=== PATIENT | male | born 1955 | race Caucasian/White ===

== ENCOUNTER 2021-11-08 13:03 | Outpatient (CLI) | payer OTHER, SELFPAY ==
[2021-11-08 11:43] LABS: Cholesterol* 133 mg/dL (90-199); HDL Cholesterol* 59 mg/dL (>=40); LDL Cholesterol Calculated 59 mg/dL (<100); Triglycerides* 75 mg/dL (40-149)
[2021-11-14 09:25] LABS: Albumin* 3.6 g/dL (3.3-5.0); Chloride* 107 mmol/L (96-114); Potassium* 4.8 mmol/L (3.6-5.1); Sodium* 140 mmol/L (135-149)
[2021-11-14 09:28] LABS: Alanine Aminotransferase* 16 U/L (4-50); Alkaline Phosphatase* 83 U/L (40-150); Aspartate Amino Transferase* 27 U/L (12-35); Bilirubin Total* 0.2 mg/dL (0.1-1.5); Blood Urea Nitrogen* 37 mg/dL (7-30); Carbon Dioxide* 23 mmol/L (20-32); Creatinine* 1.3 mg/dL (0.5-1.5); Estimated Glomerular Filt Rate 60 ml/min; Glucose* 127 mg/dL (60-115); Total Protein* 5.9 g/dL (6.0-8.3)
[2021-11-14 09:29] LABS: Calcium* 9.6 mg/dL (8.4-10.6)
== END 2021-11-08 13:04 | disposition home or self-care (01) ==
PROVIDERS: PCP Family Medicine; Visit Provider Family Medicine
DX: E11.9 Type 2 diabetes mellitus without complications (principal); E78.5 Hyperlipidemia, unspecified; I10 Essential (primary) hypertension
CPT/HCPCS: 80053; 80061

== ENCOUNTER 2022-01-30 08:53 | Outpatient (CLI) | payer SELFPAY ==
--- OUTSIDE RECORDS SUMMARY | 2022-01-30 09:02 | XMS_ITS | Encounter Summary ---
:1955 Author Organization [facility] Address [address] [place] [address] Care Team Providers Name Role Phone Unavailable Primary Care Provider Unavailable Reason for Visit Reason Comments Med Refill Encounter Details Date Type Department Care Team Description 10/11/2020 Refill Division of Endocrinology in [place], Med Refill [place], [place] P.A.-C. [address] [facility] [address] [place] [address] [place] [address] [phone] (Wo rk) Social History Tobacco Use Types Packs/Day Years Used Date Smoking Tobacco: Former Cigarettes 0.3 0 05/1979 - 04/02/1985 Smokeless Tobacco: Never Alcohol Use Standard Drinks/Week Comments Yes 2 (1 standard drink = 0.6 oz pure alcoho l) Alcohol Habits Answer Date Recorded How often do you have a drink containing alcohol? 2-4 times a month 09/27/2020 How many drinks containing alcohol do you have on a 1 or 2 09/27/2020 typical day when you are drinking? How often do you have six or more drinks on one Never 09/27/2020 occasion? Social Isolation Answer Date Recorded In a typical week, how many times do you More than three yadi es a week 09/27/2020 talk on the phone with family, friends, or neighbors? How often do you get together with friends Once a week 09/27/2020 or relatives? How often do you attend confucianist or Patient refused 2020 catholic services? Do you belong to any clubs or Yes 09/27/2020 organizations such as confucianist groups, unions, fraternal or athletic groups, or school groups? How often do you attend meetings of the 1 to 4 times per yea r 09/27/2020 clubs or organizations you belong to? Are you now , , , Never 09/27/2020 , never or living with a partner? Physical Activity Answer Date Recorded On average, how many days per week do you engage in moderate to 3 days 09/27/2020 strenuous exercise (like walking fast, running, jogging, dancing, swimming, biking, or other activities that cause a light or heavy sweat)? On average, how many minutes do you engage in exercise at th is 20 min 09/27/2020 level? Stress Answer Date Recorded Do you feel stress - tense, restless, nervous, or Only a lit tle 09/27/2020 anxious, or unable to sleep at night because your mind is troubled all the time - these days? Financial Resource Strain Answer Date Recorded How hard is it for you to pay for the very basics like Not h christopher at all 09/27/2020 food, housing, medical care, and heating? Food Insecurity Answer Date Recorded Within the past 12 months, you worried that your food would Never true 09/27/2020 run out before you got money to buy more. Within the past 12 months, the food you bought just didn't N ever true 09/27/2020 last and you didn't have money to get more. Transportation Needs Answer Date Recorded In the past 12 months, has lack of transportation kept you f rom No 09/27/2020 medical appointments or from getting medications? In the past 12 months, has lack of transportation kept you f rom No 09/27/2020 meetings, work, or getting things needed for daily living? Housing Stability Answer Date Recorded In the last 12 months, was there a time when you were not ab le No 09/27/2020 to pay the mortgage or rent on time? In the last 12 months, how many places have you lived? 1 09/27/2020 In the last 12 months, was there a time when you did not hav e a No 09/27/[address] to [address] or slept in a retirement (including now)? Education Answer Date Recorded What is the highest level of school you have completed or 12 th grade 12/29/2018 the highest degree you have received? Sex Assigned at Date Recorded Not on file documented as of this encounter Miscellaneous Notes Telephone Encounter - Frida Scott R.N. - 10/12/2020 11:16 AM CDT Prescription renewal request did not meet nurse protocol because: patient has not been seen within the past 12 months and request for renewal for which the provider-issued prescription did not authorize refills for one year Protocol utilized: Prescription Renewal Request for Medications: Division of Endocrinology, Diabetes, Metabolism and Nutrition. documented in this encounter Plan of Treatment Not on filedocumented as of this encounter Visit Diagnoses Not on filedocumented in this encounter
--- OUTSIDE RECORDS SUMMARY | 2022-01-30 09:02 | XMS_ITS | Encounter Summary ---
:1955 Author Organization [facility] Address [address] [place] [address] Care Team Providers Name Role Phone Unavailable Primary Care Provider Unavailable Reason for Visit Outpatient (Routine) - Closed Specialty Diagnoses / Procedures Referred By Contact Refer red To Contact Video Medicine Diagnoses Chronic Kidney Disease Stage 1 Glomerular Filtration Rate Greater Than 90 Diabetes Mellitus Type 2 With Diabetic Nephropathy (HCC) Hypertension And Chronic Kidney Disease Stage 2 Walter Willis Jr., [place] D.O. [address] [place] [address] Referral ID Status Reason Start Date Expiration Date Visits Requ ested Visits Authorized [id number] Closed 02/08/2021 02/08/2022 1 1 Encounter Details Date Type Department Care Team Description 03/10/2021 Telemedicine Division of [place] Hyperaldosteron ism ([facility]) (Primary Dx); Nephrology and Walter Wooten Jr., Chronic Kidn ey Disease Stage 1 Glomerular Filtration Rate Greater Than 90; Hypertension in D.O. Diabetes Mellitus Type 2 With Diabetic N ephropathy (HCC); [place], [place] [address] [facility] Hypertension And Chronic Kidney Disease Stage 2; [address] [place], [place] Prolactinoma (HCC) [place] [phone] Social History Tobacco Use Types Packs/Day Years Used Date Smoking Tobacco: Former Cigarettes 0.3 0 /05/1979 - 04/02/1985 Smokeless Tobacco: Never Alcohol Use [...] or relatives? How often do you attend pentecostalism or Patient refused 2020 bahai services? Do you belong to any clubs or Yes 09/27/2020 organizations such as pentecostalism groups, unions, fraternal or athletic groups, or [...] place to sleep or slept in a assisted (including now)? Education Answer Date Recorded What is the highest level of school you have completed or 12 th grade 12/29/2018 the highest degree you have received? 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 - 03/10/2021 1:00 PM CST Subjective Nephrology HTN Phone Visit This visit took place over the phone to the patient by Dr. Walter Willis in [place], [place]. Chief Complaint/Reason for Visit Follow-up regarding hypertension, history of hyperaldosteronism, prolactinoma, and CKD stage 2. History of Present Illness: Miguelangel Gasca is a 65 y.o. male who presents for evaluation of the following concerns: Follow-up regarding the matters above. I usually see him as part of the [place] CKD practice, where he was discovered several years ago to have a prolactinoma, and hyperaldosteronism which had responded initially well to spironolactone, but unfortunately suffered dramatic side effects. Thereafter, we attempted utilization of a plantar known, which was not terribly effective. At our last visit, he was having elevated blood pressures of which we were uncertain of the validity. We had him calibrate his cough, and it turned out, that his cuff was over reading his blood pressure by 20 points. We had increased his amlodipine at her last visit to 7.5 mg daily, and he has not hadorthostatic issues. He is doing very well with his blood pressure with his blood pressures at home now running in the 131-130 5/70 6-78 range. His diabetes is been well controlled, he uses metformin, he has not had hypoglycemic events. He has not used any NSAIDs, he is careful with sodium, and has remained active in his work. He has had no headaches, no change in urine character or quantity, and although he has some irritable bowel type symptomatology otherwise he is doing very well. We discussed getting back together in July of 2021 Current Outpatient Medications: ??? amLODIPine (NORVASC) 2.5 mg tablet, Take 1 tablet (2.5 mg total) by mouth daily., Disp: 90 tablet, Rfl: 3 ??? amLODIPine (NORVASC) 5 mg tablet, Take 1 tablet (5 mg total) by mouth daily., Disp: 90 tablet, Rfl: 3 ??? cabergoline (DOSTINEX) 0.5 mg tablet, Take 1.5 tablets (0.75 mg total) by mouth 2 (two) times a week., Disp: 36 tablet, Rfl: 3 ??? carvediloL (COREG) 12.5 mg tablet, Take 12.5 mg by mouth daily., Disp: , Rfl: ? ? chlorthalidone (HYGROTEN) 25 mg tablet, Take 1 tablet by mouth daily. If SBP > 130, Disp: , Rfl: ??? eplerenone (INSPRA) 25 mg tablet, Take 1 tablet (25 mg total) by mouth daily., Disp: 90 tablet, Rfl: 3 ??? lactobacillus combination no.4 (Probiotic) 3 billion cell capsule, Take 1 capsule by mouth daily., Disp: , Rfl: ??? losartan (COZAAR) 100 mg tablet, Take 1 tablet by mouth daily., Disp: , Rfl: ??? metFORMIN (GLUCOPHAGE) 850 mg tablet, Take 850 mg by mouth 2 (two) times a day with meals., Disp: , Rfl: 11 ??? warfarin (COUMADIN) 4 mg tablet, Take 1 tablet by mouth daily., Disp: , Rfl: 0 Review of Systems REVIEW OF SYSTEMS OBJECTIVE Vitals: 03/10/21 1308 BP: 131/76 Pulse: (!) 57 Assessment/Plan: #1 Hyperaldosteronism (HCC) He seems reasonably well controlled, we will continue with his current regimen, he understands to avoid sodium, NSAIDs, stay well hydrated, and avoid weight gain. #2 Chronic Kidney Disease Stage 2 Glomerular Filtration Rate Greater Than 90 I am satisfied with his renal function which has remained stable over time. #3 Diabetes Mellitus Type 2 With Diabetic Nephropathy (HCC) His glycemic control has traditionally been excellent we will continue with the metformin. We discussed the possibility of the addition of an SG LT 2 inhibitor, for now I believe we can hold off. He will continue on his diabetes diet, avoid weight gain, stay active, and continue with the metformin. #4 Hypertension And Chronic Kidney Disease Stage 2 Please see above discussion #5 Prolactinoma (HCC) He is on cabergoline and doing well with this. 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
--- OUTSIDE RECORDS SUMMARY | 2022-01-30 09:02 | XMS_ITS | Encounter Summary ---
:1955 Author Organization [facility] Address [address] [place] [address] Care Team Providers Name Role Phone Unavailable Primary Care Provider Unavailable Reason for Visit Appointment Request (Routine) - Closed Specialty Diagnoses / Procedures Referred By Contact Refer red To Contact Nephrology and Hypertension Referral ID Status Reason Start Date Expiration Date Visits Requ ested Visits Authorized [id number] Closed 01/20/2021 01/20/2022 1 1 Encounter Details Date Type Department Care Team Description 02/08/2021 External Outreach Division of [place], [place] [facility] Disease Stage 1 Glomerular Filtration Rate Greater Than 90 (Primary Dx); Nephrology and Walter Wooten Jr., Diabetes Evelyn litus Type 2 With Diabetic Nephropathy (HCC); Hypertension in D.O. [facility]; [place], [place] [address] [facility] Prolactinoma (HCC); [address] [place], [place] Hypertension And Chronic Kid lauren Disease Stage 2 [place] [phone] [phone] Social History Tobacco Use Types Packs/Day Years [...] or relatives? How often do you attend yazdanism or Patient refused 2020 temple services? Do you belong to any clubs or Yes 09/27/2020 organizations such as yazdanism groups, unions, fraternal or athletic groups, or [...] place to sleep or slept in a skilled nursing (including now)? Education Answer Date Recorded What is the highest level of school you have completed or 12 th grade 12/29/2018 the highest degree you have received? Sex Assigned at Date Recorded Not on file documented as of this encounter Progress Notes Walter Willis Jr. D.Judd. 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
--- OUTSIDE RECORDS SUMMARY | 2022-01-30 09:02 | XMS_ITS | Encounter Summary ---
:1955 Author Organization [facility] Address [address] [place] [address] Care Team Providers Name Role Phone Unavailable Primary Care Provider Unavailable Encounter Details Date Type Department Care Team Description 02/08/2021 Orders Only Division of Nephrology and Charles Willis Hypertension in [place], ., D.O. [place] [address] [facility] [address] [place] [phone] (Wo rk) Social History Tobacco Use Types [...] or relatives? How often do you attend alevism or Patient refused 2020 hinduism services? Do you belong to any clubs or Yes 09/27/2020 organizations such as alevism groups, unions, fraternal or athletic groups, or [...] place to sleep or slept in a correction (including now)? Education Answer Date Recorded What is the highest level of school you have completed or 12 th grade 12/29/2018 the highest degree you have received? Sex Assigned at Date Recorded Not on file documented as of this encounter Plan of Treatment Not on filedocumented as of this encounter Visit Diagnoses Not on filedocumented in this encounter
--- OUTSIDE RECORDS SUMMARY | 2022-01-30 09:02 | XMS_ITS | Encounter Summary ---
:1955 Author Organization [facility] Address [address] [place] [address] Care Team Providers Name Role Phone Unavailable Primary Care Provider Unavailable Encounter Details Date Type Department Care Team Description 12/28/2020 Orders Only RST [facility] Jumana Gonzales M.D. [address] [place], [place] [phone] (Wo rk) Social History Tobacco Use Types [...] or relatives? How often do you attend scientology or Patient refused 2020 pentecostal services? Do you belong to any clubs or Yes 09/27/2020 organizations such as scientology groups, unions, fraternal or athletic groups, or [...] place to sleep or slept in a usp (including now)? Education Answer Date Recorded What [...]
--- OUTSIDE RECORDS SUMMARY | 2022-01-30 09:02 | XMS_ITS | Encounter Summary ---
:1955 Author Organization [facility] Address [address] [place] [address] Care Team Providers Name Role Phone Unavailable Primary Care Provider Unavailable Reason for Visit Reason Comments Med Refill Encounter Details Date Type Department Care Team Description 05/15/2020 Refill Division of Endocrinology in [place], Med Refill [place], [place] P.A.-C. [address] [facility] [address] [place] [address] [place] [address] [phone] (Wo rk) Social History Tobacco Use Types [...] or relatives? How often do you attend jew or Patient refused 2020 moravian services? Do you belong to any clubs or Yes 09/27/2020 organizations such as jew groups, unions, fraternal or athletic groups, or [...] place to sleep or slept in a alf (including now)? Education Answer Date Recorded What is the highest level of school you have completed or 12 th grade 12/29/2018 the highest degree you have received? Sex Assigned at Date Recorded Not on file documented as of this encounter Miscellaneous Notes Telephone Encounter - Frida Scott R.N. - 05/17/2020 9:15 AM CST Refused per email on 01/23/20 CARRIER documented in this encounter Plan of Treatment Not on filedocumented as of this encounter Visit Diagnoses Not on filedocumented in this encounter
--- OUTSIDE RECORDS SUMMARY | 2022-01-30 09:02 | XMS_ITS | Encounter Summary ---
:1955 Author Organization [facility] Address [address] [place] [address] Care Team Providers Name Role Phone Unavailable Primary Care Provider Unavailable Reason for Referral Outpatient (Routine) - Closed Specialty Diagnoses / Procedures Referred By Contact Refer red To Contact Endocrinology Diagnoses Prolactinoma (HCC) [facility] [address] [place], [place] [address] Referral ID Status Reason Start Date Expiration Date Visits Requ ested Visits Authorized [id number] Closed 12/07/2020 12/07/2021 1 1 Scheduling Instructions Labs in [place] one week before vis it. Reason for Visit Outpatient (Routine) - Closed Specialty Diagnoses / Procedures Referred By Contact Refer red To Contact Endocrinology Diagnoses Prolactinoma (HCC) Hypogonadism Pituitary (HCC) [facility] 200 [place] [address] Referral ID Status Reason Start Date Expiration Date Visits Requ ested Visits Authorized [id number] Closed 01/02/2019 01/02/2020 1 1 Encounter Details Date Type Department Care Team Description 12/07/2020 Office Visit Division of [facility] Prolactinom a (HCC) (Primary Dx); Endocrinology in S, [facility]. Hypogonadism Pituitary (HCC) [place], [place] 200 [facility] 200 [place] [phone] Social History Tobacco Use Types Packs/Day Years [...] or relatives? How often do you attend jewish or Patient refused 2020 jew services? Do you belong to any clubs or Yes 09/27/2020 organizations such as jewish groups, unions, fraternal or athletic groups, or [...] Sign Reading Time Taken Comments Blood Pressure 169/90 12/07/2020 1:37 PM true bp taken CDT Pulse 54 12/07/2020 1:37 PM CDT Temperature - - Respiratory Rate - - Oxygen Saturation - - Inhaled Oxygen Concentration - - Weight 77.7 kg (171 lb 4.8 12/07/2020 1:37 PM oz) CDT Height 173.8 cm (5' 8.43) 12/07/2020 1:37 PM CDT Body Mass Index 25.72 12/07/2020 1:37 PM CDT documented in this encounter Progress Notes [facility] P.A.-C. - 12/07/2020 2:00 PM CDT SUBJECTIVE ENDOCRINOLOGY ESTABLISHED PATIENT VISIT Service Date: 12/07/2020 CHIEF COMPLAINT/REASON FOR VISIT Mr. 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 HISTORY OF PRESENT ILLNESS Mr. Miguelangel Gasca is a pleasant 65 y.o. male who presents for evaluation and follow-up of a prolactinoma, diagnosed in 2014 after he had an MRI of the brain to assess four weeks of ear pain and headache. The MRI revealed a 2.0 x 2.2 x 1.6 cm pituitary mass, without evidence of chiasmatic compression. Prolactin level was 2806 at diagnosis. He was initially started on bromocriptine, but due to side effects he was later switched to cabergoline. As a result of the elevated prolactin, he also was notedto have hypogonadism. He is not on hypogonadism treatment, and levels have normalized. He had a history of an elevated IGF-1 during evaluation, but OGTT for GH was normal. He continues on cabergoline and has not had pituitary surgery due to possibility of recurrence. Today he presents for routine follow-up. -Last MRI: December 2017. No significant change. Stable size, signal, and configuration of previously noted sellar/right cavernous sinus lesion. No plans for further MRIs at this time unless clinically indicated otherwise (e.g. increasing prolactin levels). -Pituitary related medications: Prolactin: Cabergoline 0.5 mg, 1.5 tablets twice weekly on mornings and Sunday night. -Interval History: Mr. Gasca is doing very well. He does not have any specific symptom concerns. Continues to not even think about the tumor. No breast pain or discharge. No compulsive behaviors. No sexual dysfunction or concerns. No peripheral vision loss. He did, surprisingly, have CABG x 4 with only limited chestpain. He recovered very nicely. Review of Systems Pertinent items are noted in HPI. Constitutional: Positive for fatigue. ENT: Positive for difficulty hearing. Musculoskeletal: Positive for arthralgias, back pain, pain or stiffness in the joints and muscle pain/stiffness. The following systems were negative: Skin, Eyes, CV, Respiratory, GI, , Hematologic, Neuro, Psych The following portions of the patient's history were reviewed and updated as appropriate: allergies,current medications, problem list and medical history. OBJECTIVE Vital Signs BP (!) 169/90 (BP Location: Left arm, Patient Position: Sitting, Cuff Size: Regular) Comment: true bp taken Pulse (!) 54 Ht 173.8 cm Wt 77.7 kg BMI 25.72 kg/m?? Physical Exam Constitutional Appearance: Normal appearance. HENT Head: Normocephalic and atraumatic. Eyes Extraocular Movements: Extraocular movements intact. Pupils: Pupils are equal, round, and reactive to light. Comments: Visual prakash full to confrontation Cardiovascular Rate and Rhythm: Normal rate and regular rhythm. Heart sounds: No murmur heard. No friction rub. No gallop. Pulmonary Effort: Pulmonary effort is normal. Breath sounds: Normal breath sounds. No wheezing, rhonchi or rales. Musculoskeletal Cervical back: Normal range of motion and neck supple. Neurological Mental Status: He is alert and oriented to person, place, and time. Comments: Lower extremity strength normal Psychiatric Mood and Affect: Mood normal. Behavior: Behavior normal. Labs Results for orders placed or performed during the hospital encounter of 09/21/20 Cortisol Result Value Ref Range Cortisol AM Result 9.9 4.8 - 20 mcg/dL T4 (Thyroxine), Free Result Value Ref Range T4 (Thyroxine), Free, P 1.1 0.9 - 1.7 ng/dL Prolactin, Pituitary Macroadenoma Result Value Ref Range Prolactin Total 27.6 (H) 4.0 - 15.2 ng/mL Comment SEE COMMENT Insulin-Like Growth Factor 1 Result Value Ref Range IGF-1, LC/MS, S 148 32 - 209 ng/mL Z-score 1.04 -2.0 - 2.0 SD Testosterone, Total and Bioavailable Result Value Ref Range Testosterone, Bioavailable, S 85 40 - 168 ng/dL Testosterone, Total by Mass Spectrometry, Serum 403 240 - 950 ng/dL Pending labs include: None ASSESSMENT / PLAN Mr. Gasca and I reviewed pertinent labs together. We have agreed on a plan as follows: #1 Prolactinoma (HCC) #2 Hypogonadism Pituitary (HCC); resolved Overall Mr. Gasca is doing very well. We discussed the options of no changes, trying to suppress prolactin further, or consideration of pituitary surgery. We discussed that we can suppress prolactin further with medications, but there is no symptom benefit at this point since he feels well. Surgery is an option given that he has a macroadenoma, but he may not be cured due to proximity to the carotid artery, there is risk of recurrence, and risk of pituitary dysfunction (although that risk is generally low). We agreed after discussion to continue on his current cabergoline dose as he is doing well. No need for further MRIs as long as prolactin levels remain stable. Will not consider tapering cabergoline due to residual adenoma on MRI in 2018 at this time. Continue yearly visits, with labs (prolactin and testosterone only moving forward) in [place] one week before appointment. If at any time he has symptom concerns, he can contact me and we are happy to reassess sooner. Follow-up plan: One year with labs and return visit, sooner as needed. Mr. Gasca was in agreement with the above plan and did not have any additional questions at the end of the visit. documented in this encounter Plan of Treatment Scheduled Orders Name Type Priority Associated Diagnoses Order S chedule Testosterone, Total and Lab Routine Prolactinoma (HCC ) Expected: 11/30/2021 Free (Approximate), Expires: 12/08/2023 Prolactin Lab Routine Prolactinoma (HCC) Expected: 11/30/2021 (Approximate), Expires: 12/08/2023 Scheduled Referrals Name Type Priority Associated Diagnoses Order S chedule Endocrinology office Outpatient Routine Prolactinoma (HCC) E xpected: visit (clinic) Referral 12/07/2021 (Approximate), Expires: 12/08/2023 documented as of this encounter Visit Diagnoses Diagnosis Prolactinoma (HCC) - Primary Hypogonadism Pituitary (HCC) documented in this encounter
--- OUTSIDE RECORDS SUMMARY | 2022-01-30 09:02 | XMS_ITS | Encounter Summary ---
:1955 Author Organization [facility] Address [address] [place] [address] Care Team Providers Name Role Phone Unavailable Primary Care Provider Unavailable Reason for Visit Reason Comments Med Refill Encounter Details Date Type Department Care Team Description 07/30/2021 Refill Division of Nephrology and Lazaro, Charles Wooten Jr., Med Refill Hypertension in [facility] 200 [facility] 200 [place] [address] [place] [address] [phone] Social History Tobacco Use Types Packs/Day Years [...] or relatives? How often do you attend lutheran or Patient refused 2020 presybeterian services? Do you belong to any clubs or Yes 09/27/2020 organizations such as lutheran groups, unions, fraternal or athletic groups, or [...] for the very basics like Not h chrsitopher at all 09/27/2020 food, housing, medical care, [...] place to sleep or slept in a fpc (including now)? Education Answer Date Recorded What [...]
--- OUTSIDE RECORDS SUMMARY | 2022-01-30 09:02 | XMS_ITS | Encounter Summary ---
:1955 Author Organization [facility] Address [address] [place] [address] Care Team Providers Name Role Phone Unavailable Primary Care Provider Unavailable Encounter Details Date Type Department Care Team Description 09/21/2020 Hospital Encounter Department of [facility] Prol actinoma (HCC); Laboratory Medicine [facility], P.A.-C. Hypogonadism Pituitary (HCC) in [place] [phone] [facility] [phone] [place], [place] (Work) [phone] Social History Tobacco Use Types Packs/Day Years [...] or relatives? How often do you attend mormonism or Patient refused 2020 quaker services? Do you belong to any clubs or Yes 09/27/2020 organizations such as mormonism groups, unions, fraternal or athletic groups, or [...] place to sleep or slept in a jail (including now)? Education Answer Date Recorded What is the highest level of school you have completed or 12 th grade 12/29/2018 the highest degree you have received? Sex Assigned at Date Recorded Not on file documented as of this encounter Medications at Time of Discharge Medication Sig Dispensed Refills Start Date End Date carvediloL (COREG) 12.5 mg Take 12.5 mg by 0 07/01 tablet mouth daily. chlorthalidone (HYGROTEN) Take 1 tablet by 0 02/01 25 mg tablet mouth daily. If SBP > 130 lactobacillus combination Take 1 capsule by 0 no.4 (Probiotic) 3 billion mouth daily. cell capsule losartan (COZAAR) 100 mg Take 1 tablet by 0 01/27 tablet mouth daily. metFORMIN (GLUCOPHAGE) 850 Take 850 mg by 12/20 mg tablet mouth 2 (two) times a day with meals. warfarin (COUMADIN) 4 mg Take 1 tablet by 0 12/25 tablet mouth daily. cabergoline (DOSTINEX) 0.5 TAKE 1.5 TABLETS BY 36 tablet 1 01/23/2020 10/12/2020 mg tablet MOUTH DIRECTED TWICE A WEEK eplerenone (INSPRA) 25 mg Take 1 tablet (25 90 tablet 3 05/202008/03/2021 tablet mg total) by mouth daily. glimepiride (AMARYL) 1 mg Take 1 mg by mouth 11 12/03/2020 tablet daily. simvastatin (ZOCOR) 40 mg Take 1 tablet by 0 01/0112/03/2020 tablet mouth at bedtime. documented as of this encounter Plan of Treatment Not on filedocumented as of this encounter Procedures Procedure Name Priority Date/Time Associated Diagnosis Comme nts TESTOSTERONE, TOT AND Routine 09/21/2020 9:58 AM Prolact inoma ([facility]) Results for this BIOAVAILABLE, S CDT Hypogonadism procedure ar e in Pituitary ([facility]) the results section. INSULIN-LIKE GROWTH Routine 09/21/2020 9:58 AM Prolactinoma (H [facility]) Results for this FACTOR 1, S CDT procedure are i n the results section. CORTISOL, S Routine 09/21/2020 9:58 AM Prolactinoma (HCC) Res ults for this CDT procedure are i n the results section. PRL, MACROADENOMA Routine 09/21/2020 9:57 AM Prolactinoma (HCC ) Results for this CDT procedure are i n the results section. T4 (THYROXINE), FREE, Routine 09/21/2020 9:57 AM Prolactinoma (HCC) Results for this S CDT procedure are i n the results section. documented in this encounter Results Testosterone, Total and Bioavailable (09/21/2020 9:58 AM CDT) athologist Signature Testosterone, 85 40 - 168 09/23/2020 [facility] Bioavailable, S ng/dL 4:26 PM CDT Comment: ----ADDITIONAL INFORMATION---- Testing performed by Differential Precip itation. This test was developed and its performa nce characteristics determined by [facility] in a manner consistent with CLIA requirements. This test has not been cleared or approved by the [place] N[place] d and Drug Administration. Testosterone, Total by Mass 403 240 - 950 ng/dL 2020 11:26 AM CDT [facility] Spectrometry, Serum Comment: ----ADDITIONAL INFORMATION---- Testing performed by Liquid Chromatograp hy-Tandem Mass Spectrometry (LC-MS/MS). This test was developed and its performa nce characteristics determined by [facility] in a manner consistent with CLIA requirements. This test has not been cleared or approved by the U.[place]. Nani d and Drug Administration. Specimen Anatomical Collection Method Collection Time Receive d Time (Source) Location / / Volume Laterality Blood (Blood, 09/21/2020 9:58 AM 09/23/19 21 6:22 Venous) CDT AM CDT [facility] P.A.-C. LAB BLOOD NON ADD-ON Performing Organization Address City/State/ZIP Code Phon e Number [facility] [address] [place] [address] [place] [address] [place] [address] Laboratory Medicine and Pathology [address] [place] Insulin-Like Growth Factor 1 (09/21/2020 9:58 AM CDT) athologist Signature IGF-1, LC/MS, S 148 32 - 209 09/23/2020 [facility] ng/mL 10:42 AM CDT Z-score 1.04 -2.0 - 2.0 09/23/2020 [facility] SD 10:42 AM CDT Comment: ----ADDITIONAL INFORMATION---- This test was developed and its performa nce characteristics determined by [facility] in a manner consistent with CLIA requirements. This test has not been cleared or approved by the U.[place]. Nani d and Drug Administration. Specimen Anatomical Collection Method Collection Time Receive d Time (Source) Location / / Volume Laterality Blood (Blood, 09/21/2020 9:58 AM 09/23/19 7:50 Venous) CDT AM CDT [facility] P.A[facility] LAB BLOOD NON ADD-ON Performing Organization Address City/[facility] Code Phon e Number [facility] [address] [place], [place] [address] [place], [place] [address]t. [place] [address] Laboratory Medicine and Pathology [address] [place] Cortisol (09/21/2020 9:58 AM CDT) P athologist Signature Cortisol AM 9.9 4.8 - 20 09/21/2020 [facility] Result mcg/dL 3:38 PM CDT Comment: Biotin has been identified by the nichole avitia as a potential interfering substance. ??Higher concentr ations of biotin may be found in multivitamins, hair/nail supple ments, and workout supplements. ??If the result does not ma h clinical observations, repeat testing after patient refrains fr om the use of supplements for at least 12 hours. Specimen Anatomical Collection Method Collection Time Receive d Time (Source) Location / / Volume Laterality Blood (Blood, 09/21/2020 9:58 AM 09/22/19 2:56 Venous) CDT PM CDT [facility] P.A[facility]C. LAB BLOOD ADD-ON Performing Organization Address City/[facility] Phon e Number [facility]- [address] [place] [address] 50 [phone] [facility] [address] [place] [address] System in [address] (ABNORMAL) Prolactin, Pituitary Macroadenoma (09/21/2020 9:57 AM CDT) Patholo gist Method Time Signature Prolactin 27.6 (H) 4.0 - 09/22/2020 DTL Total 15.2 9:30 AM CDT ng/mL Comment SEE COMMENT 09/22/2020 DTL 9:30 AM CDT Comment: 10,100,and 400-fold dilutions produced r esults consistent with the absence of high-dose hook effec ts. ----ADDITIONAL INFORMATION---- The testing method is an electrochemilum inescence assay manufactured by [employer] and performed on the Esteban system. Values obtained with different assay met hods or kits may be different and cannot be used inte rchangeably. Test results cannot be interpreted as ab solute evidence for the presence or absence of malignant disease. Specimen Anatomical Collection Method Collection Time Receive d Time (Source) Location / / Volume Laterality Blood (Blood, 09/21/2020 9:57 AM 09/23/19 7:23 Venous) CDT AM CDT [facility] P.A.-C. LAB BLOOD ADD-ON Performing Organization Address City/State/ZIP Code Phon e Number [facility] - [address] [place], [place] [address] [facility] [place] [address] [facility] [address] T4 (Thyroxine), Free (09/21/2020 9:57 AM CDT) athologist Signature T4 (Thyroxine), 1.1 0.9 - 1.7 09/21/2020 [facility] Free, P ng/dL 1:46 PM CDT Comment: Biotin has been identified by the nichole avitia as a potential interfering substance. ??Higher concentr ations of biotin may be found in multivitamins, hair/nail supple ments, and workout supplements. ??If the result does not ma [facility] clinical observations, repeat testing after patient refrains fr om the use of supplements for at least 12 hours. Specimen Anatomical Collection Method Collection Time Receive d Time (Source) Location / / Volume Laterality Blood (Blood, 09/21/2020 9:57 AM 09/22/19 1:10 Venous) CDT PM CDT [facility] P.A.-C. LAB BLOOD ADD-ON Performing Organization Address City/State/ZIP Code Phon e Number [facility]- [address] [place], [place] [address] [place] [address] System in [place] [address] documented in this encounter Visit Diagnoses Diagnosis Prolactinoma (HCC) Hypogonadism Pituitary (HCC) documented in this encounter
--- OUTSIDE RECORDS SUMMARY | 2022-01-30 09:02 | XMS_ITS | Encounter Summary ---
:1955 Author Organization [facility] Address [address] [place] [address] Care Team Providers Name Role Phone Unavailable Primary Care Provider Unavailable Reason for Referral Outpatient (Routine) - Closed Specialty Diagnoses / Procedures Referred By Contact Refer red To Contact Video Medicine Diagnoses Chronic Kidney Disease Stage 1 Glomerular Filtration Rate Greater Than 90 Diabetes Mellitus Type 2 With Diabetic Nephropathy (HCC) Hypertension And Chronic Kidney Disease Stage 2 Mass Kidney [facility] Jr[facility] D[facility] 200 [place] [address] Referral ID Status Reason Start Date Expiration Date Visits Requ ested Visits Authorized [id number] Closed 08/02/2020 08/02/2021 1 1 Scheduling Instructions 2 pm ok on hsoptital Encounter Details Date Type Department Care Team Description 08/02/2020 Orders Only Division of Nephrology Walter Willis Kidney Disease Stage 1 Glomerular Filtration Rate Greater Than 90 (Primary Dx); and Hypertension in [place] DIsauroOIsauro Diabetes Mellitus Type 2 With Diabetic N ephropathy (HCC); [place], [place] [address] [facility] Hypertension And Chronic Kidney Disease Stage 2; 200 [facility] [place] [address] [phone] Social History Tobacco Use Types Packs/Day Years [...] or relatives? How often do you attend latter day or Patient refused 2020 church services? Do you belong to any clubs or Yes 09/27/2020 organizations such as latter day groups, unions, fraternal or athletic groups, or [...] place to sleep or slept in a intermediate (including now)? Education Answer Date Recorded What is the highest level of school you have completed or 12 th grade 12/29/2018 the highest degree you have received? Sex Assigned at Date Recorded Not on file documented as of this encounter Plan of Treatment Scheduled Referrals Name Type Priority Associated Diagnoses Order S chedule Video anyplace Outpatient Referral Routine Chronic Kidney Expe cted: visit Disease Stage 1 09/09/2020 Glomerular Filtration (Appro ximate), Rate Greater Best n 90 Expires: Diabetes Mellitus 08/03/2023 Type 2 With Diabetic Nephropathy (HCC ) Hypertension And Chronic Kidney Disease Stage 2 Mass Kidney documented as of this encounter Visit Diagnoses Diagnosis Chronic Kidney Disease Stage 1 Glomerula r Filtration Rate Greater Than 90 - Primary Diabetes Mellitus Type 2 With Diabetic N ephropathy (HCC) Hypertension And Chronic Kidney Disease Stage 2 Mass Kidney documented in this encounter
--- OUTSIDE RECORDS SUMMARY | 2022-01-30 09:02 | XMS_ITS | Encounter Summary ---
:1955 Author Organization [facility] Address [address] [place] [address] Care Team Providers Name Role Phone Unavailable Primary Care Provider Unavailable Reason for Visit Reason Comments Med Refill Encounter Details Date Type Department Care Team Description 01/23/2020 Refill Division of [place]ocrinology in [place], Med Refill [place], [place] P.A.-C. [address] [facility] [address] [place] [address] [place] [address] [phone] (Wo rk) Social History Tobacco Use Types [...] or relatives? How often do you attend voodoo or Patient refused 2020 presybeterian services? Do you belong to any clubs or Yes 09/27/2020 organizations such as voodoo groups, unions, fraternal or athletic groups, or [...] place to sleep or slept in a [facility] (including now)? Education Answer Date Recorded What is the highest level of school you have completed or 12 th grade 12/29/2018 the highest degree you have received? Sex Assigned at Date Recorded Not on file documented as of this encounter Miscellaneous Notes Telephone Encounter - Frida Scott R.N. - 01/23/2020 10:49 AM CDT Prescription renewal request did not meet nurse protocol because: needs 1 year follow up. Protocol utilized: Prescription Renewal Request for Medications: Division of Endocrinology, Diabetes, Metabolism and Nutrition. documented in this encounter Plan of Treatment Not on filedocumented as of this encounter Visit Diagnoses Not on filedocumented in this encounter
--- OUTSIDE RECORDS SUMMARY | 2022-01-30 09:02 | XMS_ITS | Encounter Summary ---
:1955 Author Organization [facility] Address [address] [place] [address] Care Team Providers Name Role Phone Unavailable Primary Care Provider Unavailable Reason for Visit Appointment Request (Routine) - Closed Specialty Diagnoses / Procedures Referred By Contact Refer red To Contact Nephrology and Hypertension Referral ID Status Reason Start Date Expiration Date Visits Requ ested Visits Authorized [id number] Closed 01/08/2020 01/07/2021 1 1 Encounter Details Date Type Department Care Team Description 01/21/2020 External Outreach Division of Lazaro, Umu Ki dney Disease Stage 1 Glomerular Filtration Rate Greater Than 90 (Primary Dx); Nephrology and Walter Wooten Jr., Hypertension And Chronic Kidney Disease Stage 1 To 4; Hypertension in D.O. Hypogonadism Pituitary (HCC); [place], [place] [address] [facility] Kidney [address] [place] [address] [phone] Social History Tobacco Use Types Packs/Day Years [...] or relatives? How often do you attend hindu or Patient refused 2020 samaritan services? Do you belong to any clubs or Yes 09/27/2020 organizations such as hindu groups, unions, fraternal or athletic groups, or [...] place to sleep or slept in a snf (including now)? Education Answer Date Recorded What is the highest level of school you have completed or 12 th grade 12/29/2018 the highest degree you have received? Sex Assigned at Date Recorded Not on file documented as of this encounter Progress Notes Walter Willis Jr. D.O. - 01/21/2020 1:00 PM CDT Please see scanned in note under document viewer tab for the [facility] outreach visit from this date. documented in this encounter Plan of Treatment Not on filedocumented as of this encounter Visit Diagnoses Diagnosis Chronic Kidney Disease Stage 1 Glomerula r Filtration Rate Greater Than 90 - Primary Hypertension And Chronic Kidney Disease Stage 1 To 4 Hypogonadism Pituitary (HCC) Mass Kidney documented in this encounter
--- OUTSIDE RECORDS SUMMARY | 2022-01-30 09:02 | XMS_ITS | Encounter Summary ---
:1955 Author Organization [facility] Address [address] [place] [address] Care Team Providers Name Role Phone Unavailable Primary Care Provider Unavailable Reason for Visit Appointment Request (Routine) - Closed Specialty Diagnoses / Procedures Referred By Contact Refer red To Contact Nephrology and Hypertension Referral ID Status Reason Start Date Expiration Date Visits Requ ested Visits Authorized [id number] Closed 04/22/2021 04/22/2022 1 Encounter Details Date Type Department Care Team Description 05/09/2021 External Division of Lazaro, Chronic Kidney Disease Stage 2 Glomerular Filtration Rate 60 To 89 (Primary Dx); Outreach Nephrology and Walter Wooten Jr., Diabetes Evelyn litus Type 2 With Diabetic Nephropathy (HCC); Hypertension in D.O. Mass Kidney; [place], [place] [address] [facility] Hyperaldosteronism (HCC) [address] [place] [phone] [phone] Social History Tobacco Use Types Packs/Day Years [...] or relatives? How often do you attend orthodox or Patient refused 2020 caodaism services? Do you belong to any clubs or Yes 09/27/2020 organizations such as orthodox groups, unions, fraternal or athletic groups, or [...] place to sleep or slept in a care home (including now)? Education Answer Date Recorded What is the highest level of school you have completed or 12 th grade 12/29/2018 the highest degree you have received? Sex Assigned at Date Recorded Not on file documented as of this encounter Progress Notes Walter Willis Jr. D.Maximiliano - 05/09/2021 4:00 PM CST Please see scanned in note under document viewer tab for the [facility] [place] outreach visit from this date. 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
--- OUTSIDE RECORDS SUMMARY | 2022-01-30 09:02 | XMS_ITS | Encounter Summary ---
:1955 Author Organization [facility] Address [address] [place] [address] Care Team Providers Name Role Phone Unavailable Primary Care Provider Unavailable Reason for Visit Reason Comments Pre-visit Intake Encounter Details Date Type Department Care Team Description 12/03/2020 Clinical Communication Visit Review in Pr e-visit Intake [place], [place] [address] [place] [address] Social History Tobacco Use Types Packs/Day Years [...] or relatives? How often do you attend baptist or Patient refused 2020 jewish services? Do you belong to any clubs or Yes 09/27/2020 organizations such as baptist groups, unions, fraternal or athletic groups, or [...] place to sleep or slept in a chcf (including now)? Education Answer Date Recorded What [...]
--- OUTSIDE RECORDS SUMMARY | 2022-01-30 09:02 | XMS_ITS | Encounter Summary ---
:1955 Author Organization [facility] Address [address] [place] [address] Care Team Providers Name Role Phone Unavailable Primary Care Provider Unavailable Reason for Referral Outpatient (Routine) - Closed Specialty Diagnoses / Procedures Referred By Contact Refer red To Contact Video Medicine Diagnoses Chronic Kidney Disease Stage 1 Glomerular Filtration Rate Greater Than 90 Diabetes Mellitus Type 2 With Diabetic Nephropathy (HCC) Hypertension And Chronic Kidney Disease Stage 2 [facility] Osvaldo D.OIsauro [address] [place] [address] Referral ID Status Reason Start Date Expiration Date Visits Requ ested Visits Authorized [id number] Closed 02/08/2021 02/08/2022 1 1 Scheduling Instructions 1 pm ok on hosp 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 Diabetes Mellitus Type 2 With Diabetic N ephropathy (HCC); [place], [place] [address] [facility] Hypertension And Chronic Kidney Disease Stage 2 [address] [place] [phone] Social History Tobacco Use Types Packs/Day Years [...] or relatives? How often do you attend presybeterian or Patient refused 2020 orthodox services? Do you belong to any clubs or Yes 09/27/2020 organizations such as presybeterian groups, unions, fraternal or athletic groups, or [...] place to sleep or slept in a longterm (including now)? Education Answer Date Recorded What [...] Kidney Expe cted: visit Disease Stage 1 03/10/2021, Glomerular Filtration s: Rate Greater Best n 90 02/09/2024 Diabetes Mellitus Type 2 With Diabetic Nephropathy (HCC ) Hypertension And Chronic Kidney Disease Stage 2 documented as of this encounter Visit Diagnoses Diagnosis Chronic Kidney Disease Stage 1 Glomerula r Filtration Rate Greater Than 90 - Primary Diabetes Mellitus Type 2 With Diabetic N ephropathy (HCC) Hypertension And Chronic Kidney Disease Stage 2 documented in this encounter
--- OUTSIDE RECORDS SUMMARY | 2022-01-30 09:02 | XMS_ITS | Encounter Summary ---
:1955 Author Organization [facility] Address [address] [place] [address] Care Team Providers Name Role Phone Unavailable Primary Care Provider Unavailable Reason for Referral Outpatient (Routine) - Closed Specialty Diagnoses / Procedures Referred By Contact Refer red To Contact Endocrinology Diagnoses Prolactinoma (HCC) Hypogonadism Pituitary (HCC) [facility] [address] [place] [address] Referral ID Status Reason Start Date Expiration Date Visits Requ ested Visits Authorized [id number] Closed 01/02/2019 01/02/2020 1 1 Scheduling Instructions Labs in [place] 1-2 weeks prior to our visit. Reason for Visit Outpatient (Routine) - Closed Specialty Diagnoses / Procedures Referred By Contact Refer red To Contact Endocrinology Homero Bernardo M.B. B.S. [facility] [address] [place], [place] [address] Referral ID Status Reason Start Date Expiration Date Visits Requ ested Visits Authorized [id number] Closed 12/24/2017 12/24/2018 1 1 Encounter Details Date Type Department Care Team Description 01/02/2019 Office Visit Division of Tg Mandujano Prolactinom a (HCC) (Primary Dx); Endocrinology in S, P.A.-C. Hypogonadism Pituitary (HCC) [place], [place] [address] [place] [address] [place] [phone] [phone] Social History Tobacco Use Types Packs/Day Years [...] or relatives? How often do you attend faith or Patient refused 2020 pentecostalism services? Do you belong to any clubs or Yes 09/27/2020 organizations such as faith groups, unions, fraternal or athletic groups, or [...] minutes do you engage in exercise at is 20 min 09/27/2020 level? Stress Answer [...] place to sleep or slept in a fdc (including now)? Education Answer Date Recorded What is the highest level of school you have completed or 12 th grade 12/29/2018 the highest degree you have received? Sex Assigned at Date Recorded Not on file documented as of this encounter Last Filed Vital Signs Vital Sign Reading Time Taken Comments Blood Pressure 137/81 01/02/2019 9:58 AM Average of 6 readings CDT Pulse 57 01/02/2019 9:58 AM Average of 6 readings CDT Temperature - - Respiratory Rate - - Oxygen Saturation - - Inhaled Oxygen - - Concentration Weight 92.9 kg (204 lb 12.9 01/02/2019 9:58 AM oz) CDT Height 172.2 cm (5' 7.8) 01/02/2019 9:58 AM CDT Body Mass Index 31.33 01/02/2019 9:58 AM CDT documented in this encounter H&P Notes Tg Mandujano P.A.-C. - 01/02/2019 10:00 AM CDT SUBJECTIVE ENDOCRINOLOGY ESTABLISHED PATIENT VISIT Service Date: 01/02/2019 CHIEF COMPLAINT/REASON FOR VISIT Mr. 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 HISTORY OF PRESENT ILLNESS Mr. Miguelangel Gasca is a pleasant 63 y.o. male who presents for evaluation and [...] have hypogonadism. He is not on hypogonadism treatment. He had a history of an elevated [...] does not have any specific symptom concerns. He states that he doesn't even think about the tumor. No breast pain or discharge. Had nausea upon initiating therapy, but that has resolved. He does have fatigue, but also works 14-16 hour days so he feels he has a reason for the fatigue. No compulsive behaviors. No concern for mitral valve issues. Occasional shortnessof breath with exertion, but resolves in 10 seconds. He is very active at work and no significant muscle loss. No sexual dysfunction or concerns. No peripheral vision loss. Review of Systems Pertinent items are noted [...] and medical history. OBJECTIVE Vital Signs BP 137/81 (BP Location: Left arm, Patient Position: Sitting, Cuff Size: Large) Comment: Average of 6readings Pulse (!) 57 Comment: Average of 6 readings Ht 172.2 cm Wt 92.9 kg BMI 31.33 kg/m?? Physical Exam Constitutional General: He is not in acute distress. Appearance: He is well-developed. Comments: No features of acromegaly. HENT Head: Normocephalic and atraumatic. Eyes Extraocular Movements: Extraocular movements intact. Conjunctiva/sclera: Conjunctivae normal. Comments: Visual prakash are full to confrontation. Neck Musculoskeletal: Normal range of motion and neck supple. Thyroid: No thyromegaly. Cardiovascular Rate and Rhythm: Normal rate and regular rhythm. Heart sounds: Normal heart sounds. No murmur. No friction rub. No gallop. Pulmonary Effort: Pulmonary effort is normal. Breath sounds: Normal breath sounds. Musculoskeletal Normal range of motion. Neurological Mental Status: He is alert and oriented to person, place, and time. Mental status is at baseline. Psychiatric Mood and Affect: Mood normal. Behavior: Behavior normal. Labs Results for orders placed or performed during the hospital encounter of 12/24/18 Prolactin, Pituitary Macroadenoma Result Value Ref Range Prolactin Total 29.8 (H) 4.0 - 15.2 ng/mL Comment SEE COMMENT T4 (Thyroxine), Free Result Value Ref Range T4 (Thyroxine), Free, S 1.0 0.9 - 1.7 ng/dL Testosterone, Total and Bioavailable Result Value Ref Range Testosterone, Bioavailable, S 69 40 - 168 ng/dL Testosterone, Total by Mass Spectrometry, Serum 277 240 - 950 ng/dL Pending labs include: None ASSESSMENT / PLAN Mr. Gasca and I reviewed pertinent labs together. We have agreed on a plan as follows: #1 Prolactinoma (HCC) #2 Hypogonadism Pituitary (HCC) Overall Mr. aGsca is doing very well. We discussed the [...] cabergoline dose as he is doing well. I agree there is no need for further MRIs as long as prolactin levels remain stable. Likely will notconsider tapering cabergoline due to residual adenoma on MRI in 2018. I would like to touch base with him yearly and obtain labs to ensure that we do not lose control of the prolactinoma. He agrees. He will have labs done in [place] a week or so prior to our appointment so that we may have all of the results. If at any time he has symptom concerns, he can contactme and we are happy to reassess sooner. Follow-up plan: One year with labs and return visit, sooner as needed. Mr. Gasca was in agreement with the above plan and did not have any additional questions at the end of the visit. I spent over half of a total of 20 minutes face to face with the patient in counseling and discussion and/or coordination of care as described above. documented in this encounter Plan of Treatment Scheduled Referrals Name Type Priority Associated Diagnoses Order S [facility] Endocrinology office Outpatient Routine Prolactinom a ([facility]) Expected: visit (clinic) Referral Hypogonadism 01/03/2020 Pituitary ([facility]) (Approximate ), Expires: 12/20/2021 documented as of this encounter Results Testosterone, Total and Bioavailable (09/21/2020 9:58 AM CDT) athologist Signature Testosterone, 85 40 - 168 09/23/2020 [facility] Bioavailable, S ng/dL 4:26 PM CDT Comment: ----ADDITIONAL INFORMATION---- Testing performed by Differential Precip itation. This test was developed and its performa nce characteristics determined by [facility] in a manner consistent with CLIA requirements. This test has not been cleared or approved by the U.[place] N[place] d and Drug Administration. Testosterone, Total by Mass 403 240 - 950 ng/dL 2020 11:26 AM CDT [facility] Spectrometry, Serum Comment: ----ADDITIONAL INFORMATION---- Testing performed by Liquid Chromatograp hy-Tandem Mass Spectrometry (LC-MS/MS). This test was developed and its performa nce characteristics determined by [facility] in a manner consistent with CLIA requirements. This test has not been cleared or approved by the U.S. Nani d and Drug Administration. Specimen Anatomical Collection Method Collection Time Receive d Time (Source) Location / / Volume Laterality Blood (Blood, 09/21/2020 9:58 AM 09/23/19 6:22 Venous) CDT AM CDT Tg SilveiraCIsauro LAB BLOOD NON ADD-ON Performing Organization Address City/[facility] Phon e Number [facility] [address] [place] [phone] [address] [facility] [facility] [place] [address] Laboratory Medicine and Pathology [address] [place] [address] Dr. AHRRIS Insulin-Like Growth Factor 1 (09/21/2020 9:58 AM CDT) athologist Signature IGF-1, LC/MS, S 148 32 - 209 09/23/2020 [facility] ng/mL 10:42 AM CDT Z-score 1.04 -2.0 - 2.0 09/23/2020 [facility] SD 10:42 AM CDT Comment: ----ADDITIONAL INFORMATION---- This test was developed and its performa nce characteristics determined by [facility] in a manner consistent with CLIA requirements. This test has not been cleared or approved by the U.S. Nani d and Drug Administration. Specimen Anatomical Collection Method Collection Time Receive d Time (Source) Location / / Volume Laterality Blood (Blood, 09/21/2020 9:58 AM 09/23/19 21 7:50 Venous) CDT AM CDT Tg SilveiraCIsauro LAB BLOOD NON ADD-ON Performing Organization Address City/[facility] Phon e Number [facility] [address] [place], [place] [address] [facility] [place] [address] Laboratory Medicine and Pathology [address] [place] [address] Dr. [place] Cortisol (09/21/2020 9:58 AM CDT) P athologist Signature Cortisol AM 9.9 4.8 - 20 09/21/2020 ECL[facility] Result mcg/dL 3:38 PM CDT Comment: Biotin has been identified by the nichole avitia as a potential interfering substance. ??Higher concentr ations of biotin may be found in multivitamins, hair/nail supple ments, and workout supplements. ??If the result does not [facility] clinical observations, repeat testing after patient refrains fr om the use of supplements for at least 12 hours. Specimen Anatomical Collection Method Collection Time Receive d Time (Source) Location / / Volume Laterality Blood (Blood, 09/21/2020 9:58 AM 09/22/19 2:56 Venous) CDT PM CDT Tg Mandujano P.A.-C. LAB BLOOD ADD-ON Performing Organization Address City/[facility]/ZIP Code Phon e Number [facility]- [address] [place] [phone] [facility] [place] [address] [address] (ABNORMAL) Prolactin, Pituitary Macroadenoma (09/21/2020 9:57 AM CDT) [facility] Method Time Signature Prolactin 27.6 (H) 4.0 - 09/22/2020 DTL Total 15.2 9:30 AM CDT ng/mL Comment SEE COMMENT 09/22/2020 DTL 9:30 AM CDT Comment: 10,100,and 400-fold dilutions produced r esults consistent with the absence of high-dose hook effec ts. ----ADDITIONAL INFORMATION---- The testing method is an electrochemilum inescence assay manufactured by [employer] and performed on the Esteban [...] 09/23/19 7:23 Venous) CDT AM CDT Tg SilveiraCIsauro LAB BLOOD ADD-ON Performing Organization Address City/State/ZIP Code Phon e Number [facility] - [address] [place], [place] [address] [facility] [place] [address] Laboratories-[facility] [address] [facility] T4 (Thyroxine), Free (09/21/2020 9:57 AM CDT) P athologist Signature T4 (Thyroxine), 1.1 0.9 - 1.7 09/21/2020 [facility] Free, P ng/dL 1:46 PM CDT Comment: Biotin has been identified by the nichole avitia as a potential interfering substance. ??Higher concentr ations of biotin may be found in multivitamins, hair/nail supple ments, and workout supplements. ??If the result does not [facility] clinical observations, repeat testing after patient refrains fr om the use of supplements for at least 12 hours. Specimen Anatomical Collection Method Collection Time Receive d Time (Source) Location / / Volume Laterality Blood (Blood, 09/21/2020 9:57 AM 09/22/19 1:10 Venous) CDT PM CDT Tg Mandujano P.A.-C. LAB BLOOD ADD-ON Performing Organization Address City/State/ZIP Code Phon e Number [facility]- [address] [place], [place] [address] [place] [address] System in [place] [address] documented in this encounter Visit Diagnoses Diagnosis Prolactinoma (HCC) - Primary Hypogonadism Pituitary (HCC) documented in this encounter
--- OUTSIDE RECORDS SUMMARY | 2022-01-30 09:02 | XMS_ITS | Encounter Summary ---
:1955 Author Organization [facility] Address [address] [place] [address] Care Team Providers Name Role Phone Unavailable Primary Care Provider Unavailable Reason for Visit Appointment Request (Routine) - Closed Specialty Diagnoses / Procedures Referred By Contact Refer red To Contact Nephrology and Hypertension Referral ID Status Reason Start Date Expiration Date Visits Requ ested Visits Authorized [id number] Closed 07/09/2020 07/09/2021 1 1 Encounter Details Date Type Department Care Team Description 08/02/2020 External Outreach Division of Lazaro, Umu Ki dney Disease Stage 1 Glomerular Filtration Rate Greater Than 90 (Primary Dx); Nephrology and Walter Wooten Jr., Diabetes Evelyn litus Type 2 With Diabetic Nephropathy (HCC); Hypertension in D.O. Hypertension And Chronic Kidney Disease Stage 2; [place], [place] [address] [facility] Prolactinoma (HCC); [address] [place], [place] [address] [phone] Social History Tobacco Use Types Packs/Day Years [...] or relatives? How often do you attend gnosticism or Patient refused 2020 mandaeism services? Do you belong to any clubs or Yes 09/27/2020 organizations such as gnosticism groups, unions, fraBlockAvenue or athletic groups, or school groups? How [...] of this encounter Progress Notes Walter Willis Jr., D.O. - 08/02/2020 1:30 PM CDT Please see scanned in note under document viewer tab for the [facility] outreach visit from this date. documented in this encounter Plan of Treatment Not on filedocumented as of this encounter Visit Diagnoses Diagnosis Chronic Kidney Disease Stage 1 Glomerula r Filtration Rate Greater Than 90 - Primary Diabetes Mellitus Type 2 With Diabetic N ephropathy (HCC) Hypertension And Chronic Kidney Disease Stage 2 Prolactinoma (HCC) Mass Kidney documented in this encounter
--- OUTSIDE RECORDS SUMMARY | 2022-01-30 09:02 | XMS_ITS | Encounter Summary ---
:1955 Author Organization [facility] Address [address] [place] [address] Care Team Providers Name Role Phone Unavailable Primary Care Provider Unavailable Encounter Details Date Type Department Care Team Description 07/27/2020 Clinical Communication Division of Nephrology Walter Willis and Hypertension in Je Grimaldo D.O. [place], [place] [address] [facility] [address] [place] [address] [phone] Social History Tobacco Use Types Packs/Day Years [...] you attend hindu or Patient refused 2020 adventist services? Do you belong to any clubs [...] this encounter Miscellaneous Notes Telephone Encounter - Walter Willis Jr., D.O. - 07/27/2020 3:45 PM CDT Phone message: I left him know that the left-sided renal mass is stable in size and was measured at 1.8 cm on his scan done on the . This compares favorably to the scan done earlier, and noted by Dr. ricky castillo, which was 2 cm. I reassured him. documented in this encounter Plan of Treatment Not on filedocumented as of this encounter Visit Diagnoses Not on filedocumented in this encounter
--- OUTSIDE RECORDS SUMMARY | 2022-01-30 09:02 | XMS_ITS | Encounter Summary ---
:1955 Author Organization [facility] Address [address] [place] [address] Care Team Providers Name Role Phone Unavailable Primary Care Provider Unavailable Reason for Visit Reason Comments Med Refill Encounter Details Date Type Department Care Team Description 09/03/2021 Refill Division of Endocrinology in [place], Med Refill [place], [place] P.A.-C. 200 [facility] [address] [place] [address] [place] [address] [phone] (Wo rk) Social History Tobacco Use Types [...] or relatives? How often do you attend jainism or Patient refused 2020 hoahaoism services? Do you belong to any clubs or Yes 09/27/2020 organizations such as jainism groups, unions, fraternal or athletic groups, or [...] place to sleep or slept in a halfway (including now)? Education Answer Date Recorded What [...]
--- OUTSIDE RECORDS SUMMARY | 2022-01-30 09:02 | XMS_ITS | Clinical Summary ---
:1955 Author Organization [facility] Address [address] [place] [address] Care Team Providers Name Role Phone Unavailable Primary Care Provider Unavailable Source Comments Patient records contain information from all sites at [facility]. For routine questions regarding patient records, call [phone] during business hours, M-F 8:00 AM - 5:00 PM Central Time. Record requests for emergency care only can be directed to [phone] at any time.[facility] Allergies No known active allergies Medications Medication Sig Dispensed Refills Start Date End Date Status chlorthalidone Take 1 tablet by 0 02/19/2017 Active (HYGROTEN) 25 mg mouth daily. If tablet SBP > 130 losartan (COZAAR) 100 Take 1 tablet by 0 01/27/2015 Active mg tablet mouth daily. metFORMIN (GLUCOPHAGE) Take 850 mg by 11 12/20/2018 Active 850 mg tablet mouth 2 (two) times a day with meals. warfarin (COUMADIN) 4 Take 1 tablet by 0 12/25/2018 Active mg tablet mouth daily. lactobacillus Take 1 capsule 0 07/20/2020 Active combination no.4 by mouth daily. (Probiotic) 3 billion cell capsule carvediloL (COREG) Take 12.5 mg by 0 07/14/2020 Active 12.5 mg tablet mouth daily. amLODIPine (NORVASC) 5 Take 1 tablet (5 90 tablet 3 02/08/2021 02/08/2022 Active mg tablet mg total) by mouth daily. amLODIPine (NORVASC) Take 1 tablet 90 tablet 3 02/08/2021 11/12/2021 Active 2.5 mg tablet (2.5 mg total) by mouth daily. eplerenone (INSPRA) 25 TAKE 1 TABLET BY 30 tablet 11 08/03/2021 Active mg tablet MOUTH EVERY DAY cabergoline (DOSTINEX) TAKE 1.5 TABLETS 36 tablet 3 09/05/2021 Active 0.5 mg tablet BY MOUTH DIRECTED TWICE A WEEK Active Problems Problem Noted Date Hyperaldosteronism 03/10/2021 Mass Kidney 01/21/2020 Prolactinoma 05/27/2015 Chronic Kidney Disease Stage 1 Glomerular Filtration R ate Greater Than 90 01/28/2015 Diabetes Mellitus Type 2 With Diabetic Nephropathy Hypertension And Chronic Kidney Disease Stage 2 2014 Resolved Problems Problem Noted Date Resolved Date Hypogonadism Pituitary 06/19/2015 12/07/2020 Immunizations Name Administration Dates Next Due Influenza Split 03/02/2016 Family History Medical History Relation Name Comments Hypertension Father kelli smallwood Relation Name Status Comments Father kelli smallwood Social History Tobacco Use Types Packs/Day Years [...] you attend confucianist or Patient refused 2020 yazidi services? Do you belong to any clubs [...] place to sleep or slept in a prison (including now)? Education Answer Date Recorded What is the highest level of school you have completed or 12 th grade 12/29/2018 the highest degree you have received? 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 Oxygen Saturation - - Inhaled Oxygen - - Concentration Weight 77.7 kg (171 lb 4.8 12/07/2020 1:37 PM oz) CDT Height 173.8 cm (5' 8.43) 12/07/2020 1:37 PM CDT Body Mass Index 25.72 12/07/2020 1:37 PM CDT Plan of Treatment Health Maintenance Due Date Last Done Comments CT Colonography 1955 Cologuard 1955 Diabetic Office Visit with Foot 1955 Exam FIT 1955 Hepatitis C Screening 1955 Urine Albumin 1955 Hepatitis B Vaccines (1 of 3 - 2013 Risk 3-dose series) Hemoglobin A1C 07/29/2015 01/27/2015 Dilated Eye Exam 12/24/2018 12/24/2017, 02/03/2015, 02/03/2015, Additional history exists Lipid (Cholesterol) Screening 05/09/2020 05/09/2019, 2019, 07/07/2015, Additional history exists Potassium Level 05/17/2020 05/17/2019, 05/16/2019, 05/15/2019, Additional history exists Sodium Level 05/17/2020 05/17/2019, 05/16/2019, 05/15/2019, Additional history exists Depression Screening (Annual 04/02/2021 PHQ-2) Fall Risk Screen (Annual) 04/02/2021 Creatinine Level 04/19/2021 04/19/2020, 07/12/2019, 05/17/2019, Additional history exists COVID-19 Vaccine (4 - Booster for 07/15/2021 05/20/2021, , Pfizer series) 05/01/2020 Influenza Vaccine (#1) 2021 02/23/2021, 02/24/2020, 02/18/2019, Additional history exists Office Visit for Blood Pressure 03/10/2022 03/10/2021 Check / Re-check DTaP,Tdap,and Td Vaccines (2 - Td 03/12/2022 03/12/2012 or Tdap) Colonoscopy 09/04/2022 09/04/2012 (Performed elsewhere) Colorectal Cancer Screening 09/04/2022 Abdominal Aortic Aneurysm (AAA) Completed 07/13/2019 Screen Zoster Vaccines Completed 10/20/2019, 08/18/2019 Pneumococcal vaccine (65+ years) Completed 10/14/2020, Insurance Payer Benefit Plan / Subscriber ID Effective Phone Address T ype Group Dates GENERIC GENERIC [id number] 2001-Pre [phone] [employer]CIAL COMMERCIAL sent [address] [place] [phone]
--- OUTSIDE RECORDS SUMMARY | 2022-01-30 09:02 | XMS_ITS | Encounter Summary ---
:1955 Author Organization [facility] Address [address] [place] [address] Care Team Providers Name Role Phone Unavailable Primary Care Provider Unavailable Reason for Visit Appointment Request (Routine) - Closed Specialty Diagnoses / Procedures Referred By Contact Refer red To Contact Nephrology and Hypertension Referral ID Status Reason Start Date Expiration Date Visits Requ ested Visits Authorized [id number] Closed 05/28/2020 05/28/2021 1 1 Encounter Details Date Type Department Care Team Description 06/30/2020 External Outreach Division of [facility], [facility] d[facility] Disease Stage 1 Glomerular Filtration Rate Greater Than 90 (Primary Dx); Nephrology and Walter Wooten Jr., Diabetes Evelyn litus Type 2 With Diabetic Nephropathy (HCC); Hypertension in D.O. Hypertension And Chronic Kidney Disease Stage 2; [place], [place] [address] [facility] Hypogonadism Pituitary (HCC) [address] [place] [phone] Social History Tobacco Use Types Packs/Day Years [...] or relatives? How often do you attend hinduism or Patient refused 2020 restorationist services? Do you belong to any clubs or Yes 09/27/2020 organizations such as hinduism groups, unions, fraRebtel or athletic groups, or school groups? How [...] place to sleep or slept in a fci (including now)? Education Answer Date Recorded What is the highest level of school you have completed or 12 th grade 12/29/2018 the highest degree you have received? Sex Assigned at Date Recorded Not on file documented as of this encounter Progress Notes Walter Willis Jr., D.O. - 06/30/2020 3:00 PM CDT Please see scanned in note under document viewer tab for the [facility] outreach visit from this date. documented in this encounter Plan of Treatment Not on filedocumented as of this encounter Visit Diagnoses Diagnosis Chronic Kidney Disease Stage 1 Glomerula r Filtration Rate Greater Than 90 - Primary Diabetes Mellitus Type 2 With Diabetic N ephropathy (HCC) Hypertension And Chronic Kidney Disease Stage 2 Hypogonadism Pituitary (HCC) documented in this encounter
--- OUTSIDE RECORDS SUMMARY | 2022-01-30 09:03 | XMS_ITS | Encounter Summary ---
:1955 Author Organization [facility] Address [address] [place] [address] Care Team Providers Name Role Phone Unavailable Primary Care Provider Unavailable Encounter Details Date Type Department Care Team Description 12/24/2017 Hospital Encounter Department of Homero Bernardo Prola ctinoma ([facility]) Laboratory Medicine M.B[facility]S. and Pathology, [place] [address] [address] [facility] in [place], [place] [address] [place] [address] [place], [place] (Work) [phone] Social History Tobacco Use Types Packs/Day Years Used Date Smoking Tobacco: Unknown Alcohol Habits Answer Date Recorded How often [...] or relatives? How often do you attend sabianism or Patient refused 2020 nondenominational services? Do you belong to any clubs or Yes 09/27/2020 organizations such as sabianism groups, unions, fraternal or athletic groups, or school groups? How often do you attend meetings of the 1 to 4 times per yesara r 09/27/2020 clubs or organizations you belong [...] or slept in a snf (including now)? Sex Assigned at Date Recorded Not on file documented as of this encounter Medications at Time of Discharge Medication Sig Dispensed Refills Start Date End Date chlorthalidone (HYGROTEN) Take 1 tablet by 0 02/01 25 mg tablet mouth daily. If SBP > 130 losartan (COZAAR) 100 mg Take 1 tablet by 0 01/27 tablet mouth daily. eplerenone (INSPRA) 50 mg TAKE 1.5 TABLETS BY 150 tablet 3 0 12/10/2017 06/30/2020 tabletIndications: MOUTH DAILY Hypertension And Chronic DIRECTED--THIS Kidney Disease Stage 1 To REPLACES ALDACTONE 4 glimepiride (AMARYL) 2 mg Take 1 tablet by 0 01/0101/02/2019 tablet mouth daily. metFORMIN (GLUCOPHAGE) Take 1 tablet by 0 015 01/02/2019 1,000 mg tablet mouth 2 (two) times a day. simvastatin (ZOCOR) 40 mg Take 1 tablet by 0 01/0112/03/2020 tablet mouth at bedtime. verapamil (VERELAN) 180 TAKE ONE CAPSULE BY 90 capsule 3 07/201706/30/2020 mg 24 hr capsule MOUTH ONCE DAILY-INSURANCE ONLY ALLOWS 30 DAY SUPPLY verapamil (VERELAN) 180 Take 1 capsule by 0 08/1106/30/2020 mg 24 hr capsule mouth daily. warfarin (COUMADIN) 5 mg Take 4 mg by mouth 0 01/02/2019 tablet as needed (Sunday / Sunday/ Sunday). 4 mg tab 3x/week documented as of this encounter Plan of Treatment Not on filedocumented as of this encounter Procedures Procedure Name Priority Date/Time Associated Diagnosis Comme nts TESTOSTERONE, TOT Routine 12/24/2017 8:03 AM Prolactinoma (HCC ) Results for this AND BIOAVAILABLE, S CDT procedur e are in the results section. PROLACTIN, S Routine 12/24/2017 8:03 AM Prolactinoma (HCC) Res ults for this CDT procedure are i n the results section. INSULIN-LIKE GROWTH Routine 12/24/2017 8:03 AM Prolactinoma (H CC) Results for this FACTOR 1, S CDT procedure are i n the results section. T4 (THYROXINE), Routine 12/24/2017 8:03 AM Prolactinoma (HCC) Results for this FREE, S CDT procedure are i n the results section. CORTISOL, S Routine 12/24/2017 8:03 AM Prolactinoma (HCC) Res ults for this CDT procedure are i n the results section. BASIC METABOLIC Routine 12/24/2017 8:03 AM Prolactinoma (HCC) Results for this PANEL, S/P CDT procedure are i n the results section. documented in this encounter Results Cortisol (12/24/2017 8:03 AM CDT) athologist Signature Cortisol AM 13 7 - 25 12/24/2017 [facility] Result mcg/dL 9:48 AM CDT LAB[facility]ATORIES - [facility] Specimen Anatomical Collection Method Collection Time Receive d Time (Source) Location / / Volume Laterality Blood (Blood, 12/24/2017 8:03 AM 12/25/19 18 8:22 Venous) CDT AM CDT Homero Her.S. LAB BLOOD ADD-ON Performing Organization Address City/State/ZIP Code Phon e Number [facility] - [address] [address] [facility] T4 (Thyroxine), Free (12/24/2017 8:03 AM CDT) athologist Signature T4 1.0 0.9 - 1.7 12/24/2017 [facility] (Thyroxine), ng/dL 10:07 AM CDT LABORATORIES - Free, S [facility] Specimen Anatomical Collection Method Collection Time Receive d Time (Source) Location / / Volume Laterality Blood (Blood, 12/24/2017 8:03 AM 12/25/19 18 8:22 Venous) CDT AM CDT Homero OrtezB.S. LAB BLOOD ADD-ON Performing Organization Address City/[facility]/ZIP Code Phon e Number [facility] - [address] [address] [facility] (ABNORMAL) Testosterone, Total and Bioavailable (12/24/2017 8:03 AM CDT) athologist Signature Testosterone, 67 40 - 168 12/25/2017 [facility] Bioavailable, S ng/dL 5:30 PM CDT [facility] Comment: ----ADDITIONAL INFORMATION---- Testing performed by Differential Precip itation. This test was developed and its performa nce characteristics determined by [facility] in a manner consistent with CLIA requirements. This test has not been cleared or approved by the [place] N[place] d and Drug Administration. Testosterone, Total by 232 (L) 240 - 950 12/25/2017 10:40 AM [facility] Mass Spectrometry, ng/dL CDT [facility] Comment: ----ADDITIONAL INFORMATION---- Testing performed by Liquid Chromatograp hy-Tandem Mass Spectrometry (LC-MS/MS). This test was developed and its performa nce characteristics determined by [facility] in a manner consistent with CLIA requirements. This test has not been cleared or approved by the [place] N[place] d and Drug Administration. Specimen Anatomical Collection Method Collection Time Receive d Time (Source) Location / / Volume Laterality Blood (Blood, 12/24/2017 8:03 AM 12/25/19 18 Venous) CDT 10:47 AM CDT Homero Rodriguez LAB BLOOD NON ADD-ON Performing Organization Address [facility] Phon e Number [facility] [address] [place] [address] [facility] (ABNORMAL) Prolactin (12/24/2017 8:03 AM CDT) Analysis Performed At Patho logist Time Signature Prolactin 33 (H) 4.0 - 15.2 12/24/2017 [facility] Total ng/mL 10:07 AM T [facility] Comment: ----ADDITIONAL INFORMATION---- The testing method is an [...] Location / / Volume Laterality Blood (Blood, 12/24/2017 8:03 AM 12/25/19 18 8:22 Venous) CDT AM CDT Homero DominiqueSIsauro LAB BLOOD ADD-ON Performing Organization Address City/[facility]/ZIP Code Phon e Number [place] [phone] [facility] (ABNORMAL) Insulin-like growth factor (12/24/2017 8:03 AM CDT) athologist Signature IGF-1, LC/MS, 223 (H) 33 - 220 12/27/2017 [facility] S ng/mL 8:26 AM CDT [facility] Z-score 2.01 -2.0 - 2.0 12/27/2017 [facility] SD 8:26 AM CDT [facility] Comment: ----ADDITIONAL INFORMATION---- This test was developed and its performa nce characteristics determined by [facility] in a manner consistent with CLIA requirements. This test has not been cleared or approved by the [place] N[place] d and Drug Administration. Specimen Anatomical Collection Method Collection Time Receive d Time (Source) Location / / Volume Laterality Blood (Blood, 12/24/2017 8:03 AM 12/25/19 18 Venous) CDT 12:55 PM CDT Homero Rodriguez LAB BLOOD NON ADD-ON Performing Organization Address City/State/ZIP Code Phon e Number [facility] [address] [place], [place] [address] [place] [address] CENTER (ABNORMAL) Basic metabolic panel (12/24/2017 8:03 AM CDT) [facility] gist Method Time Signature Potassium, S 4.8 3.6 - 5.2 12/24/2017 [facility] mmol/L 9:47 AM CDT [facility] - [facility] Sodium, S 149 (H) 135 - 145 12/24/2017 [facility] mmol/L 9:47 AM CDT [facility] - [facility] Chloride, S 112 (H) 98 - 107 12/24/2017 [facility] mmol/L 9:47 AM CDT [facility] - [facility] Bicarbonate, S 23 22 - 29 12/24/2017 [facility] mmol/L 9:47 AM CDT [facility] - [facility] Anion Gap 14 7 - 15 12/24/2017 [facility] 9:47 AM CDT [facility] - [facility] BUN (Blood 31 (H) 8 - 24 12/24/2017 [facility] Urea mg/dL 9:47 AM CDT LABORATORIES - Nitrogen), S [facility] Creatinine 1.53 (H) 0.74 - 12/24/2017 [facility] 1.35 9:47 AM CDT LABORATORIES - mg/dL [facility] eGFR-Non 47 (L) >=60 12/24/2017 [facility] Black/ mL/min/BS 9:47 AM CDT LABORATORIES - [facility] Comment: ----ADDITIONAL INFORMATION---- Estimated GFR calculated using the 2009 CKD_EPI creatinine equation. eGFR-Black/ 55 (L) >=60 mL/min/BSA 12/24/2017 9:47 [facility] CDT [facility] - [facility] Comment: ----ADDITIONAL INFORMATION---- Estimated GFR calculated using the 2009 CKD_EPI creatinine equation. Calcium, Total, S 9.9 8.8 - 10.2 mg/dL 12/24/2017 9:47 AM [facility] CDT LABORATORIES [facility] Glucose, S 88 70 - 140 mg/dL 12/24/2017 9:47 AM [facility] Specimen Anatomical Collection Method Collection Time Receive d Time (Source) Location / / Volume Laterality Blood (Blood, 12/24/2017 8:03 AM 12/25/19 18 8:22 Venous) CDT AM CDT Homero DominiqueSIsauro LAB BLOOD ADD-ON Performing Organization Address City/State/ZIP Code Phon e Number [facility] - [address] [place], [place] [address] [facility] documented in this encounter Visit Diagnoses Diagnosis Prolactinoma (HCC) documented in this encounter
--- OUTSIDE RECORDS SUMMARY | 2022-01-30 09:03 | XMS_ITS | Encounter Summary ---
:1955 Author Organization [facility] Address [address] [place] [address] Care Team Providers Name Role Phone Unavailable Primary Care Provider Unavailable Reason for Visit Appointment Request (Routine) - Closed Specialty Diagnoses / Procedures Referred By Contact Refer red To Contact Nephrology and Hypertension Referral ID Status Reason Start Date Expiration Date Visits Requ ested Visits Authorized [id number] Closed 04/29/2018 04/29/2019 1 Encounter Details Date Type Department Care Team Description 05/08/2018 External Outreach Division of [facility] Disease Stage 1 Glomerular Filtration Rate Greater Than 90 (Primary Dx); Nephrology and Walter Wooten Jr., Diabetes Evelyn litus Type 2 With Diabetic Nephropathy (HCC); Hypertension in D.O. Hypertension And Chronic Kidney Disease Stage 1 To 4; [place], [place] [address] [facility] Hypogonadism Pituitary (HCC); [address] [place], [place] Prolactinoma (HCC) [place] [phone] [phone] Social History Tobacco Use Types Packs/Day Years [...] you attend voodoo or Patient refused 2020 moravian services? Do [...] or slept in a assisted (including now)? Sex Assigned at Date Recorded Not on file documented as of this encounter Progress Notes Walter Willis Jr., D.O. - 05/08/2018 1:30 PM CST Please see scanned in documentation from [facility] outreach visit from this date TECHNICIAN documented in this encounter Plan of Treatment Not on filedocumented as of this encounter Visit Diagnoses Diagnosis Chronic Kidney Disease Stage 1 Glomerula r Filtration Rate Greater Than 90 - Primary Diabetes Mellitus Type 2 With Diabetic N ephropathy (HCC) Hypertension And Chronic Kidney Disease Stage 1 To 4 Hypogonadism Pituitary (HCC) Prolactinoma (HCC) documented in this encounter
--- OUTSIDE RECORDS SUMMARY | 2022-01-30 09:03 | XMS_ITS | Encounter Summary ---
:1955 Author Organization [facility] Address [address] [place] [address] Care Team Providers Name Role Phone Unavailable Primary Care Provider Unavailable Reason for Visit Appointment Request (Routine) - Closed Specialty Diagnoses / Procedures Referred By Contact Refer red To Contact Nephrology and Hypertension Referral ID Status Reason Start Date Expiration Date Visits Requ ested Visits Authorized [id number] Closed 11/13/2018 11/13/2019 1 Encounter Details Date Type Department Care Team Description 11/20/2018 External Outreach Division of [facility] dney Disease Stage 1 Glomerular Filtration Rate Greater Than 90 (Primary Dx); Nephrology and Walter Wooten Jr., Hypertension And Chronic Kidney Disease Stage 1 To 4; Hypertension in D.O. Diabetes Mellitus Type 2 With Diabetic N ephropathy (HCC); [place], [place] [address] [facility] Prolactinoma (HCC); [address] [place], [place] Hypogonadism Pituitary ([place]CC) [place] [phone] Social History Tobacco Use Types Packs/Day Years [...] or relatives? How often do you attend baptism or Patient refused 2020 methodist services? Do you belong to any clubs or Yes 09/27/2020 organizations such as baptism groups, unions, fraternal or athletic groups, or [...] place to sleep or slept in a senior living (including now)? Sex Assigned at Date Recorded Not on file documented as of this encounter Progress Notes Walter Willis Jr., D.O. - 11/20/2018 3:30 PM CDT Please see scanned in note under document viewer tab for the [facility] outreach visit from this date. 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
--- OUTSIDE RECORDS SUMMARY | 2022-01-30 09:03 | XMS_ITS | Encounter Summary ---
:1955 Author Organization [facility] Address [address] [place] [address] Care Team Providers Name Role Phone Unavailable Primary Care Provider Unavailable Reason for Visit MRI/CAT/PET Scan (Routine) - Closed Specialty Diagnoses / Procedures Referred By Contact Refer red To Contact Radiology Diagnoses Prolactinoma (HCC) [facility] Procedures MR Brain without and with IV Contrast MR Pituitary without IV Contrast TN MRI BRAIN WO CNTRST HC MRI BRAIN WO CNTRST TN MRI BRAIN WO/W CNTRST HC MRI BRAIN WO/W CNTRST [address] [place], [place] [address] Referral ID Status Reason Start Date Expiration Date Visits Requ ested Visits Authorized [id number] Closed 12/04/2017 12/04/2018 1 1 Encounter Details Date Type Department Care Team Description 12/24/2017 Hospital Encounter Department of Homero Bernardo Prola ctinoma (HCC) Rad[facility] [place], [address] [place], [place] [address] [facility] [address] [place], [place] [phone] (Work) [phone] Social History Tobacco Use Types Packs/Day Years [...] or relatives? How often do you attend evangelical or Patient refused 2020 evangelical services? Do you belong to any clubs or Yes 09/27/2020 organizations such as evangelical groups, unions, fraLK FREEMAN or athletic groups, or school groups? How [...] or slept in a correction (including now)? Sex Assigned at Date Recorded Not on file documented as of this encounter Last Filed Vital Signs Vital Sign Reading Time Taken Comments Blood Pressure - - Pulse - - Temperature - - Respiratory Rate - - Oxygen Saturation - - Inhaled Oxygen Concentration - - Weight - - Height 172.7 cm (5' 8) 12/24/2017 12:25 PM CDT Body Mass Index - - documented in this encounter Medications at Time of Discharge Medication Sig Dispensed Refills Start Date End Date chlorthalidone (HYGROTEN) Take 1 tablet by 0 02/01 25 mg tablet mouth daily. If SBP > 130 losartan (COZAAR) 100 mg Take 1 tablet by 0 01/27 tablet mouth daily. cabergoline (DOSTINEX) TAKE 1.5 TABLETS BY 60 tablet 3 12/0209/20/2018 0.5 mg tablet MOUTH DIRECTED TWICE A WEEK eplerenone (INSPRA) 50 mg TAKE 1.5 TABLETS [...] encounter Procedures Procedure Name Priority Date/Time Associated Comments Diagnosis MR BRAIN WITHOUT RAD - Routine 12/24/2017 1:32 Prolactinoma (HCC) R esults for this AND WITH IV (most inpatients PM CDT procedure a re in CONTRAST and all the results outpatients) section. documented in this encounter Results MR Brain without and with IV Contrast (12/24/2017 1:32 PM CDT) Anatomical Region Laterality Modality Head, Brain, Neuroradiology RST LOS, Neuroradiology ARZ N/A Magnetic Resonance LOS, Neuroradiology FLA LOS Specimen (Source) Anatomical Collection Method Collection Time Re ceived Time Location / / Volume Laterality 12/24/2017 2:45 PM CDT Impressions 12/24/2017 2:52 PM CDT IMPRESSION: No significant interval change compared with 08/23/16. Narrative 12/24/2017 2:52 PM CDT EXAM: MR BRAIN WITHOUT AND WITH IV CONTRAST COMPARISON: 08/23/16 FINDINGS: No significant interval change . Stable size, signal and configuration and extension of previously noted sellar /right cavernous sinus lesion. Stable appearance of pituitary, infundibulum, o ptic chiasm, cavernous sinuses, sella turcica floor and internal carotid arter ies. Remainder also otherwise stable. Procedure Note Lencho Coronel M.D., M.B.A. - 12/24/2017 EXAM: MR BRAIN WITHOUT AND WITH IV CONTR AST COMPARISON: 08/23/16 FINDINGS: No significant interval change . Stable size, signal and configuration and extension of previously noted sellar /right cavernous sinus lesion. Stable appearance of pituitary, infundibulum, o ptic chiasm, cavernous sinuses, sella turcica floor and internal carotid arter ies. Remainder also otherwise stable. IMPRESSION: No significant interval blackman ge compared with 08/23/16. Homero DominiqueSIsauro HICKEY MRI PROCEDURES documented in this encounter Visit Diagnoses Diagnosis Prolactinoma (HCC) documented in this encounter Administered Medications Inactive Administered Medications - up to 3 most recent administrations Medication Order MAR Action Action Date Dose Rate Site gadobutrol injection 0.5-15 mL Given 12/24/2017 1:32 PM CDT 9 mL (GADAVIST) 0.5-15 mL, intravenous, Once in imaging, contrast, Starting on Sun12/24/17 at 1225, For 1 dose, Imaging Protocol Orders, Dose per Radiant Medication Guidelines sodium chloride (PF) 0.9 % injection 2.5 mL Given 12/24/2017 1:32 PM CDT 2.5 mL 2.5 mL, intravenous, Once, On Sun12/24/17 at 1345, For 1 dose documented in this encounter
--- OUTSIDE RECORDS SUMMARY | 2022-01-30 09:03 | XMS_ITS | Encounter Summary ---
:1955 Author Organization [facility] Address [address] [place] [address] Care Team Providers Name Role Phone Unavailable Primary Care Provider Unavailable Encounter Details Date Type Department Care Team Description 12/24/2018 Hospital Encounter Department of Homero Bernardo Prola ctinoma ([facility]) Laboratory Medicine M.B.B.S. in [address] [address] [place], [place] [phone] [address] (Work) [phone] Social History Tobacco Use Types Packs/Day Years [...] or relatives? How often do you attend adventist or Patient refused 2020 confucianism services? Do you belong to any clubs or Yes 09/27/2020 organizations such as adventist groups, unions, fraternal or athletic groups, or [...] slept in a skilled nursing (including now)? Sex Assigned at Date Recorded Not on file documented as of this encounter Medications at Time of Discharge Medication Sig Dispensed Refills Start Date End Date chlorthalidone (HYGROTEN) Take 1 tablet by 0 02/01 25 mg tablet mouth daily. If SBP > 130 losartan (COZAAR) 100 mg Take 1 tablet by 0 01/27 tablet mouth daily. metFORMIN (GLUCOPHAGE) Take 850 mg by 11 9 850 mg tablet mouth 2 (two) times a day with meals. cabergoline (DOSTINEX) TAKE 1.5 TABLETS BY 36 tablet 3 09/0101/02/2019 0.5 mg tablet MOUTH DIRECTED TWICE A WAEEK eplerenone (INSPRA) 50 mg TAKE 1.5 TABLETS BY 150 tablet 3 0 12/10/2017 06/30/2020 tabletIndications: MOUTH DAILY Hypertension And Chronic DIRECTED--THIS Kidney Disease Stage 1 To REPLACES ALDACTONE 4 glimepiride (AMARYL) 1 mg Take 1 mg by mouth 11 12/03/2020 tablet daily. glimepiride (AMARYL) 2 mg Take 1 tablet [...] 08/1106/30/2020 mg 24 hr capsule mouth daily. verapamil (VERELAN) 180 TAKE ONE CAPSULE BY 90 capsule 3 06/30/2020 mg 24 hr capsule MOUTH ONCE DAILY-INSURANCE ONLY ALLOWS 30 DAY SUPPLY warfarin (COUMADIN) 5 mg Take 4 mg by mouth 0 01/02/2019 tablet as needed (Sunday / Sunday/ Sunday). 4 mg tab 3x/week documented as of this encounter Plan of Treatment Not on filedocumented as of this encounter Procedures Procedure Name Priority Date/Time Associated Diagnosis Comme nts PRL, MACROADENOMA Routine 12/24/2018 7:11 AM Prolactinoma (HCC ) Results for this CDT procedure are i n the results section. TESTOSTERONE, TOT AND Routine 12/24/2018 7:11 AM Prolactinoma (HCC) Results for this BIOAVAILABLE, S CDT procedure ar e in the results section. T4 (THYROXINE), FREE, Routine 12/24/2018 7:11 AM Prolactinoma (HCC) Results for this S CDT procedure are i n the results section. documented in this encounter Results Testosterone, Total and Bioavailable (12/24/2018 7:11 AM CDT) athologist Signature Testosterone, 69 40 - 168 12/26/2018 Bioavailable, S ng/dL 11:39 PM CDT Comment: ----ADDITIONAL INFORMATION---- Testing performed by Differential Precip itation. This test was developed and its performa nce characteristics determined by [facility] in a manner consistent with CLIA requirements. This test has not been cleared or approved by the [place] N[place] d and Drug Administration. Testosterone, Total by Mass 277 240 - 950 ng/dL 2018 10:35 AM CDT Spectrometry, Serum Comment: ----ADDITIONAL INFORMATION---- Testing performed by Liquid Chromatograp hy-Tandem Mass Spectrometry (LC-MS/MS). This test was developed and its performa nce characteristics determined by [facility] in a manner consistent with CLIA requirements. This test has not been cleared or approved by the U.[place]. Nani d and Drug Administration. Specimen Anatomical Collection Method Collection Time Receive d Time (Source) Location / / Volume Laterality Blood (Blood, 12/24/2018 7:11 AM 12/26/19 19 6:26 Venous) CDT AM CDT Homero Rodriguez LAB BLOOD NON ADD-ON Performing Organization Address City/State/ZIP Code Phon e Number [facility] [address] [place], [place] [address] [facility] T4 (Thyroxine), Free (12/24/2018 7:11 AM CDT) P athologist Signature T4 (Thyroxine), 1.0 0.9 - 1.7 12/24/2018 Free, S ng/dL 1:18 PM CDT Comment: Biotin has been identified by the nichole avitia as a potential interfering substance. ??Higher concentr ations of biotin may be found in multivitamins, hair/nail supple ments, and workout supplements. ??If the result does not [facility] clinical observations, repeat testing after patient refrains fr om the use of supplements for at least 12 hours. Specimen Anatomical Collection Method Collection Time Receive d Time (Source) Location / / Volume Laterality Blood (Blood, 12/24/2018 7:11 AM 12/25/19 19 Venous) CDT 12:44 PM CDT Homero Her.S. LAB BLOOD ADD-ON Performing Organization Address City/State/ZIP Code Phon e Number [facility] [address] [place] [address] [facility] (ABNORMAL) Prolactin, Pituitary Macroadenoma (12/24/2018 7:11 AM CDT) [facility] Method Time Signature Prolactin 29.8 (H) 4.0 - 12/25/2018 Total 15.2 7:38 AM CDT ng/mL Comment SEE COMMENT 12/25/2018 7:38 AM CDT Comment: 10,100,and 400-fold dilutions produced [...] Location / / Volume Laterality Blood (Blood, 12/24/2018 7:11 AM 12/26/19 19 6:33 Venous) CDT AM CDT Homero OrtezB.S. LAB BLOOD ADD-ON Performing Organization Address City/State/ZIP Code Phon e Number [facility] [address] [place], [place] [address] [place] [address] documented in this encounter Visit Diagnoses Diagnosis Prolactinoma (HCC) documented in this encounter
--- OUTSIDE RECORDS SUMMARY | 2022-01-30 09:03 | XMS_ITS | Encounter Summary ---
:1955 Author Organization [facility] Address [address] [place] [address] Care Team Providers Name Role Phone Unavailable Primary Care Provider Unavailable Reason for Visit Reason Comments Testing Only Encounter Details Date Type Department Care Team Description 12/24/2017 Ancillary Procedure Department of Mina Bernardo ([facility]) Ophthalmology in [place], [place] M.B.B.S. [address] [facility] [address] [place] [phone] Social History Tobacco Use Types Packs/Day Years [...] or relatives? How often do you attend yarsanism or Patient refused 2020 congregational services? Do you belong to any clubs or Yes 09/27/2020 organizations such as yarsanism groups, unions, fraternal or athletic groups, or [...] place to sleep or slept in a half-way (including now)? Sex Assigned at Date Recorded Not on file documented as of this encounter Plan of Treatment Not on filedocumented as of this encounter Procedures Procedure Name Priority Date/Time Associated Diagnosis Comme nts AUTOMATED VF - Routine 12/24/2017 9:42 AM Prolactinoma (HCC) R esults for this EXTENDED - OU - CDT procedure ar e in BOTH EYES the results section. documented in this encounter Results Automated VF - Extended - OU - Both Eyes (12/24/2017 9:42 AM CDT) Specimen (Source) Anatomical Location Collection Method / Collectio n Time Received Time / Laterality Volume Narrative OPHTHALMOLGY NON-IMAGING ORDERS - 4:13 PM CDT Right Eye Reliability was good. Automated visual f ield device used was Zeiss. Strategy was ARMANDO. Threshold was 24-2. F oveal threshold was normal. Findings include normal observations. Me an deviation was 0.45 decibels. Left Eye Reliability was good. Automated visual f ield device used was Zeiss. Strategy was ARMANDO. Threshold was 24-2. F oveal threshold was normal. Findings include normal observations. Me an deviation was 0.84 decibels. Notes Normal visual field both eyes. History of prolactinoma. Patient was not examined. Test interpretation only. Clinical correlation recommended. ?? Homero Rodriguez OPHTH VISUAL FIELD Performing Organization Address City/State/ZIP Code Phon e Number OPHTHALMOLGY NON-IMAGING ORDERS documented in this encounter Visit Diagnoses Diagnosis Prolactinoma (HCC) documented in this encounter
--- OUTSIDE RECORDS SUMMARY | 2022-01-30 09:03 | XMS_ITS | Encounter Summary ---
:1955 Author Organization [facility] Address [address] [place] [address] Care Team Providers Name Role Phone Unavailable Primary Care Provider Unavailable Reason for Visit Reason Comments Med Refill Encounter Details Date Type Department Care Team Description 12/08/2017 Refill Division of Nephrology and Lazaro, Charles Wooten Jr., Med Refill Hypertension in [facility] [address] [facility] [address] [place] [address] [place] [address] [phone] Social History Tobacco Use Types Packs/Day Years [...] you attend sabianism or Patient refused 2020 church services? Do [...] or slept in a jail (including now)? Sex Assigned at Date Recorded Not on file documented as of this encounter Miscellaneous Notes Telephone Encounter - Frida Minaya R.N. - 12/10/2017 4:08 PM CDT Prescription for eplerenone forwarded to provider for approval. Outside RN protocol due to historical entry. documented in this encounter Plan of Treatment Not on filedocumented as of this encounter Visit Diagnoses Diagnosis Hypertension And Chronic Kidney Disease Stage 1 To 4 - Primary documented in this encounter
--- OUTSIDE RECORDS SUMMARY | 2022-01-30 09:03 | XMS_ITS | Encounter Summary ---
:1955 Author Organization [facility] Address [address] [place] [address] Care Team Providers Name Role Phone Unavailable Primary Care Provider Unavailable Reason for Visit Reason Comments Med Refill Encounter Details Date Type Department Care Team Description 09/20/2018 Refill Division of Endocrinology in [facility], Med Refill [place], [place] M.B.B.S. [address] [facility] [address] [place] [address] [place], [place] [phone] (Wo rk) Social History Tobacco Use Types [...] or relatives? How often do you attend bahai or Patient refused 2020 pentecostal services? Do you belong to any clubs or Yes 09/27/2020 organizations such as bahai groups, unions, fraternal or athletic groups, or [...]
--- OUTSIDE RECORDS SUMMARY | 2022-01-30 09:03 | XMS_ITS | Encounter Summary ---
:1955 Author Organization [facility] Address [address] [place] [address] Care Team Providers Name Role Phone Unavailable Primary Care Provider Unavailable Reason for Visit Appointment Request (Routine) - Closed Specialty Diagnoses / Procedures Referred By Contact Refer red To Contact Nephrology and Hypertension Referral ID Status Reason Start Date Expiration Date Visits Requ ested Visits Authorized [id number] Closed 10/19/2017 10/19/2018 1 Encounter Details Date Type Department Care Team Description 10/31/2017 External Outreach Division of [facility] Willis dney Disease Stage 1 Glomerular Filtration Rate Greater Than 90 (Primary Dx); Nephrology and Walter Wooten Jr., Diabetes Evelyn litus Type 2 With Diabetic Nephropathy (HCC); Hypertension in [place] Hypertension And Chronic Kidney Disease Stage 1 To 4; [place], [place] [address] [facility] Prolactinoma (HCC); [address] [place], [place] Hypogonadism Pituitary (HCC) [place] [phone] Social History Tobacco Use Types Packs/Day Years [...] or relatives? How often do you attend spiritism or Patient refused 2020 taoist services? Do you belong to any clubs or Yes 09/27/2020 organizations such as spiritism groups, unions, fraternal or athletic groups, or [...] or slept in a [facility] (including now)? Sex Assigned at Date Recorded Not on file documented as of this encounter Progress Notes Walter Willis Jr., D.O. - 10/31/2017 1:00 PM CDT Please see scanned in [facility] note documentation from today's date documented in this encounter Plan of Treatment Not on filedocumented as of this encounter Visit Diagnoses Diagnosis Chronic Kidney Disease Stage 1 Glomerula r Filtration Rate Greater Than 90 - Primary Diabetes Mellitus Type 2 With Diabetic N ephropathy (HCC) Hypertension And Chronic Kidney Disease Stage 1 To 4 Prolactinoma (HCC) Hypogonadism Pituitary (HCC) documented in this encounter
--- OUTSIDE RECORDS SUMMARY | 2022-01-30 09:03 | XMS_ITS | Encounter Summary ---
:1955 Author Organization [facility] Address [address] [place] [address] Care Team Providers Name Role Phone Unavailable Primary Care Provider Unavailable Reason for Visit Reason Comments Med Refill Encounter Details Date Type Department Care Team Description 09/16/2018 Refill Division of Nephrology and Lazaro, Charles Wooten Jr., Med Refill Hypertension in [facility] [address] [facility] [address] [place] [address] [place] [address] [phone] Social History Tobacco Use Types Packs/Day Years [...] or relatives? How often do you attend nondenominational or Patient refused 2020 pentecostalism services? Do you belong to any clubs or Yes 09/27/2020 organizations such as nondenominational groups, unions, fraternal or athletic groups, or [...] place to sleep or slept in a [place] [facility] (including now)? Sex Assigned at Date Recorded Not on file documented as of this encounter Plan of Treatment Not on filedocumented as of this encounter Visit Diagnoses Not on filedocumented in this encounter
--- OUTSIDE RECORDS SUMMARY | 2022-01-30 09:03 | XMS_ITS | Encounter Summary ---
:1955 Author Organization [facility] Address [address] [place] [address] Care Team Providers Name Role Phone Unavailable Primary Care Provider Unavailable Reason for Referral Outpatient (Routine) - Closed Specialty Diagnoses / Procedures Referred By Contact Refer red To Contact Endocrinology Homero Bernardo, Cali. B.S. 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 B.S. [address] [phone] Referral ID Status Reason Start Date Expiration Date Visits Requ ested Visits Authorized [id number] Closed 12/04/2017 12/04/2018 1 1 Encounter Details Date Type Department Care Team Description 12/24/2017 Office Visit Division of Homero Bernardo, Prolactinoma (HCC) Endocrinology in M.B.B.S. (Primary Dx) [place], [place] [address] [place] [address] [place] [phone] Social History Tobacco Use Types Packs/Day Years [...] or relatives? How often do you attend anabaptist or Patient refused 2020 spiritism services? Do you belong to any clubs or Yes 09/27/2020 organizations such as anabaptist groups, unions, fraternal or athletic groups, or [...] place to sleep or slept in a penitentiary (including now)? Sex Assigned at Date Recorded Not on file documented as of this encounter Last Filed Vital Signs Vital Sign Reading Time Taken Comments Blood Pressure 143/88 12/24/2017 3:28 PM CDT Pulse - - Temperature - - Respiratory Rate - - Oxygen Saturation - - Inhaled Oxygen Concentration - - Weight 90.5 kg (199 lb 8.3 oz) 12/24/2017 3:28 PM CDT Height 172.6 cm (5' 7.95) 12/24/2017 3:28 PM CDT Body Mass Index 30.38 12/24/2017 3:28 PM CDT documented in this encounter Progress Notes Homero Bernardo M.B.B.S. - 12/24/2017 3:30 PM CDT SUBJECTIVE CHIEF COMPLAINT / REASON FOR VISIT Miguelangel Gasca is a 62 y.o. male who presents for evaluation of macroprolactinoma and hypogonadism. HISTORY OF PRESENT ILLNESS Mr. Gasca is a pleasant 60-year-old gentleman who was last seen in Apr 2016 for macroprolactinomafollowup. In summary, this patient was diagnosed to have macroprolactinoma in December 2014 and was initially started on bromocriptine but then secondary to side effects was switched to cabergoline. Theadenoma measured 2 cm initially with associated prolactin in the 3000 range. When I had last seen the patient, the patient's prolactin was 43 with a total testosterone of 185, bioavailable testosteronelow normal of 64. He was still having some trouble with decreased libido and, hence, we had increased his cabergoline from 0.5 mg twice a week to 0.75 mg twice a week. The patient reports that he has not had any significant nausea or vomiting or orthostatic hypotension; however, four months after increasing the dose, he had brain fogginess which has now resolved and he is tolerating cabergoline 0.75 mg twice a week. Otherwise the patient denies any headache or lightheadedness. He reports that his libido has now normalized, and he has normal erection, as well as nocturnal erection. He denies any decrease in appetite or energy. He also denies any impulse control disorder. The following portions of the patient's history were reviewed and updated as appropriate: allergies,current medications, family history, medical history, social history, surgical history and problem list. OBJECTIVE Recent Results (from the past 72 hour(s)) Basic metabolic panel Collection Time: 12/24/17 8:03 AM Result Value Potassium, S 4.8 Sodium, S 149 (H) Chloride, S 112 (H) Bicarbonate, S 23 Anion Gap 14 Bld Urea Nitrog(BUN), S 31 (H) Creatinine, S 1.53 (H) eGFR-Non Black 47 (L) eGFR-Black 55 (L) Calcium, Total 9.9 Glucose, S 88 Prolactin Collection Time: 12/24/17 8:03 AM Result Value Prolactin Total 33 (H) T4 (Thyroxine), Free Collection Time: 12/24/17 8:03 AM Result Value T4 (Thyroxine), Free, S 1.0 Cortisol Collection Time: 12/24/17 8:03 AM Result Value AM Result 13 MRI brain: No significant interval change. Stable size, signal and configuration and extension of previously noted sellar/right cavernous sinus lesion. Stable appearance of pituitary, infundibulum, optic chiasm, cavernous sinuses, sella turcica floor and internal carotid arteries. Remainder also otherwise stable. PHYSICAL EXAM Physical Exam General: Healthy appearing, in no acute distress. HEENT: No lid lag or proptosis. Visual prakash intact on confrontation testing. Thyroid: No thyroid tenderness or nodules. No thyromegaly appreciated Heart: S1, S2 normal. Regular rate and rhythm. No murmurs, rubs, or gallops appreciated. 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 He has had good response to therapy without any current adverse effects. I did give him the option of Transsphenoidal resection of this benign adenoma but no visual defects or mass effects that would push us towards surgery. His HGH suppression with OGTT to <0.3 suggests not active increased secretion of GH. No phenotypic features or symptoms of acromegaly. Recently, a.m. cortisol is normal at 13,free T4 normal at 1, prolactin improved to 33. On MRI, No significant interval change. Stable size, signal and configuration and extension of previously noted sellar/right cavernous sinus lesion. Plan: - continue current dose of cabergoline 0.75 mg PO twice a week - will follow up on testosterone tests which are currently pending. - if the testosterone is in normal range, then we will arrange for follow-up in 1 year along with prolactin and testosterone levels. Unless the prolactin starts increasing, we do not need to repeat MRIof the brain. I will be hesitant in terms of removing the patient off cabergoline as he did have a macro prolactinoma and there would be a likelihood of recurrence if we stop the cabergoline. Follow-upwill be ordered for pituitary gonadal in adrenal nurse-practitioner. Answers for HPI/ROS submitted by the patient on 12/24/2017 No general issues: Yes No eye issues: Yes Difficulty hearing: Yes No heart issues: Yes No respiratory issues: Yes No GI issues: Yes Back pain/stiffness: Yes No skin issues: Yes No neurologic issues: Yes No mental health issues: Yes No blood/lymph issues: Yes No urinary/reproductive issues: Yes documented in this encounter Plan of Treatment Scheduled Referrals Name Type Priority Associated Order Schedule Diagnoses Endocrinology office Outpatient Referral Routine Expected: visit (clinic) 12/24/2018 (Approximate), Expires: 01/24/2020 documented as of this encounter Results Testosterone, Total and Bioavailable (12/24/2018 7:11 AM CDT) athologist Signature Testosterone, 69 40 - 168 12/26/2018 Bioavailable, S ng/dL 11:39 PM CDT Comment: ----ADDITIONAL INFORMATION---- Testing performed by Differential Precip itation. This test was developed and its performa nce characteristics determined by [facility] in a manner consistent with CLIA requirements. This test has not been cleared or approved by the [place] N[place] d and Drug Administration. Testosterone, Total by Mass 277 240 - 950 ng/dL 2018 10:35 AM CDT Spectrometry, Serum Comment: ----ADDITIONAL INFORMATION---- Testing performed by Liquid Chromatograp hy-Tandem Mass Spectrometry (LC-MS/MS). This test was developed and its performa nce characteristics determined by [facility] in a manner consistent with CLIA requirements. This test has not been cleared or approved by the [place] N[place] d and Drug Administration. Specimen Anatomical Collection Method Collection Time Receive d Time (Source) Location / / Volume Laterality Blood (Blood, 12/24/2018 7:11 AM 12/26/19 19 6:26 Venous) CDT AM CDT Homero DominiqueS. LAB BLOOD NON ADD-ON Performing Organization Address City/State/ZIP Code Phon e Number [facility] [address] [place], [place] [address] [facility] T4 (Thyroxine), Free (12/24/2018 7:11 AM CDT) athologist Signature T4 (Thyroxine), 1.0 0.9 - 1.7 12/24/2018 Free, S ng/dL 1:18 PM CDT Comment: Biotin has been identified by the nichole avitia as a potential interfering substance. ??Higher concentr ations of biotin may be found in multivitamins, hair/nail supple ments, and workout supplements. ??If the result does not ma [facility] clinical observations, repeat testing after patient refrains fr om the use of supplements for at least 12 hours. Specimen Anatomical Collection Method Collection Time Receive d Time (Source) Location / / Volume Laterality Blood (Blood, 12/24/2018 7:11 AM 12/25/19 19 Venous) CDT 12:44 PM CDT Homero DominiqueSIsauro LAB BLOOD ADD-ON Performing Organization Address City/State/ZIP Code Phon e Number [facility] [address] [place] [address] LAB (ABNORMAL) Prolactin, Pituitary Macroadenoma (12/24/2018 7:11 AM CDT) [facility] gist Method Time Signature Prolactin 29.8 (H) 4.0 - 12/25/2018 Total 15.2 7:38 AM CDT ng/mL Comment SEE COMMENT 12/25/2018 7:38 AM CDT Comment: 10,100,and 400-fold dilutions produced r esults consistent with the absence of high-dose hook effec ts. ----ADDITIONAL INFORMATION---- The testing method is an electrochemilum inescence assay manufactured by [employer] and performed on the Esteban system. [...] 19 6:33 Venous) CDT AM CDT Homero Rodriguez LAB BLOOD ADD-ON Performing Organization Address City/State/ZIP Code Phon e Number [facility] [address] [place], [place] [address] [facility] documented in this encounter Visit Diagnoses Diagnosis Prolactinoma (HCC) - Primary documented in this encounter
--- OUTSIDE RECORDS SUMMARY | 2022-01-30 09:03 | XMS_ITS | Encounter Summary ---
:1955 Author Organization [facility] Address [address] [place] [address] Care Team Providers Name Role Phone Unavailable Primary Care Provider Unavailable Encounter Details Date Type Department Care Team Description 12/24/2017 Ancillary Procedure Department of Ophthalmology Social History Tobacco Use Types Packs/Day Years [...] or relatives? How often do you attend druze or Patient refused 2020 quaker services? Do you belong to any clubs or Yes 09/27/2020 organizations such as druze groups, unions, fraternal or athletic groups, or [...] or slept in a usp (including now)? Sex Assigned at Date Recorded Not on file documented as of this encounter Plan of Treatment Not on filedocumented as of this encounter Procedures Procedure Name Priority Date/Time Associated Comments Diagnosis OPHTHALMOLOGY IMAGE Routine 12/24/2017 9:53 AM Re sults for this EXAM CDT procedure are i n the results section. documented in this encounter Results OPHTHALMOLOGY IMAGE EXAM (12/24/2017 9:53 AM CDT) Specimen (Source) Anatomical Collection Method Collection Time Re ceived Time Location / / Volume Laterality 12/24/2017 12:00 PM CDT Narrative [facility] - 12/24/2017 9:53 AM CDT This order has been created and auto-finalized to support the import of images acquired without order. The clini ephraim documentation to support these images can be found on the encounter charissa t produced images. Provider Not In System IMG NON RAD IMAGING PROCEDUR ES Performing Organization Address City/State/ZIP Code Phon e Number [facility] NA documented in this encounter Visit Diagnoses Not on filedocumented in this encounter
--- OUTSIDE RECORDS SUMMARY | 2022-01-30 09:03 | XMS_ITS | Encounter Summary ---
:1955 Author Organization [facility] Address [address] [place] [address] Care Team Providers Name Role Phone Unavailable Primary Care Provider Unavailable Encounter Details Date Type Department Care Team Description 10/19/2017 Abstract DATA ABSTRACTION Provider, Historical Social History Tobacco Use Types Packs/Day Years [...] or relatives? How often do you attend islam or Patient refused 2020 worship services? Do you belong to any clubs or Yes 09/27/2020 organizations such as islam groups, unions, fraternal or athletic groups, or [...] place to sleep or slept in a detention (including now)? Sex Assigned at Date Recorded Not on file documented as of this encounter Plan of Treatment Not on filedocumented as of this encounter Visit Diagnoses Not on filedocumented in this encounter
--- OUTSIDE RECORDS SUMMARY | 2022-01-30 09:04 | XMS_ITS | Encounter Summary ---
:1955 Author Organization [place] Address formerly [facility] [address] Care Team Providers Name Role Phone Kade Alexander MD Primary Care Provider Encounter Details Date Type Department Care Team Description 04/26/2006 Results Only [facility] Nasreen Bolaños MD Hospital Results [facility] [address] [place], [place] [address] (Wo rk) Social History Tobacco Use Types Packs/Day Years Used Date Smoking Tobacco: Never Alcohol Use Standard Drinks/Week Comments Yes 0 (1 standard drink = 0.6 oz pure alcoho l) RARE Sex Assigned at Date Recorded Not on file documented as of this encounter Plan of Treatment Not on filedocumented as of this encounter Procedures Procedure Name Priority Date/Time Associated Diagnosis Comme nts HC CT ABDOMEN W Routine 04/26/2006 2:08 PM Result s for this CONTRAST DRYING TUNNEL OPERATOR procedure are i n the results section. HC CHEST TWO VIEWS, Routine 04/26/2006 12:41 PM R esults for this FRONT/LAT DRYING TUNNEL OPERATOR procedure are i n the results section. documented in this encounter Results CT SCAN OF ABDOMEN CONTRAST (04/26/2006 2:08 PM DRYING TUNNEL OPERATOR) Anatomical Region Laterality Modality Other Specimen (Source) Anatomical Collection Method Collection Time Re ceived Time Location / / Volume Laterality 04/26/2006 2:08 PM DRYING TUNNEL OPERATOR Impressions 04/26/2006 2:31 PM DRYING TUNNEL OPERATOR Exam: ??CT ABD/PEL W/ CONTRAST* IV Optiray 300: 100cc History: ??LUQ pain, ??Trauma or injury, Findings: 1. Coronary artery calcifications. 2. Small saccular hernia. 3. Scarring with some associated calcifi cation left kidney. 4. Exam is otherwise negative. Nasreen Bolaños MD SPECIAL IMAGING STUDIES CHEST X-RAY 2 VW (04/26/2006 12:41 PM DRYING TUNNEL OPERATOR) Anatomical Region Laterality Modality Other Specimen (Source) Anatomical Collection Method Collection Time Re ceived Time Location / / Volume Laterality 04/26/2006 12:41 PM DRYING TUNNEL OPERATOR Impressions 04/27/2006 12:29 PM DRYING TUNNEL OPERATOR Exam: ??CHEST TWO VIEW* ??Apr 26, 2006 1 2:41:00 PM History: ??Rib pain left posterior. Findings: Tortuosity of thoracic aorta a nd calcification within the arch of the aorta, somewhat prominent fo r patient's age. Otherwise negative chest. Nasreen Bolaños MD GENERAL IMAGING documented in this encounter Visit Diagnoses Not on filedocumented in this encounter Care Teams Residential Aide Relationship Specialty Start Date End Date Kade Alexander MD PCP - General 01/27/02 [facility] [address] [place] [address] documented as of this encounter
--- OUTSIDE RECORDS SUMMARY | 2022-01-30 09:04 | XMS_ITS | Encounter Summary ---
:1955 Author Organization [facility] Address [address] [place] [address] Care Team Providers Name Role Phone Kade Alexander MD Primary Care Provider Encounter Details Date Type Department Care Team Description 05/10/2003 Emergency room Angel Luis Barnes MD EMERGENCY PHYSIC [address] [phone] (Wo rk) Social History Tobacco Use Types Packs/Day Years Used Date Smoking Tobacco: Never Alcohol Use Standard Drinks/Week Comments Yes 0 (1 standard drink = 0.6 oz pure alcoho l) RARE Sex Assigned at Date Recorded Not on file documented as of this encounter ED Notes Angel Luis Barnes - 05/10/2003 12:00 AM FINISHING ROOM SUPERVISOR : 51 CHIEF COMPLAINT: Rash. HISTORY OF PRESENT ILLNESS: This is a 47-year-old male who complains of a 5-day history of a rash on the right side of his forehead and scalp. It is somewhat itchy and somewhat burning in nature. He denies fevers or chills. No other complaints. He did bump his head on a pipe several days before the onset of his rash. PAST MEDICAL HISTORY: Hypertension. MEDICATIONS: Lotrel. ALLERGIES: None. REVIEW OF SYSTEMS: HEENT: The patient complains of some achiness near his right eye, but denies visual complaints. PHYSICAL EXAMINATION: The patient is alert and pleasant. Temperature: 98. Pulse: 73. Respirations: 16. Blood pressure: 147/105. Examination of the SCALP reveals a vesicular erythematous rash involving the right side of his frontal scalp, as well as his upper frontal forehead and a few erythematous patches above the right eyebrow, as well as one erythematous patch which is tender on the right upper eyelid. PUPILS are equal, round and reactive to light. Extraocular movements are intact. Conjunctivae are clear without injection. Slit-lamp examination of the right eye shows no cells or flare in the anterior chamber. Fluorescein staining demonstrates no evidence of fluorescein uptake, no evidence of corneal defect. IMPRESSION: Varicella-zoster. DISPOSITION: The patient is discharged home. I have placed him on a 7-day course of valacyclovir. The patient is to follow up with ophthalmology should he develop any increase in eye discomfort or any visual changes. I have discussed with him the importance of watching for any corneal involvement of the zoster infection. [id number] ANGEL LUIS BARNES MD [place]: Document: [id number] [place], [place] Name: MIGUELANGEL KUMAR EMERGENCY ROOM ENCOUNTER Page 2 of 2 LCN: ALONSO DSC: 05/10/2003 [place], [place] Name: MR#: : Admit Date: MIGUELANGEL KUMAR [id number] 1955 05/10/2003 Doctor: ANGEL LUIS BARNES MD EMERGENCY ROOM ENCOUNTER Page 1 of 2 SHING ROOM SUPERVISOR documented in this encounter Plan of Treatment Not on filedocumented as of this encounter Visit Diagnoses Not on filedocumented in this encounter Care Teams Veterinary Assistant Technician Relationship Specialty Start Date End Date Kade Alexander MD PCP - General 01/27/02 [facility] [address] [place] [address] documented as of this encounter
--- OUTSIDE RECORDS SUMMARY | 2022-01-30 09:04 | XMS_ITS | Encounter Summary ---
:1955 Author Organization [facility] Address [address] [place] [address] Care Team Providers Name Role Phone Kade Alexander MD Primary Care Provider Reason for Visit Rehab Therapy Cardiac Therapy (Routine) - Closed Specialty Diagnoses / Procedures Referred By Contact Refer red To Contact CARDIAC REHAB Diagnoses OnBase Order CAB *4 [facility] Procedures CARDIAC [facility] [address] [place] [address] Phone: Fax: Referral ID Status Reason Start Date Expiration Date Visits Requ ested Visits Authorized [id number] Closed 06/05/2019 04/01/2020 365 365 Encounter Details Date Type Department Care Team Description 06/16/2019 Hospital Encounter [facility] Cardiac Ask Jose A jordan MD [address] [place] [address] and Pulmonary 1, Rh Cardiac Rehab Rehabilitation [facility] [address] [place] [address] [address] [place] [address] Social History Tobacco Use Types Packs/Day Years Used Date Smoking Tobacco: Never Alcohol Use Standard Drinks/Week Comments Yes 0 (1 standard drink = 0.6 oz pure alcoho l) RARE Sex Assigned at Date Recorded Not on file COVID-19 Exposure Response Date Recorded In the last month, have you been in contact with No / Unsure 06/16/2019 2:51 PM CDT someone who was confirmed or suspected to have Coronavirus / COVID-19? documented as of this encounter Plan of Treatment Not on filedocumented as of this encounter Visit Diagnoses Not on filedocumented in this encounter Care Teams Call Center Professional Relationship Specialty Start Date End Date Kade Alexander MD PCP - General 01/27/02 [facility] [address] [place] [address] documented as of this encounter
--- OUTSIDE RECORDS SUMMARY | 2022-01-30 09:04 | XMS_ITS | Encounter Summary ---
:1955 Author Organization [place] Address [address] [place] [address] Care Team Providers Name Role Phone Kade Alexander MD Primary Care Provider Reason for Visit Rehab Therapy Cardiac Therapy (Routine) - Closed Specialty Diagnoses / Procedures Referred By Contact Refer red To Contact CARDIAC REHAB Diagnoses OnBase Order CAB *4 [facility] Procedures CARDIAC [facility] [address] [place] [address] Phone: Fax: Referral ID Status Reason Start Date Expiration Date Visits Requ ested Visits Authorized [id number] Closed 06/05/2019 04/01/2020 365 365 Encounter Details Date Type Department Care Team Description 06/13/2019 Hospital Encounter [facility] [place] Cardiac Ask Jose A jordan MD [address] [place] [address] and Pulmonary 1, Rh Cardiac Rehab Rehabilitation [facility] [address] [place] [address] [address] [place] [address] Social History Tobacco Use Types Packs/Day Years Used Date Smoking Tobacco: Never Alcohol Use Standard Drinks/Week Comments Yes 0 (1 standard drink = 0.6 oz pure alcoho l) RARE Sex Assigned at Date Recorded Not on file COVID-19 Exposure Response Date Recorded In the last month, have you been in contact with No / Unsure 06/13/2019 2:53 PM CDT someone who was confirmed or suspected to have Coronavirus / COVID-19? documented as of this encounter Plan of Treatment Not on filedocumented as of this encounter Visit Diagnoses Not on filedocumented in this encounter Care Teams Hide Buffer Relationship Specialty Start Date End Date Kade Alexander MD PCP - General 01/27/02 [facility] [address] [place] [address] documented as of this encounter
--- OUTSIDE RECORDS SUMMARY | 2022-01-30 09:04 | XMS_ITS | Encounter Summary ---
:1955 Author Organization [facility] Address [address] [place] [address] Care Team Providers Name Role Phone Kade Alexander MD Primary Care Provider Reason for Visit Rehab Therapy Cardiac Therapy (Routine) - Closed Specialty Diagnoses / Procedures Referred By Contact Refer red To Contact CARDIAC REHAB Diagnoses OnBase Order CAB *4 [facility] Procedures CARDIAC [facility] [address] [place] [address] Phone: Fax: Referral ID Status Reason Start Date Expiration Date Visits Requ ested Visits Authorized [id number] Closed 06/05/2019 04/01/2020 365 365 Encounter Details Date Type Department Care Team Description 06/10/[address] [facility] Cardiac [place] Conti MD and Pulmonary Jose A Pelaez MD [address] [place] [address] Rehabilitation [facility], Rh Cardiac Rehab [address] [facility] [address] [place] [address] Social History Tobacco Use [...] on filedocumented in this encounter Care Teams Sweat Box Attendant Relationship Specialty Start Date End Date Kade Alexander MD PCP - General 01/27/02 [facility] [address] [place] [address] documented as of this encounter
--- OUTSIDE RECORDS SUMMARY | 2022-01-30 09:04 | XMS_ITS | Encounter Summary ---
:1955 Author Organization [facility] Address [address] [place] [address]. [place] [address] Care Team Providers Name Role Phone Kade Alexander MD Primary Care Provider Encounter Details Date Type Department Care Team Description 04/26/2006 Emergency room Nasreen Bolaños MD SKIN REJUVENATIJudd [facility] [address] [facility] [address] [place], [place] [phone] (Wo rk) Social History Tobacco Use Types Packs/Day Years Used Date Smoking Tobacco: Never Alcohol Use Standard Drinks/Week Comments Yes 0 (1 standard drink = 0.6 oz pure alcoho l) RARE Sex Assigned at Date Recorded Not on file documented as of this encounter Progress Notes Nasreen Bolaños - 04/28/2006 8:17 AM EXTRACTION SUPERVISOR FINAL CHIEF COMPLAINT: Back pain. HISTORY OF PRESENT ILLNESS: This is a 50-year-old male who was kicked by a horse about a week ago. He said he was doing okay until today when he got up he had pain in the left back and some in the abdomen. He said he felt like he was a little short of breath but does not feel this now. He said he heard a pop when this happened this morning. He denies any right rib pain. This is more on the left and bilaterally. He says there is a little upper left abdominal pain. No lower back pain. No blood in hisurine that he has noticed. No weakness, headache, visual changes, cold or cough symptoms, fevers or chills, diarrhea, constipation, black or bloody stools. REVIEW OF SYSTEMS: Rest of the systems review is negative. PAST MEDICAL HISTORY: Hypertension. MEDICATIONS: Lotrel and aspirin. ALLERGIES: None. SOCIAL HISTORY: He is a nonsmoker, occasional alcohol use, no drug use. PHYSICAL EXAMINATION: VITAL SIGNS: Blood 139/92, pulse 70, respirations 18, temperature is 96 and pulse of 96% on room air. HEENT: Pupils are round, equal and reactive. Extraocular movements are intact. Nares are clear. Mouth, there is no erythema to the pharynx. NECK: Supple. No lymphadenopathy. LUNGS: Equal breath sounds bilaterally with no crackles or wheezes. There is no crepitus. EXTREMITIES: He does have some pain along the lateral ribs on the left lower and posteriorly there is an abrasion there. No other pain about the rest of the ribs. ABDOMEN: Soft, bowel sounds present. There is mild tenderness in the left upper quadrant. No rebound or guarding. BACK: Nontender over the CVA regionon the right but is mildly on the left. No tenderness of the lumbar spine or paralumbar musculature.NEUROLOGIC: Strength is 5/5 in upper and lower extremities. Normal gait and good pulses. DIAGNOSTIC TESTS: Chest x-ray was done and showed no fracture or pneumothorax. Urinalysis was negative. CT of the abdomen and pelvis was done due to the left upper abdominal pain due to his pain thereand the trauma to rule out any spleen injury. This was negative. There was some incidental coronary calcifications. I did talk to the patient about this to follow up with his doctor. HOSPITAL COURSE: At this point, I think the pain is most likely related to the rib strain and possibly occult fracture. I think we can treat him symptomatically since his vital signs are stable and normal O2 sats and we will put him on Vicodin for pain and have him follow up as an outpatient. DISPOSITION: Vicodin to take as tolerated, Motrin as needed for pain, return if increasing pain, vomiting, shortness of breath and the patient should follow up with his family doctor within 1 week forrecheck. ASSESSMENT: Left posterior rib strain/fracture. Electronically signed on 04/28/2006 08:16 by NASREEN BOLAÑOS MD MT: [id number] Name: MIGUELANGEL KUMAR Account: [id number] : 1955 Visit Date: 04/26/2006 Document: [id number] ACTION SUPERVISOR documented in this encounter Plan of Treatment Not on filedocumented as of this encounter Visit Diagnoses Not on filedocumented in this encounter Care Teams Perianesthesia Rn Relationship Specialty Start Date End Date Kade Alexander MD PCP - General 01/27/02 [facility] [address] [place] [place] [address] documented as of this encounter
--- OUTSIDE RECORDS SUMMARY | 2022-01-30 09:04 | XMS_ITS | Encounter Summary ---
:1955 Author Organization [facility] Address [address] [place] [address] Care Team Providers Name Role Phone Kade Alexander MD Primary Care Provider Encounter Details Date Type Department Care Team Description 06/13/2019 Travel Social History Tobacco Use Types Packs/Day Years [...] on filedocumented in this encounter Care Teams Controller [employer] Relationship Specialty Start Date End Date Kade Alexander MD PCP - General 01/27/02 [facility] [address] [place] [place] [id number] documented as of this encounter
--- OUTSIDE RECORDS SUMMARY | 2022-01-30 09:04 | XMS_ITS | Encounter Summary ---
:1955 Author Organization [facility] Address [address] [place] [address] Care Team Providers Name Role Phone Kade Alexander MD Primary Care Provider Encounter Details Date Type Department Care Team Description 12/13/2007 Historic Results [facility] Heart Unknown, [facility] [address] [place] [address] Social History Tobacco Use Types Packs/Day Years Used Date Smoking Tobacco: Never Alcohol Use Standard Drinks/Week Comments Yes 0 (1 standard drink = 0.6 oz pure alcoho l) RARE Sex Assigned at Date Recorded Not on file documented as of this encounter Plan of Treatment Not on filedocumented as of this encounter Procedures Procedure Name Priority Date/Time Associated Diagnosis Comme nts ECHO CARDIAC - HIM SCAN 12/13/2007 12:00 AM CDT - ARCHIVE documented in this encounter Results ECHO CARDIAC - HIM SCAN - ARCHIVE (12/13/2007 12:00 AM CDT) Anatomical Region Laterality Modality Echocardiography Specimen (Source) Anatomical Location Collection Method / Collectio n Time Received Time / Laterality Volume 12/13/2007 Narrative This result has an attachment that is no t available. Provider Scan CV ECHO ORDERABLES documented in this encounter Visit Diagnoses Not on filedocumented in this encounter Care Teams Collar Turner Relationship Specialty Start Date End Date Kade Alexander MD PCP - General 01/27/02 [facility] [address] [place] [address] documented as of this encounter
--- OUTSIDE RECORDS SUMMARY | 2022-01-30 09:04 | XMS_ITS | Encounter Summary ---
:1955 Author Organization [facility] Address [address] [place] [address] Care Team Providers Name Role Phone Kade Alexander MD Primary Care Provider Encounter Details Date Type Department Care Team Description 03/03/2003 Abstract M [facility] Marissa Erickson [address] [place] [phone] Social History Tobacco Use Types Packs/Day Years Used Date Smoking Tobacco: Never Assessed Sex Assigned at Date Recorded Not on file documented as of this encounter Plan of Treatment Not on filedocumented as of this encounter Visit Diagnoses Not on filedocumented in this encounter Care Teams Financial Services Assistant Relationship Specialty Start Date End Date Kade Alexander MD PCP - General 01/27/02 [facility] [place] [address] [place] [address] documented as of this encounter
--- OUTSIDE RECORDS SUMMARY | 2022-01-30 09:04 | XMS_ITS | Encounter Summary ---
:1955 Author Organization [facility] Address [address] [place] [address] Care Team Providers Name Role Phone Kade Alexander MD Primary Care Provider Encounter Details Date Type Department Care Team Description 06/18/2019 Travel Social History Tobacco Use Types Packs/Day Years Used Date Smoking Tobacco: Never Alcohol Use Standard Drinks/Week Comments Yes 0 (1 standard drink = 0.6 oz pure alcoho l) RARE Sex Assigned at Date Recorded Not on file COVID-19 Exposure Response Date Recorded In the last month, have you been in contact with No / Unsure 06/18/2019 2:53 PM CDT someone who was confirmed or suspected to have Coronavirus / COVID-19? documented as of this encounter Plan of Treatment Not on filedocumented as of this encounter Visit Diagnoses Not on filedocumented in this encounter Care Teams Telecommunications Field Engineer Relationship Specialty Start Date End Date Kade Alexander MD PCP - General 01/27/02 [facility] [address] [place] [place] [address] documented as of this encounter
--- OUTSIDE RECORDS SUMMARY | 2022-01-30 09:04 | XMS_ITS | Encounter Summary ---
:1955 Author Organization [facility] Address [address] [place] [address] Care Team Providers Name Role Phone Unavailable Primary Care Provider Unavailable Reason for Visit Reason Comments Med Refill Encounter Details Date Type Department Care Team Description 08/30/2017 Refill Division of Endocrinology in [facility], Med Refill [place], [place] [facility] [address] [facility] [address] [place] [address] [place], [place] [phone] (Wo rk) Social History Tobacco Use Types [...] attend latter day or Patient refused 2020 scientologist services? Do you belong to any clubs [...]
--- OUTSIDE RECORDS SUMMARY | 2022-01-30 09:04 | XMS_ITS | Encounter Summary ---
:1955 Author Organization [facility] Address [address] [place] [address] Care Team Providers Name Role Phone Kade Alexander MD Primary Care Provider Encounter Details Date Type Department Care Team Description 12/13/2007 Results Only [facility] Anjel Alexander MD Hospital Results [facility] [address] [address] [place], [place] [phone] (Wo rk) Social History Tobacco Use Types Packs/Day Years Used Date Smoking Tobacco: Never Alcohol Use Standard Drinks/Week Comments Yes 0 (1 standard drink = 0.6 oz pure alcoho l) RARE Sex Assigned at Date Recorded Not on file documented as of this encounter Plan of Treatment Not on filedocumented as of this encounter Procedures Procedure Name Priority Date/Time Associated Diagnosis Comme [facility] US ABDOMEN Routine 12/13/2007 11:35 AM Results for this COMPLETE CDT procedure are i n the results section. [facility] ECHO HEART Routine 12/13/2007 9:59 AM Results for this XTHORACIC,COMPLETE, CDT procedur e are in W/O DOPPLER the results section. documented in this encounter Results SONO ABDOMEN COMPLETE (12/13/2007 11:35 AM CDT) Anatomical Region Laterality Modality Other Specimen (Source) Anatomical Collection Method Collection Time Re ceived Time Location / / Volume Laterality 12/13/2007 11:35 AM CDT Impressions 12/13/2007 11:41 AM CDT US ABDOMEN COMPLETE* HISTORY: Abdominal pain FINDINGS: 2.1 cm hypoechoic area in the right lobe of the liver which is indeterminate. CT recommended for fur ther evaluation. Negative gallbladder, common bile duct, ??pancrea s and spleen. Negative kidneys, aorta and IVC. IMPRESSION: ??2.1 cm hypoechoic area in the right lobe of the liver which is indeterminant. This may simply be focal area of fatty sparing. CT recommended for further eval uation. Exam otherwise unremarkable. Kade Alexander MD SPECIAL IMAGING STUDIES ECHO HEART,COMPLETE (12/13/2007 9:59 AM CDT) Component Value Ref Test Analysis Performed At [facility] Range Method Time Signature [facility] Interpretation Summary RESULTS ECHOCARDIOGRAPHIC RESULTS & IMPRESSIONS: THIS ECHO ETHAN DY SHOWS ESSENTIALLY A NORMAL HEART with the observations as noted below. The ascen ding aorta is mildly dilated at 3.8cm ??(The upper limit of no rmal is 3.7cm for aortic root diameter.). The left ventricular ejection fraction is normal . ??The visual ejection fraction is estimated at 55-60% with ??borderline c oncentric left ventricular hypertrophy. ??Otherwise, as below. PatientHeight: 68 in PatientWeight: 220 lbs SystolicPressure: 130 mmHg DiastolicPressure: 80 mmHg BSA 2.1 m^2 Left Ventricle The left ventricle is normal in size. There is borderline concentric left ventricular hypertrophy. The left ventricular ejection fraction is normal. The visual ejection fraction is estimated at 55-60%. The transmitral spectral Doppler flow pattern is normal for age. Normal left ventricular wall motion. There is no thrombus seen in the left ventricle. Right Ventricle The right ventricle is normal size. The right ventricle is normal in size and function. Atria Normal left atrial size. Right atrial size is normal. Intact atrial septum. Mitral Valve The mitral valve leaflets appear normal. There is no evidenc e of stenosis, fluttering, or prolapse. There is no evidence of mitral valve prolapse. There is no mitral regurgitation noted. There is no mitral valve stenosis. Tricuspid Valve Normal tricuspid valve. Right ventricular systolic pressure is normal. There is trace tricuspid regurgitation. The right ventricular systolic pressure is approximated at 1 4mmHg plus the right atrial pressure. Aortic Valve The aortic valve is normal in structure and function. The aortic valve is trileaflet. No evidence of vegetation. No aortic regurgitation is present. No aortic stenosis is present. Pulmonic Valve The pulmonic valve is not well seen, but is grossly normal. There is trace pulmonic valvular regurgitation. Vessels (The upper limit of normal is 3.7cm for aortic root diameter .). The aortic root is normal size. The ascending aorta is Mildly dilated. Pericardial/Pleural There is no pericardial effusion. The pericardium appears normal. There is no pleural effusion. Rhythm The rhythm was normal sinus. Procedure Complete Echo Adult. MMode 2D Measurements & Calculations IVSd: 1.2 cm LVIDd: 4.8 cm LVIDs: 3.1 cm LVPWd: 1.1 cm FS: 34 % LV mass(C)d: 201 grams Ao root diam: 3.6 cm LA dimension: 3.6 cm asc Aorta: 3.8 cm LA/Ao: 1.0 Doppler Measurements & Calculations MV E point: 75 cm/sec MV A point: 65 cm/sec MV E/A: 1.2 MV dec time: 0.18 sec TR Max P mmHg Interpreting Physician: ??Hong Monroe MD electronically signed on 12-13-2007 16:56:06 Anatomical Region Laterality Modality Other Specimen (Source) Anatomical Collection Method Collection Time Re ceived Time Location / / Volume Laterality 12/13/2007 9:59 AM CDT Kade Alexander MD SPECIAL IMAGING STUDIES documented in this encounter Visit Diagnoses Not on filedocumented in this encounter Care Teams Corporate Trust Officer Relationship Specialty Start Date End Date Kade Alexander MD PCP - General 01/27/02 [facility] [address] [place] [address] documented as of this encounter
--- OUTSIDE RECORDS SUMMARY | 2022-01-30 09:04 | XMS_ITS | Encounter Summary ---
:1955 Author Organization [facility] Address [address] [place] [address] Care Team Providers Name Role Phone Kade Alexander MD Primary Care Provider Encounter Details Date Type Department Care Team Description 06/16/2019 Travel Social History Tobacco Use Types Packs/Day [...] on filedocumented in this encounter Care Teams Submarine Operator Relationship Specialty Start Date End Date Kade Alexander MD PCP - General 01/27/02 [facility] [address] [place] [place] [address] documented as of this encounter
--- OUTSIDE RECORDS SUMMARY | 2022-01-30 09:04 | XMS_ITS | Encounter Summary ---
:1955 Author Organization [facility] Address [address] [place] [address] Care Team Providers Name Role Phone Unavailable Primary Care Provider Unavailable Encounter Details Date Type Department Care Team Description 02/03/2015 Historical Ophthalmology [facility] Nakul Elaine M.D. Social History Tobacco Use Types Packs/Day Years Used Date Smoking Tobacco: Never Assessed Alcohol Habits Answer Date Recorded How often [...] or relatives? How often do you attend shinto or Patient refused 2020 taoism services? Do you belong to any clubs or Yes 09/27/2020 organizations such as shinto groups, unions, fraternal or athletic groups, or [...] place to sleep or slept in a group home (including now)? Sex Assigned at Date Recorded Not on file documented as of this encounter Progress Notes Brenda Elaine M.D. - 02/03/2015 9:10 AM CST Eye General CHIEF COMPLAINT pituitary adenoma HISTORY OF PRESENT ILLNESS Headaches are better in past 2 weeks. Left eye off and on will get blurry. A lot of Floaters, both eyes,had a long time. Is diabetic, since on prednisone blood sugars lower. No flashes. No diplopia. Noeye pain. JAL: pituitary tumor prolactin very high @ 2806 - on bromocriptine. Reviewed MRI images - pituitary tumor not near chiasm. ORIGINAL REPORT - 28-Jan-2015 12:33:00 EXAM: Interp of OS MR Head without and with intravenous contrast dated 01/21/2015. COMPARISON: None IMPRESSION: Pituitary macroadenoma FINDINGS: Heterogeneously enhancing mass within the expanded sella turcica, measures 2.0 x 2.2 x 1.6cm (AP by LR by SI), results in superior convexity of the right aspect of the gland, and [id number] shift of the infundibulum. There is no evidence for chiasmatic compromise or definite cavernous sinus invasion. These findings are consistent with a macroadenoma. There is no evidence for a mass or pathologic enhancement at the internal auditory canal nor cerebellopontine angle. 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 Electronically signed by: Mila Stewart M.D. [id number] 28-Jan-2015 12:33 IMPRESSION / REPORT / PLAN Consult requested by: Lindsey Ragland MD [id number] #1 Pituitary tumor, with no ocular stigmata. Vision corrects to 20/20 - OD, 20/25 - OS, color vision normal OU. Discs normal OU. Plan: Baseline disc photos and RNFL OCT. I will review the tests when completed and put the results in the EMR. Photo Interpretation: Photos confirm and document clinical findings of diagnosis and are of sufficient quality to permit their use to follow disease progression. Cirrus RNFL OCT: Normal OU. Avg thickness 90 OD, 91 OS. Signal 10/10 OU. Cirrus ganglion OCT: Avg thickness 82 OD, 88 OS. [id number] /10 OU. Testing consistent with clinical exam findings. #2 Visual field report, Normal visual field both eyes. Foveal threshold normal @ 37 OD, 39 OS. 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 This is likely related to prednisone. Return prn any changes in vision. The photos show an area of service officer color that corresponds to the STEAMFITTER on the OCT. Testing consistent with clinical exam findings. 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 #2 Visual field report, Normal visual field both eyes. #3 Central serous retinopathy left eye. CDM Reports - EYEGEN Id: [id number] Status: Fnl documented in this encounter Plan of Treatment Not on filedocumented as of this encounter Visit Diagnoses Not on filedocumented in this encounter
--- OUTSIDE RECORDS SUMMARY | 2022-01-30 09:04 | XMS_ITS | Encounter Summary ---
:1955 Author Organization [facility] Address [address] [place] [address] Care Team Providers Name Role Phone Kade Alexander MD Primary Care Provider Encounter Details Date Type Department Care Team Description 04/26/2006 Historic Results INTERFACED REPORT Glenny Bolaños MD [facility] [address] [facility] [address] [place], [place] [address] (Wo rk) Social History Tobacco Use Types Packs/Day Years Used Date Smoking Tobacco: Never Alcohol Use Standard Drinks/Week Comments Yes 0 (1 standard drink = 0.6 oz pure alcoho l) RARE Sex Assigned at Date Recorded Not on file documented as of this encounter Plan of Treatment Not on filedocumented as of this encounter Procedures Procedure Name Priority Date/Time Associated Comments Diagnosis ROUTINE UA WITH STAT 04/26/2006 12:13 Results for this MICROSCOPIC PM CONSULTATIVE SALES ASSOCIATE procedure are i n the results section. documented in this encounter Results (ABNORMAL) Routine UA with microscopic (04/26/2006 12:13 PM CONSULTATIVE SALES ASSOCIATE) [facility] Method Time Signature Source Midstream MISYS Urine Color Urine Light Yellow MISYS Appearance Urine Clear MISYS Glucose Urine Negative NEG mg/dL MISYS Bilirubin Urine Negative NEG MISYS Ketones Urine Negative NEG mg/dL MISYS Specific [place] 1.007 1.003 - MISYS Urine 1.035 Blood Urine Negative NEG MISYS pH Urine 6.5 5.0 - 7.0 MISYS pH Protein Albumin 30 (A) NEG mg/dL MISYS Urine Urobilinogen Normal 0.0 - 2.0 MISYS mg/dL mg/dL Nitrite Urine Negative NEG MISYS Leukocyte Negative NEG MISYS Esterase Urine WBC Urine 0 0 - 2 MISYS /HPF RBC Urine 0 0 - 2 MISYS /HPF Mucous Urine Present (A) NEG /LPF MISYS Specimen Anatomical Collection Method Collection Time Receive d Time (Source) Location / / Volume Laterality 04/26/2006 12:13 04/26/2006 PM CONSULTATIVE SALES ASSOCIATE 12:08 PM CONSULTATIVE SALES ASSOCIATE Nasreen Bolaños MD LAB - URINE ORDERABLES Performing Organization Address City/State/ZIP Code Phon e Number MISYS documented in this encounter Visit Diagnoses Not on filedocumented in this encounter Care Teams Six Pack Loader Operator Relationship Specialty Start Date End Date Kade Alexander MD PCP - General 01/27/02 [facility] [address] [place] [address] documented as of this encounter
--- OUTSIDE RECORDS SUMMARY | 2022-01-30 09:04 | XMS_ITS | Clinical Summary ---
:1955 Author Organization [facility] Address [address] [place] [address] Care Team Providers Name Role Phone Kade Alexander MD Primary Care Provider Allergies Active Allergy Reactions Severity Noted Date Comments No Known Drug Allergies 03/09/2003 Family History Medical History Relation Comments Cancer Father ORAL, RELATED TO TOB ACCO Diabetes Father Hypertension Father Arthritis Mother Cardiovascular Mother Gastrointestinal Disease Mother mothers side la ctose intollerant Heart Disease Mother MA repaired with a s gallegos Osteoporosis Mother Hypertension Paternal Grandfather Allergies Sister Relation Status Comments Father Mother Paternal Grandfather Sister Social History Tobacco Use Types Packs/Day Years Used Date Smoking Tobacco: Never Alcohol Use Standard Drinks/Week Comments Yes 0 (1 standard drink = 0.6 oz pure alcoho l) RARE Sex Assigned at Date Recorded Not on file Last Filed Vital Signs Vital Sign Reading Time Taken Comments Blood Pressure 150/104 03/09/2003 11:21 AM seated (from Extended SALESPERSON SHEET MUSIC Vitals) Pulse 60 03/09/2003 11:19 AM (from Exten ded SALESPERSON SHEET MUSIC Vitals) Temperature - - Respiratory Rate - - Oxygen Saturation - - Inhaled Oxygen - - Concentration Weight 89.8 kg (198 lb) 03/09/2003 10:45 AM SALESPERSON SHEET MUSIC Height 172.7 cm (5' 8) 03/09/2003 10:45 AM SALESPERSON SHEET MUSIC Body Mass Index 30.11 03/09/2003 10:45 AM SALESPERSON SHEET MUSIC Plan of Treatment Health Maintenance Due Date Last Done Comments ADVANCE CARE PLANNING 1955 ANNUAL REVIEW OF HM ORDERS 1955 CT COLONOGRAPHY 1955 FIT-DNA (Cologuard) 1955 FIT 1955 FLEX SIG 1955 HEPATITIS B IMMUNIZATION (1 1955 of 3 - 3-dose series) COVID-19 Vaccine (#1) 05/12/1954 COLONOSCOPY 11/10/1963 COLORECTAL CANCER SCREENING 11/10/1963 HEPATITIS C SCREENING 11/10/1971 DTAP/TDAP/TD IMMUNIZATION 1978 (1 - Tdap) ZOSTER IMMUNIZATION (1 of 11/10/2003 2) AORTIC ANEURYSM SCREENING 2018 (SYSTEM ASSIGNED) FALL RISK ASSESSMENT 2018 MEDICARE ANNUAL WELLNESS 2018 VISIT Pneumococcal Vaccine: 65+ 2018 Years (1 - PCV) PHQ-2 (once per calendar 04/02/2021 year) INFLUENZA VACCINE (#1) 2021 02/18/2019, 02/07/2018, 01/16/2017, Additional history exists LIPID 05/09/2024 05/09/2019, 03/09/2003 IPV IMMUNIZATION Aged Out No longer eligi ble based on patient 's age to complete this topic MENINGITIS IMMUNIZATION Aged Out No longe r eligible based on patient 's age to complete this topic Insurance Payer Benefit Plan / Subscriber ID Effective Phone Address T ype Group Dates PREFERREDONE PREFERREDONE [id number] [id number] [address] PPO OTHER PPO nt 00 [place] [id number] (Home) [place] [id number] Care Teams Configuration Manager Relationship Specialty Start Date End Date Kade Alexander MD PCP - General 01/27/02 [facility] [address] [place] [place] [id number]
--- OUTSIDE RECORDS SUMMARY | 2022-01-30 09:05 | XMS_ITS | Clinical Summary ---
:1955 Author Organization [facility] [place] [address] Care Team Providers Name Role Phone Frederick Krause MD Primary Care Provider Allergies No known active allergies Medications Medication Sig Dispensed Refills Start Date End Date Status cabergoline (DOSTINEX) Take 0.75 mg by 0 04/23/2019 Active 0.5 mg tablet mouth. Twice weekly ( and Sunday) metFORMIN (GLUCOPHAGE) Take 850 mg by 0 04/20/2019 Active 850 mg tablet mouth 2 times daily with meals. losartan (COZAAR) 25 mg Take 1 tablet by 30 tablet 2 0 Active tabletIndications: S/P mouth once daily. CABG x 4 atorvastatin (LIPITOR) Take 1 tablet by 30 tablet 2 05/17/2019 Active 40 mg mouth at bedtime. tabletIndications: S/P CABG x 4 Omeprazole 20 mg Take 2 tablets by 90 tablet 3 07/12/2019 Active tabletIndications: mouth 2 times Gastrointestinal daily. To be hemorrhage, unspecified taken before gastrointestinal breakfast and hemorrhage type before dinner for 6 weeks total and then can transition to daily warfarin (COUMADIN) 4 Take 1 tablet by 0 07/13/2019 Active mg tabletIndications: mouth once daily. Pulmonary embolism, Take 1.5 tablets unspecified chronicity, (6 mg total) unspecified pulmonary daily for the embolism type, next 3 days until unspecified whether the INR is acute cor pulmonale rechecked. present (HC) carvediloL (COREG) 12.5 Take 12.5 mg by 0 07/14/2020 Active mg tablet mouth once daily. chlorthalidone Take 25 mg by 0 07/10/2020 Active (HYGROTON) 25 mg tablet mouth once daily. lactobacillus Take 1 Capsule by 0 07/20/2020 Active combination no.4 mouth once daily. (Probiotic) 3 billion cell cap Active Problems Problem Noted Date NYHA class 1 heart failure with reduced ejection fract ion 07/16/2020 GI bleed 07/11/2019 S/P CABG x 4 05/13/2019 Overview: ALONSO TO LAD, SVG TO PDA SEQUENCED TO PL, SVG TO OM. NSTEMI (non-ST elevated myocardial infarction) (HC) 05/08/201905/12/2019 ASCVD (arteriosclerotic cardiovascular disease), sever e 3 vessel 05/12/2019 Overview: coronary angiogram 05/09 with severe 3 ves hailee disease (70% mLAD, 90% pCx, 70% RPDA, 70% RPAV). 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 Monthly or less 01/12/2020 How many drinks containing alcohol do you have on a 1 or 2 06/05/2019 typical day when you are drinking? How often do you have six or more drinks on one Not asked occasion? Comment: Not asked Sex Assigned at Date Recorded Not on file Obstetrics History Last Filed Vital Signs Vital Sign Reading Time Taken Comments Blood Pressure 112/62 07/16/2020 9:04 AM CDT Pulse 60 07/16/2020 9:04 AM CDT Temperature 36.6 ??C (97.8 ??F) 07/13/2019 8:30 AM CDT Respiratory Rate 16 01/12/2020 11:17 AM CDT Oxygen Saturation 99% 07/16/2020 9:04 AM CDT Inhaled Oxygen Concentration - - Weight 76 kg (167 lb 8.8 oz) 07/16/2020 9:04 AM CDT Height 171 cm (5' 7.32) 07/16/2020 9:04 AM CDT Body Mass Index 25.99 07/16/2020 9:04 AM CDT Plan of Treatment Health Maintenance Due Date Last Done Comments Pneumococcal series for age 65+ (1 - 11/10/1959 PCV) Tdap 1964 Depression screening for age 12+ 1965 Hepatitis C screening for age 18-79 11/10/1971 Tetanus booster 1973 Colonoscopy through age 75 1998 Zoster (shingles) series for age 50+ 11/10/2003 (1 of 2) COVID-19 vaccine series (4 - Booster 07/15/2021 05/20/2021, 05/23/2020, for Pfizer series) 05/01/2020 BMI (ht and wt on same day) for age 0407/16/2021 07/16/2020, 06/05/2019 18+ Influenza for age 65+ 12/01/2021 Lipids for age 45-75 05/09/2024 05/09/2019 Results Not on filefrom Last 3 Months Insurance Payer Benefit Plan / Subscriber ID Effective Dates Phone Addre ss Type Group PREFERRED ONE PREFERRED [id number] 2021-Presen [id number] [place] [address] [id number] (Home) W [phone] ALISSA ARREGUIN (Work) [id number] Advance Directives Latest Code Status on File Code Status Date Activated Date Inactivated Comments Full Code 07/11/2019 6:32 PM 07/13/2019 9:39 PM Code Status Discussion: Discussed Full Code 05/08/2019 6:16 PM 05/17/2019 3:04 PM Care Teams Ice Resurfacing Machine Operators Relationship Specialty Start Date End Date Frederick Krause MD PCP - General Family Practice 06/05/191999 [facility] [place] [id number]
[2022-01-30 10:05] LABS: INR 3.04 (0.91-1.10); Prothrombin Time 32.9 Seconds
== END 2022-01-30 08:54 | disposition home or self-care (01) ==
LOC: NFLDREF 08:55
PROVIDERS: PCP Family Medicine; Visit Provider Family Medicine
DX: I25.10 Atherosclerotic heart disease of native coronary artery without angina pectoris (principal); Z51.81 Encounter for therapeutic drug level monitoring; Z79.01 Long term (current) use of anticoagulants
CPT/HCPCS: 85610

== ENCOUNTER 2022-02-03 12:48 | Outpatient (CLI) | payer SELFPAY ==
--- OUTSIDE RECORDS SUMMARY | 2022-02-03 13:17 | XMS_ITS | Encounter Summary ---
:1955 Author Organization [facility] Address [address] [place] [address] Care Team Providers Name Role Phone Unavailable Primary Care Provider Unavailable Reason for Visit Appointment Request (Routine) - Closed Specialty Diagnoses / Procedures Referred By Contact Refer red To Contact Nephrology and Hypertension Referral ID Status Reason Start Date Expiration Date Visits Requ ested Visits Authorized [id number] Closed 07/21/2021 07/21/2022 1 Encounter Details Date Type Department Care Team Description 08/02/2021 External Division of [place], Hypertension An d Chronic Kidney Disease Stage 2 (Primary Dx); Outreach Nephrology and Walter Wooten Jr., Diabetes Evelyn litus Type 2 With Diabetic Nephropathy (HCC); Hypertension in D.O. [facility]; [place], [place] [address] [facility] Hyperaldosteronism (HCC) [address] [place] [address] [phone] Social History Tobacco Use Types Packs/Day Years [...] or relatives? How often do you attend congregation or Patient refused 2020 judaism services? Do you belong to any clubs or Yes 09/27/2020 organizations such as congregation groups, unions, fraternal or athletic groups, or [...] Progress Notes Walter Willis Jr., D.O. - 08/02/2021 2:00 PM CDT Please see scanned in note under document viewer tab for the [facility] [place] outreach visit from this date. Medical Problems Diagnosis List Chronic Kidney Disease Stage 1 Glomerular Filtration Rate Greater Than 90 Diabetes Mellitus Type 2 With Diabetic Nephropathy (HCC) Prolactinoma (HCC) Hypertension And Chronic Kidney Disease Stage 2 [facility] Hyperaldosteronism (HCC) documented in this encounter Plan of Treatment Not on filedocumented as of this encounter Visit Diagnoses Diagnosis Hypertension And Chronic Kidney Disease Stage 2 - Primary Diabetes Mellitus Type 2 With Diabetic N ephropathy (HCC) [facility] Hyperaldosteronism (HCC) documented in this encounter
--- OUTSIDE RECORDS SUMMARY | 2022-02-03 13:17 | XMS_ITS | Encounter Summary ---
:1955 Author Organization [facility] Address [address] [place] [address] Care Team Providers Name Role Phone Unavailable Primary Care Provider Unavailable Reason for Visit Reason Comments Med Refill Encounter Details Date Type Department Care Team Description 10/11/2020 Refill Division of Endocrinology in [place], Med Refill [place], [place] P.A.-C. [address] [facility] [address] [place] [address] [place] [address] [phone] (Wo rk) Social History Tobacco Use Types [...] you attend nondenominational or Patient refused 2020 yarsani services? Do you belong to any clubs [...] place to sleep or slept in a nursing home (including now)? Education Answer Date Recorded [...]
--- OUTSIDE RECORDS SUMMARY | 2022-02-03 13:17 | XMS_ITS | Encounter Summary ---
:1955 Author Organization [facility] Address [address] [place] [address] Care Team Providers Name Role Phone Unavailable Primary Care Provider Unavailable Encounter Details Date Type Department Care Team Description 08/02/2020 Orders Only Division of Nephrology and Charles Willis Hypertension in [place], ., D.O. [place] [address] [facility] [address] [place] [address] [phone] (Wo rk) Social History Tobacco Use Types [...] or relatives? How often do you attend methodist or Patient refused 2020 faith services? Do you belong to any clubs or Yes 09/27/2020 organizations such as methodist groups, unions, fraternal or athletic groups, or [...]
--- OUTSIDE RECORDS SUMMARY | 2022-02-03 13:17 | XMS_ITS | Encounter Summary ---
:1955 Author Organization [facility] Address [address] [place] [address] Care Team Providers Name Role Phone Unavailable Primary Care Provider Unavailable Reason for Referral Outpatient (Routine) - Closed Specialty Diagnoses / Procedures Referred By Contact Refer red To Contact Video Medicine Diagnoses Chronic Kidney Disease Stage 1 Glomerular Filtration Rate Greater Than 90 Diabetes Mellitus Type 2 With Diabetic Nephropathy (HCC) Hypertension And Chronic Kidney Disease Stage 2 [facility] D[facility] [address] [place] [address] Referral ID Status Reason Start Date Expiration Date Visits Requ ested Visits Authorized [id number] Closed 08/02/2020 08/02/2021 1 1 Scheduling Instructions 2 pm ok on hsoptital Encounter Details Date Type Department Care Team Description 08/02/2020 Orders Only Division of Nephrology Walter Willis Kidney Disease Stage 1 Glomerular Filtration Rate Greater Than 90 (Primary Dx); and Hypertension in [place] DIsauroOIsauro Diabetes Mellitus Type 2 With Diabetic N ephropathy (HCC); [place], [place] [address] [facility] Hypertension And Chronic Kidney Disease Stage 2; 200 [facility] [place] [address] [phone] Social History Tobacco Use Types Packs/Day Years [...] you attend hinduism or Patient refused 2020 uatsdin services? Do you belong to any clubs or Yes 09/27/2020 organizations such as hinduism groups, unions, fraternal or athletic groups, or [...] or slept in a penitentiary (including now)? Education Answer Date Recorded What [...]
--- OUTSIDE RECORDS SUMMARY | 2022-02-03 13:17 | XMS_ITS | Encounter Summary ---
:1955 Author Organization [facility] Address [address] [place] [address] Care Team Providers Name Role Phone Unavailable Primary Care Provider Unavailable Encounter Details Date Type Department Care Team Description 07/27/2020 Clinical Communication Division of Nephrology Walter Willis and Hypertension in [place] D.O. [place], [place] [address] [facility] [address] [place] [phone] [phone] Social History Tobacco Use Types Packs/Day Years [...] you attend alevism or Patient refused 2020 holiness services? Do you belong to any clubs [...]
--- OUTSIDE RECORDS SUMMARY | 2022-02-03 13:17 | XMS_ITS | Encounter Summary ---
:1955 Author Organization [facility] Address [address] [place] [address] Care Team Providers Name Role Phone Unavailable Primary Care Provider Unavailable Reason for Visit Appointment Request (Routine) - Closed Specialty Diagnoses / Procedures Referred By Contact Refer red To Contact Nephrology and Hypertension Referral ID Status Reason Start Date Expiration Date Visits Requ ested Visits Authorized [id number] Closed 01/20/2021 01/20/2022 1 1 Encounter Details Date Type Department Care Team Description 02/08/2021 External Outreach Division of [place], [facility] dney Disease Stage 1 Glomerular Filtration Rate Greater Than 90 (Primary Dx); Nephrology and Walter Wooten Jr., Diabetes Evelyn litus Type 2 With Diabetic Nephropathy (HCC); Hypertension in D.O. [facility] Kidney; [place], [place] [address] [facility] Prolactinoma (HCC); [address] [place], [place] Hypertension And Chronic Kid lauren Disease Stage 2 [place] [address] [phone] Social History Tobacco Use Types Packs/Day Years [...] or relatives? How often do you attend adventism or Patient refused 2020 tenriism services? Do you belong to any clubs or Yes 09/27/2020 organizations such as adventism groups, unions, fraternal or athletic groups, or [...] note under document viewer tab for the [facility] [place] outreach visit from this date ACTOR OPERATOR documented in this encounter Plan of Treatment Not on filedocumented as of this encounter Visit Diagnoses Diagnosis Chronic Kidney Disease Stage 1 Glomerula r Filtration Rate Greater Than 90 - Primary Diabetes Mellitus Type 2 With Diabetic N ephropathy (HCC) [facility] Prolactinoma (HCC) Hypertension And Chronic Kidney Disease Stage 2 documented in this encounter
--- OUTSIDE RECORDS SUMMARY | 2022-02-03 13:17 | XMS_ITS | Encounter Summary ---
:1955 Author Organization [facility] Address [address] [place] [address] Care Team Providers Name Role Phone Unavailable Primary Care Provider Unavailable Encounter Details Date Type Department Care Team Description 06/30/2020 Orders Only Division of Nephrology and Charles Willis Hypertension in [place], ., D.O. [place] [address] [facility] [address] [place] [address] [phone] (Wo rk) Social History Tobacco Use Types [...] or relatives? How often do you attend sikhism or Patient refused 2020 sabianist services? Do you belong to any clubs or Yes 09/27/2020 organizations such as sikhism groups, unions, fraternal or athletic groups, or [...]
--- OUTSIDE RECORDS SUMMARY | 2022-02-03 13:17 | XMS_ITS | Clinical Summary ---
:1955 Author Organization [facility] Address [address] [place] [address] Care Team Providers Name Role Phone Unavailable Primary Care Provider Unavailable Source Comments Patient records contain information from all sites at [facility]. For routine questions regarding patient records, call [phone] during business hours, M-F 8:00 AM - 5:00 PM Central Time. Record requests for emergency care only can be directed to [phone] at any time.[facility] Allergies No known active allergies Medications Medication [...] or relatives? How often do you attend rastafari or Patient refused 2020 episcopal services? Do you belong to any clubs or Yes 09/27/2020 organizations such as rastafari groups, unions, fraternal or athletic groups, or [...] Comments Blood Pressure 131/76 03/10/2021 1:08 PM STATE PATROL OFFICER Pulse 57 03/10/2021 1:08 PM STATE PATROL OFFICER Temperature - - Respiratory Rate 14 08/08/2016 [...] Address T ype Group Dates GENERIC GENERIC [id number] 2001-Pre [phone] [employer] sent [address] [place] [id number]
--- OUTSIDE RECORDS SUMMARY | 2022-02-03 13:17 | XMS_ITS | Encounter Summary ---
:1955 Author Organization [facility] Address [address] [place] [address] Care Team Providers Name Role Phone Unavailable Primary Care Provider Unavailable Reason for Referral Outpatient (Routine) - Closed Specialty Diagnoses / Procedures Referred By Contact Refer red To Contact Endocrinology Diagnoses Prolactinoma (HCC) [facility] [place] P.A.-CIsauro [address] [place], [place] [address] Referral ID Status Reason Start Date Expiration Date Visits Requ ested Visits Authorized [id number] Closed 12/07/2020 12/07/2021 1 1 Scheduling Instructions Labs in [place] one week before vis it. Reason for Visit Outpatient (Routine) - Closed Specialty Diagnoses / Procedures Referred By Contact Refer red To Contact Endocrinology Diagnoses Prolactinoma (HCC) Hypogonadism Pituitary (HCC) [facility] [place] P.A.-C. [address] [place] [address] Referral ID Status Reason Start Date Expiration Date Visits Requ ested Visits Authorized [id number] Closed 01/02/2019 01/02/2020 1 1 Encounter Details Date Type Department Care Team Description 12/07/2020 Office Visit Division of Tg [facility] Prolactinom a (HCC) (Primary Dx); Endocrinology in S, P.A.-C. Hypogonadism Pituitary (HCC) [place], [place] 200 [facility] 200 [place] [address] [phone] Social History Tobacco Use Types Packs/Day Years [...] or relatives? How often do you attend zoroastrian or Patient refused 2020 anabaptism services? Do you belong to any clubs or Yes 09/27/2020 organizations such as zoroastrian groups, unions, fraternal or athletic groups, or [...] (prolactin and testosterone only moving forward) in [place] one week before appointment. If at any [...]
--- OUTSIDE RECORDS SUMMARY | 2022-02-03 13:17 | XMS_ITS | Encounter Summary ---
:1955 Author Organization [facility] Address [address] [place] [address] Care Team Providers Name Role Phone Unavailable Primary Care Provider Unavailable Reason for Visit Reason Comments Med Refill Encounter Details Date Type Department Care Team Description 09/03/2021 Refill Division of Endocrinology in [place], Med Refill [place], [place] P.A.-C. 200 [facility] 200 [place] [address] [place] [address] [phone] (Wo rk) Social History Tobacco Use Types [...] you attend evangelical or Patient refused 2020 buddhist services? Do you belong to any clubs or Yes 09/27/2020 organizations such as evangelical groups, unions, fraternal or athletic groups, or [...]
--- OUTSIDE RECORDS SUMMARY | 2022-02-03 13:17 | XMS_ITS | Encounter Summary ---
:1955 Author Organization [facility] Address 200 [place] [address] Care Team Providers Name Role Phone Unavailable Primary Care Provider Unavailable Reason for Referral Outpatient (Routine) - Closed Specialty Diagnoses / Procedures Referred By Contact Refer red To Contact Video Medicine Diagnoses Chronic Kidney Disease Stage 1 Glomerular Filtration Rate Greater Than 90 Diabetes Mellitus Type 2 With Diabetic Nephropathy (HCC) Hypertension And Chronic Kidney Disease Stage 2 Walter Willis Jr.[facility] Osvaldo D.OIsauro 200 [place] [address] Referral ID Status Reason Start Date Expiration Date Visits Requ ested Visits Authorized [id number] Closed 02/08/2021 02/08/2022 1 1 Scheduling Instructions 1 pm ok on hosp OR CONSTRUCTION MANAGER Encounter Details Date Type Department Care Team Description 02/08/2021 Orders Only Division of Nephrology Walter Willis Kidney Disease Stage 1 Glomerular Filtration Rate Greater Than 90 (Primary Dx); and Hypertension in [place] D.O. Diabetes Mellitus Type 2 With Diabetic N ephropathy (HCC); [place], [place] [address] [facility] Hypertension And Chronic Kidney Disease Stage 2 [address] [place] [address] [phone] Social History Tobacco Use Types Packs/Day Years [...] or relatives? How often do you attend caodaism or Patient refused 2020 yazidism services? Do you belong to any clubs or Yes 09/27/2020 organizations such as caodaism groups, unions, fraternal or athletic groups, or [...]
--- OUTSIDE RECORDS SUMMARY | 2022-02-03 13:17 | XMS_ITS | Encounter Summary ---
:1955 Author Organization [facility] Address [address] [place] [address] Care Team Providers Name Role Phone Unavailable Primary Care Provider Unavailable Reason for Visit Reason Comments Med Refill Encounter Details Date Type Department Care Team Description 07/30/2021 Refill Division of Nephrology and [place], Charles Wooten Jr., Med Refill Hypertension in [place] 200 [facility] 200 [place] [address] [place] [address] [phone] Social History Tobacco Use Types Packs/Day Years [...] or relatives? How often do you attend holiness or Patient refused 2020 zoroastrian services? Do you belong to any clubs or Yes 09/27/2020 organizations such as holiness groups, unions, fraternal or athletic groups, or [...]
--- OUTSIDE RECORDS SUMMARY | 2022-02-03 13:17 | XMS_ITS | Encounter Summary ---
:1955 Author Organization [facility] Address [address] [place] [address] Care Team Providers Name Role Phone Unavailable Primary Care Provider Unavailable Reason for Visit Reason Comments Pre-visit Intake Encounter Details Date Type Department Care Team Description 12/03/2020 Clinical Communication Visit Review in Pr e-visit Intake [place], [place] [address] [place] [address] Social History Tobacco Use Types [...] or relatives? How often do you attend latter-day or Patient refused 2020 christian services? Do you belong to any clubs or Yes 09/27/2020 organizations such as latter-day groups, unions, fraternal or athletic groups, or [...]
--- OUTSIDE RECORDS SUMMARY | 2022-02-03 13:17 | XMS_ITS | Encounter Summary ---
:1955 Author Organization [facility] Address [address] [place] [address] Care Team Providers Name Role Phone Unavailable Primary Care Provider Unavailable Encounter Details Date Type Department Care Team Description 02/08/2021 Orders Only Division of Nephrology and Charles Willis Hypertension in [place], ., D.O. [place] [address] [facility] [address] [place] [address] [phone] (Wo rk) Social History Tobacco Use Types [...] or relatives? How often do you attend jehovah's witness or Patient refused 2020 shinto services? Do you belong to any clubs or Yes 09/27/2020 organizations such as jehovah's witness groups, unions, fraternal or athletic groups, or [...]
--- OUTSIDE RECORDS SUMMARY | 2022-02-03 13:17 | XMS_ITS | Encounter Summary ---
:1955 Author Organization [facility] Address [address] [place] [address] Care Team Providers Name Role Phone Unavailable Primary Care Provider Unavailable Reason for Visit Appointment Request (Routine) - Closed Specialty Diagnoses / Procedures Referred By Contact Refer red To Contact Nephrology and Hypertension Referral ID Status Reason Start Date Expiration Date Visits Requ ested Visits Authorized [id number] Closed 04/22/2021 04/22/2022 1 Encounter Details Date Type Department Care Team Description 05/09/2021 External Division of [place], Chronic Kidney Disease Stage 2 Glomerular Filtration Rate 60 To 89 (Primary Dx); Outreach Nephrology and Walter Wooten Jr., Diabetes Evelyn litus Type 2 With Diabetic Nephropathy (HCC); Hypertension in D.O. [facility] Kidney; [place], [place] [address] [facility] Hyperaldosteronism (HCC) [address] [place] [address] [phone] Social History Tobacco Use Types Packs/Day Years [...] or relatives? How often do you attend oriental orthodox or Patient refused 2020 muslim services? Do you belong to any clubs or Yes 09/27/2020 organizations such as oriental orthodox groups, unions, fraternal or athletic groups, [...] note under document viewer tab for the [facility] [place] outreach visit from this date. Y ATTENDANT documented in this encounter Plan of Treatment Not on filedocumented as of this encounter Visit Diagnoses Diagnosis Chronic Kidney Disease Stage 2 Glomerula r Filtration Rate 60 To 89 - Primary Diabetes Mellitus Type 2 With Diabetic N ephropathy (HCC) [facility] Hyperaldosteronism (HCC) documented in this encounter
--- OUTSIDE RECORDS SUMMARY | 2022-02-03 13:17 | XMS_ITS | Encounter Summary ---
:1955 Author Organization [facility] Address [address] [place] [address] Care Team Providers Name Role Phone Unavailable Primary Care Provider Unavailable Encounter Details Date Type Department Care Team Description 09/21/2020 Hospital Encounter Department of Tg Mandujano Prol actinoma (HCC); Laboratory Medicine S, P.A.-C. Hypogonadism Pituitary (HCC) in [place] [address] [facility] [phone] [place], [place] (Work) [phone] Social History Tobacco Use [...] you attend congregation or Patient refused 2020 congregational services? Do [...] AND Routine 09/21/2020 9:58 AM Prolact inoma ([facility]) Results for this BIOAVAILABLE, S CDT Hypogonadism procedure ar e in Pituitary ([facility]) the results section. INSULIN-LIKE GROWTH Routine 09/21/2020 [...] Signature Testosterone, 85 40 - 168 09/23/2020 [facility] Bioavailable, S ng/dL 4:26 PM CDT Comment: ----ADDITIONAL INFORMATION---- Testing performed by Differential Precip itation. This test was developed and its performa nce characteristics determined by [facility] in a manner consistent with CLIA requirements. This test has not been cleared or approved by the [place] N[place] d and Drug Administration. Testosterone, Total by Mass 403 240 - 950 ng/dL 2020 11:26 AM CDT [facility] Spectrometry, Serum Comment: ----ADDITIONAL INFORMATION---- Testing performed by Liquid Chromatograp hy-Tandem Mass Spectrometry (LC-MS/MS). This test was developed and its performa nce characteristics determined by [facility] in a manner consistent with CLIA requirements. [...] Organization Address City/State/ZIP Code Phon e Number [facility] [address] [place] [address] [place] [address] [place] [address] Laboratory Medicine and Pathology [address] [place] Insulin-Like Growth Factor 1 (09/21/2020 9:58 AM CDT) athologist Signature IGF-1, LC/MS, S 148 32 - 209 09/23/2020 [facility] ng/mL 10:42 AM CDT Z-score 1.04 -2.0 - 2.0 09/23/2020 [facility] SD 10:42 AM CDT Comment: ----ADDITIONAL INFORMATION---- This test was developed and its performa nce characteristics determined by [facility] in a manner consistent with CLIA requirements. This test has not been cleared or approved by the U.S. Nani d and Drug Administration. Specimen Anatomical Collection Method Collection Time Receive d Time (Source) Location / / Volume Laterality Blood (Blood, 09/21/2020 9:58 AM 09/23/19 7:50 Venous) CDT AM CDT Tg Mandujano P.A.-C. LAB BLOOD NON ADD-ON Performing Organization Address City/[facility] Code Phon e Number [facility] [address] [place], [place] [address] [place], [place] [address]t. [place] [address] Laboratory Medicine and Pathology [address] [place] Cortisol (09/21/2020 9:58 AM CDT) [...] P.A.-C. LAB BLOOD ADD-ON Performing Organization Address City/[facility] Phon e Number [facility]- [address] [place] [address] [phone] [facility] [place] [address] System in [address] (ABNORMAL) Prolactin, Pituitary Macroadenoma (09/21/2020 9:57 AM CDT) Patholo gist Method Time Signature Prolactin 27.6 (H) 4.0 - 09/22/2020 DTL Total 15.2 9:30 AM CDT ng/mL Comment SEE COMMENT 09/22/2020 DTL 9:30 AM CDT Comment: 10,100,and 400-fold dilutions produced r esults consistent with the absence of high-dose hook effec ts. ----ADDITIONAL INFORMATION---- The testing method is an electrochemilum inescence assay manufactured by [employer] and performed on the Esteban [...] Organization Address City/State/ZIP Code Phon e Number [facility] - [address] [place], [place] [address] [facility] [place] [address] Laboratories-[facility] [address] T4 (Thyroxine), Free (09/21/2020 9:57 AM CDT) athologist Signature T4 (Thyroxine), 1.1 0.9 - 1.7 09/21/2020 [facility] Free, P ng/dL 1:46 PM CDT Comment: Biotin has been identified by the nichole avitia as a potential interfering substance. ??Higher concentr ations of biotin may be found in multivitamins, hair/nail supple ments, and workout supplements. ??If the result does not [facility] clinical observations, repeat testing after patient refrains fr om the use of supplements for at least 12 hours. Specimen Anatomical Collection Method Collection Time Receive d Time (Source) Location / / Volume Laterality Blood (Blood, 09/21/2020 9:57 AM 09/22/19 1:10 Venous) CDT PM CDT Tg Mandujano P.A.-C. LAB BLOOD ADD-ON Performing Organization Address City/State/ZIP Code Phon e Number [facility]- [address] [place], [place] [address] [facility] [place] [address] System in [place] [address] documented in this encounter Visit Diagnoses Diagnosis Prolactinoma (HCC) Hypogonadism Pituitary (HCC) documented in this encounter
--- OUTSIDE RECORDS SUMMARY | 2022-02-03 13:17 | XMS_ITS | Encounter Summary ---
:1955 Author Organization [facility] Address [address] [place] [address] Care Team Providers Name Role Phone Unavailable Primary Care Provider Unavailable Encounter Details Date Type Department Care Team Description 12/28/2020 Orders Only RST PCP [facility]ISSAT Jumana Gonzales M.D. [address] [place], [place] [phone] (Wo rk) Social History [...] or relatives? How often do you attend christianity or Patient refused 2020 pentecostalism services? Do you belong to any clubs or Yes 09/27/2020 organizations such as christianity groups, unions, fraternal or athletic groups, or [...] a [place] [facility] [place] (including now)? Education Answer Date Recorded What [...]
--- OUTSIDE RECORDS SUMMARY | 2022-02-03 13:17 | XMS_ITS | Encounter Summary ---
:1955 Author Organization [facility] Address [address] [place] [address] Care Team Providers Name Role Phone Unavailable Primary Care Provider Unavailable Reason for Visit Appointment Request (Routine) - Closed Specialty Diagnoses / Procedures Referred By Contact Refer red To Contact Nephrology and Hypertension Referral ID Status Reason Start Date Expiration Date Visits Requ ested Visits Authorized [id number] Closed 07/09/2020 07/09/2021 1 1 Encounter Details Date Type Department Care Team Description 08/02/2020 External Outreach Division of Lazaro, Umu Ki dney Disease Stage 1 Glomerular Filtration Rate Greater Than 90 (Primary Dx); Nephrology and Walter Wooten Jr., Diabetes Evelyn litus Type 2 With Diabetic Nephropathy (HCC); Hypertension in D.O. Hypertension And Chronic Kidney Disease Stage 2; [place], [place] [address] [facility] Prolactinoma (HCC); [address] [place], [place] [address] [phone] Social History Tobacco Use Types Packs/Day Years [...] you attend islam or Patient refused 2020 anabaptism services? Do you belong to any clubs or Yes 09/27/2020 organizations such as islam groups, unions, [employer] or athletic groups, or school groups? How [...] note under document viewer tab for the [facility] [place] outreach visit from this date. documented in [...]
--- OUTSIDE RECORDS SUMMARY | 2022-02-03 13:17 | XMS_ITS | Encounter Summary ---
:1955 Author Organization [facility] Address [address] [place] [address] Care Team Providers Name Role Phone Unavailable Primary Care Provider Unavailable Reason for Visit Outpatient (Routine) - Closed Specialty Diagnoses / Procedures Referred By Contact Refer red To Contact Video Medicine Diagnoses Chronic Kidney Disease Stage 1 Glomerular Filtration Rate Greater Than 90 Diabetes Mellitus Type 2 With Diabetic Nephropathy (HCC) Hypertension And Chronic Kidney Disease Stage 2 Wlater Willis Jr., [place] D.O. [address] [place] [address] Referral ID Status Reason Start Date Expiration Date Visits Requ ested Visits Authorized [id number] Closed 02/08/2021 02/08/2022 1 1 Encounter Details Date Type Department Care Team Description 03/10/2021 Telemedicine Division of Lazaro Hyperaldosteron ism ([facility]) (Primary Dx); Nephrology and Walter Wooten Jr., Chronic Kidn ey Disease Stage 1 Glomerular Filtration Rate Greater Than 90; Hypertension in D.O. Diabetes Mellitus Type 2 With Diabetic N ephropathy (HCC); [place], [place] [address] [facility] Hypertension And Chronic Kidney Disease Stage 2; [address] [place], [place] Prolactinoma (HCC) [place] [address] [phone] Social History Tobacco Use Types Packs/Day Years [...] you attend yarsanism or Patient refused 2020 yarsani services? Do [...] Comments Blood Pressure 131/76 03/10/2021 1:08 PM SOFTWARE SYSTEMS ENGINEER Pulse 57 03/10/2021 1:08 PM SOFTWARE SYSTEMS ENGINEER Temperature - - Respiratory Rate - - Oxygen Saturation - - Inhaled Oxygen Concentration - - Weight - - Height - - Body Mass Index - - documented in this encounter Progress Notes Walter Willis Jr., D.O. - 03/10/2021 1:00 PM CST Subjective Nephrology HTN Phone Visit This visit took place over the phone to the patient by Dr. Walter Willis in [place], [place]. Chief Complaint/Reason for Visit Follow-up regarding hypertension, history of hyperaldosteronism, prolactinoma, and CKD stage 2. History of Present Illness: Miguelangel Gasca is a 65 y.o. male who presents for evaluation of the following concerns: Follow-up regarding the matters above. I usually see him as part of the [place] CKD practice, where he was discovered several [...] of outside records Counseling Time: 15 minutes WARE SYSTEMS ENGINEER documented in this encounter Plan of Treatment Not on filedocumented as of this encounter Visit Diagnoses Diagnosis Hyperaldosteronism (HCC) - Primary Chronic Kidney Disease Stage 1 Glomerula r Filtration Rate Greater Than 90 Diabetes Mellitus Type 2 With Diabetic N ephropathy (HCC) Hypertension And Chronic Kidney Disease Stage 2 Prolactinoma (HCC) documented in this encounter
--- OUTSIDE RECORDS SUMMARY | 2022-02-03 13:18 | XMS_ITS | Clinical Summary ---
:1955 Author Organization [facility] Address [address] [place] [address] Care Team Providers Name Role Phone Kade Alexander MD Primary Care Provider Allergies Active Allergy Reactions Severity Noted Date Comments No Known Drug Allergies 03/09/2003 Family History Medical History Relation Comments Cancer Father ORAL, RELATED TO TOB ACCO Diabetes Father Hypertension Father Arthritis Mother Cardiovascular Mother Gastrointestinal Disease Mother mothers side la ctose intollerant Heart Disease Mother NM repaired with a s gallegos Osteoporosis Mother [...] 150/104 03/09/2003 11:21 AM seated (from Extended REAL ESTATE ADMINISTRATOR Vitals) Pulse 60 03/09/2003 11:19 AM (from Exten ded REAL ESTATE ADMINISTRATOR Vitals) Temperature - - Respiratory Rate - - Oxygen Saturation - - Inhaled Oxygen - - Concentration Weight 89.8 kg (198 lb) 03/09/2003 10:45 AM REAL ESTATE ADMINISTRATOR Height 172.7 cm (5' 8) 03/09/2003 10:45 AM REAL ESTATE ADMINISTRATOR Body Mass Index 30.11 03/09/2003 10:45 AM REAL ESTATE ADMINISTRATOR Plan of Treatment Health Maintenance Due Date [...] Address T ype Group Dates PREFERREDONE PREFERREDONE [id number] 2001-Prese [id number] [address] PPO OTHER PPO nt 00 [place] [address] (Home) [place] [address] Care Teams Transportation Mechanic Relationship Specialty Start Date End Date Kade Alexander MD PCP - General 01/27/02 [facility] [address] [address] [place] [address]
--- OUTSIDE RECORDS SUMMARY | 2022-02-03 13:18 | XMS_ITS | Encounter Summary ---
:1955 Author Organization [facility] Address [address] [place] [address] Care Team Providers Name Role Phone Unavailable Primary Care Provider Unavailable Reason for Visit Appointment Request (Routine) - Closed Specialty Diagnoses / Procedures Referred By Contact Refer red To Contact Nephrology and Hypertension Referral ID Status Reason Start Date Expiration Date Visits Requ ested Visits Authorized [id number] Closed 01/08/2020 01/07/2021 1 1 Encounter Details Date Type Department Care Team Description 01/21/2020 External Outreach Division of Lazaro, Umu Ki dney Disease Stage 1 Glomerular Filtration Rate Greater Than 90 (Primary Dx); Nephrology and Walter Wotoen Jr., Hypertension And Chronic Kidney Disease Stage 1 To 4; Hypertension in D.O. Hypogonadism Pituitary (HCC); [place], [place] [address] [facility] Kidney [address] [place] [address] [phone] Social History Tobacco Use Types Packs/Day Years [...] you attend jainism or Patient refused 2020 gnosticism services? Do you belong to any clubs [...] note under document viewer tab for the [facility] [place] outreach visit from this date. documented in this encounter Plan of Treatment Not on filedocumented as of this encounter Visit Diagnoses Diagnosis Chronic Kidney Disease Stage 1 Glomerula r Filtration Rate Greater Than 90 - Primary Hypertension And Chronic Kidney Disease Stage 1 To 4 Hypogonadism Pituitary (HCC) [facility] documented in this encounter
--- OUTSIDE RECORDS SUMMARY | 2022-02-03 13:18 | XMS_ITS | Encounter Summary ---
:1955 Author Organization [facility] Address [address] [place] [address] Care Team Providers Name Role Phone Unavailable Primary Care Provider Unavailable Reason for Visit Appointment Request (Routine) - Closed Specialty Diagnoses / Procedures Referred By Contact Refer red To Contact Nephrology and Hypertension Referral ID Status Reason Start Date Expiration Date Visits Requ ested Visits Authorized [id number] Closed 10/19/2017 10/19/2018 1 Encounter Details Date Type Department Care Team Description 10/31/2017 External Outreach Division of Umu Willis dney Disease Stage 1 Glomerular Filtration Rate Greater Than 90 (Primary Dx); Nephrology and Walter Wooten Jr., Diabetes Evelyn litus Type 2 With Diabetic Nephropathy (HCC); Hypertension in [place].O. Hypertension And Chronic Kidney Disease Stage 1 To 4; [place], [place] [address] [facility] Prolactinoma (HCC); [address] [place], [place] Hypogonadism Pituitary (HCC) [place] [address] [phone] Social History Tobacco Use Types Packs/Day Years [...] you attend christianity or Patient refused 2020 episcopalian services? Do you belong to any clubs [...] place to sleep or slept in a mcc (including now)? Sex Assigned at Date Recorded Not on file documented as of this encounter Progress Notes Walter Willis Jr., D.O. - 10/31/2017 1:00 PM CDT Please see scanned in [facility] [place] [facility] clinic note documentation from today's date [...]
--- OUTSIDE RECORDS SUMMARY | 2022-02-03 13:18 | XMS_ITS | Encounter Summary ---
:1955 Author Organization [facility] Address [address] [place] [address] Care Team Providers Name Role Phone Unavailable Primary Care Provider Unavailable Reason for Visit Reason Comments Testing Only Encounter Details Date Type Department Care Team Description 12/24/2017 Ancillary Procedure Department of Mina Bernardo ([facility]) Ophthalmology in [place], [place] M.B.B.S. [address] [facility] [address] [place] [address] [phone] Social History Tobacco Use Types Packs/Day Years [...] or relatives? How often do you attend hoahaoism or Patient refused 2020 faith services? Do you belong to any clubs or Yes 09/27/2020 organizations such as hoahaoism groups, unions, fraternal or athletic groups, or [...] or slept in a fdc (including now)? Sex Assigned at Date Recorded [...]
--- OUTSIDE RECORDS SUMMARY | 2022-02-03 13:18 | XMS_ITS | Encounter Summary ---
:1955 Author Organization [facility] Address [address] [place] [address] Care Team Providers Name Role Phone Kade Alexander MD Primary Care Provider Reason for Visit Rehab Therapy Cardiac Therapy (Routine) - Closed Specialty Diagnoses / Procedures Referred By Contact Refer red To Contact CARDIAC REHAB Diagnoses OnBase Order CAB *4 [facility] Procedures CARDIAC [facility] [address] [place] [address] Phone: Fax: Referral ID Status Reason Start Date Expiration Date Visits Requ ested Visits Authorized [id number] Closed 06/05/2019 04/01/2020 365 365 Encounter Details Date Type Department Care Team Description 06/16/2019 Hospital Encounter [facility] Cardiac Ask Jose A jordan MD [address] [place] [address] and Pulmonary 1, Rh Cardiac Rehab Rehabilitation [facility] [id number] [place] [address] [address] [place] [address] Social History Tobacco Use [...] on filedocumented in this encounter Care Teams Weatherstrip Machine Operator Relationship Specialty Start Date End Date Kade Alexander MD PCP - General 01/27/02 [facility] [address] [address] [place] [address] documented as of this encounter
--- OUTSIDE RECORDS SUMMARY | 2022-02-03 13:18 | XMS_ITS | Encounter Summary ---
:1955 Author Organization [facility] Address [address] [place] [address] Care Team Providers Name Role Phone Unavailable Primary Care Provider Unavailable Reason for Visit Reason Comments Med Refill Encounter Details Date Type Department Care Team Description 12/08/2017 Refill Division of Nephrology and Lazaro, Charles Wooten Jr., Med Refill Hypertension in [facility] [address] [facility] [address] [place] [address] [place] [address] [phone] Social History Tobacco Use Types Packs/Day Years [...] you attend baptism or Patient refused 2020 latter day services? Do you belong to any clubs [...]
--- OUTSIDE RECORDS SUMMARY | 2022-02-03 13:18 | XMS_ITS | Encounter Summary ---
:1955 Author Organization [facility] Address [address] [place] [address] Care Team Providers Name Role Phone Unavailable [...] you attend rastafari or Patient refused 2020 jehovah's witness services? Do you belong to any clubs [...] or slept in a alf (including now)? Sex Assigned at Date Recorded [...]
--- OUTSIDE RECORDS SUMMARY | 2022-02-03 13:18 | XMS_ITS | Encounter Summary ---
:1955 Author Organization [facility] Address [address] [place] [address] Care Team Providers Name Role Phone Unavailable Primary Care Provider Unavailable Reason for Visit Reason Comments Med Refill Encounter Details Date Type Department Care Team Description 01/23/2020 Refill Division of Endocrinology in [place], Med Refill [place], [place] P.A.-C. [address] [facility] [address] [place] [address] [place] [address] [phone] (Wo rk) Social History Tobacco Use Types [...] or relatives? How often do you attend pentecostal or Patient refused 2020 worship services? Do you belong to any clubs or Yes 09/27/2020 organizations such as pentecostal groups, unions, fraternal or athletic groups, or [...]
--- OUTSIDE RECORDS SUMMARY | 2022-02-03 13:18 | XMS_ITS | Encounter Summary ---
:1955 Author Organization [facility] Address [address] [place] [address] Care Team Providers Name Role Phone Kade [...] on filedocumented in this encounter Care Teams Shoveler Relationship Specialty Start Date End Date Kade Alexander MD PCP - General 01/27/02 [facility] [address] [address] [place] [address] documented as of this encounter
--- OUTSIDE RECORDS SUMMARY | 2022-02-03 13:18 | XMS_ITS | Encounter Summary ---
:1955 Author Organization [facility] Address [address] [place] [address] Care Team Providers Name Role Phone Unavailable Primary Care Provider Unavailable Reason for Visit Reason Comments Med Refill Encounter Details Date Type Department Care Team Description 05/15/2020 Refill Division of [place]ocr[place]ology in [place], Med Refill [place], [place] P.A.-C. [address] [facility] [address] [place] [address] [place] [address] [phone] (Wo rk) Social History Tobacco Use Types [...] or relatives? How often do you attend congregational or Patient refused 2020 advent services? Do you belong to any clubs or Yes 09/27/2020 organizations such as congregational groups, unions, fraternal or athletic groups, or [...] place to sleep or slept in a long-term (including now)? Education Answer Date Recorded What is the highest level of school you have completed or 12 th grade 12/29/2018 the highest degree you have received? Sex Assigned at Date Recorded Not on file documented as of this encounter Miscellaneous Notes Telephone Encounter - Frida Scott R.N. - 05/17/2020 9:15 AM CST Refused per email on 01/23/20 [facility] documented in this encounter Plan of Treatment Not on filedocumented as of this encounter Visit Diagnoses Not on filedocumented in this encounter
--- OUTSIDE RECORDS SUMMARY | 2022-02-03 13:18 | XMS_ITS | Encounter Summary ---
:1955 Author Organization [facility] Address [address] [place] [address] Care Team Providers Name Role Phone Unavailable Primary Care Provider Unavailable Reason for Visit Reason Comments Med Refill Encounter Details Date Type Department Care Team Description 09/01/2017 Refill Division of Nephrology and Lazaro, Charles Wooten Jr., Med Refill Hypertension in [facility] [address] [facility] [address] [place] [address] [place] [address] [phone] Social History Tobacco Use Types Packs/Day Years [...] you attend zoroastrian or Patient refused 2020 mandaeism services? Do [...] this encounter Miscellaneous Notes Telephone Encounter - Zahida Mortensen R.N. - 09/03/2017 10:28 AM CDT Prescription forwarded to provider for approval. Outside RN protocol due to historical entry. documented in this encounter Plan of Treatment Not on filedocumented as of this encounter Visit Diagnoses Not on filedocumented in this encounter
--- OUTSIDE RECORDS SUMMARY | 2022-02-03 13:18 | XMS_ITS | Encounter Summary ---
:1955 Author Organization [facility] Address [address] [place] [address] Care Team Providers Name Role Phone Unavailable Primary Care Provider Unavailable Reason for Visit Reason Comments Med Refill Encounter Details Date Type Department Care Team Description 08/30/2017 Refill Division of Endocrinology in [facility], Med Refill [place], [place] M.B.B.S. [address] [facility] [address] [place] [address] [place], [place] [phone] (Wo rk) Social History Tobacco Use Types [...] or relatives? How often do you attend roman catholic or Patient refused 2020 protestant services? Do you belong to any clubs or Yes 09/27/2020 organizations such as roman catholic groups, unions, fraternal or athletic groups, or [...]
--- OUTSIDE RECORDS SUMMARY | 2022-02-03 13:18 | XMS_ITS | Encounter Summary ---
:1955 Author Organization [facility] Address [address] [place] [address] Care Team Providers Name Role Phone Unavailable Primary Care Provider Unavailable Reason for Visit Reason Comments Med Refill Encounter Details Date Type Department Care Team Description 09/20/2018 Refill Division of Endocrinology in [facility], Med Refill [place], [place] M.B.B.S. [address] [facility] [address] [place] [address] [place], [place] [phone] (Wo rk) Social History Tobacco Use Types [...] you attend adventist or Patient refused 2020 christianity services? Do you belong to any clubs [...] slept in a nursing home (including now)? Sex Assigned at Date Recorded Not on file documented as of this encounter Plan of Treatment Not on filedocumented as of this encounter Visit Diagnoses Not on filedocumented in this encounter
--- OUTSIDE RECORDS SUMMARY | 2022-02-03 13:18 | XMS_ITS | Encounter Summary ---
:1955 Author Organization [facility] Address [address] [place] [address] Care Team Providers Name Role Phone Unavailable Primary Care Provider Unavailable Encounter Details Date Type Department Care Team Description 12/24/2017 Documentation Division of [place]ocr[place]ology in [place], [place] Jose [address] [facility] [address] [place] [address] [place], [place] [phone] (Wo rk) Social History Tobacco Use Types [...] you attend adventist or Patient refused 2020 episcopal services? Do [...] to sleep or slept in a senior care (including now)? Sex Assigned at Date Recorded Not on file documented as of this encounter Progress Henri Decker M.D. - 12/24/2017 6:17 PM CDT HISTORY OF PRESENT ILLNESS I have reviewed, discussed the patient I concur with the documentation by Dr Bernardo's note today. documented in this encounter Plan of Treatment Not on filedocumented as of this encounter Visit Diagnoses Not on filedocumented in this encounter
--- OUTSIDE RECORDS SUMMARY | 2022-02-03 13:18 | XMS_ITS | Encounter Summary ---
:1955 Author Organization [facility] Address [address] [place] [address] Care Team Providers Name Role Phone Kade [...] on filedocumented in this encounter Care Teams Dental Amalgam Processor Relationship Specialty Start Date End Date Kade Alexander MD PCP - General 01/27/02 [facility] [address] [address] [place] [address] documented as of this encounter
--- OUTSIDE RECORDS SUMMARY | 2022-02-03 13:18 | XMS_ITS | Encounter Summary ---
:1955 Author Organization [facility] Address [address] [place] [address] Care Team Providers Name Role Phone Unavailable Primary Care Provider Unavailable Reason for Visit Appointment Request (Routine) - Closed Specialty Diagnoses / Procedures Referred By Contact Refer red To Contact Nephrology and Hypertension Referral ID Status Reason Start Date Expiration Date Visits Requ ested Visits Authorized [id number] Closed 05/28/2020 05/28/2021 1 1 Encounter Details Date Type Department Care Team Description 06/30/2020 External Outreach Division of Lazaro, [facility] dney Disease Stage 1 Glomerular Filtration Rate Greater Than 90 (Primary Dx); Nephrology and Walter Wooten Jr., Diabetes Evelyn litus Type 2 With Diabetic Nephropathy (HCC); Hypertension in [place] Hypertension And Chronic Kidney Disease Stage 2; [place], [place] [address] [facility] Hypogonadism Pituitary (HCC) [address] [place] [address] [phone] Social History Tobacco Use Types Packs/Day Years [...] or relatives? How often do you attend advent or Patient refused 2020 uatsdin services? Do you belong to any clubs or Yes 09/27/2020 organizations such as advent groups, unions, fraAmerican Museum of Natural History or athletic groups, or school groups? How [...] note under document viewer tab for the [facility] outreach visit from this date. documented in [...]
--- OUTSIDE RECORDS SUMMARY | 2022-02-03 13:18 | XMS_ITS | Encounter Summary ---
:1955 Author Organization [facility] Address [address] [place] [address] Care Team Providers Name Role Phone Unavailable Primary Care Provider Unavailable Encounter Details Date Type Department Care Team Description 12/24/2017 Hospital Encounter Department of Homero Bernardo Prola ctinoma ([facility]) Laboratory Medicine M.B.B.S. and Pathology, [place] [address] [address] [facility] in [place], [place] [address] [place] [address] [place], [place] (Work) [phone] Social History Tobacco Use Types Packs/Day Years [...] or relatives? How often do you attend temple or Patient refused 2020 advent services? Do you belong to any clubs or Yes 09/27/2020 organizations such as temple groups, unions, fraternal or athletic groups, or [...] or slept in a retirement (including now)? Sex Assigned at Date Recorded [...] Cortisol AM 13 7 - 25 12/24/2017 [facility] Result mcg/dL 9:48 AM CDT LABORATORIES - [facility] Specimen Anatomical Collection Method Collection Time Receive d Time (Source) Location / / Volume Laterality Blood (Blood, 12/24/2017 8:03 AM 12/25/19 18 8:22 Venous) CDT AM CDT [facility] Her.S. LAB BLOOD ADD-ON Performing Organization Address City/State/ZIP Code Phon e Number [facility] LABORATORIES - [address] [place] [address] [facility] T4 (Thyroxine), Free (12/24/2017 8:03 AM CDT) athologist Signature T4 1.0 0.9 - 1.7 12/24/2017 [facility] (Thyroxine), ng/dL 10:07 AM CDT LABORATORIES - Free, S [facility] Specimen Anatomical Collection Method Collection Time Receive d Time (Source) Location / / Volume Laterality Blood (Blood, 12/24/2017 8:03 AM 12/25/19 18 8:22 Venous) CDT AM CDT Homero OrtezB.S. LAB BLOOD ADD-ON Performing Organization Address City/[facility]/ZIP Code Phon e Number [facility] LABORATORIES - [address] [place] [address] [facility] (ABNORMAL) Testosterone, Total and Bioavailable (12/24/2017 8:03 AM CDT) athologist Signature Testosterone, 67 40 - 168 12/25/2017 [facility] Bioavailable, S ng/dL 5:30 PM CDT [facility] Comment: ----ADDITIONAL INFORMATION---- Testing performed by Differential Precip itation. This test was developed and its performa nce characteristics determined by [facility] in a manner consistent with CLIA requirements. This test has not been cleared or approved by the U.S. Nani d and Drug Administration. Testosterone, Total by 232 (L) 240 - 950 12/25/2017 10:40 AM [facility] Mass Spectrometry, ng/dL CDT [address] [facility] Comment: ----ADDITIONAL INFORMATION---- Testing performed by Liquid Chromatograp hy-Tandem Mass Spectrometry (LC-MS/MS). This test was developed and its performa nce characteristics determined by [facility] in a manner consistent with CLIA requirements. This test has not been cleared or approved by the U.S. Nani d and Drug Administration. Specimen Anatomical Collection Method Collection Time Receive d Time (Source) Location / / Volume Laterality Blood (Blood, 12/24/2017 8:03 AM 12/25/19 18 Venous) CDT 10:47 AM CDT Homero Rodriguez LAB BLOOD NON ADD-ON Performing Organization Address [facility] Phon e Number [facility] [address] [place] [address] [facility] (ABNORMAL) Prolactin (12/24/2017 8:03 AM CDT) Analysis Performed At Patho logist Time Signature Prolactin 33 (H) 4.0 - 15.2 12/24/2017 [facility] Total ng/mL 10:07 AM T [facility] Comment: ----ADDITIONAL INFORMATION---- The testing method is [...] DominiqueSIsauro LAB BLOOD ADD-ON Performing Organization Address City/[facility]/ZIP Code Phon e Number [place] [address] [facility] (ABNORMAL) Insulin-like growth factor (12/24/2017 8:03 AM CDT) athologist Signature IGF-1, LC/MS, 223 (H) 33 - 220 12/27/2017 [facility] S ng/mL 8:26 AM CDT [facility] Z-score 2.01 -2.0 - 2.0 12/27/2017 [facility] SD 8:26 AM CDT [facility] Comment: ----ADDITIONAL INFORMATION---- This test was developed and its performa nce characteristics determined by [facility] in a manner consistent with CLIA [...] Organization Address City/State/ZIP Code Phon e Number [facility] [address] [place], [place] [address] [place] [address] CENTER (ABNORMAL) Basic metabolic panel (12/24/2017 8:03 AM CDT) [facility] gist Method Time Signature Potassium, S 4.8 3.6 - 5.2 12/24/2017 [facility] mmol/L 9:47 AM CDT LABORATORIES - [facility] Sodium, S 149 (H) 135 - 145 12/24/2017 [facility] mmol/L 9:47 AM CDT LABORATORIES - [facility] Chloride, S 112 (H) 98 - 107 12/24/2017 [facility] mmol/L 9:47 AM CDT LABORATORIES - [facility] Bicarbonate, S 23 22 - 29 12/24/2017 [facility] mmol/L 9:47 AM CDT LABORATORIES - [facility] Anion Gap 14 7 - 15 12/24/2017 [facility] 9:47 AM CDT LABORATORIES - [facility] BUN (Blood 31 (H) 8 - 24 12/24/2017 [facility] Urea mg/dL 9:47 AM CDT LABORATORIES - Nitrogen), S [facility] Creatinine 1.53 (H) 0.74 - 12/24/2017 [facility] 1.35 9:47 AM CDT LABORATORIES - mg/dL [facility] eGFR-Non 47 (L) >=60 12/24/2017 [facility] Black/ mL/min/BS 9:47 AM CDT LABORATORIES - [facility] Comment: ----ADDITIONAL INFORMATION---- Estimated GFR calculated using the 2009 CKD_EPI creatinine equation. eGFR-Black/ 55 (L) >=60 mL/min/BSA 12/24/2017 9:47 [facility] CDT LABORATORIES - [facility] Comment: ----ADDITIONAL INFORMATION---- Estimated GFR calculated using the 2009 CKD_EPI creatinine equation. Calcium, Total, S 9.9 8.8 - 10.2 mg/dL 12/24/2017 9:47 AM [facility] CDT LABORATORIES [facility] Glucose, S 88 70 - 140 mg/dL 12/24/2017 9:47 [facility] Specimen Anatomical Collection Method Collection Time Receive d Time (Source) Location / / Volume Laterality Blood (Blood, 12/24/2017 8:03 AM 12/25/19 18 8:22 Venous) CDT AM CDT Homero DominiqueSIsauro LAB BLOOD ADD-ON Performing Organization Address City/State/ZIP Code Phon e Number [facility] LABORATORIES - [address] [place], [place] [address] [facility] documented in this encounter Visit Diagnoses Diagnosis Prolactinoma (HCC) documented in this encounter
--- OUTSIDE RECORDS SUMMARY | 2022-02-03 13:18 | XMS_ITS | Encounter Summary ---
:1955 Author Organization [facility] Address [address] [place] [address] Care Team Providers Name Role Phone Kade Alexander MD Primary Care Provider Reason for Visit Rehab Therapy Cardiac Therapy (Routine) - Closed Specialty Diagnoses / Procedures Referred By Contact Refer red To Contact CARDIAC REHAB Diagnoses OnBase Order CAB *4 [facility] Procedures CARDIAC [facility] [address] [place] [address] Phone: Fax: Referral ID Status Reason Start Date Expiration Date Visits Requ ested Visits Authorized [id number] Closed 06/05/2019 04/01/2020 365 365 Encounter Details Date Type Department Care Team Description 06/18/2019 Hospital Encounter [facility] Cardiac Ask Jose A jordan MD [address] [place] [address] and Pulmonary 1, Rh Cardiac Rehab Rehabilitation [facility] [id number] [place] [address] [address] [place] [address] Social History Tobacco Use [...] on filedocumented in this encounter Care Teams Reed Worker Relationship Specialty Start Date End Date Kade Alexander MD PCP - General 01/27/02 [facility] [place] [address] [address] [place] [address] documented as of this encounter
--- OUTSIDE RECORDS SUMMARY | 2022-02-03 13:18 | XMS_ITS | Encounter Summary ---
:1955 Author Organization [facility] Address [address] [place] [address] Care Team Providers Name Role Phone Unavailable Primary Care Provider Unavailable Encounter Details Date Type Department Care Team Description 12/24/2018 Hospital Encounter Department of Homero Bernardo Prola [facility]tinoma ([facility] Laboratory Medicine M.B.B.S. in [address] [address] [place], [place] [phone] [address] (Work) [phone] Social History Tobacco Use Types Packs/Day Years [...] you attend temple or Patient refused 2020 cheondoism services? Do you belong to any clubs [...] its performa nce characteristics determined by [facility] in a manner consistent with [...] its performa nce characteristics determined by [facility] in a manner consistent with [...] Organization Address City/State/ZIP Code Phon e Number [facility] [address] [place], [place] [address] [facility] T4 (Thyroxine), [...] supplements. ??If the result does not ma [facility] clinical observations, repeat testing after patient refrains fr om the use of supplements for at least 12 hours. Specimen Anatomical Collection Method Collection Time Receive d Time (Source) Location / / Volume Laterality Blood (Blood, 12/24/2018 7:11 AM 12/25/19 19 Venous) CDT 12:44 PM CDT Homero Her.S. LAB BLOOD ADD-ON Performing Organization Address City/State/ZIP Code Phon e Number [facility] [address] [place] [address] [facility] (ABNORMAL) Prolactin, Pituitary Macroadenoma (12/24/2018 7:11 AM CDT) [facility] Method Time Signature Prolactin 29.8 (H) 4.0 - 12/25/2018 Total 15.2 7:38 AM CDT ng/mL Comment SEE COMMENT 12/25/2018 7:38 AM CDT Comment: 10,100,and 400-fold dilutions produced r esults consistent with the absence of high-dose hook effec ts. ----ADDITIONAL INFORMATION---- The testing method is an electrochemilum inescence assay manufactured by [employer] and performed on the [employer] system. Values obtained with different assay met [...] Organization Address City/State/ZIP Code Phon e Number [facility] LABORATORIES - [address] [place], [place] [address] [place] [address] documented in this encounter Visit Diagnoses Diagnosis Prolactinoma (HCC) documented in this encounter
--- OUTSIDE RECORDS SUMMARY | 2022-02-03 13:18 | XMS_ITS | Encounter Summary ---
:1955 Author Organization [facility] Address [address] [place] [address] Care Team Providers Name Role Phone Unavailable [...] you attend lutheran or Patient refused 2020 muslim services? Do [...]
--- OUTSIDE RECORDS SUMMARY | 2022-02-03 13:18 | XMS_ITS | Encounter Summary ---
:1955 Author Organization [facility] Address [address] [place] [address] Care Team Providers Name Role Phone Unavailable Primary Care Provider Unavailable Reason for Referral Outpatient (Routine) - Closed Specialty Diagnoses / Procedures Referred By Contact Refer red To Contact Endocrinology Diagnoses Prolactinoma (HCC) Hypogonadism Pituitary (HCC) [facility] [address] [place] [address] Referral ID Status Reason Start Date Expiration Date Visits Requ ested Visits Authorized [id number] Closed 01/02/2019 01/02/2020 1 1 Scheduling Instructions Labs in [place] 1-2 weeks prior to our visit. Reason for Visit Outpatient (Routine) - Closed Specialty Diagnoses / Procedures Referred By Contact Refer red To Contact Endocrinology Homero Bernardo M.[facility] B[facility] [address] [place], [place] [address] Referral ID Status Reason Start Date Expiration Date Visits Requ ested Visits Authorized [id number] Closed 12/24/2017 12/24/2018 1 1 Encounter Details Date Type Department Care Team Description 01/02/2019 Office Visit Division of Tg Mandujano Prolactinom a (HCC) (Primary Dx); Endocrinology in S, P.A.-C. Hypogonadism Pituitary (HCC) [place], [place] [address] [place] [address] [place] [address] [phone] Social History Tobacco Use Types Packs/Day Years [...] or relatives? How often do you attend judaism or Patient refused 2020 zoroastrian services? Do you belong to any clubs or Yes 09/27/2020 organizations such as judaism groups, unions, fraternal or athletic groups, or [...] (HCC) #2 Hypogonadism Pituitary (HCC) Overall Mr. Gasca is doing very well. [...] agrees. He will have labs done in [place] a week or so prior to our [...] Name Type Priority Associated Diagnoses Order S [facility] Endocrinology office Outpatient Routine Prolactinom a ([facility]) Expected: visit (clinic) Referral Hypogonadism 01/03/2020 Pituitary ([facility]) (Approximate ), Expires: 12/20/2021 documented as of this encounter Results Testosterone, Total and Bioavailable (09/21/2020 9:58 AM CDT) athologist Signature Testosterone, 85 40 - 168 09/23/2020 [facility] Bioavailable, S ng/dL 4:26 PM CDT Comment: ----ADDITIONAL INFORMATION---- Testing performed by Differential Precip itation. This test was developed and its performa nce characteristics determined by [facility] in a manner consistent with CLIA requirements. This test has not been cleared or approved by the U.S. Nani d and Drug Administration. Testosterone, Total by Mass 403 240 - 950 ng/dL 2020 11:26 AM CDT [facility] Spectrometry, Serum Comment: ----ADDITIONAL INFORMATION---- Testing performed by Liquid Chromatograp hy-Tandem Mass Spectrometry (LC-MS/MS). This test was developed and its performa nce characteristics determined by [facility] in a manner consistent with CLIA requirements. This test has not been cleared or approved by the U.S. Nani d and Drug Administration. Specimen Anatomical Collection Method Collection Time Receive d Time (Source) Location / / Volume Laterality Blood (Blood, 09/21/2020 9:58 AM 09/23/19 6:22 Venous) CDT AM CDT Tg SilveiraCIsauro LAB BLOOD NON ADD-ON Performing Organization Address City/[facility] Phon e Number [facility] [address] [place] [address] [facility] [place] [address] Laboratory Medicine and Pathology [address] [place] [address] Dr. [place] Insulin-Like Growth Factor 1 (09/21/2020 9:58 AM CDT) athologist Signature IGF-1, LC/MS, S 148 32 - 209 09/23/2020 [facility] ng/mL 10:42 AM CDT Z-score 1.04 -2.0 - 2.0 09/23/2020 [facility] SD 10:42 AM CDT Comment: ----ADDITIONAL INFORMATION---- This test was developed and its performa nce characteristics determined by [facility] in a manner consistent with CLIA requirements. This test has not been cleared or approved by the U.S. Nani d and Drug Administration. Specimen Anatomical Collection Method Collection Time Receive d Time (Source) Location / / Volume Laterality Blood (Blood, 09/21/2020 9:58 AM 09/23/19 21 7:50 Venous) CDT AM CDT Tg SilveiraCIsauro LAB BLOOD NON ADD-ON Performing Organization Address City/[facility] Phon e Number [facility] [address] [place], [place] [address] [facility] [place] [address] Laboratory Medicine and Pathology [address] [place] [address] Dr. [place] Cortisol (09/21/2020 9:58 AM CDT) P athologist Signature Cortisol AM 9.9 4.8 - 20 09/21/2020 [facility] Result mcg/dL 3:38 PM CDT Comment: Biotin has been identified by the nichole avitia as a potential interfering substance. ??Higher concentr ations of biotin may be found in multivitamins, hair/nail supple ments, and workout supplements. ??If the result does not ma [facility] clinical observations, repeat testing after patient refrains fr om the use of supplements for at least 12 hours. Specimen Anatomical Collection Method Collection Time Receive d Time (Source) Location / / Volume Laterality Blood (Blood, 09/21/2020 9:58 AM 09/22/19 2:56 Venous) CDT PM CDT Tg Mandujano P.A.-C. LAB BLOOD ADD-ON Performing Organization Address City/[facility]/ZIP Code Phon e Number [facility]- [address] [place] [address] [facility] [place] [address] [address] (ABNORMAL) Prolactin, Pituitary Macroadenoma (09/21/2020 9:57 AM CDT) [facility] Method Time Signature Prolactin 27.6 (H) 4.0 [...] City/State/ZIP Code Phon e Number [facility] - [address] [place], [place] [address] [facility] [place] [address] Laboratories-[facility] [address] [facility] T4 (Thyroxine), Free (09/21/2020 9:57 AM CDT) P athologist Signature T4 (Thyroxine), 1.1 0.9 - 1.7 09/21/2020 [facility] Free, P ng/dL 1:46 PM CDT Comment: Biotin has been identified by the nichole avitia as a potential interfering substance. ??Higher concentr ations of biotin may be found in multivitamins, hair/nail supple ments, and workout supplements. ??If the result does not ma [facility] clinical observations, repeat testing after patient refrains fr om the use of supplements for at least 12 hours. Specimen Anatomical Collection Method Collection Time Receive d Time (Source) Location / / Volume Laterality Blood (Blood, 09/21/2020 9:57 AM 09/22/19 1:10 Venous) CDT PM CDT Tg Mandujano P.A.-C. LAB BLOOD ADD-ON Performing Organization Address City/State/ZIP Code Phon e Number [facility]- [address] [place], [place] [address] [place] [address] documented in this encounter Visit Diagnoses Diagnosis Prolactinoma (HCC) - Primary Hypogonadism Pituitary (HCC) documented in this encounter
--- OUTSIDE RECORDS SUMMARY | 2022-02-03 13:18 | XMS_ITS | Encounter Summary ---
:1955 Author Organization [facility] Address [address] [place] [address] Care Team Providers Name Role Phone Unavailable Primary Care Provider Unavailable Reason for Referral Outpatient (Routine) - Closed Specialty Diagnoses / Procedures Referred By Contact Refer red To Contact Endocrinology Homero Bernardo, Cali. B.S. [address] [phone] Referral ID Status Reason Start Date Expiration Date Visits Requ ested Visits Authorized [id number] Closed 12/24/2017 12/24/2018 1 1 Scheduling Instructions [facility] Reason for Visit Outpatient (Routine) - Closed Specialty Diagnoses / Procedures Referred By Contact Refer red To Contact Endocrinology Homero Bernardo, GiovanniB. B.S. [address] [phone] Referral ID Status Reason Start Date Expiration Date Visits Requ ested Visits Authorized [id number] Closed 12/04/2017 12/04/2018 1 1 Encounter Details Date Type Department Care Team Description 12/24/2017 Office Visit Division of Homero Bernardo, Prolactinoma (HCC) Endocrinology in M.B.B.S. (Primary Dx) [place], [place] [address] [place] [address] [place] [phone] Social History Tobacco Use Types Packs/Day Years [...] or relatives? How often do you attend mandaen or Patient refused 2020 worship services? Do you belong to any clubs or Yes 09/27/2020 organizations such as mandaen groups, unions, fraternal or athletic groups, or [...] its performa nce characteristics determined by [facility] in a manner consistent with CLIA requirements. This test has not been cleared or approved by the [place] and Drug Administration. Testosterone, Total by Mass 277 240 - 950 ng/dL 2018 10:35 AM CDT Spectrometry, Serum Comment: ----ADDITIONAL INFORMATION---- Testing performed by Liquid Chromatograp hy-Tandem Mass Spectrometry (LC-MS/MS). This test was developed and its performa nce characteristics determined by [facility] in a manner consistent with CLIA requirements. [...] Organization Address City/State/ZIP Code Phon e Number [facility] [address] [place], [place] [address] [facility] T4 (Thyroxine), Free (12/24/2018 7:11 AM CDT) athologist Signature T4 (Thyroxine), 1.0 0.9 - 1.7 12/24/2018 Free, S ng/dL 1:18 PM CDT Comment: Biotin has been identified by the nichole avitia as a potential interfering substance. ??Higher concentr ations of biotin may be found in multivitamins, hair/nail supple ments, and workout supplements. ??If the result does not [facility] clinical observations, repeat testing after patient refrains fr om the use of supplements for at least 12 hours. Specimen Anatomical Collection Method Collection Time Receive d Time (Source) Location / / Volume Laterality Blood (Blood, 12/24/2018 7:11 AM 12/25/19 19 Venous) CDT 12:44 PM CDT Homero DominiqueSIsauro LAB BLOOD ADD-ON Performing Organization Address City/State/ZIP Code Phon e Number [facility] [address] [place] [address] LAB (ABNORMAL) Prolactin, Pituitary Macroadenoma (12/24/2018 7:11 AM CDT) [facility] gist Method Time Signature Prolactin 29.8 (H) 4.0 - 12/25/2018 Total 15.2 7:38 AM CDT ng/mL Comment SEE COMMENT 12/25/2018 7:38 AM CDT Comment: 10,100,and 400-fold dilutions produced r esults consistent with the absence of high-dose hook effec ts. ----ADDITIONAL INFORMATION---- The testing method is an electrochemilum inescence assay manufactured by [employer] and performed on the Esteban system. [...] Organization Address City/State/ZIP Code Phon e Number [facility] - [address] [place], [place] [address] [facility] documented in this encounter Visit Diagnoses Diagnosis Prolactinoma (HCC) - Primary documented in this encounter
--- OUTSIDE RECORDS SUMMARY | 2022-02-03 13:18 | XMS_ITS | Encounter Summary ---
:1955 Author Organization [facility] Address [address] [place] [address] Care Team Providers Name Role Phone Unavailable Primary Care Provider Unavailable Reason for Visit Reason Comments Med Refill Encounter Details Date Type Department Care Team Description 09/16/2018 Refill Division of Nephrology and Lazaro, Charles Wooten Jr., Med Refill Hypertension in [facility] [address] [place] [address] [place] [phone] [phone] Social History Tobacco Use Types Packs/Day Years [...] or relatives? How often do you attend rastafarian or Patient refused 2020 yazidi services? Do you belong to any clubs or Yes 09/27/2020 organizations such as rastafarian groups, unions, fraternal or athletic groups, or [...] or slept in a longterm (including now)? Sex Assigned at Date Recorded Not on file documented as of this encounter Plan of Treatment Not on filedocumented as of this encounter Visit Diagnoses Not on filedocumented in this encounter
--- OUTSIDE RECORDS SUMMARY | 2022-02-03 13:18 | XMS_ITS | Encounter Summary ---
:1955 Author Organization [facility] Address [address] [place] [address] Care Team Providers Name Role Phone Unavailable Primary Care Provider Unavailable Reason for Visit Appointment Request (Routine) - Closed Specialty Diagnoses / Procedures Referred By Contact Refer red To Contact Nephrology and Hypertension Referral ID Status Reason Start Date Expiration Date Visits Requ ested Visits Authorized [id number] Closed 11/13/2018 11/13/2019 1 Encounter Details Date Type Department Care Team Description 11/20/2018 External Outreach Division of [facility] dney Disease Stage 1 Glomerular Filtration Rate Greater Than 90 (Primary Dx); Nephrology and Walter Wooten Jr., Hypertension And Chronic Kidney Disease Stage 1 To 4; Hypertension in [place]. 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 How often do you get together with friends Once a week 09/27/2020 or relatives? How often do you attend jew or Patient refused 2020 latter-day services? Do you belong to any clubs [...] note under document viewer tab for the [facility] outreach visit from this date. documented in [...]
--- OUTSIDE RECORDS SUMMARY | 2022-02-03 13:18 | XMS_ITS | Encounter Summary ---
:1955 Author Organization [facility] Address [address] [place] [address] Care Team Providers Name Role Phone Unavailable Primary Care Provider Unavailable Reason for Visit MRI/CAT/PET Scan (Routine) - Closed Specialty Diagnoses / Procedures Referred By Contact Refer red To Contact Radiology Diagnoses Prolactinoma (HCC) [facility] MR Brain without and with IV Contrast MR Pituitary without IV Contrast RI MRI BRAIN WO CNTRST HC MRI BRAIN WO CNTRST RI MRI BRAIN WO/W CNTRST HC MRI BRAIN WO/W CNTRST [address] [place], [place] [phone] Referral ID Status Reason Start Date Expiration Date Visits Requ ested Visits Authorized [id number] Closed 12/04/2017 12/04/2018 1 1 Encounter Details Date Type Department Care Team Description 12/24/2017 Hospital Encounter Department of Homero Bernardo Prola ctinoma (HCC) [facility], [facility] [place], [address] [place], [place] [address] [facility] [address] [place], [place] [phone] (Work) [phone] Social History Tobacco Use Types Packs/Day Years [...] you attend hinduism or Patient refused 2020 judaism services? Do you belong to any clubs or Yes 09/27/2020 organizations such as hinduism groups, unions, [employer] or athletic groups, or school groups? How [...] or slept in a intermediate (including now)? Sex Assigned at Date Recorded [...]
--- OUTSIDE RECORDS SUMMARY | 2022-02-03 13:18 | XMS_ITS | Encounter Summary ---
:1955 Author Organization [facility] Address [address] [place] [address] Care Team Providers Name Role Phone Unavailable Primary Care Provider Unavailable Reason for Visit Appointment Request (Routine) - Closed Specialty Diagnoses / Procedures Referred By Contact Refer red To Contact Nephrology and Hypertension Referral ID Status Reason Start Date Expiration Date Visits Requ ested Visits Authorized [id number] Closed 04/29/2018 04/29/2019 1 Encounter Details Date Type Department Care Team Description 05/08/2018 External Outreach Division of [facility] Disease Stage 1 Glomerular Filtration Rate Greater Than 90 (Primary Dx); Nephrology and Walter Wooten Jr., Diabetes Evelyn litus Type 2 With Diabetic Nephropathy (HCC); Hypertension in [place].O. Hypertension And Chronic Kidney Disease Stage 1 To 4; [place], [place] [address] [facility] Hypogonadism Pituitary (HCC); [address] [place], [place] Prolactinoma (HCC) [place] [phone] Social History Tobacco Use Types Packs/Day Years [...] or relatives? How often do you attend mormon or Patient refused 2020 yazidism services? Do you belong to any clubs or Yes 09/27/2020 organizations such as mormon groups, unions, fraternal or athletic groups, or [...] CST Please see scanned in documentation from [facility] outreach visit from this date AL MEDIA DESIGNER documented in this encounter Plan of Treatment [...]
--- OUTSIDE RECORDS SUMMARY | 2022-02-03 13:18 | XMS_ITS | Encounter Summary ---
:1955 Author Organization [facility] Address [address] [place] [address] Care Team Providers Name Role Phone Unavailable [...] you attend pentecostalism or Patient refused 2020 mandaeism services? Do [...] for the very basics like Not h christohper at all 09/27/2020 food, housing, medical care, [...] the right aspect of the gland, and yoosr-pt-kadw shift of the infundibulum. There is no [...] radiata. Electronically signed by: Mila Stewart M.D. [id number] 28-Jan-2015 12:33 IMPRESSION / REPORT / PLAN Consult requested by: Lindsey Ragland MD [id number] #1 Pituitary tumor, with no ocular stigmata. [...] OCT: Avg thickness 82 OD, 88 OS. [id number] /10 OU. Testing consistent with clinical exam findings. #2 Visual field report, Normal visual field both eyes. Foveal threshold normal @ 37 OD, 39 OS. 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 This is likely related to prednisone. Return prn any changes in vision. The photos show an area of topology teacher color that corresponds to the SALAD BAR CLERK on the OCT. Testing consistent with clinical exam findings. 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 #2 Visual field report, Normal visual field both eyes. #3 Central serous retinopathy left eye. CDM Reports - [facility] Id: [id number] Status: Fnl documented in this encounter Plan of Treatment Not on filedocumented as of this encounter Visit Diagnoses Not on filedocumented in this encounter
--- OUTSIDE RECORDS SUMMARY | 2022-02-03 13:19 | XMS_ITS | Encounter Summary ---
:1955 Author Organization [facility] Address [address] [place] [address] Care Team Providers Name Role Phone Kade Alexander MD Primary Care Provider Encounter Details Date Type Department Care Team Description 12/13/2007 Historic Results [facility] Heart Unknown, [facility] [address] [place] [address] Social History Tobacco Use Types [...] on filedocumented in this encounter Care Teams Automatic Steel Tie Adjuster Relationship Specialty Start Date End Date Kade Alexander MD PCP - General 01/27/02 [facility] [address] [place] [address] documented as of this encounter
--- OUTSIDE RECORDS SUMMARY | 2022-02-03 13:19 | XMS_ITS | Encounter Summary ---
:1955 Author Organization [facility] Address [address] [place] [address] Care Team Providers Name Role Phone Kade Alexander MD Primary Care Provider Encounter Details Date Type Department Care Team Description 12/13/[address] [facility] Anjel Alexander MD Hospital Results [facility] [address] [place], [place] [phone] (Wo rk) Social History Tobacco Use Types Packs/Day Years Used Date Smoking Tobacco: Never Alcohol Use Standard Drinks/Week Comments Yes 0 (1 standard drink = 0.6 oz pure alcoho l) RARE Sex Assigned at Date Recorded Not on file documented as of this encounter Plan of Treatment Not on filedocumented as of this encounter Procedures Procedure Name Priority Date/Time Associated Diagnosis Comme [facility] US ABDOMEN Routine 12/13/2007 11:35 AM Results for this COMPLETE CDT procedure are i n the results section. [facility] ECHO HEART Routine 12/13/2007 9:59 AM Results [...] Component Value Ref Test Analysis Performed At [facility] Range Method Time Signature [facility] Interpretation [...] on filedocumented in this encounter Care Teams Scratch Polisher Relationship Specialty Start Date End Date Kade Alexander MD PCP - General 01/27/02 [facility] [address] [place] [address] documented as of this encounter
--- OUTSIDE RECORDS SUMMARY | 2022-02-03 13:19 | XMS_ITS | Encounter Summary ---
:1955 Author Organization [facility] Address [address] [place] [address] Care Team Providers Name Role Phone Kade Alexander MD Primary Care Provider Reason for Visit Reason Comments RECHECK HTN Encounter Details Date Type Department Care Team Description 03/09/2003 Office Visit [facility] Kade Alexander MD HYPERTENSION N[facility] (Primary Dx) [address] [place] [address] [place] [address] [place], [place] [phone] (Wo rk) Social History Tobacco Use Types Packs/Day Years Used Date Smoking Tobacco: Never Alcohol Use Standard Drinks/Week Comments Yes 0 (1 standard drink = 0.6 oz pure alcoho l) RARE Sex Assigned at Date Recorded Not on file documented as of this encounter Last Filed Vital Signs Vital Sign Reading Time Taken Comments Blood Pressure 150/104 03/09/2003 11:21 AM seated (from Extended STEAM HAMMER OPERATOR Vitals) Pulse 60 03/09/2003 11:19 AM (from Exten ded STEAM HAMMER OPERATOR Vitals) Temperature - - Respiratory Rate - - Oxygen Saturation - - Inhaled Oxygen - - Concentration Weight 89.8 kg (198 lb) 03/09/2003 10:45 AM STEAM HAMMER OPERATOR Height 172.7 cm (5' 8) 03/09/2003 10:45 AM STEAM HAMMER OPERATOR Body Mass Index 30.11 03/09/2003 10:45 AM STEAM HAMMER OPERATOR documented in this encounter Progress Notes 03/09/2003 10:45 AM STEAM HAMMER OPERATOR Subjective: Miguelangel Gasca is a 47 year old male with hypertension. Current prescriptions: LOTREL 5-10 MG OR CAPS 1 TABLET DAILY Hypertension ROS: taking medications as instructed, no medication s jorge luis effects noted, no chest painon exertion, no dyspnea on exertion, no swelling of ankles, noting s welling of ankles, no palpitations, no erectile dysfunction. New concerns: Increasing diastolic bloo d pressure at home. Objective: BP 140/104 Ht 5' 8 (1.73m) Wt 198 lbs (89.8kg) see extended vi tals Appearance healthy, alert, cooperative and smiling. General exam BP noted to be mildly elevated today in office, S1, S2 normal, no gallop, no murmur, chest clear, no JVD, no HSM, no edema. Lab rev iew: orders written for new lab studies as appropriate; see orders. Assessment: Hypertension need s improvement. Plan: the following changes are made - change Lotrel to 10/20 dosage. Check lipids and glucose. Although he is non-fasting, will check lipid profile and glucose now. documented in this encounter Nursing Notes 03/09/2003 10:45 AM CST >> POOJA LINDSAY 03/09/2003 10:57 am Follow up regarding HTN.BP cuff size: large RT ARM. Pooja Lindsay LPN documented in this encounter Plan of Treatment Not on filedocumented as of this encounter Procedures Procedure Name Priority Date/Time Associated Diagnosis Comme nts HCL GLUCOSE Routine 03/09/2003 11:29 Hypertension Nos Results for this AM STEAM HAMMER OPERATOR procedure are i n the results section. CL AFF A.M.A. LIPID Routine 03/09/2003 11:29 Hypertension Nos Results for this PANEL AM STEAM HAMMER OPERATOR procedure are i n the results section. documented in this encounter Results GLUCOSE (03/09/2003 11:29 AM STEAM HAMMER OPERATOR) P athologist Signature Glucose 101 60 - 115 [facility] CL[facility] LAB Specimen Anatomical Collection Method Collection Time Receive d Time (Source) Location / / Volume Laterality 03/09/2003 11:29 03/09/2003 AM STEAM HAMMER OPERATOR 11:30 AM STEAM HAMMER OPERATOR Kade Alexander MD LABORATORY Performing Organization Address City/State/ZIP Code Phon e Number [address] [address] [facility] LAB (ABNORMAL) A.M.A. LIPID PANEL (03/09/2003 11:29 AM STEAM HAMMER OPERATOR) P athologist Signature Cholesterol 204 (H) <200 mg/dL [facility] Comment: Cholesterol Reference Range: <200 ??The NCEP recommends further ? evaluation of: ? 1. ??Patients with cholesterol ? greater than 200 mg/dL ? if additional risk facto rs ? are present. ? 2. ??All patients with a ? cholesterol greater than ? 240 mg/dL. Triglycerides 77 <150 mg/dL [facility] HDL Cholesterol 57 >40 mg/dL [facility] LDL Cholesterol Calculated 132 (H) <130 mg/dL [facility] VLDL-Cholesterol 15 0 - 30 mg/dL [facility] Cholesterol/HDL Ratio 4 0 - 5 [facility] Specimen Anatomical Collection Method Collection Time Receive d Time (Source) Location / / Volume Laterality 03/09/2003 11:29 03/09/2003 AM STEAM HAMMER OPERATOR 11:30 AM STEAM HAMMER OPERATOR Kade Alexander MD LABORATORY Performing Organization Address City/State/ZIP Code Phon e Number [facility] [address] [place] [address] [facility] documented in this encounter Visit Diagnoses Diagnosis Unspecified essential hypertension - Nakita austin documented in this encounter Care Teams Wellness Coach Relationship Specialty Start Date End Date Kade Alexander MD PCP - General 01/27/02 [facility] [address] [place] [address] documented as of this encounter
--- OUTSIDE RECORDS SUMMARY | 2022-02-03 13:19 | XMS_ITS | Encounter Summary ---
:1955 Author Organization [facility] Address [address] [place] [address] Care Team Providers Name Role Phone Kade Alexander MD Primary Care Provider Encounter Details Date Type Department Care Team Description 05/10/2003 Emergency room Angel Luis Barnes MD EMERGENCY PHYSIC [address] [address] (Wo rk) Social History Tobacco Use Types Packs/Day Years Used Date Smoking Tobacco: Never Alcohol Use Standard Drinks/Week Comments Yes 0 (1 standard drink = 0.6 oz pure alcoho l) RARE Sex Assigned at Date Recorded Not on file documented as of this encounter ED Notes Angel Luis Barnes - 05/10/2003 12:00 AM FRUIT COORDINATOR : 51 CHIEF COMPLAINT: Rash. HISTORY OF [...] [id number]_ ANGEL LUIS BARNES MD MT: Document: [id number] [place], [place] Name: MIGUELANGEL KUMAR EMERGENCY ROOM ENCOUNTER Page 2 of 2 LCN: ALONSO DSC: 05/10/2003 [place], [place] Name: MR#: : Admit Date: MIGUELANGEL KUMAR [id number] 1955 05/10/2003 Doctor: ANGEL LUIS BARNES MD EMERGENCY ROOM ENCOUNTER Page 1 of 2 T COORDINATOR documented in this encounter Plan of Treatment Not on filedocumented as of this encounter Visit Diagnoses Not on filedocumented in this encounter Care Teams Mill Platform Supervisor Relationship Specialty Start Date End Date Kade Alexander MD PCP - General 01/27/02 [facility] [address] [address] [place] [address] documented as of this encounter
--- OUTSIDE RECORDS SUMMARY | 2022-02-03 13:19 | XMS_ITS | Encounter Summary ---
:1955 Author Organization [facility] Address [address] [place] [address]. [place] [address] Care Team Providers Name Role Phone Kade Alexander MD Primary Care Provider Encounter Details Date Type Department Care Team Description 04/26/2006 Emergency room Nasreen Bolaños MD SKIN RE[facility]UVENATIJudd [facility] [address] [facility] [address] [place], [place] [address] (Wo rk) Social History Tobacco Use Types Packs/Day Years Used Date Smoking Tobacco: Never Alcohol Use Standard Drinks/Week Comments Yes 0 (1 standard drink = 0.6 oz pure alcoho l) RARE Sex Assigned at Date Recorded Not on file documented as of this encounter Progress Notes Nasreen Bolaños - 04/28/2006 8:17 AM SENIOR SUSTAINABILITY CONSULTANT FINAL CHIEF COMPLAINT: Back pain. HISTORY OF [...] MD MT: [id number] Name: MIGUELANGEL KUMAR Account: [id number] : 1955 Visit Date: 04/26/2006 Document: [id number] OR SUSTAINABILITY CONSULTANT documented in this encounter Plan of Treatment Not on filedocumented as of this encounter Visit Diagnoses Not on filedocumented in this encounter Care Teams Sandwich Wrapper Relationship Specialty Start Date End Date Kade Alexander MD PCP - General 01/27/02 [facility] [address] [address] [place] [address] documented as of this encounter
--- OUTSIDE RECORDS SUMMARY | 2022-02-03 13:19 | XMS_ITS | Encounter Summary ---
:1955 Author Organization [facility] Address [address] [place] [address] Care Team Providers Name Role Phone Kade [...] on filedocumented in this encounter Care Teams Typewriter Assembly And Parts Inspector Relationship Specialty Start Date End Date Kade Alexander MD PCP - General 01/27/02 [facility] [address] [place] [address] documented as of this encounter
--- OUTSIDE RECORDS SUMMARY | 2022-02-03 13:19 | XMS_ITS | Encounter Summary ---
:1955 Author Organization [facility] Address [address] [place] [address] Care Team Providers Name Role Phone Kade Alexander MD Primary Care Provider Encounter Details Date Type Department Care Team Description 03/03/2003 Abstract [facility] Marissa Erickson [address] [place] [phone] Social History Tobacco Use Types Packs/Day Years Used Date Smoking Tobacco: Never Assessed Sex Assigned at Date Recorded Not on file documented as of this encounter Plan of Treatment Not on filedocumented as of this encounter Visit Diagnoses Not on filedocumented in this encounter Care Teams Tugboat Pilot Relationship Specialty Start Date End Date Kade Alexander MD PCP - General 01/27/02 [facility] [address] [place] [address] documented as of this encounter
--- OUTSIDE RECORDS SUMMARY | 2022-02-03 13:19 | XMS_ITS | Encounter Summary ---
:1955 Author Organization [facility] Address [address] [place] [address] Care Team Providers Name Role Phone Kade Alexander MD Primary Care Provider Reason for Visit Rehab Therapy Cardiac Therapy (Routine) - Closed Specialty Diagnoses / Procedures Referred By Contact Refer red To Contact CARDIAC REHAB Diagnoses OnBase Order CAB *4 [facility] Procedures CARDIAC [facility] [address] [place] [address] Phone: Fax: Referral ID Status Reason Start Date Expiration Date Visits Requ ested Visits Authorized [id number] Closed 06/05/2019 04/01/2020 365 365 Encounter Details Date Type Department Care Team Description 06/13/2019 Hospital Encounter [facility] Cardiac Ask Jose A jordan MD [address] [place] [address] and Pulmonary 1, Rh Cardiac Rehab Rehabilitation [facility] [address] [place] [address] [address] [place] [address] Social History Tobacco Use [...] on filedocumented in this encounter Care Teams Can Filling Room Sweeper Relationship Specialty Start Date End Date Kade Alexander MD PCP - General 01/27/02 [facility] [address] [address] [place] [address] documented as of this encounter
--- OUTSIDE RECORDS SUMMARY | 2022-02-03 13:19 | XMS_ITS | Encounter Summary ---
:1955 Author Organization [place] Address [facility] [place] [address] Care Team Providers Name Role Phone Kade Alexander MD Primary Care Provider Encounter Details Date Type Department Care Team Description 04/26/2006 Results Only [facility] Nasreen Bolaños MD Hospital Results [facility] [address] [place], [place] [address] (Wo rk) Social History Tobacco Use Types [...] 2:08 PM Result s for this CONTRAST LASTING ROOM MACHINE OPERATOR procedure are i n the results section. HC CHEST TWO VIEWS, Routine 04/26/2006 12:41 PM R esults for this FRONT/LAT LASTING ROOM MACHINE OPERATOR procedure are i n the results section. documented in this encounter Results CT SCAN OF ABDOMEN CONTRAST (04/26/2006 2:08 PM LASTING ROOM MACHINE OPERATOR) Anatomical Region Laterality Modality Other Specimen (Source) Anatomical Collection Method Collection Time Re ceived Time Location / / Volume Laterality 04/26/2006 2:08 PM LASTING ROOM MACHINE OPERATOR Impressions 04/26/2006 2:31 PM LASTING ROOM MACHINE OPERATOR Exam: ??CT ABD/PEL W/ CONTRAST* IV Optiray 300: 100cc History: ??LUQ pain, ??Trauma or injury, Findings: 1. Coronary artery calcifications. 2. Small saccular hernia. 3. Scarring with some associated calcifi cation left kidney. 4. Exam is otherwise negative. Nasreen Bolaños MD SPECIAL IMAGING STUDIES CHEST X-RAY 2 VW (04/26/2006 12:41 PM LASTING ROOM MACHINE OPERATOR) Anatomical Region Laterality Modality Other Specimen (Source) Anatomical Collection Method Collection Time Re ceived Time Location / / Volume Laterality 04/26/2006 12:41 PM LASTING ROOM MACHINE OPERATOR Impressions 04/27/2006 12:29 PM LASTING ROOM MACHINE OPERATOR Exam: ??CHEST TWO VIEW* ??Apr 26, 2006 1 2:41:00 PM History: ??Rib pain left posterior. Findings: Tortuosity of thoracic aorta a nd calcification within the arch of the aorta, somewhat prominent fo r patient's age. Otherwise negative chest. Nasreen Bolaños MD GENERAL IMAGING documented in this encounter Visit Diagnoses Not on filedocumented in this encounter Care Teams Telegraph Office Route Aide Relationship Specialty Start Date End Date Kade Alexander MD PCP - General 01/27/02 [facility] [address] [place] [address] documented as of this encounter
--- OUTSIDE RECORDS SUMMARY | 2022-02-03 13:19 | XMS_ITS | Encounter Summary ---
:1955 Author Organization [place] Address [address] [place] [address] Care Team Providers Name Role Phone Kade Alexander MD Primary Care Provider Reason for Visit Rehab Therapy Cardiac Therapy (Routine) - Closed Specialty Diagnoses / Procedures Referred By Contact Refer red To Contact CARDIAC REHAB Diagnoses OnBase Order CAB *4 [facility] Procedures [facility] [address] [place] [address] Phone: Fax: Referral ID Status Reason Start Date Expiration Date Visits Requ ested Visits Authorized [id number] Closed 06/05/2019 04/01/2020 365 365 Encounter Details Date Type Department Care Team Description 06/10/2019 Hospital Encounter [facility] Cardiac Adam Conti MD and Pulmonary Jose A Pelaez MD [address] [place] [address] Rehabilitation [facility], [facility] Cardiac [facility] [address] [facility] [address] [place] [address] Social History Tobacco Use [...] on filedocumented in this encounter Care Teams Children'S Tutor Relationship Specialty Start Date End Date Kade Alexander MD PCP - General 01/27/02 [facility] [address] [place] [address] documented as of this encounter
--- OUTSIDE RECORDS SUMMARY | 2022-02-03 13:19 | XMS_ITS | Encounter Summary ---
:1955 Author Organization [place] Address [address] [place] [address] Care Team Providers Name Role Phone Kade Alexander MD Primary Care Provider Encounter Details Date Type Department Care Team Description 04/26/2006 Historic Results INTERFACED REPORT Glenny Bolaños MD [facility] [address] [facility] [address] [place], [place] [id number] (Wo rk) Social History Tobacco Use Types [...] 04/26/2006 12:13 Results for this MICROSCOPIC PM INSPECTOR GENERAL procedure are i n the results section. documented in this encounter Results (ABNORMAL) Routine UA with microscopic (04/26/2006 12:13 PM INSPECTOR GENERAL) [facility] Method Time Signature Source Midstream MISYS Urine Color Urine Light Yellow MISYS Appearance Urine Clear MISYS Glucose Urine Negative NEG mg/dL MISYS Bilirubin Urine Negative NEG MISYS Ketones Urine Negative NEG mg/dL MISYS Specific [place] 1.007 1.003 - MISYS Urine 1.035 Blood [...] / Volume Laterality 04/26/2006 12:13 04/26/2006 PM INSPECTOR GENERAL 12:08 PM INSPECTOR GENERAL Nasreen Bolaños MD LAB - URINE ORDERABLES Performing Organization Address City/State/ZIP Code Phon e Number MISYS documented in this encounter Visit Diagnoses Not on filedocumented in this encounter Care Teams Dobby Loom Weaver Relationship Specialty Start Date End Date Kade Alexander MD PCP - General 01/27/02 [facility] [address] [place] [address] documented as of this encounter
--- OUTSIDE RECORDS SUMMARY | 2022-02-03 13:20 | XMS_ITS | Clinical Summary ---
:1955 Author Organization [employer] [facility] [employer] [place] [address] Care Team Providers Name Role Phone Frederick [...] Addre ss Type Group PREFERRED ONE PREFERRED [id number] [address] [place] [address] [address] (Home) [phone] ALISSA ARREGUIN (Work) [phone] Advance Directives Latest Code Status on File Code Status Date Activated Date Inactivated Comments Full Code 07/11/2019 6:32 PM 07/13/2019 9:39 PM Code Status Discussion: Discussed Full Code 05/08/2019 6:16 PM 05/17/2019 3:04 PM Care Teams Blade Operator Relationship Specialty Start Date End Date Frederick Krause MD PCP - General Family Practice 06/05/[address] [place] [address]
[2022-02-03 16:35] LABS: Chloride* 104 mmol/L (96-114); Creatinine Urine 64.2 mg/dL
[2022-02-03 16:36] LABS: Albumin* 3.7 g/dL (3.3-5.0); Potassium* 4.4 mmol/L (3.6-5.1); Sodium* 135 mmol/L (135-149)
[2022-02-03 16:39] LABS: Blood Urea Nitrogen* 25 mg/dL (7-30); Carbon Dioxide* 22 mmol/L (20-32); Cholesterol* 127 mg/dL (90-199); Creatinine* 1.3 mg/dL (0.5-1.5); Estimated Glomerular Filt Rate 60 ml/min; Glucose* 93 mg/dL (60-115); Uric Acid* 7.8 mg/dL (2.2-8.4)
[2022-02-03 16:40] LABS: Calcium* 9.5 mg/dL (8.4-10.6); HDL Cholesterol* 48 mg/dL (>=40); LDL Cholesterol Calculated 63 mg/dL (<100); Phosphorus* 3.4 mg/dL (2.5-4.5); Triglycerides* 80 mg/dL (40-149)
[2022-02-03 16:43] LABS: Iron* 75 ug/dL (49-181)
[2022-02-03 16:52] LABS: Percent Iron Saturation 24 % (20-50); Total Iron Binding Capacity 304 ug/dL (261-462)
[2022-02-03 19:08] LABS: Microalbumin Creatinine Ratio 930 mg/g (0-30); Microalbumin Urine 60 mg/dL
== END 2022-02-03 12:49 | disposition home or self-care (01) ==
PROVIDERS: PCP Family Medicine; Visit Provider Internal Medicine Nephrology
DX: I10 Essential (primary) hypertension; N18.1 Chronic kidney disease, stage 1; E66.9 Obesity, unspecified; E78.5 Hyperlipidemia, unspecified; D64.9 Anemia, unspecified; Z79.01 Long term (current) use of anticoagulants; E11.9 Type 2 diabetes mellitus without complications
CPT/HCPCS: 80053; 80061; 80069; 82043; 82570; 83036; 83540; 83550; 84550; 85027

== ENCOUNTER 2022-05-19 16:08 | Outpatient (CLI) | payer MEDICARE, SELFPAY ==
[2022-05-19 17:46] LABS: Uric Acid* 7.1 mg/dL (2.2-8.4)
== END 2022-05-19 16:09 | disposition home or self-care (01) ==
PROVIDERS: PCP Family Medicine; Visit Provider Nurse Practitioner Family
DX: M79.672 Pain in left foot (principal)
CPT/HCPCS: 84550

== ENCOUNTER 2022-05-24 10:07 | Outpatient (CLI) | payer MEDICARE, SELFPAY ==
--- NOTE | 2022-05-24 10:15 | CRLHL7_ITS ---
For Patients: As a result of the Century Cures Act, medical imaging exams and procedure reports are released immediately into your electronic medical record. You may view this report before your referring provider. If you have questions, please contact your health care provider. INDICATION: Leg pain and swelling. TECHNIQUE: Ultrasound venous duplex lower left extremity. Compression venous exam was performed using murdock-scale, color Doppler, and spectral Doppler analysis. COMPARISON: None. FINDINGS: Deep veins: Sonographic imaging demonstrates the left common femoral, deep femoral, superficial femoral, popliteal, posterior tibial and the contralateral right common femoral veins to be fully compressible with normal color Doppler blood flow. Superficial veins: Greater saphenous vein is fully compressible. No popliteal cyst. IMPRESSION: No DVT in the left lower extremity. Dictated by Sumit Rodriguez MD @ 05/24/2022 11:18:37 AM (Electronically Signed)
== END 2022-05-24 10:08 | disposition home or self-care (01) ==
PROVIDERS: PCP Family Medicine; Visit Provider Family Medicine
DX: M79.605 Pain in left leg (principal); Z79.01 Long term (current) use of anticoagulants
CPT/HCPCS: 85610; 93971

== ENCOUNTER 2023-02-26 12:29 | Outpatient (CLI) | payer OTHER, SELFPAY ==
--- NOTE | 2023-02-26 12:39 | CRLHL7_ITS ---
For Patients: As a result of the Century Cures Act, medical imaging exams and procedure reports are released immediately into your electronic medical record. You may view this report before your referring provider. If you have questions, please contact your health care provider. Indication : Left renal mass. COMPARISON: Abdominal MRI is dated 21 July 2020 and 07 January 2020. TECHNIQUE: Abdominal MRI with T1 in- and out of phase, T2, diffusion weighted, and progressively delayed post-contrast images. Intravenous gadolinium administered. FINDINGS: No fatty infiltration of the liver. No focal abnormalities identified in the visualized portions of the liver, spleen, pancreas, and adrenal glands. 2.1 cm lesion extending posteriorly off the interpolar region of the left kidney shows heterogeneous enhancement is slightly increased in size, previously 1.8 cm. Scattered small cysts in both kidneys, some of which contain hemorrhagic debris. No other enhancing renal lesions identified. No hydronephrosis. No adenopathy. Impression : 1. 2.1 cm enhancing lesion extending off the interpolar region of the left kidney is slightly increased in size and is suspicious for a renal cell carcinoma. 2. No metastatic disease identified. Dictated by Fernando Coleman MD @ 03/05/2023 3:06:55 PM (Electronically Signed)
== END 2023-02-26 12:30 | disposition home or self-care (01) ==
PROVIDERS: PCP Family Medicine; Visit Provider Internal Medicine Nephrology
DX: N28.89 Other specified disorders of kidney and ureter (principal)
CPT/HCPCS: 74183; A9575

== ENCOUNTER 2023-02-27 07:30 | Outpatient (REF) | payer OTHER, SELFPAY | END 2023-02-27 07:31 | disposition home or self-care (01) | LOC: NFLDREF 07:30 | PROVIDERS: PCP Family Medicine; Referring Provider Family Medicine; Visit Provider Internal Medicine Nephrology | DX: E11.9 Type 2 diabetes mellitus without complications (principal); E78.5 Hyperlipidemia, unspecified; I10 Essential (primary) hypertension; N18.2 Chronic kidney disease, stage 2 (mild); R80.9 Proteinuria, unspecified | CPT/HCPCS: 80061; 80069; 82043; 82570; 84450; 84460; 84550 ==

== ENCOUNTER 2023-09-01 15:21 | Emergency (ER) | payer MEDICARE, SELFPAY ==
[2023-09-01 15:41] VITALS: BP 142/75; PULSE 64; RESP 20; TEMP 36.8; O2SAT 95; BMI 24.3
--- NOTE | 2023-09-01 15:56 | CRLHL7_ITS ---
For Patients: As a result of the Century Cures Act, medical imaging exams and procedure reports are released immediately into your electronic medical record. You may view this report before your referring provider. If you have questions, please contact your health care provider. INDICATION: Pain TECHNIQUE: Three views left knee FINDINGS/IMPRESSION: Normal alignment. No acute fracture or acute osseous abnormalities are visualized. Anterior soft tissue swelling. No effusion is seen extensive atherosclerotic vascular calcification. Mild degenerative change with possible chondrocalcinosis. Dictated by Lucia Coleman MD @ 09/01/2023 4:41:00 PM (Electronically Signed)
--- OUTSIDE RECORDS SUMMARY | 2023-09-01 16:36 | XMS_ITS | Referral Summary ---
Author Organization [place] Address [address] [place] [address] Care Team Providers Care Coding Consultant Name Role Phone Kade Alexander MD Primary Care Provider [phone] Allergies Active Allergy Reactions Criticality Noted Date Comments No Known Drug Allergy 03/09/2003 Social History Tobacco Use Types Packs/Day Years Used Date Smoking Tobacco: Never Alcohol Use Standard Drinks/Week Comments Yes 0 (1 standard drink = 0.6 oz pur e alcohol) RARE Sex and Gender Information Value Date Recorded Sex Assigned at Not on file Gender Identity Not on file Sexual Orientation Not on file Last Filed Vital Signs Vital Sign Reading Time Taken Comments Blood Pressure 150/104 03/09/2003 11:21 AM DEMONSTRATOR ELECTRIC GAS APPLIANCES seated (from Extended Vitals) Pulse 60 03/09/2003 11:19 AM DEMONSTRATOR ELECTRIC GAS APPLIANCES (from Extended Vitals) Temperature - - Respiratory Rate - - Oxygen Saturation - - Inhaled Oxygen Concentration - - Weight 89.8 kg (198 lb) 03/09/2003 10:4 5 AM DEMONSTRATOR ELECTRIC GAS APPLIANCES Height 172.7 cm (5' 8) 03/09/2003 10:4 5 AM DEMONSTRATOR ELECTRIC GAS APPLIANCES Body Mass Index 30.11 03/09/2003 10:45 AM DEMONSTRATOR ELECTRIC GAS APPLIANCES Plan of Treatment Not on file Care Teams Coding Consultant Relationship Specialty Start Date End Date Kade Alexander MD [facility] [address] [place] [address] PCP - General 01/27/02
--- OUTSIDE RECORDS SUMMARY | 2023-09-01 16:36 | XMS_ITS | Clinical Summary ---
Author Organization [employer] [facility] [employer] [facility] Address [place], [place] [address] Care Team Providers Care Vice President Lending Name Role Phone Frederick Krause MD Primary Care Provider [phone] Allergies No known active allergies Medications Medication Sig Dispensed Refills Start Date End Date Status cabergoline (DOSTINEX) 0.5 mg tablet Take 0.75 mg by mouth. Twice weekly ( and Sunday) 04/23/2019 Active metFORMIN (GLUCOPHAGE) 850 mg tablet Take 850 mg by mouth 2 times daily with meals. 04/20/2019 Active losartan (COZAAR) 25 mg tabletIndications:S/P CABG x 4 Take 1 tablet by mouth once daily. 30 tablet 2 05/18/2019 Active atorvastatin (LIPITOR) 40 mg tabletIndications:S/P CABG x 4 Take 1 tablet by mouth at bedtime. 30 tablet 2 05/17/2019 Active Omeprazole 20 mg tabletIndications:Brandie rointestinal hemorrhage, unspecified gastrointestinal hemorrhage type Take 2 tablets by mouth 2 times daily. To be taken before breakfast and before dinner for 6 weeks total and then can transition to daily 90 tablet 3 07/12/2019 Active warfarin (COUMADIN) 4 mg tabletIndications:Pulm onary embolism, unspecified chronicity, unspecified pulmonary embolism type, unspecified whether acute cor pulmonale present (HC) Take 1 tablet by mouth once daily. Take 1.5 tablets (6 mg total) daily for the next 3 days until the INR is rechecked. 0 07/13/2019 Active carvediloL (COREG) 12.5 mg tablet Take 12.5 mg by mouth once daily. 07/14/2020 Active chlorthalidone (HYGROTON) 25 mg tablet Take 25 mg by mouth once daily. 07/10/2020 Active lactobacillus combination no.4 (Probiotic) 3 billion cell cap Take 1 Capsule by mouth once daily. 0 07/20/2020 Active Active Problems Problem Noted Date Diagnosed Date NYHA class 1 heart failure with reduced ejection fraction 07/16/2020 GI bleed 07/11/2019 S/P CABG x 4 05/13/2019 Overview: ALONSO TO LAD, SVG TO PDA SEQUENCED TO PL, SVG TO OM. NSTEMI (non-ST elevated myoc ardial infarction) (HC) 05/08/2019 05/12/2019 ASCVD (arteriosclerotic card iovascular disease), severe 3 vessel 05/12/2019 Overview: coronary angiogram 05/09 with severe 3 vessel disease (70% mLAD, 90% pCx, 70% RPDA, 70% RPAV). 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 Family History Medical History Relation Name Comments Heart attack Brother occured in 50s Heart attack Sister occured in 50s Relation Name Status Comments Brother Sister Social History Tobacco Use Types Packs/Day Years Used Date Smoking Tobacco: Former Cigarettes 0.3 6 1 979 - 1985 Smokeless Tobacco: Never Tobacco Cessation:Counseling Given: Yes Alcohol Use Standard Drinks/Week Comments Yes 0 (1 standard drink = 0.6 oz pur e alcohol) Social Connections Answer Date Recorded Frequency of Communication with Friends and Fami ly Not on file 04/02/2021 Financial Resource Strain Answer Date R ecorded Difficulty of Paying Living Expenses Not on file 04/02/2021 Difficulty of Paying Living Expenses Not on file 04/02/2021 Sex and Gender Information Value Date Recorded Sex Assigned at Not on file Gender Identity Not on file Sexual Orientation Not on file Obstetrics History Last Filed Vital Signs Vital Sign Reading Time Taken Comments Blood Pressure 112/62 07/16/2020 9:04 AM CDT Pulse 60 07/16/2020 9:04 AM CDT Temperature 36.6 ??C (97.8 ??F) 07/13/2019 8:30 AM CD T Respiratory Rate 16 01/12/2020 11:17 AM CDT Oxygen Saturation 99% 07/16/2020 9:04 AM CDT Inhaled Oxygen Concentration - - Weight 76 kg (167 lb 8.8 oz) 07/16/2020 9:04 AM CDT Height 171 cm (5' 7.32) 07/16/2020 9:04 AM CDT Body Mass Index 25.99 07/16/2020 9:04 AM CDT Plan of Treatment Health Maintenance Due Date Last Done Comments Tdap 1964 Depression screening for age 12+ 1965 Hepatitis C screening for age 18-79 11/10/1971 Tetanus booster 1973 Colonoscopy through age 75 1998 Zoster (shingles) series for age 50+ (1 of 2) 11/10/2003 Pneumococcal series for age 65+ (1 of 1 - PCV) 2018 BMI (ht and wt on same day) for age 18+ 07/16/2021 07/16/2020, 06/05/2019 COVID-19 vaccine series ( season) 2022 05/20/2021, 05/23/2020, 05/01/2020 Influenza for age 65+ 12/02/2023 Lipids for age 45-75 05/09/2024 05/09/2019 Procedures Procedure Name Priority Date/Time Associated Diagnosis Comments LIPID PANEL Early AM 05/09/2019 6:17 AM COUNTER CUTTER from Last 3 Months or Most Recently Relevant to Health Maintenance Results * (ABNORMAL) LIPID PANEL (05/09/2019 6:17 AM COUNTER CUTTER) CHOLESTEROL,TOTAL 143 100 - 199 mg/dL 05/09/2019 6:59 AM COUNTER CUTTER [facility] TRIGLYCERIDES 119 <150 mg/dL 05/09/2019 6:59 AM COUNTER CUTTER [facility] HDL CHOLESTEROL 34(L) >40 mg/dL 0 6:59 AM COUNTER CUTTER [facility] NON-HDL CHOLESTEROL 109 <145 mg/dl 05/09/2019 6:59 AM COUNTER CUTTER [facility] CHOL/HDL RATIO 4.21 <4.50 05/09/2019 6:59 AM COUNTER CUTTER [facility] LDL CHOLESTEROL 85 <=130 mg/dL 05/09/2019 6:59 AM COUNTER CUTTER [facility] PROVIDER ORDERED STATUS RANDOM 05/09/2019 6:59 AM COUNTER CUTTER [facility] Blood BLOOD SPECIMEN / Unknown Venipuncture / Unknown 05/09/2019 6:17 AM COUNTER CUTTER 05/09/2019 6:25 AM COUNTER CUTTER Evy NARANJO CHEMISTRY [facility] [address] [place] [address], from Last 3 Months or Most Recently Relevant to Health Maintenance Advance Directives * Full Code (Latest Code Status on File) Date Activated Date Inactivated Comments 07/11/2019 6:32 PM 07/13/2019 9:39 PM Question Answer Comments Code Status Discussion: Discussed * Full Code Date Activated Date Inactivated Comments 05/08/2019 6:16 PM 05/17/2019 3:04 PM Care Teams Vice President Lending Relationship Specialty Start Date End Date Frederick Krause MD [address] [place] [address] PCP - General Family Practice 06/05/19
--- OUTSIDE RECORDS SUMMARY | 2023-09-01 16:36 | XMS_ITS | Referral Summary ---
Author Organization [facility] Address [address] [place] [address] Care Team Providers Care Fitter Armament Name Role Phone Unavailable Primary Care Provider Unavailabl e Source Comments Patient records contain information from all sites at [facility]. For routine questions regarding patient records, call [phone] during business hours, M-F 8:00 AM - 5:00 PM Central Time. Record requests for emergency care only can be directed to [phone] at any time.[facility] Allergies No known active allergies Medications Medication Sig Dispensed Refills Start Date End Date Status chlorthalidone (HYGROTEN) 25 mg tablet Take 1 tablet by mouth daily. If SBP > 130 02/19/2017 Active losartan (COZAAR) 100 mg tablet Take 1 tablet by mouth daily. 01/27/2015 Active warfarin (COUMADIN) 4 mg tablet Take 1 tablet by mouth daily. 0 12/25/2018 Active carvediloL (COREG) 12.5 mg tablet Take 12.5 mg by mouth daily. 07/14/2020 Active amLODIPine (NORVASC) 5 mg tablet Take 1 tablet (5 mg total) by mouth daily. 90 tablet 3 02/08/2021 Active amLODIPine (NORVASC) 2.5 mg tablet Take 1 tablet (2.5 mg total) by mouth daily. 90 tablet 3 02/08/2021 Active eplerenone (INSPRA) 25 mg tablet Take 1 tablet (25 mg total) by mouth daily. 90 tablet 3 09/12/2022 09/12/2023 Active atorvastatin (LIPITOR) 40 mg tablet Take 40 mg by mouth daily. 04/26/2023 Active metFORMIN (GLUCOPHAGE) 850 mg tablet Take 850 mg by mouth 2 (two) times a day with meals. 04/20/2019 Active cabergoline (DOSTINEX) 0.5 mg tabletIndications:Pr olactinoma (HCC) Take 1.5 tablets (0.75 mg total) by mouth 2 (two) times a week. 36 tablet 3 05/03/2023 Active Active Problems Problem Noted Date Diagnosed Date Hyperaldosteronism 03/10/2021 Mass Kidney 01/21/2020 Prolactinoma 05/27/2015 Chronic Kidney Disease Stage 2 Glomerular Filtration Rate 60 To 89 01/28/2015 Diabetes Mellitus Type 2 With Diabetic Nephropat hy 01/28/2015 Hypertension And Chronic Kidney Disease Stage 2 01/28/2015 Resolved Problems Problem Noted Date Diagnosed Date Resolved Date Hypogonadism Pituitary 06/19/201512/07 Immunizations Name Administration Dates Next Due Influenza Split 03/02/2016 Social History Tobacco Use Types Packs/Day Years Used Date Smoking Tobacco: Former Cigarettes 0.3 6 0 04/03/1979 - 04/02/1985 Smokeless Tobacco: Never Tobacco Cessation:Counseling Given: Not Answered Alcohol Use Standard Drinks/Week Comments Yes 2 (1 standard drink = 0.6 oz pur e alcohol) [facility] Utilities Answer Date Recorded In the past 12 months has [employer], [employer], oil, or water [employer] threatened to shut off services in your home? No 04/29/2023 Social Connection and Isolat ion Panel [NHANES] Answer Date Recorded In a typical week, how many times do you talk on the phone with family, friends, or neighbors? More than three times a week 09/27/2020 How often do you get togethe r with friends or relatives? Once a week 09/27/2020 How often do you attend chur or congregation services? Patient declined 09/27/2020 Do you belong to any clubs o r organizations such as muslim groups, unions, fraternal or athletic groups, or school groups? Yes 09/27/2020 How often do you attend meet ings of the clubs or organizations you belong to? 1 to 4 times per year 09/27/2020 Are you , , di vorced, , never , or living with a partner? Never 09/27/2020 AUDIT-C Answer Date Recorded Q1: How often do you have a drink containing alc ohol? 2-4 times a month 09/27/2020 Q2: How many drinks containi ng alcohol do you have on a typical day when you are drinking? 1 or 2 09/27/2020 Q3: How often do you have si x or more drinks on one occasion? Never 09/27/2020 Overall Financial Resource Strain (CARDIA) Answe r Date Recorded How hard is it for you to pa y for the very basics like food, housing, medical care, and heating? Not hard at all 09/27/2020 [facility] - Occupational Stress Questionnaire Answer Date Recorded Do you feel stress - tense, restless, nervous, or anxious, or unable to sleep at night because your mind is troubled all the time - these days? Only a little 09/27/2020 Exercise Vital Sign Answer Date Recorde d On average, how many days pe r week do you engage in moderate to strenuous exercise (like a brisk walk)? 6 days 04/29/2023 On average, how many minutes do you engage in exercise at this level? 40 min 04/29/2023 Hunger Vital Sign Answer Date Recorded Within the past 12 months, y ou worried that your food would run out before you got the money to buy more. Never true 04/29/19 24 Within the past 12 months, t he food you bought just didn't last and you didn't have money to get more. Never true 04/29/2023 PRAPARE - Transportation Answer Date Re corded In the past 12 months, has l ack of transportation kept you from medical appointments or from getting medications? No 04/03 In the past 12 months, has l ack of transportation kept you from meetings, work, or from getting things needed for daily living? No 04/29/2023 Nutrition Answer Date Recorded Nutrition: EVOO Fat Source Yes 04/29 On average, how many serving s of fruits and vegetables do you eat per day (serving size is equal to 1 cup or approximately the size of a tennis ball)? 0-2 04/29/2023 Dental Answer Date Recorded Dental: Regular Dentist Yes 04/13/19 Employment Answer Date Recorded Employment status Employed and actively working without restrictions 04/29/2023 Housing Stability Answer Date Recorded What is your living situation today? I have a [facility] place to live 04/29/2023 Education Answer Date Recorded What is the highest level of school you have completed or the highest degree you have received? 12th grade 12/29/2018 Sex and Gender Information Value Date Recorded Sex Assigned at Male 04/29/2023 9:28 PM ANALYSIS ENGINEER Gender Identity Male 12/24/2017 2:50 PM CDT Sexual Orientation Straight 12/24/2017 2: 50 PM CDT Last Filed Vital Signs Vital Sign Reading Time Taken Comments Blood Pressure 162/84 05/02/2023 8:25 AM ANALYSIS ENGINEER Pulse 48 05/02/2023 8:25 AM ANALYSIS ENGINEER Temperature - - Respiratory Rate 14 08/08/2016 5:05 PM CDT Vital sign result from Clinical Notes. Oxygen Saturation - - Inhaled Oxygen Concentration - - Weight 77.9 kg (171 lb 11.8 oz) 05/02/2023 8:25 AM ANALYSIS ENGINEER Height 174.5 cm (5' 8.7) 05/02/2023 8: 25 AM ANALYSIS ENGINEER Body Mass Index 25.58 05/02/2023 8:25 AM ANALYSIS ENGINEER Plan of Treatment Not on file Procedures Procedure Name Priority Date/Time Associated Diagnosis Comments EXTI CREATININE, POCT, B Routine 04/19/2020 7:[address] ABDOMEN PELVIS WITH IV CONTRAST RAD - Routine (most inpatients and all outpatients) 07/13/2019 10:15 AM CDT EXTI BASIC METABOLIC PANEL, S/P Routine 05/17/2019 7:26 AM ANALYSIS ENGINEER EXTI LIPID PANEL, S Routine 05/09/2019 6 :17 AM ANALYSIS ENGINEER OPHTHALMOLOGY IMAGE EXAM Routine 12/24/2017 9:53 AM CDT HEMOGLOBIN A1C, B Routine 01/27/2015 3:0 7 PM CDT from Last 3 Months or Most Recently Relevant to Health Maintenance Results * OPHTHALMOLOGY IMAGE EXAM (12/24/2017 9:53 AM CDT) 12/24/2017 12:0 0 PM CDT Narrative IIMS - 12/24/2017 9:53 AM CDT This order has been created and auto-finalized to support the import of images acquired without order. The clinical documentation to support these images can be found on the encounter that produced images. Provider Not In System IMG NON RAD IMAGI NG PROCEDURES Performing Organization Address City/[facility]/ZIP Co de Phone Number IILA NA * (ABNORMAL) Hemoglobin A1c (01/27/2015 3:07 PM CDT) Hemoglobin A1c, B 6.3(H) 4.0 - 6.0 % [facility] 01/27/2015 3:07 PM CDT 01/27/2015 3:07 PM CDT Lindsey Ragland M.D. LAB BLOOD ADD -ON [facility] [address] from Last 3 Months or Most Recently Relevant to Health Maintenance
--- OUTSIDE RECORDS SUMMARY | 2023-09-01 16:36 | XMS_ITS | Clinical Summary ---
Author Organization [facility] Address [address] [place] [address] Care Team Providers Care Core Shaper Name Role Phone Unavailable Primary Care Provider Unavailabl e Source Comments Patient records contain information from all sites at [facility]. For routine questions regarding patient records, call [phone] during business hours, M-F 8:00 AM - 5:00 PM Central Time. Record requests for emergency care only can be directed to [phone] at any time.[facility] Allergies No known active allergies Medications [...] History Relation Name Comments Hypertension Father kelli gasca Relation Name Status Comments Father kelli gasca Social History Tobacco Use Types Packs/Day Years Used Date Smoking Tobacco: Former Cigarettes 0.3 6 0 04/03/1979 - 04/02/1985 Smokeless Tobacco: Never Tobacco Cessation:Counseling Given: Not Answered Alcohol Use Standard Drinks/Week Comments Yes 2 (1 standard drink = 0.6 oz pur e alcohol) [facility] Utilities Answer Date Recorded In the past 12 months has [employer], [employer], or water [employer] threatened to shut off services in your [...] week 09/27/2020 [facility] attend [facility] services? Patient declined 09/27/2020 Do you belong to any clubs o r organizations such as uatsdin groups, unions, fraternal or athletic groups, or [...] your living situation today? I have a [facility] place to live 04/29/2023 Education Answer Date Recorded What is the highest level of school you have completed or the highest degree you have received? 12th grade 12/29/2018 Sex and Gender Information Value Date Recorded Sex Assigned at Male 04/29/2023 9:28 PM CORRECTIONAL THERAPY DIRECTOR Gender Identity Male 12/24/2017 2:50 PM CDT Sexual Orientation Straight 12/24/2017 2: 50 PM CDT Last Filed Vital Signs Vital Sign Reading Time Taken Comments Blood Pressure 162/84 05/02/2023 8:25 AM CORRECTIONAL THERAPY DIRECTOR Pulse 48 05/02/2023 8:25 AM CORRECTIONAL THERAPY DIRECTOR Temperature - - Respiratory Rate 14 08/08/2016 5:05 PM CDT Vital sign result from Clinical Notes. Oxygen Saturation - - Inhaled Oxygen Concentration - - Weight 77.9 kg (171 lb 11.8 oz) 05/02/2023 8:25 AM CORRECTIONAL THERAPY DIRECTOR Height 174.5 cm (5' 8.7) 05/02/2023 8: 25 AM CORRECTIONAL THERAPY DIRECTOR Body Mass Index 25.58 05/02/2023 8:25 AM CORRECTIONAL THERAPY DIRECTOR Plan of Treatment Health Maintenance Due Date Last Done Comments CT Colonography 1955 Cologuard 1955 Diabetic Office Visit with F oot Exam 1953 FIT 1955 Hepatitis C Screening 1955 Urine Albumin 1955 Hepatitis B Vaccines (1 of 3 - Risk 3-dose series) 2013 Hemoglobin A1C 07/29/2015 01/27/2015 Dilated Eye Exam 12/24/2018 12/24/2017, 07/2014, 02/03/2015, Additional history exists Potassium Level 05/17/2020 05/17/2019, 05/03, 05/15/2019, Additional history exists Sodium Level 05/17/2020 05/17/2019, 05/03, 05/15/2019, Additional history exists Creatinine Level (Kidney Fun ction Test) 04/19/2021 04/19/2020, 07/12/2019, 05/17/2019, Additional history exists Colonoscopy 09/04/2022 09/04/2012 (Perf ormed elsewhere) Colorectal Cancer Screening 09/04/2022 Depression Screening (Annual PHQ-2) 04/02/2023 Fall Risk Screen (Annual) 04/02/2023 COVID-19 Vaccine (5 - 2022-2 4 season) 2023 01/29/2023, 05/20/2021, 05/23/2020, Additional history exists Office Visit for Blood Press ure Check / Re-check 07/31/2023 05/02/2023 Lipid (Cholesterol) Screening 05/09/2024, 05/09/2019, 07/07/2015, Additional history exists DTaP,Tdap,and Td Vaccines (3 - Td or Tdap) 01/29/2033 01/29/2023, 03/12/2012 Abdominal Aortic Aneurysm (A AA) Screen Completed 07/13/2019 Zoster Vaccines Completed 10/20/2019, 08/18/2019 Pneumococcal vaccine (65+ years) Completed 10/15/19, 08/18/2019 Influenza Vaccine Completed 01/29/2023, , 04/28/2022, Additional history exists Procedures Procedure Name Priority Date/Time Associated Diagnosis Comments EXTI CREATININE, POCT, B Routine 04/19/2020 7:33 AM CORRECTIONAL THERAPY DIRECTOR CT ABDOMEN PELVIS WITH IV CONTRAST RAD - Routine (most inpatients and all outpatients) 07/13/2019 10:15 AM CDT EXTI BASIC METABOLIC PANEL, S/P Routine 05/17/2019 7:26 AM CORRECTIONAL THERAPY DIRECTOR EXTI LIPID PANEL, S Routine 05/09/2019 6 :17 AM CORRECTIONAL THERAPY DIRECTOR OPHTHALMOLOGY IMAGE EXAM Routine 12/24/2017 9:53 AM [...] System IMG NON RAD IMAGI NG PROCEDURES IIMA NA * (ABNORMAL) Hemoglobin A1c (01/27/2015 3:07 PM CDT) Hemoglobin A1c, B 6.3(H) 4.0 - 6.0 % [facility] 01/27/2015 3:07 PM CDT 01/27/2015 3:07 PM CDT Lindsey Ragland M.D. LAB BLOOD ADD -ON [facility] [address] from Last 3 Months or Most Recently Relevant to Health Maintenance
--- OUTSIDE RECORDS SUMMARY | 2023-09-01 16:36 | XMS_ITS | Encounter Summary ---
Author Organization [facility] Address [address] [place] [address] Care Team Providers Care Radio Despatcher Name Role Phone Unavailable Primary Care Provider Unavailabl e Encounter Details Date Type Department Care Team (Late st Contact Info) Description 02/03/2015 Historical Ophthalmology RST OPH Brenda Elaine M.D. Social History Tobacco Use Types Packs/Day Years Used Date Smoking Tobacco: Never Assessed Sex and Gender Information Value Date Recorded Sex Assigned at Male 04/29/2023 9:28 PM DIGITAL COMMUNITY MANAGER Gender Identity Male 12/24/2017 2:50 PM CDT Sexual Orientation Straight 12/24/2017 2: 50 PM CDT documented as of this encounter Progress Notes * Brenda Elaine M.D. - 02/03/2015 9:10 AM CST Eye General CHIEF COMPLAINT pituitary adenoma HISTORY OF PRESENT ILLNESS Headaches are better in past 2 weeks. Left eye off and on will get blurry. A lot of Floaters, both eyes,had a long time. Is diabetic, since on prednisone blood sugars lower. No flashes. No diplopia. No eye pain. JAL: pituitary tumor prolactin very high @ 2806 - on bromocriptine. Reviewed MRI images - pituitary tumor not near chiasm. ORIGINAL REPORT - 28-Jan-2015 12:33:00 EXAM: Interp of OS MR Head without and with intravenous contrast dated 01/21/2015. COMPARISON: None IMPRESSION: Pituitary macroadenoma FINDINGS: Heterogeneously enhancing mass within the expanded sella turcica, measures 2.0 x 2.2 x 1.6 cm (AP by LR by SI), results in superior convexity of the right aspect of the gland, and [id number] shift of the infundibulum. There is no evidence for chiasmatic compromise or definite cavernoussinus invasion. These findings are consistent with a macroadenoma. There is no evidence for a mass or pathologic enhancement at the internal auditory canal nor cerebellopontine angle. 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 Electronically signed by: Mila Stewart M.D. [id number] 28-Jan-2015 12:33 IMPRESSION / REPORT / PLAN Consult requested by: Lindsey Ragland MD [id number] #1 Pituitary tumor, with no ocular stigmata. Vision corrects to 20/20 - OD, 20/25 - OS, color vision normal OU. Discs normal OU. Plan: Baseline disc photos and RNFL OCT. I will review the tests when completed and put the resultsin the EMR. Photo Interpretation: Photos confirm and document clinical findings of diagnosis and are of sufficient quality to permit their use to follow disease progression. Cirrus RNFL OCT: Normal OU. Avg thickness 90 OD, 91 OS. Signal 10/10 OU. Cirrus ganglion OCT: Avg thickness 82 OD, 88 OS. [id number] /10 OU. Testing consistent with clinical exam findings. #2 Visual field report, Normal visual field both eyes. Foveal threshold normal @ 37 OD, 39 OS. 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 This is likely related to prednisone. Return prn any changes in vision. The photos show an area of soil surveyor color that corresponds to the [facility]IFT LEAD on the OCT. Testing consistent with clinical exam findings. 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 #2 Visual field report, Normal visual field both eyes. #3 Central serous retinopathy left eye. CDM Reports - EYEGEN Id: [id number] Status: Fnl documented in this encounter Plan of Treatment Not on file documented as of this encounter Visit Diagnoses Not on filedocumented in this encounter
--- OUTSIDE RECORDS SUMMARY | 2023-09-01 16:36 | XMS_ITS | Clinical Summary ---
Author Organization [facility] Address [address] [place] [id number] Care Team Providers Care Upper Lining Cementer Name Role Phone Kade Alexander MD Primary Care Provider [phone] Allergies Active Allergy Reactions Criticality Noted Date Comments No Known Drug Allergy 03/09/2003 Family History Medical History Relation Comments Cancer Father ORAL, RELATED TO TOBACCO Diabetes Father Hypertension Father Arthritis Mother Cardiovascular Mother Gastrointestinal Disease Mother mothers side lactose intollerant Heart Disease Mother [place] repaired with a shunt Osteoporosis Mother Hypertension Paternal Grandfather Allergies Sister [...] Comments Blood Pressure 150/104 03/09/2003 11:21 AM SUBSTATION INSPECTOR seated (from Extended Vitals) Pulse 60 03/09/2003 11:19 AM SUBSTATION INSPECTOR (from Extended Vitals) Temperature - - Respiratory Rate - - Oxygen Saturation - - Inhaled Oxygen Concentration - - Weight 89.8 kg (198 lb) 03/09/2003 10:4 5 AM SUBSTATION INSPECTOR Height 172.7 cm (5' 8) 03/09/2003 10:4 5 AM SUBSTATION INSPECTOR Body Mass Index 30.11 03/09/2003 10:45 AM SUBSTATION INSPECTOR Plan of Treatment Not on file Care Teams Upper Lining Cementer Relationship Specialty Start Date End Date Kade Alexander MD [facility] [id number] [place] [address] [facility] - General 01/27/02
--- OUTSIDE RECORDS SUMMARY | 2023-09-01 16:36 | XMS_ITS ---
Author Organization [facility] Address [address] [place] [address] Care Team Providers Care Staff Radiologist Name Role Phone Unavailable Unavailable Unavailable Surgery Details Not on file Complications Check Surgery Details section. Procedure Estimated Blood Loss Check Surgery Details section. Procedure Findings Check Surgery Details section. Procedure Specimens Taken Check Surgery Details section.
--- NOTE | 2023-09-01 16:52 | ED_ITS ---
HPI - Extremity Problem General Date Seen: 09/01/23 Chief complaint: Lower Extremity Swelling Stated complaint: L knee pain Time Seen by Provider: 09/01/23 15:38 Source: patient and family Mode of arrival: ambulatory Limitations: no limitations History of Present Illness HPI Narrative: Left knee pain. Woke up with it filled with fluid four days ago. Happens occasionally but will usually dissipate. Flui has not gone away this time. Did have a hx of this in the foot. Fluid was removed and tested negative for gout, but pt was treated for it anyway and foot got better. -Date of Onset of Symptoms Patient is a very nice gentleman who presents here with a 3 day history of left knee swelling, and some fluid in his knee he is limping, is slightly painful, some he presents here in tells me that he has similar episode in his left ankle, I saw Dr. Roberto when he tried to take some fluid other. That was negative for gout. Games of prednisone in this cleared up. This is approximately 6 months to a year ago does have a history type 2 diabetes. No history of previous anticoagulants bleeds, last INR was 2 weeks ago when therapeutic at 2.3 he takes his anticoagulation for atrial fibrillation no history of injury of his knee denies any fevers chills or sweats Related Data Home Medications ?Medication ?Instructions ?Recorded ?Confirmed Lactobacillus 1 cap PO DAILY 11/14/21 09/01/23 acidophilus-Bifidobac.animalis 31 billion cell capsule cabergoline 0.5 mg tablet 0.75 mg PO .Twice Weekly 11/14/21 09/01/23 Previous Rx's ?Medication ?Instructions ?Recorded amlodipine 2.5 mg tablet 2.5 mg PO DAILY #90 tabs 01/29/23 amlodipine 5 mg tablet 5 mg PO QDAY #90 tabs 01/29/23 atorvastatin 40 mg tablet 40 mg PO QPM #90 tabs 01/29/23 carvedilol 12.5 mg tablet 12.5 mg PO BID #180 tabs 01/29/23 chlorthalidone 25 mg tablet 25 mg PO QDAY #90 tabs 01/29/23 eplerenone 25 mg tablet 25 mg PO DAILY #90 tabs 01/29/23 losartan 100 mg tablet 100 mg PO QDAY #90 tabs 01/29/23 metformin 850 mg tablet 850 mg PO BIDWMEAL #180 tabs 01/29/23 warfarin 4 mg tablet 4 mg PO DAILY #90 tabs 07/03/23 Allergies Allergy/AdvReac Type Severity Reaction Status Date / Time No Known Allergies Allergy Unverified 03/05/23 13:47 Review of Systems Status of ROS: Reports: 6 or more systems reviewed and unremarkable except as noted in History and below PFSH PFSH Medical History Foot pain ?M79.673 - Pain in unspecified foot (ICD-10) Surgical History Hx of shoulder surgery ?Z98.890 - Other specified postprocedural states (ICD-10) Status post four vessel coronary artery bypass ?Z95.1 - Presence of aortocoronary bypass graft (ICD-10) Family History Mother Heart disease Brother Heart disease Sister Heart disease Father High blood pressure Social History Narrative: Former smoker What is your current living situation?: I presently have a place to live Problems where you live: no known problems In the past 12 months, utilities in danger of being shut off: no In past 12 months, lack of transportation kept you from medical appts, meetings, work, or getting things needed for daily living: no In the past 12 mos, have been you worried that your food would run out before you had money to buy more?: never true In the past 12 mos, the food you bought just didn't last and you didn't have money to buy more?: never true Smoking Status: Former smoker Do you use any of these nicotine containing products: None How often do you have a drink containing alcohol: never How often do you have six or more drinks on one occasion: Never AUDIT-C Alcohol total score: 0 Non-prescribed substance use: denies use How often does anyone, including family, friends and others, physically hurt you : never How often does anyone, including family, friends and others, insult or talk down to you: never How often does anyone, including family, friends and others, threaten you with harm: never How often does anyone, including family, friends and others, scream or curse at you: never Little interest or pleasure in doing things: not at all Feeling down, depressed, or hopeless: not at all Exam Narrative: Exam Narrative: On examination he has no apparent distress there is a little bit of fluid in his right knee is range of motion is from 0 through till 90. Little bit of sore along the medial joint line. Patella tracks normally ACL PCL and lateral and medial collateral ligaments are normal, popliteal fossa is otherwise soft with no evidence of any discomfort DP and posterior tibial pulses are normal and he has approximately 1 to 2+ pitting edema bilaterally in his lower extremities. He is able to walk on his leg, bear weight, but it is slightly sore for him. Const: Vital Signs, click to edit/add: Vital Signs - 24 hr 09/01/23 15:41 Temperature 98.3 F Pulse Rate [Pulse Oximeter] 64 Respiratory Rate 20 Blood Pressure [Le ft Upper Arm] 142/75 H Pulse Oximetry 95 Oxygen Delivery Me thod Room Air Course Course ED Course: Patient's INR came back therapeutic at 2.91, I did use the ultrasound machine, but he did have a tremendous a fusion of his left knee, in fact probably not even 10 mL of fluid given this finding, I was honest with him. I think it is unrealistic to do a therapeutic tap, and a diagnostic 1 with this limited fluid would not be that helpful. I think it would be reasonable to try a knee immobilizer, maybe some prednisone which she has taken in the past, although this will increase his sugars. He was very comfortable this plan follow-up with orthopedics. Ongoing says knee swelling as there likely is a degenerative component to this. Vital Signs Vital signs: Initial Vital Signs Temperature 98.3 F 09/01/23 15:41 Temperature Source Temporal Artery Scan 09/01/23 15:41 Pulse Rate 64 09/01/23 15:41 Respiratory Rate 20 09/01/23 15:41 Blood Pressure 142/75 H 09/01/23 15:41 Blood Pressure Mean 97 09/01/23 15:41 Blood Pressure Position Sitting 09/01/23 15:41 Pulse Oximetry 95 09/01/23 15:41 Oxygen Delivery Method Room Air 09/01/23 15:41 Vital Signs Temperature 98.3 F 09/01/23 15:41 Pulse Rate 64 09/01/23 15:41 Respiratory Rate 20 09/01/23 15:41 Blood Pressure 142/75 H 09/01/23 15:41 Pulse Oximetry 95 09/01/23 15:41 Oxygen Delivery Method Room Air 09/01/23 15:41 Temperature 98.3 F 09/01/23 15:41 Pulse Rate 64 09/01/23 15:41 Respiratory Rate 20 09/01/23 15:41 Blood Pressure 142/75 H 09/01/23 15:41 Pulse Oximetry 95 09/01/23 15:41 Oxygen Delivery Method Room Air 09/01/23 15:41 MDM - Extremity (Nontraumatic) MDM Narrative Medical decision making narrative: During this evaluation I considered multiple diagnosis is such as gout, traumatic injury, arthritis, ligament rupture, or strain. DVT, cellulitis, arterial occlusion. Pseudogout, or bacterial infection of the joint. We talked about doing an x-ray which we did, the x-ray did not show any acute problems there is a little bit of ae fusion. After this he would like arthrocentesis, explained him that I will need to do an INR 1st. He was okay with this Lab Data Labs: Lab Results 09/01/23 Range/Units 16:38 INR 2.91 H (0.91-1.10) Imaging Data Left knee x-ray: My impression: New mild left degenerative change Radiologist's impression: atient: WILNER KUMAR Facility:?[facility] Patient ID:?[id number] Site Patient ID:?[id number]. Site :?[id number] Study:?XRay-Knee Left -09/01/2023 4:08:26 PM Ordering Physician:Reynold Springer Final Report: INDICATION: Pain TECHNIQUE: Three views left knee FINDINGS/IMPRESSION: Normal alignment. No acute fracture or acute osseous abnormalities are visu alized. Anterior soft tissue swelling. No effusion is seen extensive atherosclerotic vascular calcification. Mild degenerative change with possible chondrocalcinosis. Dictated by Lucia Coleman MD @ 09/01/2023 4:41:00 PM (Electronic Signature) Discharge Plan Discharge Clinical Impression: Effusion of knee joint, left Patient Disposition: Home w/ Parent or Adult Condition: Stable Instructions: Swollen Joint (ED) Additional Instructions: Home rest knee immobilizer for the next 4-5 days follow-up with orthopedics. Try the prednisone, as this has worked in the past. I would not use any ibuprofen early with this. That should not be used anyway with your history of Coumadin. You may use some Tylenol.Prednisone 20 mg po bid with instymeds Activity Level: Light activity Prescriptions: No Action amlodipine 2.5 mg tablet 2.5 mg PO DAILY Qty: 90 3RF Rx Instructions: take with 5mg tab for total dose of 7.5 mg daily amlodipine 5 mg tablet 5 mg PO QDAY Qty: 90 3RF Rx Instructions: take with 2.5mg for daily dose of 7.5mg atorvastatin 40 mg tablet 40 mg PO QPM Qty: 90 3RF carvedilol 12.5 mg tablet 12.5 mg PO BID Qty: 180 3RF Rx Instructions: must administer with a meal/food chlorthalidone 25 mg tablet 25 mg PO QDAY Qty: 90 3RF eplerenone 25 mg tablet 25 mg PO DAILY Qty: 90 3RF losartan 100 mg tablet 100 mg PO QDAY Qty: 90 3RF metformin 850 mg tablet 850 mg PO BIDWMEAL Qty: 180 3RF cabergoline 0.5 mg tablet 0.75 mg PO .Twice Weekly L. acidophilus/Bifid. animalis 31 billion cell capsule 1 cap PO DAILY warfarin 4 mg tablet 4 mg PO DAILY Qty: 90 0RF Protocol: Dose Management Condition: Sunday Dose/Route: 4 mg Instruction: 1 x 4 mg tablet Condition: Sunday Dose/Route: 4 mg Instruction: 1 x 4 mg tablet Condition: Sunday Dose/Route: 4 mg Instruction: 1 x 4 mg tablet Condition: Sunday Dose/Route: 2 mg Instruction: 0.5 x 4 mg tablets Condition: Dose/Route: 4 mg Instruction: 1 x 4 mg tablet Condition: Sunday Dose/Route: 4 mg Instruction: 1 x 4 mg tablet Condition: Sunday Dose/Route: 4 mg Instruction: 1 x 4 mg tablet Protocol Text: Adjustment Start Date: Sunday08/21/23 INR Value: 2.3 INR Date: 08/21/23 Recheck Date: 10/16/23 Follow Up/Referrals: Frederick Krause MD [Primary Care Provider] - Vinay Ferraro MD [Staff Physician] - Stand Alone Forms: [employer] Info Instructions
[2023-09-01 16:58] LABS: INR 2.91 (0.91-1.10); Prothrombin Time 32.6 Seconds
== END 2023-09-01 17:40 | disposition home or self-care (01) ==
PROVIDERS: Emergency Provider Family Medicine; PCP Family Medicine
DX: M25.462 Effusion, left knee (principal)
CPT/HCPCS: 36415; 73562; 85610; 99283

== ENCOUNTER 2023-09-10 07:25 | Outpatient (CLI) | payer MEDICARE, SELFPAY ==
--- OUTSIDE RECORDS SUMMARY | 2023-09-12 13:49 | XMS_ITS | Encounter Summary ---
Author Organization [facility] Address [address] [place] [address] Care Team Providers Care Burglar Alarm Superintendent Name Role Phone Unavailable Primary Care Provider Unavailabl e Encounter Details Date Type Department Care Team (Late st Contact Info) Description 02/03/2015 Historical Ophthalmology RST OPH Brenda Elaine M.D. Social History Tobacco Use Types Packs/Day Years Used Date Smoking Tobacco: Never Assessed Sex and Gender Information Value Date Recorded Sex Assigned at Male 04/29/2023 9:28 PM SALES COMMISSIONS ANALYST Gender Identity Male 12/24/2017 2:50 PM CDT [...] the right aspect of the gland, and ususo-kj-iqyr shift of the infundibulum. 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 [...] OCT: Avg thickness 82 OD, 88 OS. Cgglic63 /10 OU. Testing consistent with clinical exam findings. #2 Visual field report, Normal visual field both eyes. Foveal threshold normal @ 37 OD, 39 OS. 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 This is likely related to prednisone. Return prn any changes in vision. The photos show an area of tanbark peeler color that corresponds to the DIRECTOR CONTENT MARKETING on the OCT. Testing consistent with clinical exam findings. 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 #2 Visual field report, Normal visual field both eyes. #3 Central serous retinopathy left eye. CDM Reports - EYEGEN Id: [id number] Status: Fnl documented in this encounter Plan of Treatment Not on file documented as of this encounter Visit Diagnoses Not on filedocumented in this encounter
--- OUTSIDE RECORDS SUMMARY | 2023-09-12 13:49 | XMS_ITS | Encounter Summary ---
Author Organization [facility] Address [address] [place] [address] Care Team Providers Care Tamale Maker Name Role Phone Unavailable Primary Care Provider Unavailabl e Reason for Visit * Reason Comments Med Refill Encounter Details Date Type Department Care Team (Late st Contact Info) Description 09/11/2023 Refill Division of Nephrology and Hypertension in [place], [place] [address] [place] [address] Walter Willis Jr., D.O. [address] [place] [address] Med Refill Social History Tobacco Use Types Packs/Day Years Used Date Smoking Tobacco: Former Cigarettes 0.3 6 0 04/03/1979 - 04/02/1985 Smokeless Tobacco: Never Alcohol Use Standard Drinks/Week Comments Yes 2 (1 standard drink = 0.6 oz pur e alcohol) [facility] Utilities Answer Date Recorded In the past 12 months has [employer] electric, gas, oil, or water company threatened to shut off services in your [...] How often do you attend chur or taoist services? Patient declined 09/27/2020 Do you belong to any clubs o r organizations such as hindu groups, unions, fraternal [...] and heating? Not hard at all 09/27/2020 [facility] [place] of Occupat ional Health - Occupational Stress [...] your living situation today? I [facility] 04/29/2023 Education Answer Date Recorded What is the highest level of school you have completed or the highest degree you have received? 12th grade 12/29/2018 Sex and Gender Information Value Date Recorded Sex Assigned at Male 04/29/2023 9:28 PM MASTER ELECTRICIAN Gender Identity Male 12/24/2017 2:50 PM CDT Sexual Orientation Straight 12/24/2017 2: 50 PM CDT documented as of this encounter Plan of Treatment Not on file documented as of this encounter Visit Diagnoses Not on filedocumented in this encounter
--- OUTSIDE RECORDS SUMMARY | 2023-09-12 13:49 | XMS_ITS | Referral Summary ---
Author Organization [facility] Address [address] [place] [address] Care Team Providers Care Typists Supervisor Name Role Phone Unavailable Primary Care Provider Unavailabl e Source Comments Patient records contain information from all sites at [facility]. For routine questions regarding patient records, call [phone] during business hours, M-F 8:00 AM - 5:00 PM Central Time. Record requests for emergency care only can be directed to [phone] at any time.[facility] Encounters Date Type Department Care Team Description 09/11/2023 Refill Division of Nephrology and Hypertension in [place], [place] [address] [place] [address] Walter Willis Jr., D.O. Med Refill from Last 3 Months Allergies No known active allergies Medications Medication [...] by mouth daily. 90 tablet 3 09/12/2022 Active atorvastatin (LIPITOR) 40 mg tablet Take 40 mg by mouth daily. 04/26/2023 Active metFORMIN (GLUCOPHAGE) 850 mg tablet Take 850 mg by mouth 2 (two) times a day with meals. 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 Patient declined 09/27/2020 Do you belong to any clubs o r organizations such as anabaptism groups, unions, fraternal or athletic groups, or [...] and heating? Not hard at all 09/27/2020 [facility] of Occupat ional Health - Occupational Stress [...] your living situation today? I have a [facility] place to live 04/29/2023 Education Answer Date Recorded What is the highest level of school you have completed or the highest degree you have received? 12th grade 12/29/2018 Sex and Gender Information Value Date Recorded Sex Assigned at Male 04/29/2023 9:28 PM STRATEGIC COMMUNICATIONS SPECIALIST Gender Identity Male 12/24/2017 2:50 PM CDT Sexual Orientation Straight 12/24/2017 2: 50 PM CDT Last Filed Vital Signs Vital Sign Reading Time Taken Comments Blood Pressure 162/84 05/02/2023 8:25 AM STRATEGIC COMMUNICATIONS SPECIALIST Pulse 48 05/02/2023 8:25 AM STRATEGIC COMMUNICATIONS SPECIALIST Temperature - - Respiratory Rate 14 08/08/2016 5:05 PM CDT Vital sign result from Clinical Notes. Oxygen Saturation - - Inhaled Oxygen Concentration - - Weight 77.9 kg (171 lb 11.8 oz) 05/02/2023 8:25 AM STRATEGIC COMMUNICATIONS SPECIALIST Height 174.5 cm (5' 8.7) 05/02/2023 8: 25 AM STRATEGIC COMMUNICATIONS SPECIALIST Body Mass Index 25.58 05/02/2023 8:25 AM STRATEGIC COMMUNICATIONS SPECIALIST Plan of Treatment Not on file Procedures Procedure Name Priority Date/Time Associated Diagnosis Comments EXTI CREATININE, POCT, B Routine 04/19/2020 7:33 AM STRATEGIC COMMUNICATIONS SPECIALIST CT ABDOMEN PELVIS WITH IV CONTRAST RAD - Routine (most inpatients and all outpatients) 07/13/2019 10:15 AM CDT EXTI BASIC METABOLIC PANEL, S/P Routine 05/17/2019 7:26 AM STRATEGIC COMMUNICATIONS SPECIALIST EXTI LIPID PANEL, S Routine 05/09/2019 6 :17 AM STRATEGIC COMMUNICATIONS SPECIALIST OPHTHALMOLOGY IMAGE EXAM Routine 12/24/2017 9:53 AM [...] RAD IMAGI NG PROCEDURES Performing Organization Address City/[facility]/ZIP Co de Phone Number IINV NA * (ABNORMAL) Hemoglobin A1c (01/27/2015 3:07 PM CDT) Hemoglobin A1c, B 6.3(H) 4.0 - 6.0 % [facility] 01/27/2015 3:07 PM CDT 01/27/2015 3:07 PM CDT Lindsey Ragland M.D. LAB BLOOD ADD -ON Performing Organization Address City/[facility]/ZIP Co de Phone Number [facility] [address] from Last 3 Months or Most Recently Relevant to Health Maintenance
--- OUTSIDE RECORDS SUMMARY | 2023-09-12 13:49 | XMS_ITS | Clinical Summary ---
Author Organization [facility] Address [address] [place] [address] Care Team Providers Care Clinical Business Analyst Name Role Phone Unavailable Primary Care Provider Unavailabl e Source Comments Patient records contain information from all sites at [facility]. For routine questions regarding patient records, call [phone] during business hours, M-F 8:00 AM - 5:00 PM Central Time. Record requests for emergency care only can be directed to [phone] at any time.[facility] Allergies No known active allergies [...] Diagnosed Date Resolved Date Hypogonadism Pituitary 06/19/201512/07 Encounters Date Type Department Care Team Description 09/11/2023 Refill Division of Nephrology and Hypertension in [place], [place] [address] [place] [address] Walter Willis Jr., D.O. Med Refill from Last 3 Months Immunizations Name Administration Dates Next Due Influenza [...] drink = 0.6 oz pur e alcohol) [facility] Utilities Answer Date Recorded In the past 12 months has [employer], gas, oil, or water [employer] threatened to shut off services in your [...] 09/27/2020 How often do you attend chur ch or gnosticist services? Patient declined 09/27/2020 Do you belong to any clubs o r organizations such as protestant groups, unions, fraternal or athletic groups, or [...] and heating? Not hard at all 09/27/2020 [facility] [place] of Occupat ional Health - Occupational Stress [...] your living situation today? I have a [facility] place to live 04/29/2023 Education Answer Date Recorded What is the highest level of school you have completed or the highest degree you have received? 12th grade 12/29/2018 Sex and Gender Information Value Date Recorded Sex Assigned at Male 04/29/2023 9:28 PM DEPARTMENT MANAGER Gender Identity Male 12/24/2017 2:50 PM CDT Sexual Orientation Straight 12/24/2017 2: 50 PM CDT Last Filed Vital Signs Vital Sign Reading Time Taken Comments Blood Pressure 162/84 05/02/2023 8:25 AM DEPARTMENT MANAGER Pulse 48 05/02/2023 8:25 AM DEPARTMENT MANAGER Temperature - - Respiratory Rate 14 08/08/2016 5:05 PM CDT Vital sign result from Clinical Notes. Oxygen Saturation - - Inhaled Oxygen Concentration - - Weight 77.9 kg (171 lb 11.8 oz) 05/02/2023 8:25 AM DEPARTMENT MANAGER Height 174.5 cm (5' 8.7) 05/02/2023 8: 25 AM DEPARTMENT MANAGER Body Mass Index 25.58 05/02/2023 8:25 AM DEPARTMENT MANAGER Plan of Treatment Health Maintenance Due Date [...] Fall Risk Screen (Annual) 04/02/2023 COVID-19 Vaccine (2022-05 4 season) 2023 01/29/2023, 05/20/2021, 05/23/2020, Additional [...] 10/15/19, 08/18/2019 Influenza Vaccine Completed 01/29/2023, , 02/23/2021, Additional history exists Procedures Procedure Name Priority Date/Time Associated Diagnosis Comments EXTI CREATININE, POCT, B Routine 04/19/2020 7:[address] ABDOMEN PELVIS WITH IV CONTRAST RAD - Routine (most inpatients and all outpatients) 07/13/2019 10:15 AM CDT EXTI BASIC METABOLIC PANEL, S/P Routine 05/17/2019 7:26 AM DEPARTMENT MANAGER EXTI LIPID PANEL, S Routine 05/09/2019 6 :17 AM DEPARTMENT MANAGER OPHTHALMOLOGY IMAGE EXAM Routine 12/24/2017 9:53 AM [...] RAD IMAGI NG PROCEDURES Performing Organization Address City/[facility]/ZIP Co de Phone Number IIVA NA * (ABNORMAL) Hemoglobin A1c (01/27/2015 3:07 PM CDT) Hemoglobin A1c, B 6.3(H) 4.0 - 6.0 % [facility] 01/27/2015 3:07 PM CDT 01/27/2015 3:07 PM CDT Lindsey Ragland M.D. LAB BLOOD ADD -ON [facility] [address] [place] [address], [facility] from Last 3 Months or Most Recently Relevant to Health Maintenance
--- OUTSIDE RECORDS SUMMARY | 2023-09-12 13:49 | XMS_ITS ---
Author Organization [facility] Address [address] [place] [address] Care Team Providers Care Automotive Refinisher Name Role Phone Unavailable Unavailable Unavailable Surgery Details Not on file Complications Check Surgery Details section. Procedure Estimated Blood Loss Check Surgery Details section. Procedure Findings Check Surgery Details section. Procedure Specimens Taken Check Surgery Details section.
--- OUTSIDE RECORDS SUMMARY | 2023-09-12 13:49 | XMS_ITS | Clinical Summary ---
Author Organization [employer] [facility] Address [place], [place] [address] Care Team Providers Care Milieu Manager Name Role Phone Frederick Krause MD Primary Care Provider [phone] Allergies No known active allergies Medications Medication [...] 07/16/2020 9:04 AM CDT Plan of Treatment Upcoming Encounters Date Type Department Care Team (Late st Contact Info) Description 09/13/2023 1:00 PM CDT Office Visit [facility] [address] [place] [address] Henri Clemente MD [address] [facility] [id number] [place] [address] Health Maintenance Due Date Last Done Comments [...] 18+ 07/16/2021 07/16/2020, 06/05/2019 COVID-19 vaccine series (2022-24 season) 2022 05/20/2021, 05/23/2020, 05/01/2020 Influenza for age 65+ 12/02/2023 Lipids for age 45-75 05/09/2024 05/09/2019 Procedures Procedure Name Priority Date/Time Associated Diagnosis Comments LIPID PANEL Early AM 05/09/2019 6:17 AM EQUIPMENT OPERATION INSTRUCTOR from Last 3 Months or Most Recently Relevant to Health Maintenance Results * (ABNORMAL) LIPID PANEL (05/09/2019 6:17 AM EQUIPMENT OPERATION INSTRUCTOR) CHOLESTEROL,TOTAL 143 100 - 199 mg/dL 05/09/2019 6:59 AM EQUIPMENT OPERATION INSTRUCTOR [facility] [employer] [facility] TRIGLYCERIDES 119 <150 mg/dL 05/09/2019 6:59 AM EQUIPMENT OPERATION INSTRUCTOR [facility] TRAL LABORATORY HDL CHOLESTEROL 34(L) >40 mg/dL 0 6:59 AM EQUIPMENT OPERATION INSTRUCTOR [facility] TRAL LABORATORY NON-HDL CHOLESTEROL 109 <145 mg/dl 05/09/2019 6:59 AM EQUIPMENT OPERATION INSTRUCTOR [facility] TRAL LABORATORY CHOL/HDL RATIO 4.21 <4.50 05/09/2019 6:59 AM EQUIPMENT OPERATION INSTRUCTOR [facility] TRAL LABORATORY LDL CHOLESTEROL 85 <=130 mg/dL 05/09/2019 6:59 AM EQUIPMENT OPERATION INSTRUCTOR [facility] TRAL LABORATORY PROVIDER ORDERED STATUS RANDOM 05/09/2019 6:59 AM EQUIPMENT OPERATION INSTRUCTOR [facility] TRAL LABORATORY Blood BLOOD SPECIMEN / Unknown Venipuncture / Unknown 05/09/2019 6:17 AM EQUIPMENT OPERATION INSTRUCTOR 05/09/2019 6:25 AM EQUIPMENT OPERATION INSTRUCTOR Evy MAR CHEMISTRY [facility] [employer] [facility] [address] [place] [address], [place] from Last 3 Months or Most Recently Relevant to Health Maintenance Advance Directives * Full Code (Latest Code Status on File) Date Activated Date Inactivated Comments 07/11/2019 6:32 PM 07/13/2019 9:39 PM Question Answer Comments Code Status Discussion: Discussed * Full Code Date Activated Date Inactivated Comments 05/08/2019 6:16 PM 05/17/2019 3:04 PM Care Teams Milieu Manager Relationship Specialty Start Date End Date Ailabouni, Frederick, MD [address] [place] [phone] PCP - General Family Practice 06/05/19
== END 2023-09-10 07:26 | disposition home or self-care (01) ==
LOC: NFLDREF 09-12 13:47
PROVIDERS: PCP Family Medicine; Referring Provider Family Medicine; Visit Provider Internal Medicine Nephrology
DX: E11.9 Type 2 diabetes mellitus without complications (principal); E11.22 Type 2 diabetes mellitus with diabetic chronic kidney disease; N18.30 Chronic kidney disease, stage 3 unspecified; R80.9 Proteinuria, unspecified; I10 Essential (primary) hypertension; D64.9 Anemia, unspecified; Z79.01 Long term (current) use of anticoagulants; E29.1 Testicular hypofunction; E66.9 Obesity, unspecified; D35.2 Benign neoplasm of pituitary gland; M79.673 Pain in unspecified foot
CPT/HCPCS: 80069; 82043; 82570; 82728; 83540; 83550; 83970; 84550; 86140

== ENCOUNTER 2023-12-24 10:31 | Outpatient (CLI) | payer MEDICARE, SELFPAY ==
--- OUTSIDE RECORDS SUMMARY | 2023-12-28 03:35 | XMS_ITS | Clinical Summary ---
Author Organization [facility] [facility] Address [place], [place] [address] Care Team Providers Care Night Stocker Name Role Phone Frederick Krause MD Primary Care Provider [phone] Allergies No known active allergies Medications Medication Sig Dispensed Refills Start Date End Date Status cabergoline (DOSTINEX) 0.5 mg tablet Take 0.75 mg by mouth. Twice weekly ( and Sunday) 04/23/2019 Active metFORMIN (GLUCOPHAGE) 850 mg tablet Take 850 mg by mouth 2 times daily with meals. 04/20/2019 Active atorvastatin (LIPITOR) 40 mg tabletIndications:S/P CABG [...] by mouth once daily. 0 07/20/2020 Active eplerenone (INSPRA) 25 mg tablet Take 1 Tablet (25 mg) by mouth once daily. 09/13/2023 Active amLODIPine (NORVASC) 2.5 mg tablet Take 3 Tablets (7.5 mg) by mouth once daily. 09/13/2023 Active losartan (COZAAR) 100 mg tabletIndications:S/P CABG x 4 Take 1 Tablet (100 mg) by mouth once daily. 09/13/2023 Active Active Problems Problem Noted Date Diagnosed Date NYHA class 1 heart failure with reduced ejection fraction 07/16/2020 GI bleed 07/11/2019 S/P CABG x 4 05/13/2019 Overview (05/13/2019): ALONSO TO LAD, SVG TO PDA SEQUENCED TO PL, SVG TO OM. NSTEMI (non-ST elevated myoc ardial infarction) (HC) 05/08/2019 05/12/2019 ASCVD (arteriosclerotic card iovascular disease), severe 3 vessel 05/12/2019 Overview (05/13/2019): coronary angiogram 05/09 with severe 3 vessel [...] Friends and Fami ly Not on file 09/13/2023 Financial Resource Strain Answer Date R ecorded [...] Comments Pneumococcal series for age 65+ (1 of 2 - PCV) 11/10/1959 Tdap 1964 Depression screening for age 12+ 1965 Hepatitis C screening for ag e 18-79 11/10/1971 Tetanus booster 1973 Colonoscopy through age 75 1998 Zoster (shingles) series for age 50+ (1 of 2) 11/10/2003 BMI (ht and wt on same day) for age 18+ 07/16/2021 07/16/2020, 06/05/2019 COVID-19 vaccine series ( - 2022-24 season) 2023 01/29/2023, 05/20/2021, 05/23/2020, Additional history exists Influenza for age 65+ 12/02/2023 Lipids for age 45-75 05/09/2024 05/09/2019 Procedures Procedure Name Priority Date/Time Associated Diagnosis Comments LIPID PANEL Early AM 05/09/2019 6:17 AM CARPENTRY INSTRUCTOR from Last 3 Months or Most Recently Relevant to Health Maintenance Results * (ABNORMAL) LIPID PANEL (05/09/2019 6:17 AM CARPENTRY INSTRUCTOR) CHOLESTEROL,TOTAL 143 100 - 199 mg/dL 05/09/2019 6:59 AM CARPENTRY INSTRUCTOR [facility] TRAL LABORATORY TRIGLYCERIDES 119 <150 mg/dL 05/09/2019 6:59 AM CARPENTRY INSTRUCTOR [facility] [employer] [facility] TRAL LABORATORY HDL CHOLESTEROL 34(L) >40 mg/dL 0 6:59 AM CARPENTRY INSTRUCTOR [facility] [employer] [facility] TRAL LABORATORY NON-HDL CHOLESTEROL 109 <145 mg/dl 05/09/2019 6:59 AM CARPENTRY INSTRUCTOR [facility] TR[facility] CHOL/HDL RATIO 4.21 <4.50 05/09/2019 6:59 AM CARPENTRY INSTRUCTOR [facility] TRAL [facility] LDL CHOLESTEROL 85 <=130 mg/dL 05/09/2019 6:59 AM CARPENTRY INSTRUCTOR [facility] TRAL LABORATORY PROVIDER ORDERED STATUS RANDOM 05/09/2019 6:59 AM CARPENTRY INSTRUCTOR [facility] TRAL [facility] Blood BLOOD SPECIMEN / Unknown Venipuncture / Unknown 05/09/2019 6:17 AM CARPENTRY INSTRUCTOR 05/09/2019 6:25 AM CARPENTRY INSTRUCTOR Evy MAR CHEMISTRY [facility] [address] [place] [address], from Last 3 Months or Most Recently Relevant to Health Maintenance Advance Directives * Full Code (Latest Code Status on File) Date Activated Date Inactivated Comments 07/11/2019 6:32 PM 07/13/2019 9:39 PM Question Answer Comments Code Status Discussion: Discussed * Full Code Date Activated Date Inactivated Comments 05/08/2019 6:16 PM 05/17/2019 3:04 PM Care Teams Night Stocker Relationship Specialty Start Date End Date Frederick Krause MD [address] [place] [address] PCP - General Family Practice 06/05/19
--- OUTSIDE RECORDS SUMMARY | 2023-12-28 03:35 | XMS_ITS | Encounter Summary ---
Author Organization [facility] Address [address] [place] [address] Care Team Providers Care Platform Builder Name Role Phone Unavailable Primary Care Provider Unavailabl e Reason for Visit * Reason Comments Med Refill Encounter Details Date Type Department Care Team (Late st Contact Info) Description 12/20/2023 Refill Division of Endocrinology in [place], [place] [address] [place] [phone] Tg Mandujano P.A.-C., M.S. [address] [place] [phone] Med Refill Social History Tobacco Use Types Packs/Day Years Used Date Smoking Tobacco: Former Cigarettes 0.3 6 0 04/03/1979 - 04/02/1985 Smokeless Tobacco: Never Alcohol Use Standard Drinks/Week Comments Yes 2 (1 standard drink = 0.6 oz pur e alcohol) [facility] Utilities Answer Date Recorded In the past 12 months has e electric, gas, oil, or water company threatened [...] How often do you attend chur or anabaptist services? Patient declined 09/27/2020 Do you belong to any clubs o r organizations such as rastafarian groups, unions, fraternal [...] and heating? Not hard at all 09/27/2020 [facility] [place] of Occupat ional Health - Occupational Stress [...] your living situation today? [facility] to live 04/29/2023 Education Answer Date Recorded What is the highest level of school you have completed or the highest degree you have received? 12th grade 12/29/2018 Sex and Gender Information Value Date Recorded Sex Assigned at Male 04/29/2023 9:28 PM EYEDOTTER Gender Identity Male 12/24/2017 2:50 PM CDT Sexual Orientation Straight 12/24/2017 2: 50 PM CDT documented as of this encounter Plan of Treatment Not on file documented as of this encounter Visit Diagnoses Diagnosis Prolactinoma (HCC) documented in this encounter
--- OUTSIDE RECORDS SUMMARY | 2023-12-28 03:35 | XMS_ITS | Clinical Summary ---
Author Organization [place] Address [address] [place] [address] Care Team Providers Care Respiratory Physician Name Role Phone Kade Alexander MD Primary Care Provider [phone] Allergies Active Allergy Reactions Criticality Noted Date Comments No Known Drug Allergy 03/09/2003 Family History Medical History Relation Comments Cancer Father ORAL, RELATED TO TOBACCO Diabetes Father Hypertension Father Arthritis Mother Cardiovascular Mother Gastrointestinal Disease Mother mothers side lactose intollerant Heart Disease Mother [place] repaired with a shunt Osteoporosis Mother Hypertension [...] Comments Blood Pressure 150/104 03/09/2003 11:21 AM AUTO BODY REPAIR TEACHER seated (from Extended Vitals) Pulse 60 03/09/2003 11:19 AM AUTO BODY REPAIR TEACHER (from Extended Vitals) Temperature - - Respiratory Rate - - Oxygen Saturation - - Inhaled Oxygen Concentration - - Weight 89.8 kg (198 lb) 03/09/2003 10:4 5 AM AUTO BODY REPAIR TEACHER Height 172.7 cm (5' 8) 03/09/2003 10:4 5 AM AUTO BODY REPAIR TEACHER Body Mass Index 30.11 03/09/2003 10:45 AM AUTO BODY REPAIR TEACHER Plan of Treatment Not on file Care Teams Respiratory Physician Relationship Specialty Start Date End Date Kade Alexander MD [facility] [address] [place] [address] [facility] - General 01/27/02
--- OUTSIDE RECORDS SUMMARY | 2023-12-28 03:35 | XMS_ITS | Referral Summary ---
Author Organization [facility] Address [address] [place] [address] Care Team Providers Care Oncology Pharmacist Name Role Phone Unavailable Primary Care Provider Unavailabl e Source Comments Patient records contain information from all sites at [facility]. For routine questions regarding patient records, call [phone] during business hours, M-F 8:00 AM - 5:00 PM Central Time. Record requests for emergency care only can be directed to [phone] at any time.[facility] Encounters Date Type Department Care Team Description 12/20/2023 Refill Division of Endocrinology in [place], [place] [address] [place] [phone] Tg Mandujano P.A.-C., M.S. Med Refill from Last 3 Months Allergies [...] mouth daily. 90 tablet 3 02/08/2021 Active atorvastatin (LIPITOR) 40 mg tablet Take 40 mg by mouth daily. 04/26/2023 Active metFORMIN (GLUCOPHAGE) 850 mg tablet Take 850 mg by mouth 2 (two) times a day with meals. 04/20/2019 Active cabergoline (DOSTINEX) 0.5 mg tabletIndications:Pr olactinoma (HCC) Take 1.5 tablets (0.75 mg total) by mouth 2 (two) times a week. 36 tablet 3 05/03/2023 Active eplerenone (INSPRA) 25 mg tablet TAKE 1 TABLET(25 MG) BY MOUTH DAILY 90 tablet 3 09/13/2023 Active allopurinoL (ZYLOPRIM) 100 mg tablet Take 1 tablet (100 mg total) by mouth daily. 90 tablet 3 09/17/2023 09/16/2024 Active Active Problems Problem Noted Date Diagnosed Date Hyperparathyroidism Renal Secondary 09/17/2023 Anemia Of Chronic Renal Failure 09/17/2023 Gout Acute 09/17/2023 Anticoagulant Therapy 09/17/2023 Hyperaldosteronism 03/10/2021 Mass Kidney 01/21/2020 Prolactinoma 05/27/2015 Chronic Kidney Disease Stage 2 Glomerular Filtration Rate 60 To 89 01/28/2015 Diabetes Mellitus Type 2 With Diabetic Nephropat hy 01/28/2015 Hypertensive Chronic Kidney Disease With Stage 1 Through Stage 4 Chronic Kidney Disease, Or Unspecified Chronic Kidney Disease 01/28/2015 Resolved Problems Problem Noted Date Diagnosed [...] Recorded In the past 12 months has [employer], [employer], or [facility] threatened to shut off services in your [...] often do you attend chur ch or orthodox services? Patient declined 09/27/2020 Do you belong to any clubs o r organizations such as confucianism groups, unions, fraternal or athletic groups, or [...] and heating? Not hard at all 09/27/2020 [facility] of Occupat ional Health - Occupational Stress [...] your living situation today? I have a [facility] place to live 04/29/2023 Education Answer Date Recorded What is the highest level of school you have completed or the highest degree you have received? 12th grade 12/29/2018 Sex and Gender Information Value Date Recorded Sex Assigned at Male 04/29/2023 9:28 PM SCREEN PRINTING CLOTH SPREADER Gender Identity Male 12/24/2017 2:50 PM CDT Sexual Orientation Straight 12/24/2017 2: 50 PM CDT Last Filed Vital Signs Vital Sign Reading Time Taken Comments Blood Pressure 162/85 09/17/2023 2:27 PM CDT Pulse 51 09/17/2023 2:27 PM CDT Temperature - - Respiratory Rate 14 08/08/2016 5:05 PM CDT Vital sign result from Clinical Notes. Oxygen Saturation - - Inhaled Oxygen Concentration - - Weight 75.4 kg (166 lb 3.6 oz) 09/17/2023 2:27 PM CDT Height 174.5 cm (5' 8.7) 05/02/2023 8: 25 AM SCREEN PRINTING CLOTH SPREADER Body Mass Index 24.76 05/02/2023 8:25 AM SCREEN PRINTING CLOTH SPREADER Plan of Treatment Not on file Procedures Procedure Name Priority Date/Time Associated Diagnosis Comments OPHTHALMOLOGY IMAGE EXAM Routine 12/24/2017 9:53 AM CDT BASIC METABOLIC PANEL, S/P Routine 12/24/2017 8:03 AM CDT Prolactinoma (HCC) LIPOPROTEIN METABOLISM PROF, S Routine 07/07/2015 8:14 AM CDT HEMOGLOBIN A1C, B Routine 01/27/2015 [...] System IMG NON RAD IMAGI NG PROCEDURES IINH NA * (ABNORMAL) Basic metabolic panel (12/24/2017 8:03 AM CDT) Potassium, S 4.8 3.6 - 5.2 mmol/L 12/24/2017 9:47 AM CDT [facility] Sodium, S 149(H) 135 - 145 mmol/L 12/24/2017 9:47 AM CDT [facility] Chloride, S 112(H) 98 - 107 mmol/L 12/24/2017 9:47 AM CDT [facility] Bicarbonate, S 23 22 - 29 mmol/L 12/24/2017 9:47 AM CDT [facility] Anion Gap 14 7 - 15 12/24/2017 9:47 AM CDT [facility] BUN (Blood Urea Nitrogen), S 31(H) 8 - 24 mg/dL 12/24/2017 9:47 AM CDT [facility] Creatinine 1.53(H) 0.74 - 1.35 mg/dL 12/24/2017 9:47 AM CDT [facility] eGFR-Non Black/ 47(L) >=60 mL/min/BS A 12/24/2017 9:47 AM CDT [facility] Comment: ----ADDITIONAL INFORMATION---- Estimated GFR calculated using the 2009 CKD_EPI creatinine equation. eGFR-Black/Afri can Angolan 55(L) >=60 mL/min/BS A 12/24/2017 9:47 AM CDT [facility] Comment: ----ADDITIONAL INFORMATION---- Estimated GFR calculated using the 2009 CKD_EPI creatinine equation. Calcium, Total, S 9.9 8.8 - 10.2 mg/dL 12/24/2017 9:47 AM CDT [facility] Glucose, S 88 70 - 140 mg/dL 12/24/2017 9:47 AM CDT [facility] Blood (Blood, Venous) 12/24/2017 8:03 AM CDT 12/24/2017 8:22 AM CDT Homero Rodriguez LAB BLOOD ADD-ON [facility] [address] * (ABNORMAL) Lipoprotein Metabolism Profile (07/07/2015 8:14 AM CDT) LDL Triglycerides 53(H) <=50 MG/DL [facility] VLDL cholesterol 24 <30 MG/DL [facility] VLDL triglycerides 151(H) <120 MG/DL [facility] Beta VLDL Cholesterol . <15 MG/DL [facility] Comment:Not Detected Beta VLDL triglycerides . <15 MG/DL [facility] Comment:Not Detected Chylomicron cholesterol . Undetectable MG/DL [facility] Comment:Not Detected LpX . Undetectable [facility] Comment:Not detected Interpretation . [facility] Comment:Mild Type IV Hyperli poproteinemia Cholesterol, Total 179 SeeComment MG/DL [facility] Comment: ? REFERENCE VALUE ? Desirable: < 200 ? Borderline high: 200 - 239 ? High: > or = 240 ? Triglycerides 225(H) SeeComment MG/DL [facility] Comment: ? REFERENCE VALUE ? Normal: <150 ? Borderline high: 150-199 ? High: 200-499 ? Very high: > or =500 ? Apolipoprotein B, S 102(H) SeeComment MG/DL [facility] Comment: ? REFERENCE VALUE ? Desirable: <90 ? Above Desirable: 90-99 ? Borderline high: 100-119 ? High: 120-139 ? Very high: > or = 140 ? LDL Cholesterol 91 SeeComment MG/DL [facility] Comment: ? REFERENCE VALUE ? Desirable: <100 ? Above Desirable: 100-129 ? Borderline high: 130-159 ? High: 160-189 ? Very high: > or =190 ? Chylomicron triglycerides . Undetectable MG/DL [facility] Comment:Not Detected Lp(a) Cholesterol 25(H) <3 MG/DL [facility] Comment: Increased Lipoprotein (a) cholesterol. ??Increased Lp(a) cholesterol has been ? associated with increased risk for the development of atherothrombotic ? disease. ??Evidence suggests that aggressive LDL reduction is beneficial in ? patients with increased Lp(a). Niacin may lower Lp(a)by up to 25-30%, and ? niacin has been established as beneficial for CHD prevention, though not ? specifically because of Lp(a) lowering. Niacin tolerability as well as ? potential adverse effects on glucose and insulin sensitivity should be ? considered when selecting candidates for niacin therapy. ? HDL Cholesterol, CDC, S 39(L) >=40 MG/DL [facility] 07/07/2015 8:14 AM CDT 07/07/2015 8:14 AM CDT Lindsey Ragland M.D. LAB BLOOD ADD -ON [facility] [address] * (ABNORMAL) Hemoglobin A1c (01/27/2015 3:07 PM CDT) Hemoglobin A1c, B 6.3(H) 4.0 - 6.0 % [facility] 01/27/2015 3:07 PM CDT 01/27/2015 3:07 PM CDT Lindsey Ragland M.D. LAB BLOOD ADD -ON Performing Organization Address City/State/[facility] Co de Phone Number [facility] [address] from Last 3 Months or Most Recently Relevant to Health Maintenance
--- OUTSIDE RECORDS SUMMARY | 2023-12-28 03:35 | XMS_ITS | Encounter Summary ---
Author Organization [facility] Address [address] [place] [address] Care Team Providers Care Coke Handling Supervisor Name Role Phone Unavailable Primary Care Provider Unavailabl e Encounter Details Date Type Department Care Team (Late st Contact Info) Description 02/03/2015 Historical Ophthalmology [facility] Brenda Elaine M.D. Social History Tobacco Use Types Packs/Day Years Used Date Smoking Tobacco: Never Assessed Sex and Gender Information Value Date Recorded Sex Assigned at Male 04/29/2023 9:28 PM CARDIOLOGY SPECIALIST Gender Identity Male 12/24/2017 2:50 PM [...] the right aspect of the gland, and [id number] shift of the infundibulum. 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 [...] OCT: Avg thickness 82 OD, 88 OS. Itivhb81 /10 OU. Testing consistent with clinical exam findings. #2 Visual field report, Normal visual field both eyes. Foveal threshold normal @ 37 OD, 39 OS. 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 This is likely related to prednisone. Return prn any changes in vision. The photos show an area of braille coder color that corresponds to the HYDRATE CONTROL TENDER on the OCT. Testing consistent with clinical exam findings. 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 #2 Visual field report, Normal visual field both eyes. #3 Central serous retinopathy left eye. CDM Reports - [facility] Id: [id number] Status: Fnl documented in this encounter Plan of Treatment Not on file documented as of this encounter Visit Diagnoses Not on filedocumented in this encounter
--- OUTSIDE RECORDS SUMMARY | 2023-12-28 03:35 | XMS_ITS ---
Author Organization [facility] Address [address] [place] [address] Care Team Providers Care Psychiatric Specialist Name Role Phone Unavailable Unavailable Unavailable Surgery Details Not on file Complications Check Surgery Details section. Procedure Estimated Blood Loss Check Surgery Details section. Procedure Findings Check Surgery Details section. Procedure Specimens Taken Check Surgery Details section.
--- OUTSIDE RECORDS SUMMARY | 2023-12-28 03:35 | XMS_ITS | Clinical Summary ---
Author Organization [facility] Address [address] [place] [address] Care Team Providers Care Shiftman Name Role Phone Unavailable Primary Care Provider Unavailabl e Source Comments Patient records contain information from all sites at [facility]. For routine questions regarding patient records, call [phone] during business hours, M-F 8:00 AM - 5:00 PM Central Time. Record requests for emergency care only can be directed to [phone] at any time.[facility] Allergies No known active allergies Medications [...] Description 12/20/2023 Refill Division of Endocrinology in [place], [place] [address] [place] [address] Tg Mandujano P.A.-C., M.S. Med Refill from Last 3 Months Immunizations [...] drink = 0.6 oz pur e alcohol) [facility] Utilities Answer Date Recorded In the past 12 months has th e electric, gas, oil, or water company [...] How often do you attend chur or adventism services? Patient declined 09/27/2020 Do you belong to any clubs o r organizations such as yazdanism groups, unions, fraternal [...] and heating? Not hard at all 09/27/2020 [facility] of Occupat ional Health - [...] your living situation today? I have a [facility] place to live 04/29/2023 Education Answer Date Recorded What is the highest level of school you have completed or the highest degree you have received? 12th grade 12/29/2018 Sex and Gender Information Value Date Recorded Sex Assigned at Male 04/29/2023 9:28 PM JUNIOR BOOKKEEPER Gender Identity Male 12/24/2017 2:50 PM CDT [...] cm (5' 8.7) 05/02/2023 8: 25 AM JUNIOR BOOKKEEPER Body Mass Index 24.76 05/02/2023 8:25 AM JUNIOR BOOKKEEPER Plan of Treatment Health Maintenance Due Date Last Done Comments CT Colonography 1953 Cologuard 1955 Diabetic Office Visit with F oot Exam 1953 FIT 1955 Hepatitis C Screening 1955 Urine Albumin 1955 Hepatitis B Vaccines (1 of 3 - Risk 3-dose series) 2013 Dilated Eye Exam 12/24/2018 12/24/2017, 07/2014, 02/03/2015, Additional history exists Hemoglobin A1C 11/06/2019 05/08/2019, 01/27/2015 Potassium Level 05/17/2020 05/17/2019, 05/03, 05/15/2019, Additional history exists Sodium Level 05/17/2020 05/17/2019, 05/03, 05/15/2019, Additional history exists Creatinine Level (Kidney Fun ction Test) 04/19/2021 04/19/2020, 07/12/2019, 05/17/2019, Additional history exists Colonoscopy 09/04/2022 09/04/2012 (Perf ormed elsewhere) Colorectal Cancer Screening 09/04/2022 Depression Screening (Annual PHQ-2) 04/02/2023 Fall Risk Screen (Annual) 04/02/2023 COVID-19 Vaccine (5 - 2023-2 5 season) 2023 01/29/2023, 05/20/2021, 05/23/2020, Additional history exists Office Visit for Blood Press ure Check / Re-check 12/18/2023 09/17/2023 Influenza Vaccine (#1) 2024 , 04/28/2022, 02/23/2021, Additional history exists Lipid (Cholesterol) Screening 05/09/2024, 05/09/2019, 07/07/2015, Additional history exists DTaP,Tdap,and Td Vaccines (3 - Td or Tdap) 01/29/2033 01/29/2023, 03/12/2012 Abdominal Aortic Aneurysm (A AA) Screen Completed 07/13/2019 Zoster Vaccines Completed 10/20/2019, 08/18/2019 Pneumococcal vaccine (65+ years) Completed 10/15/19 21, 08/18/2019 Procedures Procedure Name Priority Date/Time Associated Diagnosis [...] System IMG NON RAD IMAGI NG PROCEDURES IIRI NA * (ABNORMAL) Basic metabolic panel (12/24/2017 8:03 AM CDT) Potassium, S 4.8 3.6 - 5.2 mmol/L 12/24/2017 9:47 AM CDT [facility] Sodium, S 149(H) 135 - 145 mmol/L 12/24/2017 9:47 AM CDT [facility] Chloride, S 112(H) 98 - 107 mmol/L 12/24/2017 9:47 AM CDT [facility] Bicarbonate, S 23 22 - 29 mmol/L 12/24/2017 9:47 AM CDT [facility] Anion Gap 14 7 - 15 12/24/2017 9:47 AM CDT [facility] BUN (Blood Urea Nitrogen), S 31(H) 8 - 24 mg/dL 12/24/2017 9:47 AM CDT [facility] Creatinine 1.53(H) 0.74 - 1.35 mg/dL 12/24/2017 9:47 AM CDT [facility] eGFR-Non Black/ 47(L) >=60 mL/min/BS A 12/24/2017 9:47 AM CDT [facility] Comment: ----ADDITIONAL INFORMATION---- Estimated GFR calculated using the 2009 CKD_EPI creatinine equation. eGFR-Black/Afri can Maldivian 55(L) >=60 mL/min/BS A 12/24/2017 9:47 AM CDT [facility] Comment: ----ADDITIONAL INFORMATION---- Estimated GFR calculated using the 2009 CKD_EPI creatinine equation. Calcium, Total, S 9.9 8.8 - 10.2 mg/dL 12/24/2017 9:47 AM CDT [facility] Glucose, S 88 70 - 140 mg/dL 12/24/2017 9:47 AM CDT [facility] Blood (Blood, Venous) 12/24/2017 8:03 AM CDT 12/24/2017 8:22 AM CDT Homero Rodriguez LAB BLOOD ADD-ON [facility] [address] * (ABNORMAL) Lipoprotein Metabolism Profile (07/07/2015 8:14 AM CDT) LDL Triglycerides 53(H) <=50 MG/DL M [facility] [place] [facility] VLDL cholesterol 24 <30 MG/DL [facility] VLDL triglycerides 151(H) <120 MG/DL [facility] Beta VLDL Cholesterol . <15 MG/DL [facility] Comment:Not Detected Beta VLDL triglycerides . <15 MG/DL [facility] Comment:Not Detected Chylomicron cholesterol . Undetectable MG/DL [facility] Comment:Not Detected LpX . Undetectable [facility] Comment:Not detected Interpretation . [facility] Comment:Mild Type IV Hyperli poproteinemia Cholesterol, Total 179 SeeComment MG/DL [facility] Comment: ? REFERENCE VALUE ? Desirable: < 200 ? Borderline high: 200 - 239 ? High: > or = 240 ? Triglycerides 225(H) SeeComment MG/DL [facility] Comment: ? REFERENCE VALUE ? Normal: <150 ? Borderline high: 150-199 ? High: 200-499 ? Very high: > or =500 ? Apolipoprotein B, S 102(H) SeeComment MG/DL [facility] Comment: ? REFERENCE VALUE ? Desirable: <90 ? Above Desirable: 90-99 ? Borderline high: 100-119 ? High: 120-139 ? Very high: > or = 140 ? LDL Cholesterol 91 SeeComment MG/DL [facility] Comment: ? REFERENCE VALUE ? Desirable: <100 ? Above Desirable: 100-129 ? Borderline high: 130-159 ? High: 160-189 ? Very high: > or =190 ? Chylomicron triglycerides . Undetectable MG/DL [facility] Comment:Not Detected Lp(a) Cholesterol 25(H) <3 MG/DL [facility] Comment: Increased Lipoprotein (a) cholesterol. ??Increased Lp(a) [...] HDL Cholesterol, CDC, S 39(L) >=40 MG/DL [facility] 07/07/2015 8:14 AM CDT 07/07/2015 8:14 AM CDT Lindsey Ragland M.D. LAB BLOOD ADD -ON [facility] [address] * (ABNORMAL) Hemoglobin A1c (01/27/2015 3:07 PM CDT) Hemoglobin A1c, B 6.3(H) 4.0 - 6.0 % [facility] 01/27/2015 3:07 PM CDT 01/27/2015 3:07 PM CDT Lindsey Ragland M.D. LAB BLOOD ADD -ON [facility] [address] from Last 3 Months or Most Recently Relevant to Health Maintenance
--- OUTSIDE RECORDS SUMMARY | 2023-12-28 03:35 | XMS_ITS | Referral Summary ---
Author Organization [facility] Address [address] [place] [address] Care Team Providers Care Guide Escort Name Role Phone Kade Alexander MD Primary Care Provider [phone] Allergies Active Allergy Reactions Criticality Noted Date [...] Comments Blood Pressure 150/104 03/09/2003 11:21 AM PAINT SPRAY TENDER seated (from Extended Vitals) Pulse 60 03/09/2003 11:19 AM PAINT SPRAY TENDER (from Extended Vitals) Temperature - - Respiratory Rate - - Oxygen Saturation - - Inhaled Oxygen Concentration - - Weight 89.8 kg (198 lb) 03/09/2003 10:4 5 AM PAINT SPRAY TENDER Height 172.7 cm (5' 8) 03/09/2003 10:4 5 AM PAINT SPRAY TENDER Body Mass Index 30.11 03/09/2003 10:45 AM PAINT SPRAY TENDER Plan of Treatment Not on file Care Teams Guide Escort Relationship Specialty Start Date End Date Kade Alexander MD [facility] [address] [place] [address] PCP - General 01/27/02
== END 2023-12-24 10:32 | disposition home or self-care (01) ==
LOC: NFLDREF 12-28 03:33
PROVIDERS: PCP Family Medicine; Referring Provider Family Medicine; Visit Provider Family Medicine
DX: E11.9 Type 2 diabetes mellitus without complications (principal); E78.5 Hyperlipidemia, unspecified; Z79.84 Long term (current) use of oral hypoglycemic drugs
CPT/HCPCS: 80053; 80061; 82043; 82570

== ENCOUNTER 2024-02-11 06:50 | Outpatient (CLI) | payer MEDICARE, SELFPAY ==
--- OUTSIDE RECORDS SUMMARY | 2024-02-11 06:52 | XMS_ITS | Clinical Summary ---
Author Organization [facility] Address [address] [place] [address] Care Team Providers Care Systems Software Engineer Name Role Phone Kade Alexander MD Primary Care Provider Allergies Active Allergy Reactions Criticality Noted Date Comments No Known Drug Allergy 03/09/2003 Family History Medical History Relation Comments Cancer Father ORAL, RELATED TO TOBACCO Diabetes Father Hypertension Father Arthritis Mother Cardiovascular Mother Gastrointestinal Disease Mother mothers side lactose intollerant Heart Disease Mother ID repaired with a shunt Osteoporosis Mother Hypertension Paternal Grandfather Allergies Sister Relation Status Comments Father Mother Paternal Grandfather Sister Social History Tobacco Use Types Packs/Day Years Used Date Smoking Tobacco: Never Alcohol Use Standard Drinks/Week Comments Yes 0 (1 standard drink = 0.6 oz pur e alcohol) [facility] Sex and Gender Information Value Date Recorded Sex Assigned at Not on file Legal Sex Male 3:10 AM SLAB PULLER Gender Identity Not on file Sexual Orientation Not on file Last Filed Vital Signs Vital Sign Reading Time Taken Comments Blood Pressure 150/104 03/09/2003 11:21 AM SLAB PULLER seated (from Extended Vitals) Pulse 60 03/09/2003 11:19 AM SLAB PULLER (from Extended Vitals) Temperature - - Respiratory Rate - - Oxygen Saturation - - Inhaled Oxygen Concentration - - Weight 89.8 kg (198 lb) 03/09/2003 10:4 5 AM SLAB PULLER Height 172.7 cm (5' 8) 03/09/2003 10:4 5 AM SLAB PULLER Body Mass Index 30.11 03/09/2003 10:45 AM SLAB PULLER Plan of Treatment Not on file Care Teams Systems Software Engineer Relationship Specialty Start Date End Date Kade Alexander MD [facility] [address] [address] [place] [address] [facility] - General 01/27/02
--- OUTSIDE RECORDS SUMMARY | 2024-02-11 06:52 | XMS_ITS | Encounter Summary ---
Author Organization [facility] Address [address] [place] [address] Care Team Providers Care Beamer Hand Name Role Phone Unavailable Primary Care Provider Unavailabl e Encounter Details Date Type Department Care Team (Late st Contact Info) Description 02/03/2015 Historical Ophthalmology [facility] Brenda Elaine M.D. Social History Tobacco Use Types Packs/Day Years Used Date Smoking Tobacco: Never Assessed Sex and Gender Information Value Date Recorded Sex Assigned at Male 04/29/2023 9:28 PM LUGGER Legal Sex Male 5:12 PM LUGGER Gender Identity Male 12/24/2017 2:50 PM CDT [...] the right aspect of the gland, and [id number] shift of the infundibulum. 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 [...] OCT: Avg thickness 82 OD, 88 OS. [id number] /10 OU. Testing consistent with clinical exam findings. #2 Visual field report, Normal visual field both eyes. Foveal threshold normal @ 37 OD, 39 OS. 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 This is likely related to prednisone. Return prn any changes in vision. The photos show an area of aircraft log clerk color that corresponds to the CHECKROOM ATTENDANT on the OCT. Testing consistent with clinical exam findings. 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 #2 Visual field report, Normal visual field both eyes. #3 Central serous retinopathy left eye. CDM Reports - EYEGEN Id: [id number] Status: Fnl documented in this encounter Plan of Treatment Not on file documented as of this encounter Visit Diagnoses Not on filedocumented in this encounter
--- OUTSIDE RECORDS SUMMARY | 2024-02-11 06:52 | XMS_ITS | Encounter Summary ---
Author Organization [facility] Address [address] [place] [address] Care Team Providers Care Mold Injector Name Role Phone Unavailable Primary Care Provider Unavailabl e Reason for Visit * Reason Comments Med Refill Encounter Details Date Type Department Care Team (Late st Contact Info) Description 12/20/2023 Refill Division of Endocrinology in [place], [place] [address] [place] [phone] Tg Mandujano P.A.-C., M.S. [address] [place] [phone] Med Refill Social History Tobacco Use Types Packs/Day Years Used Date Smoking Tobacco: Former Cigarettes 0.3 6 0 04/03/1979 - 04/02/1985 Smokeless Tobacco: Never Alcohol Use Standard Drinks/Week Comments Yes 2 (1 standard drink = 0.6 oz pur e alcohol) [facility] Utilities Answer Date Recorded In [...] How often do you attend chur or episcopalian services? Patient declined 09/27/2020 Do you belong to any clubs o r organizations such as samaritan groups, unions, fraternal or athletic groups, or [...] and heating? Not hard at all 09/27/2020 [facility] [place] of Occupat ional Health - Occupational Stress [...] your living situation today? I have a [facility] place to live 04/29/2023 Education Answer Date Recorded What is the highest level of school you have completed or the highest degree you have received? 12th grade 12/29/2018 Sex and Gender Information Value Date Recorded Sex Assigned at Male 04/29/2023 9:28 PM PROCEDURE WRITER Legal Sex Male 5:12 PM PROCEDURE WRITER Gender Identity Male 12/24/2017 2:50 PM CDT Sexual Orientation Straight 12/24/2017 2: 50 PM CDT documented as of this encounter Plan of Treatment Not on file documented as of this encounter Visit Diagnoses Diagnosis Prolactinoma (HCC) documented in this encounter
--- OUTSIDE RECORDS SUMMARY | 2024-02-11 06:52 | XMS_ITS | Encounter Summary ---
Author Organization [facility] Address [address] [place] [address] Care Team Providers Care Shoe Cobbler Name Role Phone Unavailable Primary Care Provider Unavailabl e Reason for Visit * Reason Comments Med Refill Encounter Details Date Type Department Care Team (Late st Contact Info) Description 12/28/2023 Refill Division of Nephrology and Hypertension in [place], [place] [address] [place] [phone] Walter Willis Jr., D.O. [address] [place] [address] Med Refill Social History Tobacco Use Types Packs/Day Years Used Date Smoking Tobacco: Former Cigarettes 0.3 6 0 04/03/1979 - 04/02/1985 Smokeless Tobacco: Never Alcohol Use Standard Drinks/Week Comments Yes 2 (1 standard drink = 0.6 oz pur e alcohol) [facility] Utilities Answer Date Recorded In the past 12 months has [employer] electric, gas, oil, or water company threatened [...] often do you attend chur ch or episcopalian services? Patient declined 09/27/2020 Do you belong to any clubs o r organizations such as faith groups, unions, fraternal [...] and heating? Not hard at all 09/27/2020 [facility] of Occupat ional Health - Occupational Stress [...] your living situation today? I have a [facility] place to live 04/29/2023 Education Answer Date Recorded What is the highest level of school you have completed or the highest degree you have received? 12th grade 12/29/2018 Sex and Gender Information Value Date Recorded Sex Assigned at Male 04/29/2023 9:28 PM ASSESSMENT SPECIALIST Legal Sex Male 5:12 PM ASSESSMENT SPECIALIST Gender Identity Male 12/24/2017 2:50 PM CDT Sexual Orientation Straight 12/24/2017 2: 50 PM CDT documented as of this encounter Plan of Treatment Not on file documented as of this encounter Visit Diagnoses Not on filedocumented in this encounter
--- OUTSIDE RECORDS SUMMARY | 2024-02-11 06:52 | XMS_ITS ---
Author Organization [facility] Address [address] [place] [address] Care Team Providers Care Review Assistant Name Role Phone Unavailable Unavailable Unavailable Surgery Details Not on file Complications Check Surgery Details section. Procedure Estimated Blood Loss Check Surgery Details section. Procedure Findings Check Surgery Details section. Procedure Specimens Taken Check Surgery Details section.
--- OUTSIDE RECORDS SUMMARY | 2024-02-11 06:52 | XMS_ITS | Referral Summary ---
Author Organization [facility] Address [address] [place] [address] Care Team Providers Care Administrative Program Specialist Name Role Phone Unavailable Primary Care Provider Unavailabl e Source Comments Patient records contain information from all sites at [facility]. For routine questions regarding patient records, call [phone] during business hours, M-F 8:00 AM - 5:00 PM Central Time. Record requests for emergency care only can be directed to [phone] at any time.[facility] Encounters Date Type Department Care Team Description 01/01/2024 Orders Only Division of Nephrology and Hypertension in [place], [place] [address] [place] [address] Walter Willis Jr. D.O. 12/28/2023 Refill Division of Nephrology and Hypertension in [place], [place] [address] [place] [address] Walter Willis Jr., D.O. Med Refill 12/20/2023 Refill Division of Endocrinology in [place], [place] [address] [place] [phone] Tg Mandujano P.A.-C., M.S. Med Refill from Last 3 Months Allergies No known active allergies Medications chlorthalidone (HYGROTEN) 25 mg tablet Take 1 [...] mouth daily. 90 tablet 3 02/08/2021 Active metFORMIN (GLUCOPHAGE) 850 mg tablet Take 850 mg by mouth 2 (two) times a day with meals. 04/20/2019 Active cabergoline (DOSTINEX) 0.5 mg tabletIndicatio ns:Prolactinoma (HCC) Take 1.5 tablets (0.75 mg total) by mouth 2 (two) times a week. 36 tablet 3 05/03/2023 Active eplerenone (INSPRA) 25 mg tablet TAKE 1 TABLET(25 MG) BY MOUTH DAILY 90 tablet 3 09/13/2023 Active allopurinoL (ZYLOPRIM) 100 mg tablet Take 1 tablet (100 mg total) by mouth daily. 90 tablet 3 09/17/2023 Active atorvastatin (Lipitor) 40 mg tablet Take 1 tablet (40 mg total) by mouth daily. 90 tablet 3 01/01/2024 5 Active Active Problems Problem Noted Date Diagnosed [...] drink = 0.6 oz pur e alcohol) [facility] Utilities Answer Date Recorded In the past 12 months has [employer], gas, oil, or water [employer] threatened to shut off services in your [...] week 09/27/2020 How often do you attend [facility] or mormonism services? Patient declined 09/27/2020 Do you belong [...] and heating? Not hard at all 09/27/2020 [facility] [place] of Occupat ional Health - Occupational Stress [...] your living situation today? I have a [facility] place to live 04/29/2023 Education Answer Date Recorded What is the highest level of school you have completed or the highest degree you have received? 12th grade 12/29/2018 Sex and Gender Information Value Date Recorded Sex Assigned at Male 04/29/2023 9:28 PM MANAGER BUSINESS PLANNING Legal Sex Male 5:12 PM MANAGER BUSINESS PLANNING Gender Identity Male 12/24/2017 2:50 PM CDT [...] cm (5' 8.7) 05/02/2023 8: 25 AM MANAGER BUSINESS PLANNING Body Mass Index 24.76 05/02/2023 8:25 AM MANAGER BUSINESS PLANNING Plan of Treatment Not on file Procedures [...] found on the encounter that produced images. us Provider Not In System IMG NON RAD IMAGING PROCE DURRAMESH Final Result IIMS NA * (ABNORMAL) Basic metabolic panel (12/24/2017 8:03 AM CDT) Potassium, S 4.8 3.6 - 5.2 mmol/L 12/24/2017 9:47 AM CDT [facility] Sodium, S 149(H) 135 - 145 mmol/L 12/24/2017 9:47 AM CDT [facility] Chloride, S 112(H) 98 - 107 mmol/L 12/24/2017 9:47 AM CDT [facility] Bicarbonate, S 23 22 - 29 mmol/L 12/24/2017 9:47 AM CDT [facility] Anion Gap 14 7 - 15 12/24/2017 9:47 AM CDT [facility] BUN (Blood Urea Nitrogen), S 31(H) 8 - 24 mg/dL 12/24/2017 9:47 AM CDT [facility] Creatinine 1.53(H) 0.74 - 1.35 mg/dL 12/24/2017 9:47 AM CDT [facility] eGFR-Non Black/ 47(L) >=60 mL/min/BS A 12/24/2017 9:47 AM CDT [facility] Comment: ----ADDITIONAL INFORMATION---- Estimated GFR calculated using the 2009 CKD_EPI creatinine equation. eGFR-Black/Afri can Italian 55(L) >=60 mL/min/BS A 12/24/2017 9:47 AM CDT [facility] Comment: ----ADDITIONAL INFORMATION---- Estimated GFR calculated using the 2009 CKD_EPI creatinine equation. Calcium, Total, S 9.9 8.8 - 10.2 mg/dL 12/24/2017 9:47 AM CDT [facility] Glucose, S 88 70 - 140 mg/dL 12/24/2017 9:47 AM CDT [facility] Blood (Blood, Venous) 12/24/2017 8:03 AM CDT 12/24/2017 8:22 AM CDT us Homero OrtezBIsauroSIsauro LAB BLOOD ADD-ON Final Re sult [facility] [address] * (ABNORMAL) Lipoprotein Metabolism Profile (07/07/2015 8:14 AM CDT) LDL Triglycerides 53(H) <=50 MG/DL [facility] VLDL cholesterol 24 <30 MG/DL [facility] VLDL triglycerides 151(H) <120 MG/DL [facility] Beta VLDL Cholesterol . <15 MG/DL [facility] Comment:Not Detected Beta VLDL triglycerides . <15 MG/DL [facility] Comment:Not Detected Chylomicron cholesterol . Undetectable MG/DL [facility] Comment:Not Detected LpX . Undetectable [facility] Comment:Not detected Interpretation . [facility] Comment:Mild Type IV Hyperli poproteinemia Cholesterol, Total 179 SeeComment MG/DL [facility] Comment: ? REFERENCE VALUE ? Desirable: < 200 ? Borderline high: 200 - 239 ? High: > or = 240 ? Triglycerides 225(H) SeeComment MG/DL [facility] Comment: ? REFERENCE VALUE ? Normal: <150 ? Borderline high: 150-199 ? High: 200-499 ? Very high: > or =500 ? Apolipoprotein B, S 102(H) SeeComment MG/DL [facility] Comment: ? REFERENCE VALUE ? Desirable: <90 ? Above Desirable: 90-99 ? Borderline high: 100-119 ? High: 120-139 ? Very high: > or = 140 ? LDL Cholesterol 91 SeeComment MG/DL [facility] Comment: ? REFERENCE VALUE ? Desirable: <100 ? Above Desirable: 100-129 ? Borderline high: 130-159 ? High: 160-189 ? Very high: > or =190 ? Chylomicron triglycerides . Undetectable MG/DL [facility] Comment:Not Detected Lp(a) Cholesterol 25(H) <3 MG/DL [facility] Comment: Increased Lipoprotein (a) cholesterol. [...] HDL Cholesterol, CDC, S 39(L) >=40 MG/DL [facility] 07/07/2015 8:14 AM CDT 07/07/2015 8:14 AM CDT us Lindsey Ragland M.D. LAB BLOOD ADD-ON Tiffani l Result Performing Organization Address [facility] de Phone Number [facility] [address] * (ABNORMAL) Hemoglobin A1c (01/27/2015 3:07 PM CDT) Hemoglobin A1c, B 6.3(H) 4.0 - 6.0 % [facility] 01/27/2015 3:07 PM CDT 01/27/2015 3:07 PM CDT us Lindsey Ragland M.D. LAB BLOOD ADD-ON [place] l Result Performing Organization Address City/[facility] Co de Phone Number [facility] [address] from Last 3 Months or Most Recently Relevant to Health Maintenance Insurance [id number] [facility] Go [place] [id number] [facility]
--- OUTSIDE RECORDS SUMMARY | 2024-02-11 06:52 | XMS_ITS | Clinical Summary ---
Author Organization [facility] Address [address] [place] [address] Care Team Providers Care Forestry Pilot Name Role Phone Unavailable Primary Care Provider Unavailabl e Source Comments Patient records contain information from all sites at [facility]. For routine questions regarding patient records, call [phone] during business hours, M-F 8:00 AM - 5:00 PM Central Time. Record requests for emergency care only can be directed to [phone] at any time.[facility] Allergies No known active allergies Medications chlorthalidone [...] by mouth daily. 90 tablet 3 01/01/2024 Active Active Problems Problem Noted Date Diagnosed [...] Only Division of Nephrology and Hypertension in [place], [place] [address] [place] [address] Walter Willis Jr., D.O. 12/28/2023 Refill Division of Nephrology and Hypertension in [place], [place] [address] [place] [address] Walter Willis Jr., D.O. Med Refill 12/20/2023 Refill Division of Endocrinology in [place], [place] [address] [place] [address] Delbert, Tg S, P.A.-C., M.S. Med Refill from Last 3 [...] drink = 0.6 oz pur e alcohol) [facility] Utilities Answer Date Recorded In [...] week 09/27/2020 How often do you attend [facility] or christianity services? Patient declined 09/27/2020 Do you belong to any clubs o r organizations such as confucianist groups, unions, fraternal [...] and heating? Not hard at all 09/27/2020 [facility] of Occupat ional Health - Occupational Stress [...] your living situation today? I have a [facility] place to live 04/29/2023 Education Answer Date Recorded What is the highest level of school you have completed or the highest degree you have received? 12th grade 12/29/2018 Sex and Gender Information Value Date Recorded Sex Assigned at Male 04/29/2023 9:28 PM HOME INSURANCE AGENT Legal Sex Male 5:12 PM HOME INSURANCE AGENT Gender Identity Male 12/24/2017 2:50 PM CDT [...] cm (5' 8.7) 05/02/2023 8: 25 AM HOME INSURANCE AGENT Body Mass Index 24.76 05/02/2023 8:25 AM HOME INSURANCE AGENT Plan of Treatment Health Maintenance Due Date Last Done Comments CT Colonography 1955 Cologuard 1955 Diabetic Office Visit with Foot Exam 1955 FIT 1955 Hepatitis C Screening 1955 Urine Albumin 1955 Hepatitis B Vaccines (1 of 3 - Risk 3-dose series) 2013 RSV vaccine - (32-36 weeks) or 60+ years (1 - Risk 60-74 years 1-dose series) 2013 Dilated Eye Exam 12/24/2018 12/24/2017, 07/2014, 02/03/2015, Additional history exists Hemoglobin A1C 11/06/2019 05/08/2019, 01/27/2015 Potassium Level 05/17/2020 05/17/2019, 05/03, 05/15/2019, Additional history exists Sodium Level 05/17/2020 05/17/2019, 05/03, 05/15/2019, Additional history exists Creatinine Level (Kidney Function Test) 04/19/2021 04/19/2020, 07/12/2019, 05/17/2019, Additional history exists Colonoscopy 09/04/2022 09/04/2012 (Perf ormed elsewhere) Colorectal Cancer Screening 09/04/2022 Depression Screening (Annual PHQ-2) 04/02/2023 Fall Risk Screen (Annual) 04/02/2023 COVID-19 Vaccine ( season) 2023 01/29/2023, 05/20/2021, 05/23/2020, Additional history exists Office Visit for Blood Pressure Check / Re-check 12/18/2023 09/17/2023 Influenza Vaccine (#1) 2024 3, 04/28/2022, 02/23/2021, Additional history exists Lipid (Cholesterol) Screening 05/09/2024 05/09/2019, 05/09/2019, 07/07/2015, Additional history exists DTaP,Tdap,and Td Vaccines (3 - Td or Tdap) 01/29/2033 01/29/2023, 03/12/2012 Abdominal Aortic Aneurysm (AAA) Screen Completed 07/13/2019 Zoster Vaccines Completed 10/20/2019, 08/18/2019 Pneumococcal vaccine (65+ years) Completed 10/14/2020, 08/18/2019 IPV Vaccines Aged Out No longer eligi ble based on patient's age to complete this topic Procedures Procedure Name Priority Date/Time Associated Diagnosis [...] In System IMG NON RAD IMAGING PROCE SEAN Final Result IIMS NA * (ABNORMAL) Basic metabolic panel (12/24/2017 8:03 AM CDT) Potassium, S 4.8 3.6 - 5.2 mmol/L 12/24/2017 9:47 AM CDT [facility] [place] Sodium, S 149(H) 135 - 145 mmol/L 12/24/2017 9:47 AM CDT [facility] [place] Chloride, S 112(H) 98 - 107 mmol/L 12/24/2017 9:47 AM CDT [facility] [place] Bicarbonate, S 23 22 - 29 mmol/L 12/24/2017 9:47 AM CDT [facility] [place] Anion Gap 14 7 - 15 12/24/2017 9:47 AM CDT [facility] [place] BUN (Blood Urea Nitrogen), S 31(H) 8 - 24 mg/dL 12/24/2017 9:47 AM CDT [facility] [place] Creatinine 1.53(H) 0.74 - 1.35 mg/dL 12/24/2017 9:47 AM CDT [facility] [place] eGFR-Non Black/ 47(L) >=60 mL/min/BS A 12/24/2017 9:47 AM CDT [facility] [place] Comment: ----ADDITIONAL INFORMATION---- Estimated GFR calculated using the 2009 CKD_EPI creatinine equation. eGFR-Black/Afri can Kosovan 55(L) >=60 mL/min/BS A 12/24/2017 9:47 AM CDT [facility] [place] Comment: ----ADDITIONAL INFORMATION---- Estimated GFR calculated using the 2009 CKD_EPI creatinine equation. Calcium, Total, S 9.9 8.8 - 10.2 mg/dL 12/24/2017 9:47 AM CDT [facility] [place] Glucose, S 88 70 - 140 mg/dL 12/24/2017 9:47 AM CDT [facility] [place] Blood (Blood, Venous) 12/24/2017 8:03 AM CDT 12/24/2017 8:22 AM CDT us Homero Rodriguez LAB BLOOD ADD-ON Final Re sult [facility] [place] [address] [place] [address], [facility] * (ABNORMAL) Lipoprotein Metabolism Profile (07/07/2015 8:14 AM CDT) LDL Triglycerides 53(H) <=50 MG/DL M [facility] VLDL cholesterol 24 <30 MG/DL [facility] VLDL triglycerides 151(H) <120 MG/DL [facility] [place] Beta VLDL Cholesterol . <15 MG/DL [facility] [place] Comment:Not Detected Beta VLDL triglycerides . <15 MG/DL [facility] [place] Comment:Not Detected Chylomicron cholesterol . Undetectable MG/DL [facility] [place] Comment:Not Detected LpX . Undetectable [facility] Comment:Not detected Interpretation . [facility] [place] Comment:Mild Type IV Hyperli poproteinemia Cholesterol, Total 179 SeeComment MG/DL [facility] [place] Comment: ? REFERENCE VALUE ? Desirable: < 200 ? Borderline high: 200 - 239 ? High: > or = 240 ? Triglycerides 225(H) SeeComment MG/DL [facility] [place] Comment: ? REFERENCE VALUE ? Normal: <150 ? Borderline high: 150-199 ? High: 200-499 ? Very high: > or =500 ? Apolipoprotein B, S 102(H) SeeComment MG/DL [facility] Comment: ? REFERENCE VALUE ? Desirable: <90 ? Above Desirable: 90-99 ? Borderline high: 100-119 ? High: 120-139 ? Very high: > or = 140 ? LDL Cholesterol 91 SeeComment MG/DL [facility] [place] Comment: ? REFERENCE VALUE ? Desirable: <100 ? Above Desirable: 100-129 ? Borderline high: 130-159 ? High: 160-189 ? Very high: > or =190 ? Chylomicron triglycerides . Undetectable MG/DL [facility] [place] Comment:Not Detected Lp(a) Cholesterol 25(H) <3 MG/DL [facility] Comment: Increased Lipoprotein (a) cholesterol. ??Increased [...] HDL Cholesterol, CDC, S 39(L) >=40 MG/DL [facility] [place] 07/07/2015 8:14 AM CDT 07/07/2015 8:14 AM CDT us Lindsey Ragland M.D. LAB BLOOD ADD-ON Tiffani l Result [facility] [place] [address] [place] [address], [facility] * (ABNORMAL) Hemoglobin A1c (01/27/2015 3:07 PM CDT) Hemoglobin A1c, B 6.3(H) 4.0 - 6.0 % [facility] [place] 01/27/2015 3:07 PM CDT 01/27/2015 3:07 PM CDT us Lindsey Ragland M.D. LAB BLOOD ADD-ON Tiffani l Result [facility] [place] [address] [place] [address], [facility] from Last 3 Months or Most Recently Relevant to Health Maintenance Insurance [facility]
--- OUTSIDE RECORDS SUMMARY | 2024-02-11 06:52 | XMS_ITS | Encounter Summary ---
Author Organization [facility] Address [address] [place] [address] Care Team Providers Care Facial Operator Name Role Phone Unavailable Primary Care Provider Unavailabl e Encounter Details Date Type Department Care Team (Late st Contact Info) Description 01/01/2024 Orders Only Division of Nephrology and Hypertension in [place], [place] [address] [place] [address] Walter Willis Jr., D.O. [address] [place] [address] Social History Tobacco Use Types Packs/Day Years Used Date Smoking Tobacco: Former Cigarettes 0.3 6 0 04/03/1979 - 04/02/1985 Smokeless Tobacco: Never Alcohol Use Standard Drinks/Week Comments Yes 2 (1 standard drink = 0.6 oz pur e alcohol) [facility] Utilities Answer Date Recorded In the past 12 months has [employer] electric, gas, oil, or water company threatened [...] often do you attend chur ch or sikhism services? Patient declined 09/27/2020 Do you belong to any clubs o r organizations such as religious groups, unions, fraternal or athletic groups, or [...] and heating? Not hard at all 09/27/2020 [facility] of Occupat ional Health - Occupational [...] living situation today? I have a [facility] place to live 04/29/2023 Education Answer Date Recorded What is the highest level of school you have completed or the highest degree you have received? 12th grade 12/29/2018 Sex and Gender Information Value Date Recorded Sex Assigned at Male 04/29/2023 9:28 PM WIREWORKER SUPERVISOR Legal Sex Male 5:12 PM WIREWORKER SUPERVISOR Gender Identity Male 12/24/2017 2:50 PM CDT Sexual Orientation Straight 12/24/2017 2: 50 PM CDT documented as of this encounter Plan of Treatment Not on file documented as of this encounter Visit Diagnoses Not on filedocumented in this encounter
--- OUTSIDE RECORDS SUMMARY | 2024-02-11 06:52 | XMS_ITS | Referral Summary ---
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 Gender Identity Not on file Sexual Orientation Not on file Last Filed Vital Signs Vital Sign Reading Time Taken Comments Blood Pressure 150/104 03/09/2003 11:21 AM AIRCRAFT SERVICER seated (from Extended Vitals) Pulse 60 03/09/2003 11:19 AM AIRCRAFT SERVICER (from Extended Vitals) Temperature - - Respiratory Rate - - Oxygen Saturation - - Inhaled Oxygen Concentration - - Weight 89.8 kg (198 lb) 03/09/2003 10:4 5 AM AIRCRAFT SERVICER Height 172.7 cm (5' 8) 03/09/2003 10:4 5 AM AIRCRAFT SERVICER Body Mass Index 30.11 03/09/2003 10:45 AM AIRCRAFT SERVICER Plan of Treatment Not on file Care Teams Mails Supervisor Relationship Specialty Start Date End Date Kade Alexander MD [facility] [address] [place] [address] PCP - General 01/27/02
--- OUTSIDE RECORDS SUMMARY | 2024-02-11 06:52 | XMS_ITS | Clinical Summary ---
Author Organization [facility] Address [place], [place] [address] Care Team Providers Care Pest Technician Name Role Phone Frederick Krause MD Primary Care Provider [phone] Allergies No known active allergies Medications Medication [...] 18+ 07/16/2021 07/16/2020, 06/05/2019 COVID-19 vaccine series (2023- season) 2023 01/29/2023, 05/20/2021, 05/23/2020, Additional history exists Influenza for age 65+ 12/02/2023 Lipids for age 45-75 05/09/2024 05/09/2019 Procedures Procedure Name Priority Date/Time Associated Diagnosis Comments LIPID PANEL Early AM 05/09/2019 6:17 AM REGIONAL COMPANY HAZMAT TANKER DRIVER from Last 3 Months or Most Recently Relevant to Health Maintenance Results * (ABNORMAL) LIPID PANEL (05/09/2019 6:17 AM REGIONAL COMPANY HAZMAT TANKER DRIVER) CHOLESTEROL,TOTAL 143 100 - 199 mg/dL 05/09/2019 6:59 AM REGIONAL COMPANY HAZMAT TANKER DRIVER [facility] TRAL LABORATORY TRIGLYCERIDES 119 <150 mg/dL 05/09/2019 6:59 AM REGIONAL COMPANY HAZMAT TANKER DRIVER [facility] [employer] [facility] TRAL LABORATORY HDL CHOLESTEROL 34(L) >40 mg/dL 0 6:59 AM REGIONAL COMPANY HAZMAT TANKER DRIVER [facility] [employer] [facility] TRAL LABORATORY NON-HDL CHOLESTEROL 109 <145 mg/dl 05/09/2019 6:59 AM REGIONAL COMPANY HAZMAT TANKER DRIVER [facility] CHOL/HDL RATIO 4.21 <4.50 05/09/2019 6:59 AM REGIONAL COMPANY HAZMAT TANKER DRIVER [facility] LDL CHOLESTEROL 85 <=130 mg/dL 05/09/2019 6:59 AM REGIONAL COMPANY HAZMAT TANKER DRIVER [facility] [employer] TRAL LABORATORY PROVIDER ORDERED STATUS RANDOM 05/09/2019 6:59 AM REGIONAL COMPANY HAZMAT TANKER DRIVER [facility] Blood BLOOD SPECIMEN / Unknown Venipuncture / Unknown 05/09/2019 6:17 AM REGIONAL COMPANY HAZMAT TANKER DRIVER 05/09/2019 6:25 AM REGIONAL COMPANY HAZMAT TANKER DRIVER Evy MAR CHEMI[facility]Y [facility] [address] [place] [address], from Last 3 Months or Most Recently Relevant to Health Maintenance Advance Directives * Full Code (Latest Code Status on File) Date Activated Date Inactivated Comments 07/11/2019 6:32 PM 07/13/2019 9:39 PM Question Answer Comments Code Status Discussion: Discussed * Full Code Date Activated Date Inactivated Comments 05/08/2019 6:16 PM 05/17/2019 3:04 PM Care Teams Pest Technician Relationship Specialty Start Date End Date Frederick Krause MD [address] [place] [address] PCP - General Family Practice 06/05/19
--- NOTE | 2024-02-11 08:11 | W.ANESCHARGE ---
Anesthesia Charges Start Date/Time Anesthesia Start Date: 02/11/24 Anesthesia Start Time: 07:40 Stop Date/Time Anesthesia Stop Date: 02/11/24 Anesthesia Stop Time: 08:10
--- NOTE | 2024-02-11 08:28 | W.ANESCHARGE ---
Anesthesia Charges Start Date/Time Anesthesia Start Date: 02/11/24 Anesthesia Start Time: 07:40 Stop Date/Time Anesthesia Stop Date: 02/11/24 Anesthesia Stop Time: 08:10 Summary Extremes of Age - Over 70 or under 1: MDA
== END 2024-02-11 06:51 | disposition home or self-care (01) ==
LOC: OP CLINIC 06:51
PROVIDERS: PCP Family Medicine; Visit Provider Internal Medicine
DX: Z12.11 Encounter for screening for malignant neoplasm of colon (principal); D12.5 Benign neoplasm of sigmoid colon; Z86.0100 Personal history of colon polyps, unspecified
CPT/HCPCS: 00811; 45380; 88305; 99100; J2704

== ENCOUNTER 2024-05-12 07:35 | Outpatient (CLI) | payer MEDICARE, SELFPAY | END 2024-05-12 07:36 | disposition home or self-care (01) | LOC: NFLDREF 05-16 02:43 | PROVIDERS: PCP Family Medicine; Referring Provider Family Medicine; Visit Provider Internal Medicine Nephrology | DX: E11.22 Type 2 diabetes mellitus with diabetic chronic kidney disease (principal); E11.65 Type 2 diabetes mellitus with hyperglycemia; I12.9 Hypertensive chronic kidney disease with stage 1 through stage 4 chronic kidney disease, or unspecified chronic kidney disease; N18.30 Chronic kidney disease, stage 3 unspecified; D64.9 Anemia, unspecified; Z79.84 Long term (current) use of oral hypoglycemic drugs | CPT/HCPCS: 80069; 82043; 82570; 82728; 83540; 83550; 83970; 84550; 86140 ==

== ENCOUNTER 2024-06-09 08:59 | Outpatient (CLI) | payer MEDICARE, SELFPAY | END 2024-06-09 09:00 | disposition home or self-care (01) | LOC: MRI 09:00 | PROVIDERS: PCP Family Medicine; Visit Provider Internal Medicine Nephrology | DX: N28.89 Other specified disorders of kidney and ureter (principal); N28.1 Cyst of kidney, acquired; K86.89 Other specified diseases of pancreas | CPT/HCPCS: 74183; A9575 ==

== ENCOUNTER 2024-06-25 09:45 | Emergency (ER) | payer MEDICARE, SELFPAY ==
--- OUTSIDE RECORDS SUMMARY | 2024-06-25 09:47 | XMS_ITS | Encounter Summary ---
Author Organization [facility] Address [address] [place] [address] Care Team Providers Care Engineering Technologist Name Role Phone Unavailable Primary Care Provider Unavailabl e Encounter Details Date Type Department Care Team (Late st Contact Info) Description 02/03/2015 Historical Ophthalmology [facility] Brenda Elaine M.D. 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 [...] OCT: Avg thickness 82 OD, 88 OS. [id number] /10 OU. Testing consistent with clinical exam findings. #2 Visual field report, Normal visual field both eyes. Foveal threshold normal @ 37 OD, 39 OS. 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 This is likely related to prednisone. Return prn any changes in vision. The photos show an area of finance administrator color that corresponds to the TALEND ETL DEVELOPER on the OCT. Testing consistent with clinical exam findings. 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 #2 Visual field report, Normal visual field both eyes. #3 Central serous retinopathy left eye. CDM Reports - [facility] Id: [id number] Status: Fnl documented in this encounter Plan of Treatment Not on file documented as of this encounter Visit Diagnoses Not on filedocumented in this encounter
--- OUTSIDE RECORDS SUMMARY | 2024-06-25 09:47 | XMS_ITS | Clinical Summary ---
Author Organization [facility] Address [address] [place] [address] Care Team Providers Care Lumber Stacker Name Role Phone Kade Alexander MD Primary Care Provider [phone] Allergies Active Allergy Reactions Criticality Noted Date Comments No Known Drug Allergy 03/09/2003 Family History Medical History Relation Comments Cancer Father ORAL, RELATED TO TOBACCO Diabetes Father Hypertension Father Arthritis Mother Cardiovascular Mother Gastrointestinal Disease Mother mothers side lactose intollerant Heart Disease Mother SC repaired with a shunt Osteoporosis Mother Hypertension [...] on file Legal Sex Male 3:10 AM CLINICAL INFORMATICS SPEC Gender Identity Not on file Sexual Orientation Not on file Last Filed Vital Signs Vital Sign Reading Time Taken Comments Blood Pressure 150/104 03/09/2003 11:21 AM CLINICAL INFORMATICS SPEC seated (from Extended Vitals) Pulse 60 03/09/2003 11:19 AM CLINICAL INFORMATICS SPEC (from Extended Vitals) Temperature - - Respiratory Rate - - Oxygen Saturation - - Inhaled Oxygen Concentration - - Weight 89.8 kg (198 lb) 03/09/2003 10:4 5 AM CLINICAL INFORMATICS SPEC Height 172.7 cm (5' 8) 03/09/2003 10:4 5 AM CLINICAL INFORMATICS SPEC Body Mass Index 30.11 03/09/2003 10:45 AM CLINICAL INFORMATICS SPEC Plan of Treatment Not on file Care Teams Lumber Stacker Relationship Specialty Start Date End Date Kade Alexander MD [facility] [address] [place] [address] [facility] - General 01/27/02
--- OUTSIDE RECORDS SUMMARY | 2024-06-25 09:47 | XMS_ITS | Clinical Summary ---
Author Organization [facility] Address [address] [place] [address] Care Team Providers Care Automotive Warranty Administrator Name Role Phone Fredercik Krause MD Primary Care Provider Allergies No known active allergies Medications cabergoline (DOSTINEX) 0.5 mg tablet Take 0.75 mg by mouth. Twice weekly ( and Sunday) 04/23/19 20 Active metFORMIN (GLUCOPHAGE) 850 mg tablet Take 850 mg by mouth 2 times daily with meals. 04/20/19 20 Active atorvastatin (LIPITOR) 40 mg tabletIndications:S/ P CABG x 4 Take 1 tablet by mouth at bedtime. 30 tablet 2 05/17/19 20 Active Omeprazole 20 mg tabletIndications:Ga strointestinal hemorrhage, unspecified gastrointestinal hemorrhage type Take 2 tablets by mouth 2 times daily. To be taken before breakfast and before dinner for 6 weeks total and then can transition to daily 90 tablet 3 07/12/19 20 Active warfarin (COUMADIN) 4 mg tabletIndications:Pu lmonary embolism, unspecified chronicity, unspecified pulmonary embolism type, unspecified whether acute cor pulmonale present (HC) Take 1 tablet by mouth once daily. Take 1.5 tablets (6 mg total) daily for the next 3 days until the INR is rechecked. 0 07/13/19 20 Active carvediloL (COREG) 12.5 mg tablet Take 12.5 mg by mouth once daily. 07/15/19 21 Active chlorthalidone (HYGROTON) 25 mg tablet Take 25 mg by mouth once daily. 07/11/19 Active lactobacillus combination no.4 (Probiotic) 3 billion cell cap Take 1 Capsule by mouth once daily. 0 07/21/19 Active eplerenone (INSPRA) 25 mg tablet Take 1 Tablet (25 mg) by mouth once daily. 09/13/19 24 Active amLODIPine (NORVASC) 2.5 mg tablet Take 3 Tablets (7.5 mg) by mouth once daily. 09/13/19 24 Active losartan (COZAAR) 100 mg tabletIndications:S/ P CABG x 4 Take 1 Tablet (100 mg) by mouth once daily. 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 Gender Identity Not on file Sexual Orientation Not on file Obstetrics History Last Filed Vital Signs Vital Sign Reading Time Taken Comments Blood Pressure 112/62 07/16/2020 9:04 AM CDT Pulse 60 07/16/2020 9:04 AM CDT Temperature 36.6 C (97.8 F) 07/13/2019 8:30 AM CDT Respiratory Rate 16 [...] C screening for ag e 18-79 11/10/1971 Pneumococcal series for age 50+ (1 of 2 - PCV) 1972 Tetanus booster 1973 Colonoscopy through age 75 1998 Zoster (shingles) series for age 50+ (1 of 2) 11/10/2003 RSV vaccine for adults or (1 - Risk 60-74 years 1-dose series) 2013 BMI (ht and wt on same day) for age 18+ 07/16/2021 07/16/2020, 06/05/2019 COVID-19 vaccine series ( season) 2023 01/29/2023, 05/20/2021, 05/23/2020, Additional history exists Influenza Vaccine (#1) 2023 Lipids for age 45-75 05/09/2024 05/09/2019 Procedures Procedure Name Priority Date/Time Associated Diagnosis Comments LIPID PANEL Early AM 05/09/2019 6:17 AM SURVEY METHODOLOGIST from Last 3 Months or Most Recently Relevant to Health Maintenance Results * (ABNORMAL) LIPID PANEL (05/09/2019 6:17 AM SURVEY METHODOLOGIST) CHOLESTEROL,TOTAL 143 100 - 199 mg/dL 05/09/2019 6:59 AM SURVEY METHODOLOGIST [facility] [employer] LAB[facility]ATORY[facility] TRAL LABORATORY TRIGLYCERIDES 119 <150 mg/dL 05/09/2019 6:59 AM SURVEY METHODOLOGIST [employer] TRAL LABORATORY HDL CHOLESTEROL 34(L) >40 mg/dL 0 6:59 AM SURVEY METHODOLOGIST [employer] TRAL LABORATORY NON-HDL CHOLESTEROL 109 <145 mg/dl 05/09/2019 6:59 AM SURVEY METHODOLOGIST [employer] TRAL LABORATORY CHOL/HDL RATIO 4.21 <4.50 05/09/2019 6:59 AM SURVEY METHODOLOGIST [employer] TRAL LABORATORY LDL CHOLESTEROL 85 <=130 mg/dL 05/09/2019 6:59 AM SURVEY METHODOLOGIST [employer] TRAL LABORATORY PROVIDER ORDERED STATUS RANDOM 05/09/2019 6:59 AM SURVEY METHODOLOGIST [employer] TRAL LABORATORY Blood BLOOD SPECIMEN / Unknown Venipuncture / Unknown 05/09/2019 6:17 AM SURVEY METHODOLOGIST 05/09/2019 6:25 AM SURVEY METHODOLOGIST us Evy MAR CHEMISTRY Tiffani l Result [facility] [address] [place] [address], from Last 3 Months or Most Recently Relevant to Health Maintenance Advance Directives * Full Code (Latest Code Status on File) Date Activated Date Inactivated Comments 07/11/2019 6:32 PM 07/13/2019 9:39 PM Question Answer Comments Code Status Discussion: Discussed * Full Code Date Activated Date Inactivated Comments 05/08/2019 6:16 PM 05/17/2019 3:04 PM Care Teams Automotive Warranty Administrator Relationship Specialty Start Date End Date Frederick Krause MD [address] [place] [address] PCP - General Family Practice 06/05/19
--- OUTSIDE RECORDS SUMMARY | 2024-06-25 09:48 | XMS_ITS | Encounter Summary ---
Author Organization [facility] Address [address] [place] [address] Care Team Providers Care Fountain Attendant Name Role Phone Unavailable Primary Care Provider Unavailabl e Reason for Visit * Appointment Request (Routine) - Closed Specialty Diagnoses / Procedures Referred By Bina t Referred To Contact Nephrology and Hypertension Referral ID Status Reason Start Date Expiration Date Visits Re quested Visits Authorized [id number] Closed 04/25/2024 07/26/2025 1 1 Encounter Details Date Type Department Care Team (Latest Contact Info) Description 05/19/2024 4:00 PM FIELD CROP HARVEST CONTRACTOR External Outreach Division of Nephrology and Hypertension in [place], [place] [address] [place] [address] Walter Willis Jr., D.O. [address] [place] [address] Chronic Kidney Disease (CKD), Stage 3a Glomerular Filtration Rate (GFR) 45 To 59 (HCC) (Primary Dx); Hypertensive Chronic Kidney Disease With Stage 1 Through Stage 4 Chronic Kidney Disease, Or Unspecified Chronic Kidney Disease; Diabetes Mellitus Type 2 With Diabetic Nephropathy (HCC); Anemia Of Chronic Renal Failure; Prolactinoma (HCC); Hyperparathyroidism Renal Secondary (HCC); Hyperaldosteronism (HCC); Anticoagulant Therapy; Mass Kidney; Diarrhea Social History Tobacco Use Types Packs/Day Years Used Date Smoking Tobacco: Former Cigarettes 0.3 6 0 04/03/1979 - 04/02/1985 Smokeless Tobacco: Never Alcohol Use Standard Drinks/Week Comments Yes 2 (1 standard drink = 0.6 oz pur e alcohol) [facility] Utilities Answer Date Recorded In the [...] How often do you attend chur or yazidi services? Patient declined 09/27/2020 Do you belong [...] and heating? Not hard at all 09/27/2020 [facility] [place] of Occupat ional Health - Occupational Stress [...] living? No 04/29/2023 Nutrition Answer Date Recorded On average, how many serving s of [...] your living situation today? I have a [facility] place to live 04/29/2023 Education Answer Date Recorded What is the highest level of school you have completed or the highest degree you have received? 12th grade 12/29/2018 Sex and Gender Information Value Date Recorded Sex Assigned at Male 04/29/2023 9:28 PM FIELD CROP HARVEST CONTRACTOR Legal Sex Male 5:12 PM FIELD CROP HARVEST CONTRACTOR Gender Identity Male 12/24/2017 2:50 PM CDT Sexual Orientation Straight 12/24/2017 2: 50 PM CDT documented as of this encounter Last Filed Vital Signs Vital Sign Reading Time Taken Comments Blood Pressure 140/78 05/19/2024 4:00 PM FIELD CROP HARVEST CONTRACTOR Pulse 47 05/19/2024 4:00 PM FIELD CROP HARVEST CONTRACTOR Temperature - - Respiratory Rate - - Oxygen Saturation - - Inhaled Oxygen Concentration - - Weight 74.8 kg (164 lb 14.5 oz) 05/19/2024 4:00 PM FIELD CROP HARVEST CONTRACTOR Height 172.7 cm (5' 7.99) 05/19/2024 4:00 PM CS T Body Mass Index 25.08 05/19/2024 4:00 PM FIELD CROP HARVEST CONTRACTOR documented in this encounter Progress Notes * Walter Willis Jr., DCitlaly. - 05/19/2024 4:00 PM CST Referring Provider: No primary care provider on file. SUBJECTIVE REASON FOR VISIT [facility] Follow-up regards resistant hypertension, secondary to hyperaldosteronism, diabetes mellitus type 2, pituitary adenoma, new development of chronic diarrhea HISTORY OF PRESENT ILLNESS Mr. Gasca is a 68 y.o. male who presents with the above issues. Since our last visit he has been feeling relatively well. He has no issues with headaches, no orthostatic changes, no challenges with respect to being on his oral anticoagulation, and unfortunately he does not check his blood pressure very often. He has had no shortness of breath no chest pain no cardiovascular cerebrovascular constitutional complaints. However, he relates it for the past several months he has been having issues with unformed stools, and liquid explosive bowel movements in the afternoon. There does not seem to be any association with different types of food, and in fact he relates that even when fasting for 2 days in a row he willstill have explosive liquid bowel movements. This is becoming quite disruptive. He has not traveledrecently. He has had no fevers no chills. Does get cramping, which relieves as soon as he moves hisbowels. He has not been on recent antibiotics. No one else has been ill in his immediate home. He is certain that he is not sensitive to any certain food types, we discussed celiac, gluten, lactose intolerance, and he does not show sugar free xylocaine dose containing gum. His glycemic control has been excellent he has had no hypoglycemic events recently. Appreciate his hemoglobin A1c is excellent at 6.2%. He is anemic with a hemoglobin 12.5, I note that his % saturation slightly low, but his iron TIBC and ferritin levels are acceptable. His CRP is low. Visits with Endocrinology regarding his prolactinoma, for which he is currently still on cabergoline twice per week. Although he is bradycardic he has no symptoms from this. He is orally anticoagulated on the background of a prior pulmonary embolism, no bleeding consequences. He has a known exophytic left lower pole renal lesion which at last check was 2.5 cm. He is overduefor a repeat MRI. Medical History[1] Current Medications[2] REVIEW OF SYSTEMS All other systems reviewed and are negative. OBJECTIVE BP 140/78 Pulse (!) 47 Ht 172.7 cm Wt 74.8 kg BMI 25.08 kg/m?? PHYSICAL EXAMINATION General: Awake, alert, oriented. HEENT: YVROSE, EOMI, mucous membranes moist, no oral lesions. Neck: No masses, no bruits. Lungs: Clear to auscultation. Heart: Regular rate and rhythm. No ectopy, murmurs, or rubs. Abdomen: Soft, non-tender. Extremities: No cyanosis, no clubbing, no edema. Neuro: Cranial nerves intact. Gait is normal, strength grossly normal. Skin: No suspicious lesions identified. Psychiatric: Normal affect. DIAGNOSTICS Note creatinine stable 1.8 mg/dL, MRI ordered today. Microalbumin to creatinine ratio 1300, hemoglobin 12.5 hemoglobin A1c 6.2% ASSESSMENT / PLAN #1 Chronic Kidney Disease (CKD), Stage 3a Glomerular Filtration Rate (GFR) 45 To 59 (HCC) His CKD is on the background of multiple issues, I have been concerned over the years regarding a possible glomerular nephritis. Does have resistant hypertension, and hyperaldosteronism. His microalbumin to creatinine ratio has stabilized at 1.3 g, this is actually somewhat improved over his previous values, initial of which was 3500 mg per g. His difficulties hearing developed with his prolactinoma, and are not associated with his nephropathy. Going forward: 1. Continue excellent glycemic control with goal glycosylated hemoglobin less than 8%-achieved 2. Continue blood pressure monitoring I have asked him to check his blood pressures at home, goal systolics in the 130s or below. 3. Continue his current antihypertensive regimen with amlodipine, carvedilol, losartan, eplerenone,and chlorthalidone. 4. No NSAIDs or Arzola 2 inhibitors 5. Low-sodium diet 6. I will see him back regarding his MRI scan and scheduled return visit in 6 months. #2 Hypertensive Chronic Kidney Disease With Stage 1 Through Stage 4 Chronic Kidney Disease, Or Unspecified Chronic Kidney Disease Please see above he has resistant hypertension on the background of likely hyperaldosteronism. He is staying lean, he is nonsmoker nondrinker, does not have obstructive sleep apnea. #3 Diabetes Mellitus Type 2 With Diabetic Nephropathy (HCC) Excellent glycemic control we will continue with the current regimen #4 Anemia Of Chronic Renal Failure Believe this to be a relative erythropoietin deficiency issue, although with his diarrhea perhaps this is nutritional, note iron stores are acceptable. #5 Prolactinoma (HCC) Continues on cabergoline. #6 Hyperparathyroidism Renal Secondary (HCC) Satisfactory calcium phosphorus. #7 Hyperaldosteronism (HCC) Doing well in his current regimen where we are using ARB agents as well as his eplerenone. 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 #9 Mass Kidney We need to recheck his left renal mass, which was suspicious on prior MRI scans. He had been sent to local urology. #10 Diarrhea I am going to orchestrate enteric pathogens, fecal fat, celiac panel and asked for an opinion from our gastroenterologists. This appears to be a difficult situation. Total time: 35 minute Counseling Time: 30 minutes Walter Willis Jr., D.O. [1] Past Medical History: Diagnosis Date Diabetes Mellitus NOS Hyperlipidemia Hypertension NOS Pneumonia [2] Current Outpatient Medications: amLODIPine (Norvasc) 5 mg tablet, Take 1 tablet (5 mg total) by mouth daily., Disp: 90 tablet, Rfl:3 allopurinoL (ZYLOPRIM) 100 mg tablet, Take 1 tablet (100 mg total) by mouth daily., Disp: 90 tablet, Rfl: 3 amLODIPine (NORVASC) 2.5 mg tablet, Take 1 tablet (2.5 mg total) by mouth daily., Disp: 90 tablet, Rfl: 3 atorvastatin (Lipitor) 40 mg tablet, Take 1 tablet (40 mg total) by mouth daily., Disp: 90 tablet, Rfl: 3 cabergoline (DOSTINEX) 0.5 mg tablet, Take 1.5 tablets (0.75 mg total) by mouth 2 (two) times a week., Disp: 36 tablet, Rfl: 3 carvediloL (COREG) 12.5 mg tablet, Take 12.5 mg by mouth 2 (two) times a day with meals., Disp: , Rfl: chlorthalidone (HYGROTEN) 25 mg tablet, Take 1 tablet by mouth daily. If SBP > 130, Disp: , Rfl: eplerenone (INSPRA) 25 mg tablet, TAKE 1 TABLET(25 MG) BY MOUTH DAILY, Disp: 90 tablet, Rfl: 3 losartan (COZAAR) 100 mg tablet, Take 1 tablet by mouth daily., Disp: , Rfl: metFORMIN (GLUCOPHAGE) 850 mg tablet, Take 850 mg by mouth 2 (two) times a day with meals., Disp: ,Rfl: warfarin (COUMADIN) 4 mg tablet, Take 1 tablet by mouth daily., Disp: , Rfl: 0 D CROP HARVEST CONTRACTOR documented in this encounter Plan of Treatment Scheduled Orders Name Type Priority Associated Diagnoses Orde r Schedule Celiac Disease [facility] Routine Chronic Kidney Disease (CKD), Stage 3a Glomerular Filtration Rate (GFR) 45 To 59 (HCC) Hypertensive Chronic Kidney Disease With Stage 1 Through Stage 4 Chronic Kidney Disease, Or Unspecified Chronic Kidney Disease Diabetes Mellitus Type 2 With Diabetic Nephropathy (HCC) Anemia Of Chronic Renal Failure Prolactinoma (HCC) Hyperparathyroidism Renal Secondary (HCC) Hyperaldosteronism (HCC) Anticoagulant Therapy Mass Kidney Diarrhea Expected: 05/19/2024, Expires: 08/16/2025 documented as of this encounter Results * GI Pathogen Panel, PCR, Feces (06/02/2024 2:47 PM FIELD CROP HARVEST CONTRACTOR) Specimen Source STOOL 5:27 PM FIELD CROP HARVEST CONTRACTOR DTL Campylobacter species Negative Negative 06/02/2024 5:27 PM FIELD CROP HARVEST CONTRACTOR DTL C. difficile toxin Negative Negative 2024 5:27 PM FIELD CROP HARVEST CONTRACTOR DTL Plesiomonas shigelloides Negative Negative 06/02/2024 5:27 PM FIELD CROP HARVEST CONTRACTOR DTL Salmonella species Negative Negative 2024 5:27 PM FIELD CROP HARVEST CONTRACTOR DTL Vibrio species Negative Negative 06/02/2024 5:27 PM FIELD CROP HARVEST CONTRACTOR DTL Vibrio cholerae Negative Negative 5:27 PM FIELD CROP HARVEST CONTRACTOR DTL Yersinia species Negative Negative 06/03/19 5:27 PM FIELD CROP HARVEST CONTRACTOR DTL Enteroaggregative E. coli (EAEC) Negative Negative 06/02/2024 5:27 PM FIELD CROP HARVEST CONTRACTOR DTL Enteropathogenic E. coli (EPEC) Negative Negative 06/02/2024 5:27 PM FIELD CROP HARVEST CONTRACTOR DTL Enterotoxigenic E. coli (ETEC) Negative Negative 06/02/2024 5:27 PM FIELD CROP HARVEST CONTRACTOR DTL Shiga toxin producing E. coli Negative Negative 06/02/2024 5:27 PM FIELD CROP HARVEST CONTRACTOR DTL Shigella/Enteroinvas lynsey E. coli Negative Negative 06/02/2024 5:27 PM FIELD CROP HARVEST CONTRACTOR DTL Cryptosporidium species Negative Negative 06/02/2024 5:27 PM FIELD CROP HARVEST CONTRACTOR DTL Cyclospora cayetanensis Negative Negative 06/02/2024 5:27 PM FIELD CROP HARVEST CONTRACTOR DTL Entamoeba histolytica Negative Negative 06/02/2024 5:27 PM FIELD CROP HARVEST CONTRACTOR DTL Giardia Negative Negative 06/02/2024 5:27 PM FIELD CROP HARVEST CONTRACTOR DTL Adenovirus F40/41 Negative Negative 025 5:27 PM FIELD CROP HARVEST CONTRACTOR DTL Astrovirus Negative Negative 06/02/2024 5:27 PM FIELD CROP HARVEST CONTRACTOR DTL Norovirus GI/GII Negative Negative 06/03/19 25 5:27 PM FIELD CROP HARVEST CONTRACTOR DTL Rotavirus Ag, F Negative Negative 5:27 PM FIELD CROP HARVEST CONTRACTOR DTL Sapovirus Negative Negative 06/02/2024 5:27 PM FIELD CROP HARVEST CONTRACTOR DTL Comment: ----ADDITIONAL INFORMATION---- This assay is performed using the FDA-cleared Monstrous GI Panel ([employer] Stool (Stool) 06/02/2024 2:4 7 PM FIELD CROP HARVEST CONTRACTOR 06/02/2024 3:17 PM FIELD CROP HARVEST CONTRACTOR us Walter Willis Jr., D.O. LAB MICROBIOLOGY - G ENERAL ORDERABLES Final Result [facility] [address] [place] [address], [facility] DTL [address] [facility] [address] [place] [address] * (ABNORMAL) Fat, Feces (06/02/2024 2:44 PM FIELD CROP HARVEST CONTRACTOR) Total Weight 428 g 06/03/2024 9:48 AM FIELD CROP HARVEST CONTRACTOR DTL Duration 24 h 06/02/2024 2:46 PM FIELD CROP HARVEST CONTRACTOR DTL Comment: More reliable results can be obtained from a 48 or 72 hour collection. Total Fat/24 Hr 19(H) 2 - 7 g/24 h 06/03/2024 1:30 PM FIELD CROP HARVEST CONTRACTOR DTL Comment: ----ADDITIONAL INFORMATION---- This test was developed and its performance characteristics determined by [facility] in a manner consistent with CLIA requirements. This test has not been cleared or approved by the U.S. Food and Drug Administration. Stool (Stool) 06/02/2024 2:4 4 PM FIELD CROP HARVEST CONTRACTOR 06/03/2024 12:39 PM FIELD CROP HARVEST CONTRACTOR us Walter Willis Jr., D.O. LAB BODY FLUIDS AND STOOLS ORDERABLES Final Result [facility] [address] [place] [address], [facility] [address] [place] [address] documented in this encounter Visit Diagnoses Diagnosis Chronic Kidney Disease (CKD), Stage 3a Glomerular Filtration Rate (GFR) 45 To 59 (HCC)- Primary Hypertensive Chronic Kidney Disease With Stage 1 Through Stage 4 Chronic Kidney Disease, Or Unspecified Chronic Kidney Disease Diabetes Mellitus Type 2 With Diabetic Nephropathy (HCC) Anemia Of Chronic Renal Failure Prolactinoma (HCC) Hyperparathyroidism Renal Secondary (HCC) Hyperaldosteronism (HCC) Anticoagulant Therapy Mass Kidney Diarrhea documented in this encounter
--- OUTSIDE RECORDS SUMMARY | 2024-06-25 09:48 | XMS_ITS | Encounter Summary ---
Author Organization [facility] Address [address] [place] [address] Care Team Providers Care Imaging Analyst Name Role Phone Unavailable Primary Care Provider Unavailabl e Encounter Details Date Type Department Care Team (Late st Contact Info) Description 05/12/2024 Orders Only Division of Nephrology and Hypertension in [place], [place] [address] [place] [address] External, Ordering ProviderJose Social History Tobacco Use Types Packs/Day Years Used Date Smoking Tobacco: Former Cigarettes 0.3 6 0 04/03/1979 - 04/02/1985 Smokeless Tobacco: Never Alcohol Use Standard Drinks/Week Comments Yes 2 (1 standard drink = 0.6 oz pur e alcohol) [facility] Utilities Answer Date Recorded In the past 12 months has [employer] electric, gas, oil, or water company threatened [...] week 09/27/2020 How often do you attend [facility] or congregational services? Patient declined 09/27/2020 Do you belong to any clubs o r organizations such as voodoo groups, unions, fraternal [...] and heating? Not hard at all 09/27/2020 [facility] of Occupat ional Health - Occupational [...] your living situation today? I have a [facility] place to live 04/29/2023 Education Answer Date Recorded What is the highest level of school you have completed or the highest degree you have received? 12th grade 12/29/2018 Sex and Gender Information Value Date Recorded Sex Assigned at Male 04/29/2023 9:28 PM MORTGAGE LOAN REVIEWER Legal Sex Male 5:12 PM MORTGAGE LOAN REVIEWER Gender Identity Male 12/24/2017 2:50 PM CDT Sexual Orientation Straight 12/24/2017 2: 50 PM CDT documented as of this encounter Plan of Treatment Not on file documented as of this encounter Procedures Procedure Name Priority Date/Time Associated Diagnosis Comments ALBUMIN, RANDOM, U Routine 05/12/2024 8: 04 AM MORTGAGE LOAN REVIEWER IRON AND TOT IRON-BINDING CAPACITY, S/P Routine 05/12/2024 7:35 AM MORTGAGE LOAN REVIEWER CBC WITH DIFFERENTIAL, B Routine 05/12/2024 7:35 AM MORTGAGE LOAN REVIEWER HEMOGLOBIN A1C, B Routine 05/12/2024 7:3 5 AM MORTGAGE LOAN REVIEWER documented in this encounter Results * (ABNORMAL) Albumin, Random, Urine (05/12/2024 8:04 AM MORTGAGE LOAN REVIEWER) EXT Creatinine, Urine 32.3 mg/dL [facility] EXT Microalbumin-R andom, U 45 mg/dL [facility] EXT Albumin/Creati nine Ratio 1,390(H) 0 - 30 [facility] 05/12/2024 8:04 AM MORTGAGE LOAN REVIEWER Narrative [facility] - 05/12/2024 11:43 AM MORTGAGE LOAN REVIEWER Source result document attached to Order Number [id number] ([id number]) dated 05/12/2024. External results verified in Extract by Flakita Guillen on 05/12/2024 at 11:41 AM. us Ordering Provider External M.Chet LAB URINE ORDERA BLES Final Result Performing Organization Address [facility] Co de Phone Number [facility] [address] [place] [address] * (ABNORMAL) CBC with Differential, Blood (05/12/2024 7:35 AM MORTGAGE LOAN REVIEWER) EXT Leukocytes 6.06 4.50 - 11.00 K/uL [facility] EXT RBC 4.21(L) 4.30 - 5.90 m/uL [facility] EXT Hemoglobin 12.5(L) 13.5 - 17.5 gm/dL [facility] EXT Hematocrit 37.5 37.0 - 53.0 % [facility] EXT MCV 89 80 - 100 fL [facility] EXT Platelet Count 211 140 - 440 K/uL [facility] 05/12/2024 7:35 AM MORTGAGE LOAN REVIEWER Narrative [facility] - 05/12/2024 11:43 AM MORTGAGE LOAN REVIEWER Source result document attached to Order Number [id number] ([id number]) dated 05/12/2024. External results verified in Extract by Flakita Guillen on 05/12/2024 at 11:41 AM. us Ordering Provider External Jose LAB BLOOD ADD-ON Final Result Performing Organization Address [facility]/ZIP Co de Phone Number [facility] LOCATION [facility] [address] [place] [address] * (ABNORMAL) Hemoglobin A1c (05/12/2024 7:35 AM MORTGAGE LOAN REVIEWER) EXT Hemoglobin A1c, B 6.2(H) 0 - 5.6 % [facility] 05/12/2024 7:35 AM MORTGAGE LOAN REVIEWER Narrative [facility] - 05/12/2024 11:43 AM MORTGAGE LOAN REVIEWER Source result document attached to Order Number [id number] ([id number]) dated 05/12/2024. External results verified in Extract by Flakita Guillen on 05/12/2024 at 11:41 AM. us Ordering Provider External Jose LAB BLOOD ADD-ON Final Result Performing Organization Address [facility] Co de Phone Number [facility] LOCATION [facility] [address] [phone] * (ABNORMAL) Iron and Total Iron-Binding Capacity (05/12/2024 7:35 AM MORTGAGE LOAN REVIEWER) EXT Iron 61 49 - 181 ug/dL [facility] EXT Total Iron Binding Capacity 325 261 - 462 ug/dL [facility] EXT Percent Saturation 19(L) 20 - 50 % [facility] 05/12/2024 7:35 AM MORTGAGE LOAN REVIEWER Narrative [facility] - 05/12/2024 11:43 AM MORTGAGE LOAN REVIEWER External results verified in Extract by Flakita Guillen on 05/12/2024 at 11:41 AM. us Ordering Provider Alisa Garcia LAB BLOOD ADD-ON Final Result Performing Organization Address [facility]/ZIP Co de Phone Number [facility] [address] [place] [id number], [facility] [phone] documented in this encounter Visit Diagnoses Not on filedocumented in this encounter
--- OUTSIDE RECORDS SUMMARY | 2024-06-25 09:48 | XMS_ITS | Encounter Summary ---
Author Organization [facility] Address [address] [place] [id number] Care Team Providers Care Litigation Attorney Associate Name Role Phone Unavailable Primary Care Provider Unavailabl e Reason for Referral * Outpatient (Routine) - Authorized Specialty Diagnoses / Procedures Referred By Bina alberto Referred To Contact Endocrinology Diagnoses Prolactinoma (HCC) Tg Mandujano P.A.-C., M.S. [address] [place] [phone] Phone: tel: fax: [facility] Referral ID Status Reason Start Date Expiration Date V isits Requested Visits Authorized [id number] Authorized 05/23/2024 11/22/2025 1 1 RVISOR FLESHING Reason for Visit * Outpatient (Routine) - Closed Specialty Diagnoses / Procedures Referred By Contnaomi t Referred To Contact Endocrinology Diagnoses Prolactinoma (HCC) Tg Mandujano P.A.-C., M.S. [address] [place] [phone] Phone: tel: fax: [facility] Referral ID Status Reason Start Date Expiration Date Visits Re quested Visits Authorized [id number] Closed 05/02/2023 10/31/2024 1 1 Encounter Details Date Type Department Care Team (Latest Contact Info) Description 05/23/2024 10:30 AM SUPERVISOR FLESHING Office Visit Division of Endocrinology in [place], [place] [address] [place] [phone] Tg Mandujano P.A.-C., M.S. [address] [place] [phone] Prolactinoma (HCC) (Primary Dx) Social History Tobacco Use Types Packs/Day Years Used Date Smoking Tobacco: Former Cigarettes 0.3 6 0 04/03/1979 - 04/02/1985 Smokeless Tobacco: Never Alcohol Use Standard Drinks/Week Comments Yes 2 (1 standard drink = 0.6 oz pur e alcohol) [facility] [employer] Answer Date Recorded In the past 12 months has [employer] gas, oil, or water [facility] threatened to shut off services in your [...] How often do you attend chur or judaism services? Patient declined 09/27/2020 Do you belong to any clubs o r organizations such as adventism groups, unions, fraternal [...] and heating? Not hard at all 09/27/2020 [facility] [place] [facility] Occupat ional [facility] - Occupational Stress [...] Sex Assigned at Male 04/29/2023 9:28 PM SUPERVISOR FLESHING Legal Sex Male 5:12 PM SUPERVISOR FLESHING Gender Identity Male 12/24/2017 2:50 PM CDT Sexual Orientation Straight 12/24/2017 2: 50 PM CDT documented as of this encounter Progress Notes * Tg Mandujano P.A.-C., M.S. - 05/23/2024 10:30 AM CST SUBJECTIVE ENDOCRINOLOGY ESTABLISHED PATIENT VISIT Service Date: 05/23/2024 CHIEF COMPLAINT/REASON FOR VISIT Mr. 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 HISTORY OF PRESENT ILLNESS Mr. Miguelangel Gasca is a pleasant 68 y.o. male who presents for evaluation and [...] effects he was later switched to cabergoline. He had a history of an elevated IGF-1 during evaluation, but OGTT for GH was normal. He continues on cabergoline. Today he presents for routine follow-up. -Last MRI: December 2017. No significant change. Stable size, signal, and configuration of previously noted sellar/right cavernous sinus lesion. No plans for further MRIs at this time unless clinically indicated otherwise (e.g. increasing prolactin levels). -Pituitary related medications: Prolactin: Cabergoline 1.5 tablets (0.75 mg) twice weekly on mornings and Sunday night. -Interval History: Mr. Gasca is doing well. He does not have any specific symptom concerns. No breast pain or discharge. No compulsive behaviors. No sexual dysfunction or concerns. He had sweats last year, but these have since resolved. No questions other than lab review. Review of Systems Pertinent items are noted in HPI. Constitutional: Positive for fatigue. ENT: Positive for difficulty hearing. Musculoskeletal: Positive for pain or stiffness in the joints, back pain and muscle pain/stiffness. The following systems were negative: Skin, Eyes, Respiratory, Cardiovascular, Gastrointestinal, Genitourinary, Hematologic, Neurological, Psychiatric The following portions of the patient's history were reviewed and updated as appropriate: allergies, current medications, problem list and medical history. OBJECTIVE Vital Signs There were no vitals taken for this visit. Physical Exam Constitutional General: He is not in acute distress. Appearance: Normal appearance. Cardiovascular Rate and Rhythm: Normal rate and regular rhythm. Heart sounds: No murmur heard. No friction rub. No gallop. Neurological Mental Status: He is alert and oriented to person, place, and time. Labs Results for orders placed or performed during the hospital encounter of 05/15/24 Prolactin Collection Time: 05/15/24 11:37 AM Result Value Ref Range Prolactin Total 27.9 (H) 4.0 - 15.2 ng/mL Testosterone, Free and Weakly Bound, With Total Testosterone, LC/MS-MS - Sent Out Lab Collection Time: 05/15/24 11:37 AM Result Value Ref Range Testosterone, Total, LC/MS 390.0 264.0 - 916.0 ng/dL Testost. % Free+Weakly Bound 22.2 9.0 - 46.0 % Testost. F+W Bound 86.6 40.0 - 250.0 ng/dL Pending labs include: None ASSESSMENT / PLAN Mr. Gasca and I reviewed pertinent labs together. We have agreed on a plan as follows: #1 Prolactinoma (HCC) #2 Hypogonadism Pituitary (HCC); resolved Doing very well. Prolactin is slightly elevated, but stable, and testosterone is normal. We agreed to continue cabergoline 0.75 mg twice weekly. He will reach out if he has any compulsive behaviors and we will reassess his dose, but noted this is unlikely. Reiterated that we would not do any imaging unless his prolactin were to persistently elevate or herequests imaging; none needed at this time. Follow-up labs and symptom review in one year, sooner as needed. Prescriptions Medications: Refills prescribed Refills requests: Self Controlled substance prescriptions: No Follow-Up Plan Return Date: 1 year Telehealth: Either Return to: Self Orders: [facility] [place] 1 week prior Orders placed for next visit: Orders Placed This Encounter Procedures Prolactin Testosterone, Free and Weakly Bound, With Total Testosterone, LC/MS-MS - Sent Out Lab Endocrinology office visit (clinic) Mr. Gasca was in agreement with the above plan and did not have any additional questions at the end of the visit. RVISOR FLESHING documented in this encounter Plan of Treatment Scheduled Orders Name Type Priority Associated Diagnoses Orde r Schedule Prolactin Lab Routine Prolactinoma (HCC) Expected: 05/16/2025 (Approximate), Expires: 08/20/2025 Testosterone, Total and Bioavailable Lab Routine Prolactinoma (HCC) Expected: 05/16/2025, Expires: 08/20/2025 Scheduled Referrals Name Type Priority Associated Diagnoses Order Schedule Endocrinology office visit (clinic) Outpatient Referral Routine Prolactinoma (HCC) Expected: 05/23/2025 (Approximate), Expires: 08/20/2025 documented as of this encounter Visit Diagnoses Diagnosis Prolactinoma (HCC)- Primary documented in this encounter
--- OUTSIDE RECORDS SUMMARY | 2024-06-25 09:48 | XMS_ITS | Encounter Summary ---
Author Organization [facility] Address [address] [place] [address] Care Team Providers Care Jewelry Repairer Name Role Phone Unavailable Primary Care Provider Unavailabl e Reason for Visit * Reason Onset Date Comments [facility] - Outside Materials 06/10/2024 MR abdom en -06/09/24 Encounter Details Date Type Department Care Team (Latest Contact Info) Description 06/10/2024 Clinical Communication Division of Nephrology and Hypertension in [place], [place] [address] [place] [phone] Walter Willis Jr., D.O. [address] [place] [phone] [facility] - Outside Materials (MR abdomen -06/09/24) Social History Tobacco Use Types Packs/Day Years Used Date Smoking Tobacco: Former Cigarettes 0.3 6 0 04/03/1979 - 04/02/1985 Smokeless Tobacco: Never Alcohol Use Standard Drinks/Week Comments Yes 2 (1 standard drink = 0.6 oz pur e alcohol) [facility] Utilities Answer Date Recorded In [...] How often do you attend chur or presybeterian services? Patient declined 09/27/2020 Do you belong to any clubs o r organizations such as hinduism groups, unions, fraternal [...] and heating? Not hard at all 09/27/2020 [facility] Occup[facility] ional Health - Occupational [...] your living situation today? I have a [facility] place to live 04/29/2023 Education Answer Date Recorded What is the highest level of school you have completed or the highest degree you have received? 12th grade 12/29/2018 Sex and Gender Information Value Date Recorded Sex Assigned at Male 04/29/2023 9:28 PM MACHINERY MOVER Legal Sex Male 5:12 PM MACHINERY MOVER Gender Identity Male 12/24/2017 2:50 PM CDT Sexual Orientation Straight 12/24/2017 2: 50 PM CDT documented as of this encounter Plan of Treatment Not on file documented as of this encounter Visit Diagnoses Not on filedocumented in this encounter
--- OUTSIDE RECORDS SUMMARY | 2024-06-25 09:48 | XMS_ITS | Clinical Summary ---
Author Organization [facility] Address [address] [place] [address] Care Team Providers Care Journeyman Plumber Name Role Phone Unavailable Primary Care Provider Unavailabl e Source Comments Patient records contain information from all sites at [facility]. For routine questions regarding patient records, call [phone] during business hours, M-F 8:00 AM - 5:00 PM Central Time. Record requests for emergency care only can be directed to [phone] at any time.[facility] Allergies No known active allergies Medications chlorthalidone (HYGROTEN) 25 mg tablet Take 1 tablet by mouth daily. If SBP > 130 7 Active losartan (COZAAR) 100 mg tablet Take 1 tablet by mouth daily. 5 Active warfarin (COUMADIN) 4 mg tablet Take 1 tablet by mouth daily. 0 9 Active carvediloL (COREG) 12.5 mg tablet Take 12.5 mg by mouth 2 (two) times a day with meals. 1 Active amLODIPine (NORVASC) 2.5 mg tablet Take 1 tablet (2.5 mg total) by mouth daily. 90 tablet 3 1 Active metFORMIN (GLUCOPHAGE) 850 mg tablet Take 850 mg by mouth 2 (two) times a day with meals. 0 Active eplerenone (INSPRA) 25 mg tablet TAKE 1 TABLET(25 MG) BY MOUTH DAILY 90 tablet 3 4 Active allopurinoL (ZYLOPRIM) 100 mg tablet Take 1 tablet (100 mg total) by mouth daily. 90 tablet 3 4 09/17/19 25 Active atorvastatin (Lipitor) 40 mg tablet Take 1 tablet (40 mg total) by mouth daily. 90 tablet 3 4 01/01/20 25 Active amLODIPine (Norvasc) 5 mg tablet Take 1 tablet (5 mg total) by mouth daily. 90 tablet 3 5 05/19/19 26 Active eplerenone (Inspra) 25 mg tablet Take 1 tablet by mouth daily. 4 Active vitamins A,C,E-zinc-natasha er (ICaps AREDS) 14,320 Units-226 mg-200 Units per capsule Take 1 capsule by mouth daily. Two Chewables daily Active cabergoline (Dostinex) 0.5 mg tabletIndicatio ns:Prolactinoma (HCC) Take 1.5 tablets (0.75 mg total) by mouth 2 (two) times a week. 36 tablet 3 5 Active Active Problems Problem Noted Date Diagnosed Date Diarrhea 05/19/2024 Hyperparathyroidism Renal Secondary 09/17/2023 Anemia Of Chronic Renal Failure 09/17/2023 Gout Acute 09/17/2023 Anticoagulant Therapy 09/17/2023 Hyperaldosteronism 03/10/2021 Mass Kidney 01/21/2020 Prolactinoma 05/27/2015 Chronic Kidney Disease (CKD) , Stage 3a Glomerular Filtration Rate (GFR) 45 To 59 01/28/2015 Diabetes Mellitus Type 2 With Diabetic Nephropat hy 01/28/2015 Hypertensive Chronic Kidney Disease With Stage 1 Through Stage 4 Chronic Kidney Disease, Or Unspecified Chronic Kidney Disease 01/28/2015 Resolved Problems Problem Noted Date Diagnosed Date Resolved Date Hypogonadism Pituitary 06/19/201512/07 Encounters Date Type Department Care Team Description 06/18/2024 Orders Only Division of Nephrology and Hypertension in [place], [place] [address] [place] [address] Walter Willis Jr., D.O. Chronic Kidney Disease (CKD), Stage 3a Glomerular Filtration Rate (GFR) 45 To 59 (HCC) (Primary Dx); Diarrhea; Prolactinoma (HCC); Hypertensive Chronic Kidney Disease With Stage 1 Through Stage 4 Chronic Kidney Disease, Or Unspecified Chronic Kidney Disease; Hyperaldosteronism (HCC) 06/15/2024 Orders Only Division of Nephrology and Hypertension in [place], [place] [address] [place] [address] Walter Willis Jr., D.OIsauro Chronic Kidney Disease (CKD), Stage 3a Glomerular Filtration Rate (GFR) 45 To 59 (HCC) (Primary Dx); Diabetes Mellitus Type 2 With Diabetic Nephropathy (HCC); Mass Kidney 06/10/2024 Documentation Division of Nephrology and Hypertension in [place], [place] [address] [place] [address] Walter Willis Jr., D.O. 06/10/2024 Clinical Communication Division of Nephrology and Hypertension in [place], [place] [address] [place] [phone] Walter Willis Jr., D.O. OSM - Outside Materials (MR abdomen -06/09/24) 05/30/2024 11:00 AM RN SOCIAL WORK - 05/30/2024 11:59 PM RN SOCIAL WORK Hospital Encounter Department of Laboratory Medicine and Pathology, [facility], in [place], [place] [address] [place] [address] Walter Willis Jr., D.O. Chronic Kidney Disease (CKD), Stage 3a Glomerular Filtration Rate (GFR) 45 To 59 (HCC); Hypertensive Chronic Kidney Disease With Stage 1 Through Stage 4 Chronic Kidney Disease, Or Unspecified Chronic Kidney Disease; Diabetes Mellitus Type 2 With Diabetic Nephropathy (HCC); Anemia Of Chronic Renal Failure; Prolactinoma (HCC); Hyperparathyroidism Renal Secondary (HCC); Hyperaldosteronism (HCC); Anticoagulant Therapy; Mass Kidney; Diarrhea Discharge Disposition: Home or Self Care 05/23/2024 10:30 AM RN SOCIAL WORK Office Visit Division of Endocrinology in [place], [place] [address] [place] [address] Tg Mandujano P.A.-C., M.S. Prolactinoma (HCC) (Primary Dx) 05/23/2024 7:00 AM RN SOCIAL WORK Clinical Communication Virtual Review in [place], [place] [address] [place] [address] Pre-visit Intake 05/19/2024 4:00 PM RN SOCIAL WORK External Outreach Division of Nephrology and Hypertension in [place], [place] [address] [place] [phone] Walter Willis Jr., D.O. Chronic Kidney Disease (CKD), Stage 3a Glomerular Filtration Rate (GFR) 45 To 59 (HCC) (Primary Dx); Hypertensive Chronic Kidney Disease With Stage 1 Through Stage 4 Chronic Kidney Disease, Or Unspecified Chronic Kidney Disease; Diabetes Mellitus Type 2 With Diabetic Nephropathy (HCC); Anemia Of Chronic Renal Failure; Prolactinoma (HCC); Hyperparathyroidism Renal Secondary (HCC); Hyperaldosteronism (HCC); Anticoagulant Therapy; Mass Kidney; Diarrhea 05/15/2024 11:30 AM RN SOCIAL WORK - 05/15/2024 11:59 PM RN SOCIAL WORK Hospital Encounter Department of Laboratory Medicine in [address] [phone] Tg Mandujano P.A.-C., M.S. Prolactinoma (HCC) Discharge Disposition: Home or Self Care 05/12/2024 Orders Only Division of Nephrology and Hypertension in [address] [phone] External, Ordering ProviderJose 05/12/2024 Orders Only Division of Nephrology and Hypertension in [address] [phone] External, Ordering ProviderJose from Last 3 Months Immunizations Immunization Administration Dates Next Due Influenza Split 03/02/2016 [...] drink = 0.6 oz pur e alcohol) [facility] Utilities Answer Date Recorded In the past 12 months has th e electric, gas, oil, or water [employer] threatened to shut off services in your [...] How often do you attend chur or jainism services? Patient declined 09/27/2020 Do you belong to any clubs o r organizations such as lutheran groups, unions, fraternal [...] your living situation today? I have a [facility] place to live 04/29/2023 Education Answer Date Recorded What is the highest level of school you have completed or the highest degree you have received? 12th grade 12/29/2018 Sex and Gender Information Value Date Recorded Sex Assigned at Male 04/29/2023 9:28 PM RN SOCIAL WORK Legal Sex Male 5:12 PM RN SOCIAL WORK Gender Identity Male 12/24/2017 2:50 PM CDT Sexual Orientation Straight 12/24/2017 2: 50 PM CDT Last Filed Vital Signs Vital Sign Reading Time Taken Comments Blood Pressure 140/78 05/19/2024 4:00 PM RN SOCIAL WORK Pulse 47 05/19/2024 4:00 PM RN SOCIAL WORK Temperature - - Respiratory Rate 14 08/08/2016 5:05 PM CDT Vital sign result from Clinical Notes. Oxygen Saturation - - Inhaled Oxygen Concentration - - Weight 74.8 kg (164 lb 14.5 oz) 05/19/2024 4:00 PM RN SOCIAL WORK Height 172.7 cm (5' 7.99) 05/19/2024 4 :00 PM RN SOCIAL WORK Body Mass Index 25.08 05/19/2024 4:00 PM RN SOCIAL WORK Plan of Treatment Health Maintenance Due Date Last Done Comments CT Colonography 1955 Cologuard 1955 Diabetic Office Visit with Foot Exam 1955 FIT 1955 Hepatitis C Screening 1955 Hepatitis B Vaccines (1 of 3 - Risk 3-dose series) 2013 RSV vaccine - (32-36 weeks) or 60+ years (1 - Risk 60-74 years 1-dose series) 2013 Dilated Eye Exam 12/24/2018 12/24/2017, 07/2014, 02/03/2015, Additional history exists Colonoscopy 09/04/2022 09/04/2012 (Perf ormed elsewhere) Colorectal Cancer Screening 09/04/2022 Depression Screening (Annual PHQ-2) 04/02/2024 Fall Risk Screen (Annual) 04/02/2024 Lipid (Cholesterol) Screening 05/09/2024 05/09/2019, 05/09/2019, 07/07/2015, Additional history exists COVID-19 Vaccine ( season) 2024 02/04/2024, 01/29/2023, 05/20/2021, Additional history exists Office Visit for Blood Pressure Check / Re-check 08/16/2024 05/19/2024 Hemoglobin A1C 2024 05/12/2024, 02/0 09/2019, 01/27/2015 Creatinine Level (Kidney Function Test) 05/12/2025 05/12/2024, 04/19/2020, 07/12/2019, Additional history exists Potassium Level 05/12/2025 05/12/2024, 05/03, 05/16/2019, Additional history exists Sodium Level 05/12/2025 05/12/2024, 05/03, 05/16/2019, Additional history exists Urine Albumin 05/12/2025 05/12/2024 DTaP,Tdap,and Td Vaccines (3 - Td or Tdap) 01/29/2033 01/29/2023, 03/12/2012 Abdominal Aortic Aneurysm (AAA) Screen Completed 07/13/2019 Zoster Vaccines Completed 10/20/2019, 08/18/2019 Pneumococcal vaccine (50+ years) Completed 10/14/2020, 08/18/2019 Influenza Vaccine Completed 02/04/2024, , 04/28/2022, Additional history exists IPV Vaccines Aged Out No longer eligi ble based on patient's age to complete this topic Medical Devices Implanted Type Area Adapted Physical Education Teacher Device Identifier Shelf Expiration Date Model / Serial / Lot Ocular Lens Ocular Lens Left: Eye Description:Cataract surgery with left eye in Second week of January 2024 Procedures Procedure Name Priority Date/Time Associated Diagnosis Comments GI PATHOGEN PANEL, PCR, F Routine 06/02/2024 2:47 PM RN SOCIAL WORK Chronic Kidney Disease (CKD), Stage 3a Glomerular Filtration Rate (GFR) 45 To 59 (HCC) Hypertensive Chronic Kidney Disease With Stage 1 Through Stage 4 Chronic Kidney Disease, Or Unspecified Chronic Kidney Disease Diabetes Mellitus Type 2 With Diabetic Nephropathy (HCC) Anemia Of Chronic Renal Failure Prolactinoma (HCC) Hyperparathyroidism Renal Secondary (HCC) Hyperaldosteronism (HCC) Anticoagulant Therapy Mass Kidney Diarrhea FAT, F Routine 06/02/2024 2:44 PM RN SOCIAL WORK Chronic Kidney Disease (CKD), Stage 3a Glomerular Filtration Rate (GFR) 45 To 59 (HCC) Hypertensive Chronic Kidney Disease With Stage 1 Through Stage 4 Chronic Kidney Disease, Or Unspecified Chronic Kidney Disease Diabetes Mellitus Type 2 With Diabetic Nephropathy (HCC) Anemia Of Chronic Renal Failure Prolactinoma (HCC) Hyperparathyroidism Renal Secondary (HCC) Hyperaldosteronism (HCC) Anticoagulant Therapy Mass Kidney Diarrhea TESTOSTERONE,F/WKLYBD+ T LC/MS Routine 05/15/2024 11:37 AM RN SOCIAL WORK Prolactinoma (HCC) PROLACTIN, S Routine 05/15/2024 11:37 AM RN SOCIAL WORK Prolactinoma (HCC) ALBUMIN, RANDOM, U Routine 05/12/2024 8: 04 AM RN SOCIAL WORK PARATHYROID HORMONE (PTH), S Routine 05/12/2024 7:35 AM RN SOCIAL WORK FERRITIN, S Routine 05/12/2024 7:35 AM RN SOCIAL WORK C-REACTIVE PROTEIN (CRP), S/P Routine 05/12/2024 7:35 AM RN SOCIAL WORK RENAL FUNCTION PANEL, S Routine 05/12/2024 7:35 AM RN SOCIAL WORK URIC ACID, S/P Routine 05/12/2024 7:35 AM RN SOCIAL WORK CBC WITH DIFFERENTIAL, B Routine 05/12/2024 7:35 AM RN SOCIAL WORK HEMOGLOBIN A1C, B Routine 05/12/2024 7:3 5 AM RN SOCIAL WORK IRON AND TOT IRON-BINDING CAPACITY, S/P Routine 05/12/2024 7:35 AM RN SOCIAL WORK OPHTHALMOLOGY IMAGE EXAM Routine 12/24/2017 9:53 AM CDT LIPOPROTEIN METABOLISM PROF, S Routine 07/07/2015 8:14 AM CDT from Last 3 Months or Most Recently Relevant to Health Maintenance Results * GI Pathogen Panel, PCR, Feces (06/02/2024 2:47 PM RN SOCIAL WORK) Specimen Source STOOL 5:27 PM RN SOCIAL WORK DTL Campylobacter species Negative Negative 06/02/2024 5:27 PM RN SOCIAL WORK DTL C. difficile toxin Negative Negative 2024 5:27 PM RN SOCIAL WORK DTL Plesiomonas shigelloides Negative Negative 06/02/2024 5:27 PM RN SOCIAL WORK DTL Salmonella species Negative Negative 2024 5:27 PM RN SOCIAL WORK DTL Vibrio species Negative Negative 06/02/2024 5:27 PM RN SOCIAL WORK DTL Vibrio cholerae Negative Negative 5:27 PM RN SOCIAL WORK DTL Yersinia species Negative Negative 06/03/19 5:27 PM RN SOCIAL WORK DTL Enteroaggregative E. coli (EAEC) Negative Negative 06/02/2024 5:27 PM RN SOCIAL WORK DTL Enteropathogenic E. coli (EPEC) Negative Negative 06/02/2024 5:27 PM RN SOCIAL WORK DTL Enterotoxigenic E. coli (ETEC) Negative Negative 06/02/2024 5:27 PM RN SOCIAL WORK DTL Shiga toxin producing E. coli Negative Negative 06/02/2024 5:27 PM RN SOCIAL WORK DTL Shigella/Enteroinvas lynsey E. coli Negative Negative 06/02/2024 5:27 PM RN SOCIAL WORK DTL Cryptosporidium species Negative Negative 06/02/2024 5:27 PM RN SOCIAL WORK DTL Cyclospora cayetanensis Negative Negative 06/02/2024 5:27 PM RN SOCIAL WORK DTL Entamoeba histolytica Negative Negative 06/02/2024 5:27 PM RN SOCIAL WORK DTL Giardia Negative Negative 06/02/2024 5:27 PM RN SOCIAL WORK DTL Adenovirus F40/41 Negative Negative 025 5:27 PM RN SOCIAL WORK DTL Astrovirus Negative Negative 06/02/2024 5:27 PM RN SOCIAL WORK DTL Norovirus GI/GII Negative Negative 06/03/19 25 5:27 PM RN SOCIAL WORK DTL Rotavirus Ag, F Negative Negative 5:27 PM RN SOCIAL WORK DTL Sapovirus Negative Negative 06/02/2024 5:27 PM RN SOCIAL WORK DTL Comment: ----ADDITIONAL INFORMATION---- This assay is performed using the FDA-cleared [employer] Company[employer] GI Panel ([employer] Stool (Stool) 06/02/2024 2:4 7 PM RN SOCIAL WORK 06/02/2024 3:17 PM RN SOCIAL WORK us Walter Willis Jr., D.O. LAB MICROBIOLOGY - G ENERAL ORDERABLES Final Result [facility] - [facility] [address] [place] [address], [facility] DT 200 [facility] [address] [place] [address] * (ABNORMAL) Fat, Feces (06/02/2024 2:44 PM RN SOCIAL WORK) Total Weight 428 g 06/03/2024 9:48 AM RN SOCIAL WORK DTL Duration 24 h 06/02/2024 2:46 PM RN SOCIAL WORK DTL Comment: More reliable results can be obtained from a 48 or 72 hour collection. Total Fat/24 Hr 19(H) 2 - 7 g/24 h 06/03/2024 1:30 PM RN SOCIAL WORK DTL Comment: ----ADDITIONAL INFORMATION---- This test was developed and its performance characteristics determined by [facility] in a manner consistent with CLIA requirements. This test has not been cleared or approved by the U.S. Food and Drug Administration. Stool (Stool) 06/02/2024 2:4 4 PM RN SOCIAL WORK 06/03/2024 12:39 PM RN SOCIAL WORK us Walter Willis Jr., D.O. LAB BODY FLUIDS AND STOOLS ORDERABLES Final Result [facility] [address] [place] [address], [facility] DTL [facility] [address] [place] [address] * Testosterone, Free and Weakly Bound, With Total Testosterone, LC/MS-MS - Sent Out Lab (05/15/2024 11:37 AM RN SOCIAL WORK) Testosterone, Total, LC/MS 390.0 264.0 - 916.0 ng/dL 05/22/2024 7:07 PM RN SOCIAL WORK BURI Comment: This [facility] LC/MS-MS method is currently certified by the CDC Hormone Standardization Program (HoSt). Adult male reference interval is based on a population of healthy nonobese males (BMI <30) between 19 and 39 years old. Morgan et.al. JCEM 2017,102;2089-4449. PMID: [id number]. This test was developed and its performance characteristics determined by [employer]. It has not been cleared or approved by the Food and Drug Administration. Testost. % Free+Weakly Bound 22.2 9.0 - 46.0 % 05/22/2024 7:07 PM RN SOCIAL WORK BURI Comment: This test was developed and its performance characteristics determined by [employer]. It has not been cleared or approved by the Food and Drug Administration. Testost. F+W Bound 86.6 40.0 - 250.0 ng/dL 05/22/2024 7:07 PM RN SOCIAL WORK BURI Blood (Blood, Venous) 05/15/2024 11:37 AM RN SOCIAL WORK 05/16/2024 7:37 AM RN SOCIAL WORK us Tg Mandujano P.A.-C., M.S. LAB BLOOD NON AD D-ON Final Result [id number] [place] [id number] * (ABNORMAL) Prolactin (05/15/2024 11:37 AM RN SOCIAL WORK) Prolactin Total 27.9(H) 4.0 - 15.2 ng/mL 05/15/2024 9:22 PM RN SOCIAL WORK ECLR Comment: Biotin has been identified by the printed circuit board panels trimmer as a potential interfering substance. Higher concentrations of biotin may be found in multivitamins, hair/nail supplements, and workout supplements. If the result does not match clinical observations, repeat testing after patient refrains from the use of supplements for at least 12 hours. ----ADDITIONAL INFORMATION---- The testing method is an electrochemiluminescence assay manufactured by [employer] and performed on the Esteban system. Values obtained with different assay methods or kits may be different and cannot be used interchangeably. Test results cannot be interpreted as absolute evidence for the presence or absence of malignant disease. Blood (Blood, Venous) 05/15/2024 11:37 AM RN SOCIAL WORK 05/15/2024 8:51 PM RN SOCIAL WORK Tg Mandujano P.A.-C., M.S. LAB BLOOD ADD-ON Final Result [facility] [address] [place] [address], [facility] ECLR [facility] [place] [address] * (ABNORMAL) Albumin, Random, Urine (05/12/2024 8:04 AM RN SOCIAL WORK) EXT Creatinine, Urine 32.3 mg/dL [facility] EXT Microalbumin-R andom, U 45 mg/dL [facility] EXT Albumin/Creati nine Ratio 1,390(H) 0 - 30 [facility] 05/12/2024 8:04 AM RN SOCIAL WORK Narrative [facility] - 05/12/2024 11:43 AM RN SOCIAL WORK Source result document attached to Order Number [id number] ([id number]) dated 05/12/2024. External results verified in Extract by Flakita Guillen on 05/12/2024 at 11:41 AM. us Ordering Provider Alisa Garcia LAB URINE ORDERA BLES Final Result Performing Organization Address [facility]/ZIP Co de Phone Number [facility] [address] [place] [address] * (ABNORMAL) Renal Function Panel (05/12/2024 7:35 AM RN SOCIAL WORK) EXT Sodium 138 135 - 149 mmol/L [facility] EXT Potassium 4.1 3.6 - 5.1 mmol/L [facility] EXT Chloride 110 96 - 114 mmol/L [facility] EXT CO2 18(L) 20 - 32 mmol/L [facility] EXT Anion Gap 10 7 - 15 mEq/L [facility] EXT BUN (Blood Urea Nitrogen) 32(H) 7 - 30 mg/dL [facility] EXT Creatinine 1.8(H) 0.5 - 1.5 mg/dL [facility] EXT Estimated GFR (eGFR) 40 ML [facility] EXT Calcium, Total 9.4 8.4 - 10.6 mg/dL [facility] EXT Glucose 93 60 - 115 mg/dL [facility] EXT Albumin 4.0 3.3 - 5.0 g/dL [facility] EXT Phosphorus (Inorganic), S 3.4 2.5 - 4.5 mg/dL [facility] 05/12/2024 7:35 AM RN SOCIAL WORK Narrative [facility] - 05/12/2024 1:53 PM RN SOCIAL WORK Source result document attached to Order Number [id number] ([id number]) dated 05/12/2024. External results verified in Extract by Flakita Guillen on 05/12/2024 at 01:49 PM. us Ordering Provider Alisa Garcia LAB BLOOD ADD-ON Final Result Performing Organization Address [facility]/ZIP Co de Phone Number Bar PassT [facility] NA [facility] [address] [id number], [facility] [phone] * (ABNORMAL) Iron and Total Iron-Binding Capacity (05/12/2024 7:35 AM RN SOCIAL WORK) EXT Iron 61 49 - 181 ug/dL [facility] EXT Total Iron Binding Capacity 325 261 - 462 ug/dL [facility] EXT Percent Saturation 19(L) 20 - 50 % [facility] 05/12/2024 7:35 AM RN SOCIAL WORK Narrative [facility] - 05/12/2024 11:43 AM RN SOCIAL WORK External results verified in Extract by Flakita Guillen on 05/12/2024 at 11:41 AM. us Ordering Provider External M.D. LAB BLOOD ADD-ON Final Result Performing Organization Address City/[facility] Co de Phone Number [facility] [address] [place], [place] [id number] [place] [address] * (ABNORMAL) CBC with Differential, Blood (05/12/2024 7:35 AM RN SOCIAL WORK) [facility] EXT Leukocytes 6.06 4.50 - 11.00 K/uL [facility] EXT RBC 4.21(L) 4.30 - 5.90 m/uL [facility] EXT Hemoglobin 12.5(L) 13.5 - 17.5 gm/dL [facility] EXT Hematocrit 37.5 37.0 - 53.0 % [facility] EXT MCV 89 80 - 100 fL [facility] EXT Platelet Count 211 140 - 440 K/uL [facility] 05/12/2024 7:35 AM RN SOCIAL WORK Narrative DNA13 [facility] LOC[facility] - 05/12/2024 11:43 AM RN SOCIAL WORK Source result document attached to Order Number [id number] ([id number]) dated 05/12/2024. External results verified in Extract by Flakita Guillen on 05/12/2024 at 11:41 AM. us Ordering Provider External M.DIsauro LAB BLOOD ADD-ON Final Result Performing Organization Address [facility]/ZIP Co de Phone Number [employer] [facility] [address] [phone] * (ABNORMAL) CRP (C-Reactive Protein) (05/12/2024 7:35 AM RN SOCIAL WORK) Pathologist [facility] EXT C-Reactive Protein Quantative < 0.5(L) 0.5 - 1.0 mg/dL [facility] 05/12/2024 7:35 AM RN SOCIAL WORK [facility] - 05/12/2024 1:53 PM RN SOCIAL WORK Source result document attached to Order Number [id number] ([id number]) dated 05/12/2024. External results verified in Extract by Flakita Guillen on 05/12/2024 at 01:49 PM. us Ordering Provider External M.Chet LAB BLOOD ADD-ON Final Result Performing Organization Address [facility] de Phone Number [employer] [facility] [address] [phone] * Uric Acid (05/12/2024 7:35 AM RN SOCIAL WORK) EXT Uric Acid, S 6.0 2.2 - 8.4 mg/dL [facility] 05/12/2024 7:35 AM RN SOCIAL WORK Narrative [facility] - 05/12/2024 1:53 PM RN SOCIAL WORK External results verified in Extract by Flakita Guillen on 05/12/2024 at 01:49 PM. us Ordering Provider External M.DIsauro LAB BLOOD ADD-ON Final Result Performing Organization Address City/[facility] Co de Phone Number [facility] [address] [place] [address] * (ABNORMAL) Parathyroid Hormone (PTH) (05/12/2024 7:35 AM RN SOCIAL WORK) Parathyroid Hormone (PTH) 110.3(H) 14.2 - 75.2 pg/mL [facility] 05/12/2024 7:35 AM RN SOCIAL WORK Narrative [facility] - 05/12/2024 1:53 PM RN SOCIAL WORK Source result document attached to Order Number [id number] ([id number]) dated 05/12/2024. External results verified in Extract by Flakita Guillen on 05/12/2024 at 01:49 PM. us Ordering Provider External MVishal LAB BLOOD ADD-ON Final Result Performing Organization Address [facility]/ZIP Co de Phone Number Bar PassT [facility] [address] [place] [address] * (ABNORMAL) Hemoglobin A1c (05/12/2024 7:35 AM RN SOCIAL WORK) EXT Hemoglobin A1c, B 6.2(H) 0 - 5.6 % [facility] 05/12/2024 7:35 AM RN SOCIAL WORK Narrative Bar PassT [facility] - 05/12/2024 11:43 AM RN SOCIAL WORK Source result document attached to Order Number [id number] ([id number]) dated 05/12/2024. External results verified in Extract by Flakita Guillen on 05/12/2024 at 11:41 AM. us Ordering Provider External M.DIsauro LAB BLOOD ADD-ON Final Result Performing Organization Address City/[facility]/ZIP Co de Phone Number [employer] [facility] [address] [place] [address] * Ferritin (05/12/2024 7:35 AM RN SOCIAL WORK) EXT Ferritin, S 41.9 17.9 - 464.0 ng/mL [facility] 05/12/2024 7:35 AM RN SOCIAL WORK Narrative [facility] - 05/12/2024 1:53 PM RN SOCIAL WORK Source result document attached to Order Number [id number] ([id number]) dated 05/12/2024. External results verified in Extract by Flakita Guillen on 05/12/2024 at 01:49 PM. us Ordering Provider External M.D. LAB BLOOD ADD-ON Final Result Performing Organization Address City/[facility]/ZIP Co de Phone Number [facility] NA [facility] [address] [place] [address] * OPHTHALMOLOGY IMAGE EXAM (12/24/2017 9:53 AM CDT) 12/24/2017 12:0 0 PM CDT Narrative IIM[facility] - 12/24/2017 9:53 AM CDT This order has been created and auto-finalized to support the import of images acquired without order. The clinical documentation to support these images can be found on the encounter that produced images. us Provider Not In System IMG NON RAD IMAGING PROCE DURES Final Result Performing Organization Address [facility] Co de Phone Number I[facility]S NA * (ABNORMAL) Lipoprotein Metabolism Profile (07/07/2015 8:14 AM CDT) LDL Triglycerides 53(H) <=50 MG/DL [facility] VLDL cholesterol 24 <30 MG/DL [facility] VLDL triglycerides 151(H) <120 MG/DL [facility] Beta VLDL Cholesterol . <15 MG/DL [facility] Comment:Not Detected Beta VLDL triglycerides . <15 MG/DL [facility] Comment:Not Detected Chylomicron cholesterol . Undetectable MG/DL [facility] Comment:Not Detected LpX . Undetectable [facility] Comment:Not detected Interpretation . [facility] Comment:Mild Type IV Hyperli poproteinemia Cholesterol, Total 179 SeeComment MG/DL [facility] Comment: REFERENCE VALUE Desirable: < 200 Borderline high: 200 - 239 High: > or = 240 Triglycerides 225(H) SeeComment MG/DL [facility] Comment: REFERENCE VALUE Normal: <150 Borderline high: 150-199 High: 200-499 Very high: > or =500 Apolipoprotein B, S 102(H) SeeComment MG/DL [facility] Comment: REFERENCE VALUE Desirable: <90 Above Desirable: 90-99 Borderline high: 100-119 High: 120-139 Very high: > or = 140 LDL Cholesterol 91 SeeComment MG/DL [facility] Comment: REFERENCE VALUE Desirable: <100 Above Desirable: 100-129 Borderline high: 130-159 High: 160-189 Very high: > or =190 Chylomicron triglycerides . Undetectable MG/DL [facility] Comment:Not Detected Lp(a) Cholesterol 25(H) <3 MG/DL [facility] Comment: Increased Lipoprotein (a) cholesterol. Increased Lp(a) cholesterol has been associated with increased risk for the development of atherothrombotic disease. Evidence suggests that aggressive LDL reduction is beneficial in patients with increased Lp(a). Niacin may lower Lp(a)by up to 25-30%, and niacin has been established as beneficial for CHD prevention, though not specifically because of Lp(a) lowering. Niacin tolerability as well as potential adverse effects on glucose and insulin sensitivity should be considered when selecting candidates for niacin therapy. HDL Cholesterol, CDC, S 39(L) >=40 MG/DL [facility] 07/07/2015 8:14 AM CDT 07/07/2015 8:14 AM CDT us Lindsey Ragland M.D. LAB BLOOD ADD-ON Tiffani l Result [facility] [address] [place], [place] [id number] from Last 3 Months or Most Recently Relevant to Health Maintenance Insurance [facility]
--- OUTSIDE RECORDS SUMMARY | 2024-06-25 09:48 | XMS_ITS | Encounter Summary ---
Author Organization [facility] Address [address] [place] [address] Care Team Providers Care Afterschool Name Role Phone Unavailable Primary Care Provider Unavailabl e Encounter Details Date Type Department Care Team (Latest Contact Info) Description 05/30/2024 11:00 AM CERTIFIED NURSING ASSISTANT - 05/30/2024 11:59 PM [facility] Hospital Encounter Department of Laboratory Medicine and Pathology, [facility], in [place], [place] [address] [place] [address] Walter Willis Jr., D.O. [address] [place] [address] Chronic Kidney Disease (CKD), Stage 3a Glomerular [...] Diarrhea Discharge Disposition: Home or Self Care Social History Tobacco Use Types Packs/Day Years Used Date Smoking Tobacco: Former Cigarettes 0.3 6 0 04/03/1979 - 04/02/1985 Smokeless Tobacco: Never Alcohol Use Standard Drinks/Week Comments Yes 2 (1 standard drink = 0.6 oz pur e alcohol) [facility] Utilities Answer Date Recorded In the [...] How often do you attend chur or scientologist services? Patient declined 09/27/2020 Do you belong to any clubs o r organizations such as catholic groups, unions, fraternal or athletic groups, [...] and heating? Not hard at all 09/27/2020 [facility] of Occupat ional Health - Occupational Stress [...] your living situation today? I have a [facility] place to live 04/29/2023 Education Answer Date Recorded What is the highest level of school you have completed or the highest degree you have received? 12th grade 12/29/2018 Sex and Gender Information Value Date Recorded Sex Assigned at Male 04/29/2023 9:28 PM CERTIFIED NURSING ASSISTANT Legal Sex Male 5:12 PM CERTIFIED NURSING ASSISTANT Gender Identity Male 12/24/2017 2:50 PM CDT Sexual Orientation Straight 12/24/2017 2: 50 PM CDT documented as of this encounter Medications at Time of Discharge allopurinoL (ZYLOPRIM) 100 mg tablet Take 1 tablet (100 mg total) by mouth daily. 90 tablet 3 09/17/2023 5 amLODIPine (Norvasc) 5 mg tablet Take 1 tablet (5 mg total) by mouth daily. 90 tablet 3 05/19/2024 6 atorvastatin (Lipitor) 40 mg tablet Take 1 tablet (40 mg total) by mouth daily. 90 tablet 3 01/01/2024 5 cabergoline (Dostinex) 0.5 mg tabletIndication s:Prolactinoma (HCC) Take 1.5 tablets (0.75 mg total) by mouth 2 (two) times a week. 36 tablet 3 05/26/2024 carvediloL (COREG) 12.5 mg tablet Take 12.5 mg by mouth 2 (two) times a day with meals. 07/14/2020 chlorthalidone (HYGROTEN) 25 mg tablet Take 1 tablet by mouth daily. If SBP > 130 02/19/2017 eplerenone (INSPRA) 25 mg tablet TAKE 1 TABLET(25 MG) BY MOUTH DAILY 90 tablet 3 09/13/2023 eplerenone (Inspra) 25 mg tablet Take 1 tablet by mouth daily. 09/13/2023 losartan (COZAAR) 100 mg tablet Take 1 tablet by mouth daily. 01/27/2015 metFORMIN (GLUCOPHAGE) 850 mg tablet Take 850 mg by mouth 2 (two) times a day with meals. 04/20/2019 vitamins A,C,M-pznq-zeshw r (ICaps AREDS) 14,320 Units-226 mg-200 Units per capsule Take 1 capsule by mouth daily. Two Chewables daily warfarin (COUMADIN) 4 mg tablet Take 1 tablet by mouth daily. 0 12/25/2018 documented as of this encounter Plan of Treatment Not on file documented as of this encounter Procedures Procedure Name Priority Date/Time Associated Diagnosis Comments GI PATHOGEN PANEL, PCR, F Routine 06/02/2024 2:47 PM CERTIFIED NURSING ASSISTANT Chronic Kidney Disease (CKD), Stage 3a Glomerular [...] Diarrhea FAT, F Routine 06/02/2024 2:44 PM CERTIFIED NURSING ASSISTANT Chronic Kidney Disease (CKD), Stage 3a Glomerular Filtration Rate (GFR) 45 To 59 (HCC) Hypertensive Chronic Kidney Disease With Stage 1 Through Stage 4 Chronic Kidney Disease, Or Unspecified Chronic Kidney Disease Diabetes Mellitus Type 2 With Diabetic Nephropathy (HCC) Anemia Of Chronic Renal Failure Prolactinoma (HCC) Hyperparathyroidism Renal Secondary (HCC) Hyperaldosteronism (HCC) Anticoagulant Therapy Mass Kidney Diarrhea documented in this encounter Results * GI Pathogen Panel, PCR, Feces (06/02/2024 2:47 PM CERTIFIED NURSING ASSISTANT) Specimen Source STOOL 5:27 PM CERTIFIED NURSING ASSISTANT DTL Campylobacter species Negative Negative 06/02/2024 5:27 PM CERTIFIED NURSING ASSISTANT DTL C. difficile toxin Negative Negative 2024 5:27 PM CERTIFIED NURSING ASSISTANT DTL Plesiomonas shigelloides Negative Negative 06/02/2024 5:27 PM CERTIFIED NURSING ASSISTANT DTL Salmonella species Negative Negative 2024 5:27 PM CERTIFIED NURSING ASSISTANT DTL Vibrio species Negative Negative 06/02/2024 5:27 PM CERTIFIED NURSING ASSISTANT DTL Vibrio cholerae Negative Negative 5:27 PM CERTIFIED NURSING ASSISTANT DTL Yersinia species Negative Negative 06/03/19 5:27 PM CERTIFIED NURSING ASSISTANT DTL Enteroaggregative E. coli (EAEC) Negative Negative 06/02/2024 5:27 PM CERTIFIED NURSING ASSISTANT DTL Enteropathogenic E. coli (EPEC) Negative Negative 06/02/2024 5:27 PM CERTIFIED NURSING ASSISTANT DTL Enterotoxigenic E. coli (ETEC) Negative Negative 06/02/2024 5:27 PM CERTIFIED NURSING ASSISTANT DTL Shiga toxin producing E. coli Negative Negative 06/02/2024 5:27 PM CERTIFIED NURSING ASSISTANT DTL Shigella/Enteroinvas lynsey E. coli Negative Negative 06/02/2024 5:27 PM CERTIFIED NURSING ASSISTANT DTL Cryptosporidium species Negative Negative 06/02/2024 5:27 PM CERTIFIED NURSING ASSISTANT DTL Cyclospora cayetanensis Negative Negative 06/02/2024 5:27 PM CERTIFIED NURSING ASSISTANT DTL Entamoeba histolytica Negative Negative 06/02/2024 5:27 PM CERTIFIED NURSING ASSISTANT DTL Giardia Negative Negative 06/02/2024 5:27 PM CERTIFIED NURSING ASSISTANT DTL Adenovirus F40/41 Negative Negative 025 5:27 PM CERTIFIED NURSING ASSISTANT DTL Astrovirus Negative Negative 06/02/2024 5:27 PM CERTIFIED NURSING ASSISTANT DTL Norovirus GI/GII Negative Negative 06/03/19 25 5:27 PM CERTIFIED NURSING ASSISTANT DTL Rotavirus Ag, F Negative Negative 5:27 PM CERTIFIED NURSING ASSISTANT DTL Sapovirus Negative Negative 06/02/2024 5:27 PM CERTIFIED NURSING ASSISTANT DTL Comment: ----ADDITIONAL INFORMATION---- This assay is performed using the FDA-cleared FilmArray GI Panel ([employer] [employer] Stool (Stool) 06/02/2024 2:4 7 PM CERTIFIED NURSING ASSISTANT 06/02/2024 3:17 PM CERTIFIED NURSING ASSISTANT Walter Willis Jr., D.O. LAB MICROBIOLOGY - G ENERAL ORDERABLES Final Result Performing Organization Address [facility] de Phone Number [facility] [address] [place] [address], [facility] [address] [address] * (ABNORMAL) Fat, Feces (06/02/2024 2:44 PM CERTIFIED NURSING ASSISTANT) Total Weight 428 g 06/03/2024 9:48 AM CERTIFIED NURSING ASSISTANT DTL Duration 24 h 06/02/2024 2:46 PM CERTIFIED NURSING ASSISTANT DTL Comment: More reliable results can be obtained from a 48 or 72 hour collection. Total Fat/24 Hr 19(H) 2 - 7 g/24 h 06/03/2024 1:30 PM CERTIFIED NURSING ASSISTANT DTL Comment: ----ADDITIONAL INFORMATION---- This test was developed and its performance characteristics determined by [facility] in a manner consistent with CLIA requirements. This test has not been cleared or approved by the U.S. Food and Drug Administration. Stool (Stool) 06/02/2024 2:4 4 PM CERTIFIED NURSING ASSISTANT 06/03/2024 12:39 PM CERTIFIED NURSING ASSISTANT us Tiara Zaldivar Jr..OIsauro LAB BODY FLUIDS AND STOOLS ORDERABLES Final Result Performing Organization Address [facility] Co de Phone Number [facility] [address] [place] [address], [facility] [address] [address] documented in this encounter Visit Diagnoses Diagnosis [...]
--- OUTSIDE RECORDS SUMMARY | 2024-06-25 09:48 | XMS_ITS | Encounter Summary ---
Author Organization [facility] Address [address] [place] [address] Care Team Providers Care Medical Claims Examiner Name Role Phone Unavailable Primary Care Provider Unavailabl e Encounter Details Date Type Department Care Team (Latest Contact Info) Description 05/15/2024 11:30 AM WARP CHANGER - 05/15/2024 11:59 PM [facility] Hospital Encounter Department of Laboratory Medicine in [address] [phone] Tg Mandujano P.A.-C., M.S. [address] [place] [phone] Prolactinoma (HCC) Discharge Disposition: Home or Self Care Social History Tobacco Use Types Packs/Day Years Used Date Smoking Tobacco: Former Cigarettes 0.3 6 0 04/03/1979 - 04/02/1985 Smokeless Tobacco: Never Alcohol Use Standard Drinks/Week Comments Yes 2 (1 standard drink = 0.6 oz pur e alcohol) [facility] Utilities Answer Date Recorded In the [...] How often do you attend chur or episcopal services? Patient declined 09/27/2020 Do you belong [...] and heating? Not hard at all 09/27/2020 [facility] of Occupat ional Health - [...] your living situation today? I have a [facility] place to live 04/29/2023 Education Answer Date Recorded What is the highest level of school you have completed or the highest degree you have received? 12th grade 12/29/2018 Sex and Gender Information Value Date Recorded Sex Assigned at Male 04/29/2023 9:28 PM WARP CHANGER Legal Sex Male 5:12 PM WARP CHANGER Gender Identity Male 12/24/2017 2:50 PM CDT Sexual Orientation Straight 12/24/2017 2: 50 PM CDT documented as of this encounter Medications at Time of Discharge allopurinoL (ZYLOPRIM) 100 mg tablet Take 1 tablet (100 mg total) by mouth daily. 90 tablet 3 09/17/2023 09/16/2024 amLODIPine (NORVASC) 2.5 mg tablet Take 1 tablet (2.5 mg total) by mouth daily. 90 tablet 3 02/08/2021 atorvastatin (Lipitor) 40 mg tablet Take 1 tablet (40 mg total) by mouth daily. 90 tablet 3 01/01/2024 12/31/2024 carvediloL (COREG) 12.5 mg tablet Take 12.5 [...] (two) times a day with meals. 04/20/2019 warfarin (COUMADIN) 4 mg tablet Take 1 tablet by mouth daily. 0 12/25/2018 amLODIPine (NORVASC) 5 mg tablet Take 1 tablet (5 mg total) by mouth daily. 90 tablet 3 02/08/2021 05/19/2024 cabergoline (DOSTINEX) 0.5 mg tabletIndications :Prolactinoma (HCC) Take 1.5 tablets (0.75 mg total) by mouth 2 (two) times a week. 36 tablet 3 05/03/2023 05/23/2024 documented as of this encounter Plan of Treatment Not on file documented as of this encounter Procedures Procedure Name Priority Date/Time Associated Diagnosis Comments TESTOSTERONE,F/WKLY BD+T LC/MS Routine 05/15/2024 11:37 AM WARP CHANGER Prolactinoma (HCC) PROLACTIN, S Routine 05/15/2024 11:37 AM WARP CHANGER Prolactinoma (HCC) documented in this encounter Results * Testosterone, Free and Weakly Bound, With Total Testosterone, LC/MS-MS - Sent Out Lab (05/15/2024 11:37 AM WARP CHANGER) Testosterone, Total, LC/MS 390.0 264.0 - 916.0 ng/dL 05/22/2024 7:07 PM WARP CHANGER JOANNEI Comment: This [facility] LC/MS-MS method is currently certified by the CDC Hormone Standardization Program (HoSt). Adult male reference interval is based on a population of healthy nonobese males (BMI <30) between 19 and 39 years old. alexandra Mora.al. JCEM 2017,102;5009-5750. PMID: [id number]. This test was developed and its performance characteristics determined by [facility]. It has not been cleared or approved by the Food and Drug Administration. Testost. % Free+Weakly Bound 22.2 9.0 - 46.0 % 05/22/2024 7:07 PM WARP CHANGER BURI Comment: This test was developed and its performance characteristics determined by [facility]. It has not been cleared or approved by the Food and Drug Administration. Testost. F+W Bound 86.6 40.0 - 250.0 ng/dL 05/22/2024 7:07 PM WARP CHANGER BURI Blood (Blood, Venous) 05/15/2024 11:37 AM WARP CHANGER 05/16/2024 7:37 AM WARP CHANGER Tg Mandujano P.A.-C., M.S. LAB BLOOD NON AD D-ON Final Result Performing Organization Address [facility] [place] [address], [facility] [place] [address] * (ABNORMAL) Prolactin (05/15/2024 11:37 AM WARP CHANGER) Pathologist [facility] Prolactin Total 27.9(H) 4.0 - 15.2 ng/mL 05/15/2024 9:22 PM WARP CHANGER ECLR Comment: Biotin has been identified by the investigator as a potential interfering substance. Higher concentrations [...] disease. Blood (Blood, Venous) 05/15/2024 11:37 AM WARP CHANGER 05/15/2024 8:51 PM WARP CHANGER Tg Mandujano P.A.-C., M.S. LAB BLOOD ADD-ON Final Result Performing Organization Address City/[facility]/ZIP Co de Phone Number [facility] [address] [place] [address], [facility] ECLR [facility] in [place] [id number] [place] [address] documented in this encounter Visit Diagnoses Diagnosis Prolactinoma (HCC) documented in this encounter
--- OUTSIDE RECORDS SUMMARY | 2024-06-25 09:48 | XMS_ITS | Encounter Summary ---
Author Organization [facility] Address [address] [place] [address] Care Team Providers Care Quality Assurance Coordinator Name Role Phone Unavailable Primary Care Provider Unavailabl e Reason for Visit * Reason Onset Date Comments Pre-visit Intake 05/23/2024 * Appointment Request (Routine) - Authorized Specialty Diagnoses / Procedures Referred By Bina alberto Referred To Contact Endocrinology Referral ID Status Reason Start Date Expiration Date V isits Requested Visits Authorized [id number] Authorized 05/15/2024 08/15/2025 1 1 Encounter Details Date Type Department Care Team (Latest Contact Info) Description 05/23/2024 7:00 AM INSPECTOR AND CLERK Clinical Communication Virtual Review in [address] [phone] Pre-visit Intake Social History Tobacco Use Types Packs/Day Years Used Date Smoking Tobacco: Former Cigarettes 0.3 6 0 04/03/1979 - 04/02/1985 Smokeless Tobacco: Never Alcohol Use Standard Drinks/Week Comments Yes 2 (1 standard drink = 0.6 oz pur e alcohol) [facility] Utilities Answer Date Recorded In the [...] any clubs o r organizations such as buddhist groups, unions, fraternal or athletic groups, or [...] and heating? Not hard at all 09/27/2020 [facility] of Occupat ional Health - Occupational [...] your living situation today? I have a [facility] place to live 04/29/2023 Education Answer Date Recorded What is the highest level of school you have completed or the highest degree you have received? 12th grade 12/29/2018 Sex and Gender Information Value Date Recorded Sex Assigned at Male 04/29/2023 9:28 PM INSPECTOR AND CLERK Legal Sex Male 5:12 PM INSPECTOR AND CLERK Gender Identity Male 12/24/2017 2:50 PM CDT Sexual Orientation Straight 12/24/2017 2: 50 PM CDT documented as of this encounter Plan of Treatment Not on file documented as of this encounter Visit Diagnoses Not on filedocumented in this encounter
--- OUTSIDE RECORDS SUMMARY | 2024-06-25 09:48 | XMS_ITS | Encounter Summary ---
Author Organization [facility] Address [address] [place] [address] Care Team Providers Care Customer Support Advisor Name Role Phone Unavailable Primary Care Provider Unavailabl e Reason for Referral * Outpatient (Routine) - Authorized Specialty Diagnoses / Procedures Referred By Contact Referred To Contact Gastroenterology and Hepatology Diagnoses Chronic Kidney Disease (CKD), Stage 3a Glomerular Filtration Rate (GFR) 45 To 59 (HCC) Diarrhea Prolactinoma (HCC) Hypertensive Chronic Kidney Disease With Stage 1 Through Stage 4 Chronic Kidney Disease, Or Unspecified Chronic Kidney Disease Hyperaldosteronism (HCC) Walter Willis Jr., D.O. [address] [place] [address] Phone: tel: fax: [facility] Referral ID Status Reason Start Date Expiration Date Visits Requested Visits Authorized [id number] Authorized Specialty Services Required 06/18/2024 12/18/2025 1 1 Scheduling Instructions GIH consult should be scheduled after all testing Encounter Details Date Type Department Care Team (Late st Contact Info) Description 06/18/2024 Orders Only Division of Nephrology and Hypertension in [place], [place] [address] [place] [address] Walter Willis Jr., D.O. [address] [place] [address] Chronic Kidney Disease (CKD), Stage 3a Glomerular Filtration Rate (GFR) 45 To 59 (HCC) (Primary Dx); Diarrhea; Prolactinoma (HCC); Hypertensive Chronic Kidney Disease With Stage 1 Through Stage 4 Chronic Kidney Disease, Or Unspecified Chronic Kidney Disease; Hyperaldosteronism (HCC) Social History Tobacco Use Types Packs/Day Years Used Date Smoking Tobacco: Former Cigarettes 0.3 6 0 04/03/1979 - 04/02/1985 Smokeless Tobacco: Never Alcohol Use Standard Drinks/Week Comments Yes 2 (1 standard drink = 0.6 oz pur e alcohol) [facility] Utilities Answer Date Recorded In the past 12 months has [employer] electric, gas, oil, or water company threatened [...] How often do you attend chur or nondenominational services? Patient declined 09/27/2020 Do you belong to any clubs o r organizations such as gnosticism groups, unions, fraternal or athletic groups, or [...] and heating? Not hard at all 09/27/2020 [facility] of Occupat ional Health - Occupational Stress [...] Assigned at Male 04/29/2023 9:28 PM MANAGER USER INTERFACE Legal Sex Male 5:12 PM MANAGER USER INTERFACE Gender Identity Male 12/24/2017 2:50 PM CDT Sexual Orientation Straight 12/24/2017 2: 50 PM CDT documented as of this encounter Plan of Treatment Scheduled Referrals Name Type Priority Associated Diagnoses Orde r Schedule Gastroenterology and Hepatology - General gastroenterology consult (clinic) Outpatient Referral Routine Chronic Kidney Disease (CKD), Stage 3a Glomerular Filtration Rate (GFR) 45 To 59 (HCC) Diarrhea Prolactinoma (HCC) Hypertensive Chronic Kidney Disease With Stage 1 Through Stage 4 Chronic Kidney Disease, Or Unspecified Chronic Kidney Disease Hyperaldosteronism (HCC) Expected: 06/18/2024, Expires: 09/18/2025 documented as of this encounter Visit Diagnoses Diagnosis Chronic Kidney Disease (CKD), Stage 3a Glomerular Filtration Rate (GFR) 45 To 59 (HCC)- Primary Diarrhea Prolactinoma (HCC) Hypertensive Chronic Kidney Disease With Stage 1 Through Stage 4 Chronic Kidney Disease, Or Unspecified Chronic Kidney Disease Hyperaldosteronism (HCC) documented in this encounter
--- OUTSIDE RECORDS SUMMARY | 2024-06-25 09:48 | XMS_ITS | Encounter Summary ---
Author Organization [facility] Address [address] [place] [address] Care Team Providers Care Glass Installer Name Role Phone Unavailable Primary Care Provider Unavailabl e Reason for Referral * MRI/CAT/PET Scan (Routine) - Authorized Specialty Diagnoses / Procedures Referred By Bina t Referred To Contact Radiology Diagnoses Chronic Kidney Disease (CKD), Stage 3a Glomerular Filtration Rate (GFR) 45 To 59 (HCC) Diabetes Mellitus Type 2 With Diabetic Nephropathy (HCC) Mass Kid[facility] Procedures CT Abdomen Pelvis without and with IV Contrast Walter Willis Jr., D.O. [address] [place] [address] Phone: tel: fax: [facility] Referral ID Status Reason Start Date Expiration Date V isits Requested Visits Authorized [id number] Authorized 06/15/2024 09/15/2025 1 1 * Outpatient (Routine) - Authorized Specialty Diagnoses / Procedures Referred By Contac t Referred To Contact Diagnoses Chronic Kidney Disease (CKD), Stage 3a Glomerular Filtration Rate (GFR) 45 To 59 (HCC) Diabetes Mellitus Type 2 With Diabetic Nephropathy (HCC) [facility] Kidney Procedures DX Chest AP or PA and Lateral 2 Views Walter Willis Jr., D.O. [address] [place] [address] Phone: tel: fax: [facility] Referral ID Status Reason Start Date Expiration Date V isits Requested Visits Authorized [id number] Authorized 06/15/2024 09/15/2025 1 1 * Outpatient (Routine) - Authorized Specialty Diagnoses / Procedures Referred By Bina t Referred To Contact Urology Diagnoses Chronic Kidney Disease (CKD), Stage 3a Glomerular Filtration Rate (GFR) 45 To 59 (HCC) Diabetes Mellitus Type 2 With Diabetic Nephropathy (HCC) Mass Kidney Walter Willis Jr., D.O. [address] [place] [address] Phone: tel: fax: [facility] Referral ID Status Reason Start Date Expiration Date V isits Requested Visits Authorized [id number] Authorized 06/15/2024 12/15/2025 1 1 Encounter Details Date Type Department Care Team (Late st Contact Info) Description 06/15/2024 Orders Only Division of Nephrology and Hypertension in [place], [place] [address] [place] [phone] Walter Willis Jr., D.O. [address] [place] [phone] Chronic Kidney Disease (CKD), Stage 3a Glomerular Filtration Rate (GFR) 45 To 59 (HCC) (Primary Dx); Diabetes Mellitus Type 2 With Diabetic Nephropathy (HCC); Mass Kidney Social History Tobacco Use Types Packs/Day Years Used Date Smoking Tobacco: Former Cigarettes 0.3 6 0 04/03/1979 - 04/02/1985 Smokeless Tobacco: Never Alcohol Use Standard Drinks/Week Comments Yes 2 (1 standard drink = 0.6 oz pur e alcohol) [facility] Utilities Answer Date Recorded In the past 12 months has th e giddy, gas, oil, or water [employer] threatened to shut off services in your [...] How often do you attend chur or rastafarian services? Patient declined 09/27/2020 Do you belong to any clubs o r organizations such as jewish groups, unions, fraternal [...] and heating? Not hard at all 09/27/2020 [facility] - Occupational [...] your living situation today? I have a [facility] place to live 04/29/2023 Education Answer Date Recorded What is the highest level of school you have completed or the highest degree you have received? 12th grade 12/29/2018 Sex and Gender Information Value Date Recorded Sex Assigned at Male 04/29/2023 9:28 PM PARTNER Legal Sex Male 5:12 PM PARTNER Gender Identity Male 12/24/2017 2:50 PM CDT Sexual Orientation Straight 12/24/2017 2: 50 PM CDT documented as of this encounter Plan of Treatment Scheduled Orders Name Type Priority Associated Diagnoses Orde r Schedule Alkaline Phosphatase Lab Routine Chronic Kidney Disease (CKD), Stage 3a Glomerular Filtration Rate (GFR) 45 To 59 (HCC) Diabetes Mellitus Type 2 With Diabetic Nephropathy (HCC) [facility] Kidney Expected: 06/16/2024, Expires: 09/15/2025 ALT (Alanine Aminotransferase) Lab Routine Chronic Kidney Disease (CKD), Stage 3a Glomerular Filtration Rate (GFR) 45 To 59 (HCC) Diabetes Mellitus Type 2 With Diabetic Nephropathy (HCC) Mass Kidney Expected: 06/16/2024, Expires: 09/15/2025 AST (Aspartate Aminotransferase) Lab Routine Chronic Kidney Disease (CKD), Stage 3a Glomerular Filtration Rate (GFR) 45 To 59 (HCC) Diabetes Mellitus Type 2 With Diabetic Nephropathy (HCC) Mass Kidney Expected: 06/16/2024, Expires: 09/15/2025 CBC without Differential Lab Routine Chronic Kidney Disease (CKD), Stage 3a Glomerular Filtration Rate (GFR) 45 To 59 (HCC) Diabetes Mellitus Type 2 With Diabetic Nephropathy (HCC) Mass Kidney Expected: 06/16/2024, Expires: 09/15/2025 Bicarbonate Lab Routine Chronic Kidney Disease (CKD), Stage 3a Glomerular Filtration Rate (GFR) 45 To 59 (HCC) Diabetes Mellitus Type 2 With Diabetic Nephropathy (HCC) Mass Kidney Expected: 06/16/2024, Expires: 09/15/2025 BUN (Blood Urea Nitrogen) Lab Routine Chronic Kidney Disease (CKD), Stage 3a Glomerular Filtration Rate (GFR) 45 To 59 (HCC) Diabetes Mellitus Type 2 With Diabetic Nephropathy (HCC) Mass Kidney Expected: 06/16/2024, Expires: 09/15/2025 Calcium, Total Lab Routine Chronic Kidney Disease (CKD), Stage 3a Glomerular Filtration Rate (GFR) 45 To 59 (HCC) Diabetes Mellitus Type 2 With Diabetic Nephropathy (HCC) [facility] Kidney Expected: 06/16/2024, Expires: 09/15/2025 Chloride Lab Routine Chronic Kidney Disease (CKD), Stage 3a Glomerular Filtration Rate (GFR) 45 To 59 (HCC) Diabetes Mellitus Type 2 With Diabetic Nephropathy (HCC) [facility] Kidney Expected: 06/16/2024, Expires: 09/15/2025 Creatinine with Estimated GFR Lab Routine Chronic Kidney Disease (CKD), Stage 3a Glomerular Filtration Rate (GFR) 45 To 59 (HCC) Diabetes Mellitus Type 2 With Diabetic Nephropathy (HCC) [facility] Kidney Expected: 06/16/2024, Expires: 09/15/2025 Potassium Lab Routine Chronic Kidney Disease (CKD), Stage 3a Glomerular Filtration Rate (GFR) 45 To 59 (HCC) Diabetes Mellitus Type 2 With Diabetic Nephropathy (HCC) Mass Kidney Expected: 06/16/2024, Expires: 09/15/2025 Sodium Lab Routine Chronic Kidney Disease (CKD), Stage 3a Glomerular Filtration Rate (GFR) 45 To 59 (HCC) Diabetes Mellitus Type 2 With Diabetic Nephropathy (HCC) Mass Kidney Expected: 06/16/2024, Expires: 09/15/2025 Urinalysis, with Microscopic: Urine, Midstream Lab Routine Chronic Kidney Disease (CKD), Stage 3a Glomerular Filtration Rate (GFR) 45 To 59 (HCC) Diabetes Mellitus Type 2 With Diabetic Nephropathy (HCC) Mass Kidney Expected: 06/16/2024, Expires: 09/15/2025 DX Chest AP or PA and Lateral 2 Views Imaging RAD - Routine (most inpatients and all outpatients) Chronic Kidney Disease (CKD), Stage 3a Glomerular Filtration Rate (GFR) 45 To 59 (HCC) Diabetes Mellitus Type 2 With Diabetic Nephropathy (HCC) Mass Kidney Expected: 06/16/2024, Expires: 09/15/2025 CT Abdomen Pelvis without and with IV Contrast Imaging RAD - Routine (most inpatients and all outpatients) Chronic Kidney Disease (CKD), Stage 3a Glomerular Filtration Rate (GFR) 45 To 59 (HCC) Diabetes Mellitus Type 2 With Diabetic Nephropathy (HCC) Mass Kidney Expected: 06/16/2024, Expires: 09/15/2025 Scheduled Referrals Name Type Priority Associated Diagnoses Orde r Schedule Urology - Oncology - kidney / ureter consult (clinic) Outpatient Referral Routine Chronic Kidney Disease (CKD), Stage 3a Glomerular Filtration Rate (GFR) 45 To 59 (HCC) Diabetes Mellitus Type 2 With Diabetic Nephropathy (HCC) Mass Kidney Expected: 06/16/2024, Expires: 09/15/2025 documented as of this encounter Visit Diagnoses Diagnosis Chronic Kidney Disease (CKD), Stage 3a Glomerular Filtration Rate (GFR) 45 To 59 (HCC)- Primary Diabetes Mellitus Type 2 With Diabetic Nephropathy (HCC) [facility] Kidney documented in this encounter
--- OUTSIDE RECORDS SUMMARY | 2024-06-25 09:48 | XMS_ITS | Encounter Summary ---
Author Organization [facility] Address [address] [place] [address] Care Team Providers Care Visiting Teacher Name Role Phone Unavailable Primary Care Provider Unavailabl e Encounter Details Date Type Department Care Team (Late st Contact Info) Description 05/12/2024 Orders Only Division of Nephrology and Hypertension in [place], [place] [address] [place] [address] External, Ordering ProviderJose Social History Tobacco Use Types Packs/Day Years Used Date Smoking Tobacco: Former Cigarettes 0.3 6 0 04/03/1979 - 04/02/1985 Smokeless Tobacco: Never Alcohol Use Standard Drinks/Week Comments Yes 2 (1 standard drink = 0.6 oz pur e alcohol) [facility] Utilities Answer Date Recorded In the past 12 months has [employer] electric, gas, oil, or water company threatened [...] week 09/27/2020 How often do you attend [facility] or anabaptist services? Patient declined 09/27/2020 Do [...] and heating? Not hard at all 09/27/2020 [facility] - [...] your living situation today? I have a [facility] place to live 04/29/2023 Education Answer Date Recorded What is the highest level of school you have completed or the highest degree you have received? 12th grade 12/29/2018 Sex and Gender Information Value Date Recorded Sex Assigned at Male 04/29/2023 9:28 PM COTTON CONVERTER Legal Sex Male 5:12 PM COTTON CONVERTER Gender Identity Male 12/24/2017 2:50 PM CDT Sexual Orientation Straight 12/24/2017 2: 50 PM CDT documented as of this encounter Plan of Treatment Not on file documented as of this encounter Procedures Procedure Name Priority Date/Time Associated Diagnosis Comments RENAL FUNCTION PANEL, S Routine 05/12/2024 7:35 AM COTTON CONVERTER C-REACTIVE PROTEIN (CRP), S/P Routine 05/12/2024 7:35 AM COTTON CONVERTER URIC ACID, S/P Routine 05/12/2024 7:35 AM COTTON CONVERTER PARATHYROID HORMONE (PTH), S Routine 05/12/2024 7:35 AM COTTON CONVERTER FERRITIN, S Routine 05/12/2024 7:35 AM COTTON CONVERTER documented in this encounter Results * (ABNORMAL) Parathyroid Hormone (PTH) (05/12/2024 7:35 AM COTTON CONVERTER) Parathyroid Hormone (PTH) 110.3(H) 14.2 - 75.2 pg/mL [facility] 05/12/2024 7:35 AM COTTON CONVERTER Narrative [facility] - 05/12/2024 1:53 PM COTTON CONVERTER Source result document attached to Order Number [id number] ([id number]) dated 05/12/2024. External results verified in Extract by Flakita Guillen on 05/12/2024 at 01:49 PM. us Ordering Provider External Jose LAB BLOOD ADD-ON Final Result Performing Organization Address [facility] Phone Number [facility] [address] [phone] * Ferritin (05/12/2024 7:35 AM COTTON CONVERTER) [facility] EXT Ferritin, S 41.9 17.9 - 464.0 ng/mL [facility] 05/12/2024 7:35 AM COTTON CONVERTER Narrative [facility] - 05/12/2024 1:53 PM COTTON CONVERTER Source result document attached to Order Number [id number] ([id number]) dated 05/12/2024. External results verified in Extract by Flakita Guillen on 05/12/2024 at 01:49 PM. us Ordering Provider Alisa Garcia LAB BLOOD ADD-ON Final Result Performing Organization Address [facility] Phone Number [facility] [address] [phone] * (ABNORMAL) CRP (C-Reactive Protein) (05/12/2024 7:35 AM COTTON CONVERTER) [facility] EXT C-Reactive Protein Quantative < 0.5(L) 0.5 - 1.0 mg/dL [facility] 05/12/2024 7:35 AM COTTON CONVERTER Narrative [facility] - 05/12/2024 1:53 PM COTTON CONVERTER Source result document attached to Order Number [id number] ([id number]) dated 05/12/2024. External results verified in Extract by Flakita Guillen on 05/12/2024 at 01:49 PM. us Ordering Provider External Jose LAB BLOOD ADD-ON Final Result Performing Organization Address City/[facility]/ZIP Co de Phone Number [facility] [address] [phone] * (ABNORMAL) Renal Function Panel (05/12/2024 7:35 AM COTTON CONVERTER) EXT Sodium 138 135 - 149 mmol/L [facility] EXT Potassium 4.1 3.6 - 5.1 mmol/L [facility] EXT Chloride 110 96 - 114 mmol/L [facility] EXT CO2 18(L) 20 - 32 mmol/L [facility] EXT Anion Gap 10 7 - 15 mEq/L [facility] EXT BUN (Blood Urea Nitrogen) 32(H) 7 - 30 mg/dL [facility] EXT Creatinine 1.8(H) 0.5 - 1.5 mg/dL [facility] EXT Estimated GFR (eGFR) [address] [facility] EXT Calcium, Total 9.4 8.4 - 10.6 mg/dL [facility] EXT Glucose 93 60 - 115 mg/dL [facility] EXT Albumin 4.0 3.3 - 5.0 g/dL [facility] EXT Phosphorus (Inorganic), S 3.4 2.5 - 4.5 mg/dL [facility] 05/12/2024 7:35 AM COTTON CONVERTER Narrative [facility] - 05/12/2024 1:53 PM COTTON CONVERTER Source result document attached to Order Number [id number] ([id number]) dated 05/12/2024. External results verified in Extract by Flakita Guillen on 05/12/2024 at 01:49 PM. us Ordering Provider External Jose LAB BLOOD ADD-ON Final Result Performing Organization Address [facility]/ZIP Co de Phone Number [facility] [address] [phone] * Uric Acid (05/12/2024 7:35 AM COTTON CONVERTER) EXT Uric Acid, S 6.0 2.2 - 8.4 mg/dL [facility] 05/12/2024 7:35 AM COTTON CONVERTER Narrative [facility] - 05/12/2024 1:53 PM COTTON CONVERTER External results verified in Extract by Flakita Guillen on 05/12/2024 at 01:49 PM. us Ordering Provider External M.DIsauro LAB BLOOD ADD-ON Final Result [facility] [address] [place] [address] documented in this encounter Visit Diagnoses Not on filedocumented in this encounter
--- OUTSIDE RECORDS SUMMARY | 2024-06-25 09:48 | XMS_ITS | Encounter Summary ---
Author Organization [facility] Address [address] [place] [address] Care Team Providers Care Cosmetics Machine Operator Name Role Phone Unavailable Primary Care Provider Unavailabl e Encounter Details Date Type Department Care Team (Late st Contact Info) Description 06/10/2024 Documentation Division of Nephrology and Hypertension in [place], [place] [address] [place] [phone] Walter Willis Jr., D.O. [address] [place] [address] Social History Tobacco Use Types Packs/Day Years Used Date Smoking Tobacco: Former Cigarettes 0.3 6 0 04/03/1979 - 04/02/1985 Smokeless Tobacco: Never Alcohol Use Standard Drinks/Week Comments Yes 2 (1 standard drink = 0.6 oz pur e alcohol) [facility] Utilities Answer Date Recorded In [...] How often do you attend chur or latter-day services? Patient declined 09/27/2020 Do you belong [...] and heating? Not hard at all 09/27/2020 [facility] - [...] your living situation today? I have a [facility] place to live 04/29/2023 Education Answer Date Recorded What is the highest level of school you have completed or the highest degree you have received? 12th grade 12/29/2018 Sex and Gender Information Value Date Recorded Sex Assigned at Male 04/29/2023 9:28 PM WIRE DRAWING DIE MAKER Legal Sex Male 5:12 PM WIRE DRAWING DIE MAKER Gender Identity Male 12/24/2017 2:50 PM CDT Sexual Orientation Straight 12/24/2017 2: 50 PM CDT documented as of this encounter Progress Notes * Walter Willis Jr., D.O. - 06/10/2024 3:29 PM CDT Care coordination, portal message and phone message left: Reviewed the patient's recent MRI, note that the left-sided renal mass has increased slightly in size from 2. 5 cm in its maximum length to 2.6 cm over the past year and a half. He had previously been seen by local Urology, , in [place]. He had been lost to follow-up. Offered him a chance to visit with our Urology team, left him a message on his phone, and a portal message. I believe we could safely observe though on a 6 monthly basis. I had ordered a GI appointment regarding his chronic diarrhea and I do not see that this has been scheduled yet. documented in this encounter Plan of Treatment Not on file documented as of this encounter Visit Diagnoses Not on filedocumented in this encounter
[2024-06-25 09:57] VITALS: BP 166/85; PULSE 45; RESP 18; TEMP 36.3; O2SAT 98; BMI 24.6
--- NOTE | 2024-06-25 10:15 | CRLHL7_ITS ---
For Patients: As a result of the Century Cures Act, medical imaging exams and procedure reports are released immediately into your electronic medical record. You may view this report before your referring provider. If you have questions, please contact your health care provider. Indication: ruq pain Technique: Multiple transverse and longitudinal sonographic grayscale images of the right upper quadrant of the abdomen were obtained, supplemented with color, power, and spectral Doppler imaging. Comparison: 06/09/2024 Findings: Pancreas: Not well visualized. Liver length: 19.3 cm. Liver appearance: Normal. No biliary ductal dilation. Portal vein: Patent, hepatopetal flow. CBD: 0.6 cm. Gallbladder: Unable to assess sonographic Pichardo sign secondary to administration of pain medication. Mildly distended. Right kidney length: 10.8 cm. Right kidney appearance: No hydronephrosis. Multiple renal cysts with the largest measuring 1.3 x 1.3 x 1.4 centimeter. Multiple nonobstructing calculi with the largest measuring 0.9 x 0.5 x 0.7 centimeter and 0.4 x 0.4 x 0.4 centimeter. Impression: 1. Mildly enlarged liver. 2. Multiple right renal cysts and nonobstructing renal calculi as described above. 3. Mildly distended gallbladder is nonspecific. Unable to assess sonographic Pichardo sign secondary to administration of pain medication. Dictated by Atilio Johnston MD @ 06/25/2024 12:04:28 PM (Electronically Signed)
[2024-06-25 10:16] VITALS: O2SAT 91
--- NOTE | 2024-06-25 10:20 | ED_ITS ---
HPI - General Adult General Chief complaint: Abdominal Pain Stated complaint: Upper abdominal pain Time Seen by Provider: 06/25/24 09:50 History of Present Illness HPI narrative: Patient is a 68-year-old white male lives in [place], he works part-time at the [employer] in [place]. He has seen Dr. Hooper for primary care. He has been recently doctoring at [facility] for excessive fat excretion in his stool. He has had chronic GI issues. Today he reports that he has had 3 hour history of increasing right upper quadrant pain. He has not eaten since last night at 6:30 p.m. the patient denies chest pain denies fever. He has had 4 vessel bypass, pulmonary embolus for which she is on Coumadin, type 2 diabetes, chronic kidney disease stage 3. Patient has worked with Dr. Willis regarding his kidney issues. He has a pituitary adenoma. Hyperlipidemia, hypertension, proteinuria, history of GI bleed. He has not had change in color of his stool or urine. He reports the pain is been present and increasing about 3 hours. He notices tenderness to touch in his right upper quadrant. Related Data Home Medications ?Medication ?Instructions ?Recorded ?Confirmed cabergoline 0.5 mg tablet 0.75 mg PO .Twice Weekly 11/14/21 06/25/24 allopurinol 100 mg tablet 100 mg PO DAILY 12/24/23 06/25/24 Previous Rx's ?Medication ?Instructions ?Recorded amlodipine 2.5 mg tablet 2.5 mg PO DAILY #90 tabs 02/04/24 amlodipine 5 mg tablet 5 mg PO QDAY #90 tabs 02/04/24 atorvastatin 40 mg tablet 40 mg PO QPM #90 tabs 02/04/24 carvedilol 12.5 mg tablet 12.5 mg PO BID #180 tabs 02/04/24 chlorthalidone 25 mg tablet 25 mg PO QDAY #90 tabs 02/04/24 eplerenone 25 mg tablet 25 mg PO DAILY #90 tabs 02/04/24 losartan 100 mg tablet 100 mg PO QDAY #90 tabs 02/04/24 metformin 850 mg tablet 850 mg PO BIDWMEAL #180 tabs 02/04/24 warfarin 4 mg tablet 4 mg PO DAILY #90 tabs 06/12/24 hydrocodone 5 mg-acetaminophen 325 1 tab PO Q8H PRN pain #10 tabs 06/25/24 mg tablet Allergies Allergy/AdvReac Type Severity Reaction Status Date / Time No Known Allergies Allergy Verified 06/25/24 10:01 Review of Systems Status of ROS: Reports: 6 or more systems reviewed and unremarkable except as noted in History and below [facility] Medical History Foot pain ?M79.673 - Pain in unspecified foot (ICD-10) Surgical History Hx of shoulder surgery ?Z98.890 - Other specified postprocedural states (ICD-10) Status post four vessel coronary artery bypass ?Z95.1 - Presence of aortocoronary bypass graft (ICD-10) Family History Mother Heart disease Brother Heart disease Sister Heart disease Father High blood pressure Social History Narrative: Former smoker What is your current living situation?: I presently have a place to live Problems where you live: no known problems In the past 12 months, utilities in danger of being shut off: no In past 12 months, lack of transportation kept you from medical appts, meetings, work, or getting things needed for daily living: no In the past 12 mos, have been you worried that your food would run out before you had money to buy more?: never true In the past 12 mos, the food you bought just didn't last and you didn't have money to buy more?: never true Smoking Status: Former smoker Do you use any of these nicotine containing products: None How often do you have a drink containing alcohol: never How often do you have six or more drinks on one occasion: Never AUDIT-C Alcohol total score: 0 Non-prescribed substance use: denies use How often does anyone, including family, friends and others, physically hurt you : never How often does anyone, including family, friends and others, insult or talk down to you: never How often does anyone, including family, friends and others, threaten you with harm: never How often does anyone, including family, friends and others, scream or curse at you: never Exam Narrative: Exam Narrative: Objective: Vital signs show elevated blood pressure 89 year 83 otherwise afebrile, O2 sat 90% on room air Alert orient x3 no scleral icterus Neck is supple Heart rhythm regular without murmur No palpable chest wall pain Abdomen is tender in the right upper quadrant with mild guarding. Mild rigidity. Positive Pichardo sign. No lower abdominal pain or tenderness, bowel sounds normoactive. Extremities are no edema Neurologic nonfocal. Const: Vital Signs, click to edit/add: Vital Signs - 24 hr 06/25/24 09:57 06/25/24 10:16 Temperature 97.3 F L Pulse Rate [Right Pulse Oximeter] 45 L Respiratory Rate 18 Blood Pressure [Ri ght Upper Arm] 166/85 H Pulse Oximetry 98 91 Oxygen Delivery Me thod Room Air Course Vital Signs Vital signs: Initial Vital Signs Temperature 97.3 F L 06/25/24 09:57 Temperature Source Temporal Artery Scan 06/25/24 09:57 Pulse Rate 45 L 06/25/24 09:57 Pulse Rhythm Regular 06/25/24 09:57 Pulse Strength 3+ Normal 06/25/24 09:57 Respiratory Rate 18 06/25/24 09:57 Blood Pressure 166/85 H 06/25/24 09:57 Blood Pressure Mean 112 H 06/25/24 09:57 Blood Pressure Position Sitting 06/25/24 09:57 Pulse Oximetry 98 06/25/24 09:57 Oxygen Delivery Method Room Air 06/25/24 09:57 Vital Signs Temperature 97.3 F L 06/25/24 09:57 Pulse Rate 45 L 06/25/24 09:57 Respiratory Rate 18 06/25/24 09:57 Blood Pressure 166/85 H 06/25/24 09:57 Pulse Oximetry 98 06/25/24 09:57 Oxygen Delivery Method Room Air 06/25/24 09:57 Temperature 97.3 F L 06/25/24 09:57 Pulse Rate 45 L 06/25/24 09:57 Respiratory Rate 18 06/25/24 09:57 Blood Pressure 166/85 H 06/25/24 09:57 Pulse Oximetry 91 06/25/24 10:16 Oxygen Delivery Method Room Air 06/25/24 09:57 Medications Administered Medications: Discontinued Medications Generic Name Dose Route Start Last Admin Trade Name Freq PRN Reason Stop Dose Admin Hydromorphone HCl 0.5 mg 06/25/24 10:15 06/25/24 10:44 Hydromorphone 0.5 Mg/0.5 Ml Inj IVP 06/25/24 10:16 0.5 mg ONCE ONE Administration Sodium Chloride 1,000 mls @ 6,000 mls/hr 06/25/24 10:15 06/25/24 11:43 0.9 % Sodium Chloride 1000 Ml IV 06/25/24 10:24 Infused .Q10M RICHARD Infusion Medical Decision Making [facility] Narrative Medical decision making narrative: 68-year-old male with a history of 3 hours of right upper quadrant abdominal pain, not following food intake. He has had a history of GI issues life lung, most recently has increased fat excretion in his stool. He has a positive Pichardo sign consistent with cholecystitis. Certainly could also have peptic ulcer disease. I think at this point a about ultrasound of right upper quadrant be appropriate, lab studies, IV fluid, IV pain medication. Disposition pending findings above. Possible CT scan. With his kidney disease would avoid contrast. General surgery consult as needed. Addendum 12:15 p.m. the patient's white count and lab studies look unremarkable, his heart rate has been in the low 50s which it typically is. I think at this point given his reassuring ultrasound, he has a normal size common bile duct he has no obvious gallstones he has got nonobstructing kidney stones but nothing in the ureter. He has got a mildly distended gallbladder, no evidence of gallbladder thickening. Given his pain medication of Dilaudid he has no further pain at this time. His color looks good. His troponin is negative his EKG shows no acute ST T wave changes. He is bradycardic. He is on carvedilol. Discussed with him treatment options including consulting with our surgeons, but he would like to continue his care at [facility]. He sees Dr. Willis for Nephrology and has a GI appointment scheduled. He is scheduled to get blood work done and consider consult with the surgeon. He would like to do it there. If he has problems concerns or to return here. Will call in a small dose of a Odanah for him in case he has recurrent discomfort. Recommend light diet. Lab Data Labs: Lab Results 06/25/24 Range/Units 10:54 WBC 8.00 (4.50-11.00) K/uL RBC 3.89 L (4.30-5.90) m/uL Hgb 11.7 L (13.5-17.5) gm/dL Hct 35.1 L (37.0-53.0) % MCV 90 (80-100) fL MCH 30 (26-34) pg MCHC 33 (32-36) gm/dL RDW Coeff of Miguelina 13.3 (11.5-15.5) % Plt Count 142 (140-440) K/uL Neut % (Auto) 81.0 H (42.0-72.0) % Lymph % (Auto) 9.8 L (20-44) % Harmon % (Auto) 6.9 (0.0-11.0) % Eos % (Auto) 1.5 (0.0-7.0) % Baso % (Auto) 0.5 (0.0-3.0) % Neut # (Auto) 6.50 (1.7-7.0) K/uL Lymph # (Auto) 0.80 L (0.90-2.90) K/uL Harmon # (Auto) 0.60 (0.00-0.90) K/UL Eos # (Auto) 0.12 (0.00-0.50) K/uL Baso # (Auto) 0.04 (0.00-0.30) K/uL Abs Immat Gran (auto) 0.02 (0.00-0.30) K/uL Imm/Tot Granulo (auto) 0.3 % INR 2.34 H (0.91-1.10) Sodium 139 (135-149) mmol/L Potassium 5.2 H (3.6-5.1) mmol/L Chloride 111 (96-114) mmol/L Carbon Dioxide 19 L (20-32) mmol/L Anion Gap 9 (7-15) mEq/L BUN 48 H (7-30) mg/dL Creatinine 1.8 H (0.5-1.5) mg/dL Estimated Creat Clear 36.94 Estimated GFR 40 ml/min Glucose 144 H (60-115) mg/dL Lactate 1.0 (0.5-1.9) mmol/L Calcium 9.7 (8.4-10.6) mg/dL Total Bilirubin 1.5 (0.1-1.5) mg/dL Direct Bilirubin 1.0 H (0.0-0.5) mg/dL AST 109 H (12-35) U/L ALT 51 H (4-50) U/L Alkaline Phosphatase 71 (40-150) U/L Troponin I 0.02 (0.01-0.04) ng/mL C-Reactive Protein < 0.5 L (0.5-1.0) mg/dL Total Protein 6.4 (6.0-8.3) g/dL Albumin 4.1 (3.3-5.0) g/dL Amylase 84 (18-89) U/L Discharge Plan Discharge Clinical Impression: Abdominal pain, acute, right upper quadrant Patient Disposition: Home w/ Parent or Adult Condition: Improved Additional Instructions: Light diet for 24 hours, Odanah as needed for discomfort. Recommend appointment with General surgery or GI at [place] as is his preference. He can return to the ER here as needed. Activity Level: Light activity Discharge Diet: Full Liquid Diet Detail: Advance diet over 24 hours as tolerated Prescriptions: New hydrocodone-acetaminophen 5-325 mg tablet 1 tab PO Q8H PRN (Reason: pain) Qty: 10 0RF No Action cabergoline 0.5 mg tablet 0.75 mg PO .Twice Weekly allopurinol 100 mg tablet 100 mg PO DAILY amlodipine 2.5 mg tablet 2.5 mg PO DAILY Qty: 90 3RF Rx Instructions: take with 5mg tab for total dose of 7.5 mg daily amlodipine 5 mg tablet 5 mg PO QDAY Qty: 90 3RF Rx Instructions: take with 2.5mg for daily dose of 7.5mg atorvastatin 40 mg tablet 40 mg PO QPM Qty: 90 3RF carvedilol 12.5 mg tablet 12.5 mg PO BID Qty: 180 3RF Rx Instructions: must administer with a meal/food chlorthalidone 25 mg tablet 25 mg PO QDAY Qty: 90 3RF eplerenone 25 mg tablet 25 mg PO DAILY Qty: 90 3RF losartan 100 mg tablet 100 mg PO QDAY Qty: 90 3RF metformin 850 mg tablet 850 mg PO BIDWMEAL Qty: 180 3RF warfarin 4 mg tablet 4 mg PO DAILY Qty: 90 0RF Protocol: Dose Management Condition: Sunday Dose/Route: 4 mg Instruction: 1 x 4 mg tablet Condition: Sunday Dose/Route: 4 mg Instruction: 1 x 4 mg tablet Condition: Sunday Dose/Route: 4 mg Instruction: 1 x 4 mg tablet Condition: Sunday Dose/Route: 4 mg Instruction: 1 x 4 mg tablet Condition: Dose/Route: 6 mg Instruction: 1.5 x 4 mg tablets Condition: Sunday Dose/Route: 4 mg Instruction: 1 x 4 mg tablet Condition: Sunday Dose/Route: 4 mg Instruction: 1 x 4 mg tablet Protocol Text: Adjustment Start Date: 06/12/24 INR Value: 2.1 INR Date: 06/12/24 Recheck Date: 07/10/24 Follow Up/Referrals: Frederick Krause MD [Primary Care Provider] - Stand Alone Forms: [facility] Info Inst[facility]
--- OUTSIDE RECORDS SUMMARY | 2024-06-25 10:22 | XMS_ITS | Clinical Summary ---
Author Organization [facility] Address [address] [place] [address] Care Team Providers Care Customs Brokerage Manager Name Role Phone Frederick Krause MD Primary Care Provider [phone] Allergies No known active allergies Medications cabergoline [...] on file Legal Sex Male 8:28 AM DIE HARDENER Gender Identity Not on file Sexual Orientation [...] LIPID PANEL Early AM 05/09/2019 6:17 AM DIE HARDENER from Last 3 Months or Most Recently Relevant to Health Maintenance Results * (ABNORMAL) LIPID PANEL (05/09/2019 6:17 AM DIE HARDENER) CHOLESTEROL,TOTAL 143 100 - 199 mg/dL 05/09/2019 6:59 AM DIE HARDENER [facility] [employer] [facility] TRIGLYCERIDES 119 <150 mg/dL 05/09/2019 6:59 AM DIE HARDENER [facility] TR[facility] LAB[facility] HDL CHOLESTEROL 34(L) >40 mg/dL 0 6:59 AM DIE HARDENER [facility] TR[facility] LABORATORY NON-HDL CHOLESTEROL 109 <145 mg/dl 05/09/2019 6:59 AM DIE HARDENER [facility] TRAL LABORATORY CHOL/HDL RATIO 4.21 <4.50 05/09/2019 6:59 AM DIE HARDENER [facility] TR[facility] LABORATORY LDL CHOLESTEROL 85 <=130 mg/dL 05/09/2019 6:59 AM DIE HARDENER [facility] TRAL LABORATORY PROVIDER ORDERED STATUS RANDOM 05/09/2019 6:59 AM DIE HARDENER [facility] TRAL LABORATORY Blood BLOOD SPECIMEN / Unknown Venipuncture / Unknown 05/09/2019 6:17 AM DIE HARDENER 05/09/2019 6:25 AM DIE HARDENER us Evy MAR CHEMISTRY Tiffani l Result [facility] [address] [place] [address], from Last 3 Months or Most Recently Relevant to Health Maintenance Advance Directives * Full Code (Latest Code Status on File) Date Activated Date Inactivated Comments 07/11/2019 6:32 PM 07/13/2019 9:39 PM Question Answer Comments Code Status Discussion: Discussed * Full Code Date Activated Date Inactivated Comments 05/08/2019 6:16 PM 05/17/2019 3:04 PM Care Teams Customs Brokerage Manager Relationship Specialty Start Date End Date Frederick Krause MD [address] [place] [address] PCP - General Family Practice 06/05/19
--- OUTSIDE RECORDS SUMMARY | 2024-06-25 10:22 | XMS_ITS | Clinical Summary ---
Author Organization [facility] Address [address] [place] [address] Care Team Providers Care Exerciser Horse Name Role Phone Kaed Alexander MD Primary Care Provider [phone] Allergies Active Allergy Reactions Criticality Noted Date Comments No Known Drug Allergy 03/09/2003 Family History Medical History Relation Comments Cancer Father ORAL, RELATED TO TOBACCO Diabetes Father Hypertension Father Arthritis Mother Cardiovascular Mother Gastrointestinal Disease Mother mothers side lactose intollerant Heart Disease Mother OH repaired with a shunt Osteoporosis Mother Hypertension [...] on file Legal Sex Male 3:10 AM DOG HAIR CLIPPER Gender Identity Not on file Sexual Orientation Not on file Last Filed Vital Signs Vital Sign Reading Time Taken Comments Blood Pressure 150/104 03/09/2003 11:21 AM DOG HAIR CLIPPER seated (from Extended Vitals) Pulse 60 03/09/2003 11:19 AM DOG HAIR CLIPPER (from Extended Vitals) Temperature - - Respiratory Rate - - Oxygen Saturation - - Inhaled Oxygen Concentration - - Weight 89.8 kg (198 lb) 03/09/2003 10:4 5 AM DOG HAIR CLIPPER Height 172.7 cm (5' 8) 03/09/2003 10:4 5 AM DOG HAIR CLIPPER Body Mass Index 30.11 03/09/2003 10:45 AM DOG HAIR CLIPPER Plan of Treatment Not on file Care Teams Exerciser Horse Relationship Specialty Start Date End Date Kade Alexander MD [facility] [address] [place] [address] [facility] - General 01/27/02
--- OUTSIDE RECORDS SUMMARY | 2024-06-25 10:22 | XMS_ITS | Encounter Summary ---
Author Organization [facility] Address [address] [place] [address] Care Team Providers Care Commonwealth Attorney Name Role Phone Unavailable Primary Care Provider Unavailabl e Encounter Details Date Type Department Care Team (Late st Contact Info) Description 02/03/2015 Historical Ophthalmology [facility] Brenda Elaine M.D. Social History Tobacco Use Types Packs/Day Years Used Date Smoking Tobacco: Never Assessed Sex and Gender Information Value Date Recorded Sex Assigned at Male 04/29/2023 9:28 PM CULINARY MANAGER Legal Sex Male 5:12 PM CULINARY MANAGER Gender Identity Male 12/24/2017 2:50 PM [...] the right aspect of the gland, and [id number] shift of the infundibulum. There is no [...] PLAN Consult requested by: Lindsey Ragland MD [id number] #1 Pituitary tumor, with no ocular stigmata. [...] OCT: Avg thickness 82 OD, 88 OS. [id number] /10 OU. Testing consistent with clinical exam findings. #2 Visual field report, Normal visual field both eyes. Foveal threshold normal @ 37 OD, 39 OS. 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 This is likely related to prednisone. Return prn any changes in vision. The photos show an area of welding estimator color that corresponds to the CLINICAL TRIALS MANAGER on the OCT. Testing consistent with clinical exam findings. 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 #2 Visual field report, Normal visual field both eyes. #3 Central serous retinopathy left eye. CDM Reports - EYEGEN Id: [id number] Status: Fnl documented in this encounter Plan of Treatment Not on file documented as of this encounter Visit Diagnoses Not on filedocumented in this encounter
--- OUTSIDE RECORDS SUMMARY | 2024-06-25 10:22 | XMS_ITS | Encounter Summary ---
Author Organization [facility] Address [address] [place] [address] Care Team Providers Care Physicist Cryogenics Name Role Phone Unavailable Primary Care Provider Unavailabl e Encounter Details Date Type Department Care Team (Late st Contact Info) Description 05/12/2024 Orders Only Division of Nephrology and Hypertension in [place], [place] [address] [place] [address] External, Ordering ProviderJose Social History Tobacco Use Types Packs/Day Years Used Date Smoking Tobacco: Former Cigarettes 0.3 6 0 04/03/1979 - 04/02/1985 Smokeless Tobacco: Never Alcohol Use Standard Drinks/Week Comments Yes 2 (1 standard drink = 0.6 oz pur e alcohol) [facility] Utilities Answer Date Recorded In the past 12 months has [employer] electric, gas, oil, or water company threatened [...] week 09/27/2020 How often do you attend [facility] or [facility] services? Patient declined 09/27/2020 Do you belong to any clubs o r organizations such as denominational groups, unions, fraternal or athletic groups, or [...] and heating? Not hard at all 09/27/2020 [facility] - Occupational Stress [...] your living situation today? I have a [facility] place to live 04/29/2023 Education Answer Date Recorded What is the highest level of school you have completed or the highest degree you have received? 12th grade 12/29/2018 Sex and Gender Information Value Date Recorded Sex Assigned at Male 04/29/2023 9:28 PM FUEL ATTENDANT Legal Sex Male 5:12 PM FUEL ATTENDANT Gender Identity Male 12/24/2017 2:50 PM CDT Sexual Orientation Straight 12/24/2017 2: 50 PM CDT documented as of this encounter Plan of Treatment Not on file documented as of this encounter Procedures Procedure Name Priority Date/Time Associated Diagnosis Comments RENAL FUNCTION PANEL, S Routine 05/12/2024 7:35 AM FUEL ATTENDANT C-REACTIVE PROTEIN (CRP), S/P Routine 05/12/2024 7:35 AM FUEL ATTENDANT URIC ACID, S/P Routine 05/12/2024 7:35 AM FUEL ATTENDANT PARATHYROID HORMONE (PTH), S Routine 05/12/2024 7:35 AM FUEL ATTENDANT FERRITIN, S Routine 05/12/2024 7:35 AM FUEL ATTENDANT documented in this encounter Results * (ABNORMAL) Parathyroid Hormone (PTH) (05/12/2024 7:35 AM FUEL ATTENDANT) Parathyroid Hormone (PTH) 110.3(H) 14.2 - 75.2 pg/mL [facility] 05/12/2024 7:35 AM FUEL ATTENDANT Narrative [facility] - 05/12/2024 1:53 PM FUEL ATTENDANT Source result document attached to Order Number [id number] ([id number]) dated 05/12/2024. External results verified in Extract by Flakita Guillen on 05/12/2024 at 01:49 PM. us Ordering Provider External Jose LAB BLOOD ADD-ON Final Result Performing Organization Address [facility] Phone Number [facility] [address] [phone] * Ferritin (05/12/2024 7:35 AM FUEL ATTENDANT) [facility] EXT Ferritin, S 41.9 17.9 - 464.0 ng/mL [facility] 05/12/2024 7:35 AM FUEL ATTENDANT Narrative [facility] - 05/12/2024 1:53 PM FUEL ATTENDANT Source result document attached to Order Number [id number] ([id number]) dated 05/12/2024. External results verified in Extract by Flakita Guillen on 05/12/2024 at 01:49 PM. us Ordering Provider Alisa Garcia LAB BLOOD ADD-ON Final Result Performing Organization Address [facility] Phone Number [employer] [facility] [address] [phone] * (ABNORMAL) CRP (C-Reactive Protein) (05/12/2024 7:35 AM FUEL ATTENDANT) [facility] EXT C-Reactive Protein Quantative < 0.5(L) 0.5 - 1.0 mg/dL [facility] 05/12/2024 7:35 AM FUEL ATTENDANT Narrative [facility] - 05/12/2024 1:53 PM FUEL ATTENDANT Source result document attached to Order Number [id number] ([id number]) dated 05/12/2024. External results verified in Extract by Flakita Guillen on 05/12/2024 at 01:49 PM. us Ordering Provider External Jose LAB BLOOD ADD-ON Final Result Performing Organization Address City/[facility]/ZIP Co de Phone Number [facility] [address] [phone] * (ABNORMAL) Renal Function Panel (05/12/2024 7:35 AM FUEL ATTENDANT) EXT Sodium 138 135 - 149 mmol/L [facility] EXT Potassium 4.1 3.6 - 5.1 mmol/L [facility] EXT Chloride 110 96 - 114 mmol/L [facility] EXT CO2 18(L) 20 - 32 mmol/L [facility] EXT Anion Gap 10 7 - 15 mEq/L [facility] EXT BUN (Blood Urea Nitrogen) 32(H) 7 - 30 mg/dL [facility] EXT Creatinine 1.8(H) 0.5 - 1.5 mg/dL [facility] EXT Estimated GFR (eGFR) 40 ML [facility] EXT Calcium, Total 9.4 8.4 - 10.6 mg/dL [facility] EXT Glucose 93 60 - 115 mg/dL [facility] EXT Albumin 4.0 3.3 - 5.0 g/dL [facility] EXT Phosphorus (Inorganic), S 3.4 2.5 - 4.5 mg/dL [facility] 05/12/2024 7:35 AM FUEL ATTENDANT Narrative [facility] - 05/12/2024 1:53 PM FUEL ATTENDANT Source result document attached to Order Number [id number] ([id number]) dated 05/12/2024. External results verified in Extract by Flakita Guillen on 05/12/2024 at 01:49 PM. us Ordering Provider External Jose LAB BLOOD ADD-ON Final Result Performing Organization Address [facility]/ZIP Co de Phone Number [facility] [address] [phone] * Uric Acid (05/12/2024 7:35 AM FUEL ATTENDANT) EXT Uric Acid, S 6.0 2.2 - 8.4 mg/dL [facility] 05/12/2024 7:35 AM FUEL ATTENDANT Narrative [facility] - 05/12/2024 1:53 PM FUEL ATTENDANT External results verified in Extract by Flakita Guillen on 05/12/2024 at 01:49 PM. us Ordering Provider External M.DIsauro LAB BLOOD ADD-ON Final Result [facility] [address] [place] [address] documented in this encounter Visit Diagnoses Not on filedocumented in this encounter
--- OUTSIDE RECORDS SUMMARY | 2024-06-25 10:22 | XMS_ITS | Clinical Summary ---
Author Organization [facility] Address [address] [place] [address] Care Team Providers Care Curriculum And Assessment Director Name Role Phone Unavailable Primary Care Provider Unavailabl e Source Comments Patient records contain information from all sites at [facility]. For routine questions regarding patient records, call [phone] during business hours, M-F 8:00 AM - 5:00 PM Central Time. Record requests for emergency care only can be directed to [phone] at any time.[facility] Allergies No known active allergies Medications [...] Only Division of Nephrology and Hypertension in [place], [place] [address] [place] [address] Walter Willis Jr., D.O. Chronic Kidney Disease (CKD), Stage 3a Glomerular Filtration Rate (GFR) 45 To 59 (HCC) (Primary Dx); Diarrhea; Prolactinoma (HCC); Hypertensive Chronic Kidney Disease With Stage 1 Through Stage 4 Chronic Kidney Disease, Or Unspecified Chronic Kidney Disease; Hyperaldosteronism (HCC) 06/15/2024 Orders Only Division of Nephrology and Hypertension in [place], [place] [address] [place] [address] Walter Willis Jr., D.OIsauro Chronic Kidney Disease (CKD), Stage 3a Glomerular Filtration Rate (GFR) 45 To 59 (HCC) (Primary Dx); Diabetes Mellitus Type 2 With Diabetic Nephropathy (HCC); Mass Kidney 06/10/2024 Documentation Division of Nephrology and Hypertension in [place], [place] [address] [place] [address] Walter Willis Jr., D.O. 06/10/2024 Clinical Communication Division of Nephrology and Hypertension in [place], [place] [address] [place] [phone] Walter Willis Jr., D.O. OSM - Outside Materials (MR abdomen -06/09/24) 05/30/2024 11:00 AM INFORMATION SECURITY CONSULTANT - 05/30/2024 11:59 PM INFORMATION SECURITY CONSULTANT Hospital Encounter Department of Laboratory Medicine and Pathology, [facility], in [place], [place] [address] [place] [address] Walter Willis Jr., D.O. Chronic Kidney Disease [...] Home or Self Care 05/23/2024 10:30 AM INFORMATION SECURITY CONSULTANT Office Visit Division of Endocrinology in [place], [place] [address] [place] [address] Tg Mandujano P.A.-C., M.S. Prolactinoma (HCC) (Primary Dx) 05/23/2024 7:00 AM INFORMATION SECURITY CONSULTANT Clinical Communication Virtual Review in [place], [place] [address] [place] [address] Pre-visit Intake 05/19/2024 4:00 PM INFORMATION SECURITY CONSULTANT External Outreach Division of Nephrology and Hypertension in [place], [place] [address] [place] [phone] Walter Willis Jr., D.O. Chronic Kidney Disease [...] Therapy; Mass Kidney; Diarrhea 05/15/2024 11:30 AM INFORMATION SECURITY CONSULTANT - 05/15/2024 11:59 PM INFORMATION SECURITY CONSULTANT Hospital Encounter Department of Laboratory Medicine in [address] [phone] Tg Mandujano P.A.-C., M.S. Prolactinoma (HCC) Discharge Disposition: Home or Self Care 05/12/2024 Orders Only Division of Nephrology and Hypertension in [address] [address] External, Ordering ProviderJose 05/12/2024 Orders Only Division of Nephrology and Hypertension in [address] [address] External, Ordering ProviderJose from Last 3 Months [...] drink = 0.6 oz pur e alcohol) [facility] Utilities Answer Date Recorded In the past 12 months has th e electric, gas, oil, or water Private Outlet threatened to shut off services in your [...] How often do you attend chur or baptist services? Patient declined 09/27/2020 Do you belong to any clubs o r organizations such as synagogue groups, unions, fraternal or athletic groups, or [...] and heating? Not hard at all 09/27/2020 [facility] [...] your living situation today? I have a [employer] place to live 04/29/2023 Education Answer Date Recorded What is the highest level of school you have completed or the highest degree you have received? 12th grade 12/29/2018 Sex and Gender Information Value Date Recorded Sex Assigned at Male 04/29/2023 9:28 PM INFORMATION SECURITY CONSULTANT Legal Sex Male 5:12 PM INFORMATION SECURITY CONSULTANT Gender Identity Male 12/24/2017 2:50 PM CDT Sexual Orientation Straight 12/24/2017 2: 50 PM CDT Last Filed Vital Signs Vital Sign Reading Time Taken Comments Blood Pressure 140/78 05/19/2024 4:00 PM INFORMATION SECURITY CONSULTANT Pulse 47 05/19/2024 4:00 PM INFORMATION SECURITY CONSULTANT Temperature - - Respiratory Rate 14 08/08/2016 5:05 PM CDT Vital sign result from Clinical Notes. Oxygen Saturation - - Inhaled Oxygen Concentration - - Weight 74.8 kg (164 lb 14.5 oz) 05/19/2024 4:00 PM INFORMATION SECURITY CONSULTANT Height 172.7 cm (5' 7.99) 05/19/2024 4 :00 PM INFORMATION SECURITY CONSULTANT Body Mass Index 25.08 05/19/2024 4:00 PM INFORMATION SECURITY CONSULTANT Plan of Treatment Health Maintenance Due Date [...] this topic Medical Devices Implanted Type Area Rotor Coil Taper Device Identifier Shelf Expiration Date Model / Serial / Lot Ocular Lens Ocular Lens Left: Eye Description:Cataract surgery with left eye in Second week of January 2024 Procedures Procedure Name Priority Date/Time Associated Diagnosis Comments GI PATHOGEN PANEL, PCR, F Routine 06/02/2024 2:47 PM INFORMATION SECURITY CONSULTANT Chronic Kidney Disease (CKD), Stage 3a Glomerular [...] Diarrhea FAT, F Routine 06/02/2024 2:44 PM INFORMATION SECURITY CONSULTANT Chronic Kidney Disease (CKD), Stage 3a Glomerular [...] TESTOSTERONE,F/WKLYBD+ T LC/MS Routine 05/15/2024 11:37 AM INFORMATION SECURITY CONSULTANT Prolactinoma (HCC) PROLACTIN, S Routine 05/15/2024 11:37 AM INFORMATION SECURITY CONSULTANT Prolactinoma (HCC) ALBUMIN, RANDOM, U Routine 05/12/2024 8: 04 AM INFORMATION SECURITY CONSULTANT PARATHYROID HORMONE (PTH), S Routine 05/12/2024 7:35 AM INFORMATION SECURITY CONSULTANT FERRITIN, S Routine 05/12/2024 7:35 AM INFORMATION SECURITY CONSULTANT C-REACTIVE PROTEIN (CRP), S/P Routine 05/12/2024 7:35 AM INFORMATION SECURITY CONSULTANT RENAL FUNCTION PANEL, S Routine 05/12/2024 7:35 AM INFORMATION SECURITY CONSULTANT URIC ACID, S/P Routine 05/12/2024 7:35 AM INFORMATION SECURITY CONSULTANT CBC WITH DIFFERENTIAL, B Routine 05/12/2024 7:35 AM INFORMATION SECURITY CONSULTANT HEMOGLOBIN A1C, B Routine 05/12/2024 7:3 5 AM INFORMATION SECURITY CONSULTANT IRON AND TOT IRON-BINDING CAPACITY, S/P Routine 05/12/2024 7:35 AM INFORMATION SECURITY CONSULTANT OPHTHALMOLOGY IMAGE EXAM Routine 12/24/2017 9:53 AM CDT LIPOPROTEIN METABOLISM PROF, S Routine 07/07/2015 8:14 AM CDT from Last 3 Months or Most Recently Relevant to Health Maintenance Results * GI Pathogen Panel, PCR, Feces (06/02/2024 2:47 PM INFORMATION SECURITY CONSULTANT) Specimen Source STOOL 5:27 PM INFORMATION SECURITY CONSULTANT DTL Campylobacter species Negative Negative 06/02/2024 5:27 PM INFORMATION SECURITY CONSULTANT DTL C. difficile toxin Negative Negative 2024 5:27 PM INFORMATION SECURITY CONSULTANT DTL Plesiomonas shigelloides Negative Negative 06/02/2024 5:27 PM INFORMATION SECURITY CONSULTANT DTL Salmonella species Negative Negative 2024 5:27 PM INFORMATION SECURITY CONSULTANT DTL Vibrio species Negative Negative 06/02/2024 5:27 PM INFORMATION SECURITY CONSULTANT DTL Vibrio cholerae Negative Negative 5:27 PM INFORMATION SECURITY CONSULTANT DTL Yersinia species Negative Negative 06/03/19 5:27 PM INFORMATION SECURITY CONSULTANT DTL Enteroaggregative E. coli (EAEC) Negative Negative 06/02/2024 5:27 PM INFORMATION SECURITY CONSULTANT DTL Enteropathogenic E. coli (EPEC) Negative Negative 06/02/2024 5:27 PM INFORMATION SECURITY CONSULTANT DTL Enterotoxigenic E. coli (ETEC) Negative Negative 06/02/2024 5:27 PM INFORMATION SECURITY CONSULTANT DTL Shiga toxin producing E. coli Negative Negative 06/02/2024 5:27 PM INFORMATION SECURITY CONSULTANT DTL Shigella/Enteroinvas lynsey E. coli Negative Negative 06/02/2024 5:27 PM INFORMATION SECURITY CONSULTANT DTL Cryptosporidium species Negative Negative 06/02/2024 5:27 PM INFORMATION SECURITY CONSULTANT DTL Cyclospora cayetanensis Negative Negative 06/02/2024 5:27 PM INFORMATION SECURITY CONSULTANT DTL Entamoeba histolytica Negative Negative 06/02/2024 5:27 PM INFORMATION SECURITY CONSULTANT DTL Giardia Negative Negative 06/02/2024 5:27 PM INFORMATION SECURITY CONSULTANT DTL Adenovirus F40/41 Negative Negative 025 5:27 PM INFORMATION SECURITY CONSULTANT DTL Astrovirus Negative Negative 06/02/2024 5:27 PM INFORMATION SECURITY CONSULTANT DTL Norovirus GI/GII Negative Negative 06/03/19 25 5:27 PM INFORMATION SECURITY CONSULTANT DTL Rotavirus Ag, F Negative Negative 5:27 PM INFORMATION SECURITY CONSULTANT DTL Sapovirus Negative Negative 06/02/2024 5:27 PM INFORMATION SECURITY CONSULTANT DTL Comment: ----ADDITIONAL INFORMATION---- This assay is performed using the FDA-cleared Captivate NetworkArray GI Panel ([employer] Stool (Stool) 06/02/2024 2:4 7 PM INFORMATION SECURITY CONSULTANT 06/02/2024 3:17 PM INFORMATION SECURITY CONSULTANT us Walter Willis Jr., D.O. LAB MICROBIOLOGY - G ENERAL ORDERABLES Final Result [facility] [address] [place] [address], [facility] DT 200 [facility] [address] [place] [address] * (ABNORMAL) Fat, Feces (06/02/2024 2:44 PM INFORMATION SECURITY CONSULTANT) Total Weight 428 g 06/03/2024 9:48 AM INFORMATION SECURITY CONSULTANT DTL Duration 24 h 06/02/2024 2:46 PM INFORMATION SECURITY CONSULTANT DTL Comment: More reliable results can be obtained from a 48 or 72 hour collection. Total Fat/24 Hr 19(H) 2 - 7 g/24 h 06/03/2024 1:30 PM INFORMATION SECURITY CONSULTANT DTL Comment: ----ADDITIONAL INFORMATION---- This test was developed and its performance characteristics determined by [facility] in a manner consistent with CLIA requirements. This test has not been cleared or approved by the U.S. Food and Drug Administration. Stool (Stool) 06/02/2024 2:4 4 PM INFORMATION SECURITY CONSULTANT 06/03/2024 12:39 PM INFORMATION SECURITY CONSULTANT us Walter Willis Jr., D.O. LAB BODY FLUIDS AND STOOLS ORDERABLES Final Result [facility] [address] [place] [address], [facility] DTL [facility] [address] [place] [address] * Testosterone, Free and Weakly Bound, With Total Testosterone, LC/MS-MS - Sent Out Lab (05/15/2024 11:37 AM INFORMATION SECURITY CONSULTANT) Testosterone, Total, LC/MS 390.0 264.0 - 916.0 ng/dL 05/22/2024 7:07 PM INFORMATION SECURITY CONSULTANT BURI Comment: This [facility] LC/MS-MS method is currently certified by the CDC Hormone Standardization Program (HoSt). Adult male reference interval is based on a population of healthy nonobese males (BMI <30) between 19 and 39 years old. Morgan et.al. JCEM 2017,102;9189-5673. PMID: [id number]. This test was developed and its performance characteristics determined by [facility]. It has not been cleared or approved by the Food and Drug Administration. Testost. % Free+Weakly Bound 22.2 9.0 - 46.0 % 05/22/2024 7:07 PM INFORMATION SECURITY CONSULTANT BURI Comment: This test was developed and its performance characteristics determined by [facility]. It has not been cleared or approved by the Food and Drug Administration. Testost. F+W Bound 86.6 40.0 - 250.0 ng/dL 05/22/2024 7:07 PM INFORMATION SECURITY CONSULTANT BURI Blood (Blood, Venous) 05/15/2024 11:37 AM INFORMATION SECURITY CONSULTANT 05/16/2024 7:37 AM INFORMATION SECURITY CONSULTANT us Tg Mandujano P.A.-C., M.S. LAB BLOOD NON AD D-ON Final Result [id number] [place] [address] * (ABNORMAL) Prolactin (05/15/2024 11:37 AM INFORMATION SECURITY CONSULTANT) Prolactin Total 27.9(H) 4.0 - 15.2 ng/mL 05/15/2024 9:22 PM INFORMATION SECURITY CONSULTANT ECLR Comment: Biotin has been identified by the typewriter ribbon winder as a potential interfering substance. Higher concentrations [...] disease. Blood (Blood, Venous) 05/15/2024 11:37 AM INFORMATION SECURITY CONSULTANT 05/15/2024 8:51 PM INFORMATION SECURITY CONSULTANT Tg Mandujano P.A.-C., M.S. LAB BLOOD ADD-ON Final Result [facility] [address] [place] [address], [facility] ECLR [facility] [place] [address] * (ABNORMAL) Albumin, Random, Urine (05/12/2024 8:04 AM INFORMATION SECURITY CONSULTANT) EXT Creatinine, Urine 32.3 mg/dL [facility] EXT Microalbumin-R andom, U 45 mg/dL [facility] EXT Albumin/Creati nine Ratio 1,390(H) 0 - 30 [facility] 05/12/2024 8:04 AM INFORMATION SECURITY CONSULTANT Narrative [facility] - 05/12/2024 11:43 AM INFORMATION SECURITY CONSULTANT Source result document attached to Order Number [id number] ([id number]) dated 05/12/2024. External results verified in Extract by Flakita Guillen on 05/12/2024 at 11:41 AM. us Ordering Provider Alisa Garcia LAB URINE ORDERA BLES Final Result Performing Organization Address [facility]/ZIP Co de Phone Number [facility] [address] [place] [address] * (ABNORMAL) Renal Function Panel (05/12/2024 7:35 AM INFORMATION SECURITY CONSULTANT) EXT Sodium 138 135 - 149 mmol/L [facility] EXT Potassium 4.1 3.6 - 5.1 mmol/L [facility] EXT Chloride 110 96 - 114 mmol/L [facility] EXT CO2 18(L) 20 - 32 mmol/L [facility] EXT Anion Gap 10 7 - 15 mEq/L [facility] EXT BUN (Blood Urea Nitrogen) 32(H) 7 - 30 mg/dL [facility] EXT Creatinine 1.8(H) 0.5 - 1.5 mg/dL [facility] EXT Estimated GFR (eGFR) 40 ML [facility] EXT Calcium, Total 9.4 8.4 - 10.6 mg/dL [facility] EXT Glucose 93 60 - 115 mg/dL [facility] EXT Albumin 4.0 3.3 - 5.0 g/dL [facility] EXT Phosphorus (Inorganic), S 3.4 2.5 - 4.5 mg/dL [facility] 05/12/2024 7:35 AM INFORMATION SECURITY CONSULTANT Narrative [facility] 05/12/2024 1:53 PM INFORMATION SECURITY CONSULTANT Source result document attached to Order Number [id number] ([id number]) dated 05/12/2024. External results verified in Extract by Flakita Guillen on 05/12/2024 at 01:49 PM. us Ordering Provider Alisa Garcia LAB BLOOD ADD-ON Final Result Performing Organization Address [facility]/ZIP Co de Phone Number waliT [facility] NA [facility] [address] [id number], [facility] [phone] * (ABNORMAL) Iron and Total Iron-Binding Capacity (05/12/2024 7:35 AM INFORMATION SECURITY CONSULTANT) EXT Iron 61 49 - 181 ug/dL [facility] EXT Total Iron Binding Capacity 325 261 - 462 ug/dL [facility] EXT Percent Saturation 19(L) 20 - 50 % [facility] 05/12/2024 7:35 AM INFORMATION SECURITY CONSULTANT Narrative [facility] - 05/12/2024 11:43 AM INFORMATION SECURITY CONSULTANT External results verified in Extract by Flakita Guillen on 05/12/2024 at 11:41 AM. us Ordering Provider External M.D. LAB BLOOD ADD-ON Final Result Performing Organization Address City/[facility] Co de Phone Number [facility] [address] [place], [place] [id number] [place] [address] * (ABNORMAL) CBC with Differential, Blood (05/12/2024 7:35 AM INFORMATION SECURITY CONSULTANT) [facility] EXT Leukocytes 6.06 4.50 - 11.00 K/uL [facility] EXT RBC 4.21(L) 4.30 - 5.90 m/uL [facility] EXT Hemoglobin 12.5(L) 13.5 - 17.5 gm/dL [facility] EXT Hematocrit 37.5 37.0 - 53.0 % [facility] EXT MCV 89 80 - 100 fL [facility] EXT Platelet Count 211 140 - 440 K/uL [facility] 05/12/2024 7:35 AM INFORMATION SECURITY CONSULTANT Narrative Systems Maintenance Services [facility] - 05/12/2024 11:43 AM INFORMATION SECURITY CONSULTANT Source result document attached to Order Number [id number] ([id number]) dated 05/12/2024. External results verified in Extract by Flakita Guillen on 05/12/2024 at 11:41 AM. us Ordering Provider External M.DIsauro LAB BLOOD ADD-ON Final Result Performing Organization Address [facility]/ZIP Co de Phone Number [facility] [address] [phone] * (ABNORMAL) CRP (C-Reactive Protein) (05/12/2024 7:35 AM INFORMATION SECURITY CONSULTANT) Pathologist [facility] EXT C-Reactive Protein Quantative < 0.5(L) 0.5 - 1.0 mg/dL [facility] 05/12/2024 7:35 AM INFORMATION SECURITY CONSULTANT [facility] - 05/12/2024 1:53 PM INFORMATION SECURITY CONSULTANT Source result document attached to Order Number [id number] ([id number]) dated 05/12/2024. External results verified in Extract by Flakita Guillen on 05/12/2024 at 01:49 PM. us Ordering Provider External M.Chet LAB BLOOD ADD-ON Final Result Performing Organization Address [facility] de Phone Number [facility] [address] [phone] * Uric Acid (05/12/2024 7:35 AM INFORMATION SECURITY CONSULTANT) EXT Uric Acid, S 6.0 2.2 - 8.4 mg/dL [facility] 05/12/2024 7:35 AM INFORMATION SECURITY CONSULTANT Narrative [facility] - 05/12/2024 1:53 PM INFORMATION SECURITY CONSULTANT External results verified in Extract by Flakita Guillen on 05/12/2024 at 01:49 PM. us Ordering Provider External M.DIsauro LAB BLOOD ADD-ON Final Result Performing Organization Address City/[facility] Co de Phone Number [facility] [address] [place] [address] * (ABNORMAL) Parathyroid Hormone (PTH) (05/12/2024 7:35 AM INFORMATION SECURITY CONSULTANT) Parathyroid Hormone (PTH) 110.3(H) 14.2 - 75.2 pg/mL [facility] 05/12/2024 7:35 AM INFORMATION SECURITY CONSULTANT Narrative [facility] - 05/12/2024 1:53 PM INFORMATION SECURITY CONSULTANT Source result document attached to Order Number [id number] ([id number]) dated 05/12/2024. External results verified in Extract by Flakita Guillen on 05/12/2024 at 01:49 PM. us Ordering Provider External MVishal LAB BLOOD ADD-ON Final Result Performing Organization Address [facility]/ZIP Co de Phone Number waliT [facility] [address] [place] [address] * (ABNORMAL) Hemoglobin A1c (05/12/2024 7:35 AM INFORMATION SECURITY CONSULTANT) EXT Hemoglobin A1c, B 6.2(H) 0 - 5.6 % [facility] 05/12/2024 7:35 AM INFORMATION SECURITY CONSULTANT Narrative waliT [facility] - 05/12/2024 11:43 AM INFORMATION SECURITY CONSULTANT Source result document attached to Order Number [id number] ([id number]) dated 05/12/2024. External results verified in Extract by Flakita Guillen on 05/12/2024 at 11:41 AM. us Ordering Provider External M.DIsauro LAB BLOOD ADD-ON Final Result Performing Organization Address City/[facility]/ZIP Co de Phone Number [facility] [address] [place] [address] * Ferritin (05/12/2024 7:35 AM INFORMATION SECURITY CONSULTANT) EXT Ferritin, S 41.9 17.9 - 464.0 ng/mL [facility] 05/12/2024 7:35 AM INFORMATION SECURITY CONSULTANT Narrative [facility] - 05/12/2024 1:53 PM INFORMATION SECURITY CONSULTANT Source result document attached to Order Number [id number] ([id number]) dated 05/12/2024. External results verified in Extract by Flakita Guillen on 05/12/2024 at 01:49 PM. us Ordering Provider External M.D. LAB BLOOD ADD-ON Final Result Performing Organization Address City/[facility]/ZIP Co de Phone Number CASIE [facility] NA [facility] [address] [place] [address] * OPHTHALMOLOGY IMAGE EXAM (12/24/2017 9:53 AM [...] PROCE DURES Final Result Performing Organization Address [facility] Co de Phone Number [facility] NA * (ABNORMAL) Lipoprotein Metabolism Profile (07/07/2015 8:14 AM CDT) LDL Triglycerides 53(H) <=50 MG/DL [facility] VLDL cholesterol 24 <30 MG/DL [facility] VLDL triglycerides 151(H) <120 MG/DL [facility] Beta VLDL Cholesterol . <15 MG/DL [facility] Comment:Not Detected Beta VLDL triglycerides . <15 MG/DL [facility] Comment:Not Detected Chylomicron cholesterol . Undetectable MG/DL [facility] Comment:Not Detected LpX . Undetectable [facility] Comment:Not detected Interpretation . [facility] Comment:Mild Type IV Hyperli poproteinemia Cholesterol, Total 179 SeeComment MG/DL [facility] Comment: REFERENCE VALUE Desirable: < 200 Borderline high: 200 - 239 High: > or = 240 Triglycerides 225(H) SeeComment MG/DL [facility] Comment: REFERENCE VALUE Normal: <150 Borderline high: 150-199 High: 200-499 Very high: > or =500 Apolipoprotein B, S 102(H) SeeComment MG/DL [facility] Comment: REFERENCE VALUE Desirable: <90 Above Desirable: 90-99 Borderline high: 100-119 High: 120-139 Very high: > or = 140 LDL Cholesterol 91 SeeComment MG/DL [facility] Comment: REFERENCE VALUE Desirable: <100 Above Desirable: 100-129 Borderline high: 130-159 High: 160-189 Very high: > or =190 Chylomicron triglycerides . Undetectable MG/DL [facility] Comment:Not Detected Lp(a) Cholesterol 25(H) <3 MG/DL [facility] Comment: Increased Lipoprotein (a) cholesterol. Increased Lp(a) [...] HDL Cholesterol, CDC, S 39(L) >=40 MG/DL [facility] 07/07/2015 8:14 AM CDT 07/07/2015 8:14 AM CDT us Lindsey Ragland M.D. LAB BLOOD ADD-ON Tiffani l Result [facility] [address] [place], [place] [address] from Last 3 Months or Most Recently Relevant to Health Maintenance Insurance [facility]
--- OUTSIDE RECORDS SUMMARY | 2024-06-25 10:23 | XMS_ITS | Encounter Summary ---
Author Organization [facility] Address [address] [place] [address] Care Team Providers Care Ux Interaction Designer Name Role Phone Unavailable Primary Care Provider Unavailabl e Encounter Details Date Type Department Care Team (Latest Contact Info) Description 05/30/2024 11:00 AM ELECTRICIAN REFINERY - 05/30/2024 11:59 PM [facility] Hospital Encounter Department of Laboratory Medicine and Pathology, [facility], in [place], [place] [address] [place] [address] Walter Willis Jr., D.O. [address] [place] [address] Chronic Kidney Disease (CKD), Stage 3a Glomerular [...] = 0.6 oz pur e alcohol) [facility] Utilities Answer Date Recorded In [...] How often do you attend chur or buddhist services? Patient declined 09/27/2020 Do you belong to any clubs o r organizations such as cheondoism groups, unions, fraternal or athletic groups, or [...] and heating? Not hard at all 09/27/2020 [facility] [place] of Occupat ional Health - Occupational Stress [...] your living situation today? I have a [facility] place to live 04/29/2023 Education Answer Date Recorded What is the highest level of school you have completed or the highest degree you have received? 12th grade 12/29/2018 Sex and Gender Information Value Date Recorded Sex Assigned at Male 04/29/2023 9:28 PM ELECTRICIAN REFINERY Legal Sex Male 5:12 PM ELECTRICIAN REFINERY Gender Identity Male 12/24/2017 2:50 PM CDT [...] times a day with meals. 04/20/2019 vitamins A,C,V-gnil-jkyod r (ICaps AREDS) 14,320 Units-226 mg-200 Units [...] PANEL, PCR, F Routine 06/02/2024 2:47 PM ELECTRICIAN REFINERY Chronic Kidney Disease (CKD), Stage 3a Glomerular [...] Diarrhea FAT, F Routine 06/02/2024 2:44 PM ELECTRICIAN REFINERY Chronic Kidney Disease (CKD), Stage 3a Glomerular [...] Pathogen Panel, PCR, Feces (06/02/2024 2:47 PM ELECTRICIAN REFINERY) Specimen Source STOOL 5:27 PM ELECTRICIAN REFINERY DTL Campylobacter species Negative Negative 06/02/2024 5:27 PM ELECTRICIAN REFINERY DTL C. difficile toxin Negative Negative 2024 5:27 PM ELECTRICIAN REFINERY DTL Plesiomonas shigelloides Negative Negative 06/02/2024 5:27 PM ELECTRICIAN REFINERY DTL Salmonella species Negative Negative 2024 5:27 PM ELECTRICIAN REFINERY DTL Vibrio species Negative Negative 06/02/2024 5:27 PM ELECTRICIAN REFINERY DTL Vibrio cholerae Negative Negative 5:27 PM ELECTRICIAN REFINERY DTL Yersinia species Negative Negative 06/03/19 5:27 PM ELECTRICIAN REFINERY DTL Enteroaggregative E. coli (EAEC) Negative Negative 06/02/2024 5:27 PM ELECTRICIAN REFINERY DTL Enteropathogenic E. coli (EPEC) Negative Negative 06/02/2024 5:27 PM ELECTRICIAN REFINERY DTL Enterotoxigenic E. coli (ETEC) Negative Negative 06/02/2024 5:27 PM ELECTRICIAN REFINERY DTL Shiga toxin producing E. coli Negative Negative 06/02/2024 5:27 PM ELECTRICIAN REFINERY DTL Shigella/Enteroinvas lynsey E. coli Negative Negative 06/02/2024 5:27 PM ELECTRICIAN REFINERY DTL Cryptosporidium species Negative Negative 06/02/2024 5:27 PM ELECTRICIAN REFINERY DTL Cyclospora cayetanensis Negative Negative 06/02/2024 5:27 PM ELECTRICIAN REFINERY DTL Entamoeba histolytica Negative Negative 06/02/2024 5:27 PM ELECTRICIAN REFINERY DTL Giardia Negative Negative 06/02/2024 5:27 PM ELECTRICIAN REFINERY DTL Adenovirus F40/41 Negative Negative 025 5:27 PM ELECTRICIAN REFINERY DTL Astrovirus Negative Negative 06/02/2024 5:27 PM ELECTRICIAN REFINERY DTL Norovirus GI/GII Negative Negative 06/03/19 25 5:27 PM ELECTRICIAN REFINERY DTL Rotavirus Ag, F Negative Negative 5:27 PM ELECTRICIAN REFINERY DTL Sapovirus Negative Negative 06/02/2024 5:27 PM ELECTRICIAN REFINERY DTL Comment: ----ADDITIONAL INFORMATION---- This assay is performed using the FDA-cleared FilmArray GI Panel ([employer] Stool (Stool) 06/02/2024 2:4 7 PM ELECTRICIAN REFINERY 06/02/2024 3:17 PM ELECTRICIAN REFINERY Walter Wlilis Jr., D.O. LAB MICROBIOLOGY - G ENERAL ORDERABLES Final Result Performing Organization Address [facility] de Phone Number [facility] [address] [place] [address], [facility] [address] [address] * (ABNORMAL) Fat, Feces (06/02/2024 2:44 PM ELECTRICIAN REFINERY) Total Weight 428 g 06/03/2024 9:48 AM ELECTRICIAN REFINERY DTL Duration 24 h 06/02/2024 2:46 PM ELECTRICIAN REFINERY DTL Comment: More reliable results can be obtained from a 48 or 72 hour collection. Total Fat/24 Hr 19(H) 2 - 7 g/24 h 06/03/2024 1:30 PM ELECTRICIAN REFINERY DTL Comment: ----ADDITIONAL INFORMATION---- This test was developed and its performance characteristics determined by [facility] in a manner consistent with CLIA requirements. This test has not been cleared or approved by the U.S. Food and Drug Administration. Stool (Stool) 06/02/2024 2:4 4 PM ELECTRICIAN REFINERY 06/03/2024 12:39 PM ELECTRICIAN REFINERY us Tiara Zaldivar Jr..OIsauro LAB BODY FLUIDS AND STOOLS ORDERABLES Final Result Performing Organization Address [facility] Co de Phone Number [facility] [address] [place] [address], [facility] [address] [address] documented in this encounter Visit Diagnoses Diagnosis [...]
--- OUTSIDE RECORDS SUMMARY | 2024-06-25 10:23 | XMS_ITS | Encounter Summary ---
Author Organization [facility] Address [address] [place] [address] Care Team Providers Care Carburizer Name Role Phone Unavailable Primary Care Provider Unavailabl e Reason for Visit * Reason Onset Date Comments OSM - Outside Materials 06/10/2024 MR abdom en -06/09/24 Encounter Details Date Type Department Care Team (Latest Contact Info) Description 06/10/2024 Clinical Communication Division of Nephrology and Hypertension in [place], [place] [address] [place] [address] Walter Willis Jr., D.O. [address] [place] [address] OSM - Outside Materials (MR abdomen -06/09/24) Social History Tobacco Use Types Packs/Day Years Used Date Smoking Tobacco: Former Cigarettes 0.3 6 0 04/03/1979 - 04/02/1985 Smokeless Tobacco: Never Alcohol Use Standard Drinks/Week Comments Yes 2 (1 standard drink = 0.6 oz pur e alcohol) [facility] Utilities Answer Date Recorded In the [...] How often do you attend chur or anabaptism services? Patient declined 09/27/2020 Do you belong to any clubs o r organizations such as islam groups, unions, fraternal [...] and heating? Not hard at all 09/27/2020 [facility] of Occupat ional Health - Occupational [...] Assigned at Male 04/29/2023 9:28 PM COTTON AGENT Legal Sex Male 5:12 PM COTTON AGENT Gender Identity Male 12/24/2017 2:50 PM CDT Sexual Orientation Straight 12/24/2017 2: 50 PM CDT documented as of this encounter Plan of Treatment Not on file documented as of this encounter Visit Diagnoses Not on filedocumented in this encounter
--- OUTSIDE RECORDS SUMMARY | 2024-06-25 10:23 | XMS_ITS | Encounter Summary ---
Author Organization [facility] Address [address] [place] [address] Care Team Providers Care Spa Assistant Manager Name Role Phone Unavailable Primary Care Provider Unavailabl e Encounter Details Date Type Department Care Team (Late st Contact Info) Description 06/10/2024 Documentation Division of Nephrology and Hypertension in [place], [place] [address] [place] [phone] Walter Willis Jr., D.O. [address] [place] [address] Social History Tobacco Use Types Packs/Day Years Used Date Smoking Tobacco: Former Cigarettes 0.3 6 0 04/03/1979 - 04/02/1985 Smokeless Tobacco: Never Alcohol Use Standard Drinks/Week Comments Yes 2 (1 standard drink = 0.6 oz pur e alcohol) [facility] Utilities Answer Date Recorded In the [...] any clubs o r organizations such as mu-ism groups, unions, fraternal or athletic groups, or [...] and heating? Not hard at all 09/27/2020 [facility] of Occupat ional Health - Occupational Stress [...] your living situation today? I have a [facility] place to live 04/29/2023 Education Answer Date Recorded What is the highest level of school you have completed or the highest degree you have received? 12th grade 12/29/2018 Sex and Gender Information Value Date Recorded Sex Assigned at Male 04/29/2023 9:28 PM FINANCIAL BUSINESS ANALYST Legal Sex Male 5:12 PM FINANCIAL BUSINESS ANALYST Gender Identity Male 12/24/2017 2:50 PM [...] been seen by local Urology, , in [place]. He had been lost to follow-up. Offered [...]
--- OUTSIDE RECORDS SUMMARY | 2024-06-25 10:23 | XMS_ITS | Encounter Summary ---
Author Organization [facility] Address [address] [place] [address] Care Team Providers Care Banquet Kitchen Supervisor Name Role Phone Unavailable Primary Care [...] Hyperaldosteronism (HCC) Walter Willis Jr., D.O. [address] [place] [address] Phone: tel: fax: [facility] Referral ID Status Reason Start Date Expiration Date Visits Requested Visits Authorized [id number] Authorized Specialty Services Required 06/18/2024 12/18/2025 1 1 Scheduling Instructions GIH consult should be scheduled after all testing Encounter Details Date Type Department Care Team (Late st Contact Info) Description 06/18/2024 Orders Only Division of Nephrology and Hypertension in [place], [place] [address] [place] [address] Walter Willis Jr., D.O. [address] [place] [address] Chronic Kidney Disease (CKD), Stage 3a Glomerular [...] drink = 0.6 oz pur e alcohol) [facility] Utilities Answer Date Recorded In the past 12 months has [employer], gas, oil, or water company threatened [...] How often do you attend chur or worship services? Patient declined 09/27/2020 Do you belong to any clubs o r organizations such as scientologist groups, unions, fraternal or athletic groups, or [...] and heating? Not hard at all 09/27/2020 [facility] [place] of Occupat ional Health - Occupational Stress [...] Sex Assigned at Male 04/29/2023 9:28 PM GETTER FILLER Legal Sex Male 5:12 PM GETTER FILLER Gender Identity Male 12/24/2017 2:50 PM CDT [...]
--- OUTSIDE RECORDS SUMMARY | 2024-06-25 10:23 | XMS_ITS | Encounter Summary ---
Author Organization [facility] Address [address] [place] [address] Care Team Providers Care Float Tender Name Role Phone Unavailable Primary Care Provider Unavailabl e Encounter Details Date Type Department Care Team (Latest Contact Info) Description 05/15/2024 11:30 AM CYLINDER INSPECTOR - 05/15/2024 11:59 PM [facility] Hospital Encounter Department of Laboratory Medicine in [address] [phone] Tg Mandujano P.A.-C., M.S. [address] [place] [phone] Prolactinoma (HCC) Discharge Disposition: Home or Self [...] How often do you attend chur or mu-ism services? Patient declined 09/27/2020 Do you belong to any clubs o r organizations such as jehovah's witness groups, unions, [...] your living situation today? I have a [facility] place to live 04/29/2023 Education Answer Date Recorded What is the highest level of school you have completed or the highest degree you have received? 12th grade 12/29/2018 Sex and Gender Information Value Date Recorded Sex Assigned at Male 04/29/2023 9:28 PM CYLINDER INSPECTOR Legal Sex Male 5:12 PM CYLINDER INSPECTOR Gender Identity Male 12/24/2017 2:50 PM CDT [...] TESTOSTERONE,F/WKLY BD+T LC/MS Routine 05/15/2024 11:37 AM CYLINDER INSPECTOR Prolactinoma (HCC) PROLACTIN, S Routine 05/15/2024 11:37 AM CYLINDER INSPECTOR Prolactinoma (HCC) documented in this encounter Results * Testosterone, Free and Weakly Bound, With Total Testosterone, LC/MS-MS - Sent Out Lab (05/15/2024 11:37 AM CYLINDER INSPECTOR) Testosterone, Total, LC/MS 390.0 264.0 - 916.0 ng/dL 05/22/2024 7:07 PM CYLINDER INSPECTOR JOANNEI Comment: This [facility] LC/MS-MS method is currently certified by the CDC Hormone Standardization Program (HoSt). Adult male reference interval is based on a population of healthy nonobese males (BMI <30) between 19 and 39 years old. alexandra Mora.al. JCEM 2017,102;6899-2094. PMID: [id number]. This test was developed and its performance characteristics determined by [facility]. It has not been cleared or approved by the Food and Drug Administration. Testost. % Free+Weakly Bound 22.2 9.0 - 46.0 % 05/22/2024 7:07 PM CYLINDER INSPECTOR BURI Comment: This test was developed and its performance characteristics determined by [facility]. It has not been cleared or approved by the Food and Drug Administration. Testost. F+W Bound 86.6 40.0 - 250.0 ng/dL 05/22/2024 7:07 PM CYLINDER INSPECTOR BURI Blood (Blood, Venous) 05/15/2024 11:37 AM CYLINDER INSPECTOR 05/16/2024 7:37 AM CYLINDER INSPECTOR Tg Mandujano P.A.-C., M.S. LAB BLOOD NON AD D-ON Final Result Performing Organization Address [facility] [place] [address], [facility] [place] [address] * (ABNORMAL) Prolactin (05/15/2024 11:37 AM CYLINDER INSPECTOR) Pathologist [facility] Prolactin Total 27.9(H) 4.0 - 15.2 ng/mL 05/15/2024 9:22 PM CYLINDER INSPECTOR ECLR Comment: Biotin has been identified by the [employer] hcm consultant as a potential interfering substance. Higher concentrations [...] disease. Blood (Blood, Venous) 05/15/2024 11:37 AM CYLINDER INSPECTOR 05/15/2024 8:51 PM CYLINDER INSPECTOR Tg Mandujano P.A.-C., M.S. LAB BLOOD ADD-ON Final Result Performing Organization Address City/[facility]/ZIP Co de Phone Number [facility] [address] [place] [address], [facility] ECLR [facility] in [place] [address] [place] [address] documented in this encounter Visit Diagnoses Diagnosis Prolactinoma (HCC) documented in this encounter
--- OUTSIDE RECORDS SUMMARY | 2024-06-25 10:23 | XMS_ITS | Encounter Summary ---
Author Organization [facility] Address [address] [place] [address] Care Team Providers Care Head Cook Name Role Phone Unavailable Primary Care Provider Unavailabl e Encounter Details Date Type Department Care Team (Late st Contact Info) Description 05/12/2024 Orders Only Division of Nephrology and Hypertension in [place], [place] [address] [place] [address] External, Ordering ProviderJose Social History Tobacco Use Types Packs/Day Years Used Date Smoking Tobacco: Former Cigarettes 0.3 6 0 04/03/1979 - 04/02/1985 Smokeless Tobacco: Never Alcohol Use Standard Drinks/Week Comments Yes 2 (1 standard drink = 0.6 oz pur e alcohol) [facility] Utilities Answer Date Recorded In the past 12 months has [employer], gas, oil, or water company threatened [...] week 09/27/2020 How often do you attend [facility] or jewish services? Patient declined 09/27/2020 Do you belong to any clubs o r organizations such as sikhism groups, unions, fraternal [...] and heating? Not hard at all 09/27/2020 [facility] of Occupat ional Health - Occupational [...] your living situation today? I have a [facility] place to live 04/29/2023 Education Answer Date Recorded What is the highest level of school you have completed or the highest degree you have received? 12th grade 12/29/2018 Sex and Gender Information Value Date Recorded Sex Assigned at Male 04/29/2023 9:28 PM STEAM CONDITIONER OPERATOR Legal Sex Male 5:12 PM STEAM CONDITIONER OPERATOR Gender Identity Male 12/24/2017 2:50 PM CDT Sexual Orientation Straight 12/24/2017 2: 50 PM CDT documented as of this encounter Plan of Treatment Not on file documented as of this encounter Procedures Procedure Name Priority Date/Time Associated Diagnosis Comments ALBUMIN, RANDOM, U Routine 05/12/2024 8: 04 AM STEAM CONDITIONER OPERATOR IRON AND TOT IRON-BINDING CAPACITY, S/P Routine 05/12/2024 7:35 AM STEAM CONDITIONER OPERATOR CBC WITH DIFFERENTIAL, B Routine 05/12/2024 7:35 AM STEAM CONDITIONER OPERATOR HEMOGLOBIN A1C, B Routine 05/12/2024 7:3 5 AM STEAM CONDITIONER OPERATOR documented in this encounter Results * (ABNORMAL) Albumin, Random, Urine (05/12/2024 8:04 AM STEAM CONDITIONER OPERATOR) EXT Creatinine, Urine 32.3 mg/dL [facility] EXT Microalbumin-R andom, U 45 mg/dL [facility] EXT Albumin/Creati nine Ratio 1,390(H) 0 - 30 [facility] 05/12/2024 8:04 AM STEAM CONDITIONER OPERATOR Narrative [facility] - 05/12/2024 11:43 AM STEAM CONDITIONER OPERATOR Source result document attached to Order Number [id number] ([id number]) dated 05/12/2024. External results verified in Extract by Flakita Guillen on 05/12/2024 at 11:41 AM. us Ordering Provider External M.Chet LAB URINE ORDERA BLES Final Result Performing Organization Address [facility] Co de Phone Number [facility] [address] [place] [address] * (ABNORMAL) CBC with Differential, Blood (05/12/2024 7:35 AM STEAM CONDITIONER OPERATOR) EXT Leukocytes 6.06 4.50 - 11.00 K/uL [facility] EXT RBC 4.21(L) 4.30 - 5.90 m/uL [facility] EXT Hemoglobin 12.5(L) 13.5 - 17.5 gm/dL [facility] EXT Hematocrit 37.5 37.0 - 53.0 % [facility] EXT MCV 89 80 - 100 fL [facility] EXT Platelet Count 211 140 - 440 K/uL [facility] 05/12/2024 7:35 AM STEAM CONDITIONER OPERATOR Narrative [facility] - 05/12/2024 11:43 AM STEAM CONDITIONER OPERATOR Source result document attached to Order Number [id number] ([id number]) dated 05/12/2024. External results verified in Extract by Flakita Guillen on 05/12/2024 at 11:41 AM. us Ordering Provider External Jose LAB BLOOD ADD-ON Final Result Performing Organization Address [facility]/ZIP Co de Phone Number [facility] [address] [place] [address] * (ABNORMAL) Hemoglobin A1c (05/12/2024 7:35 AM STEAM CONDITIONER OPERATOR) EXT Hemoglobin A1c, B 6.2(H) 0 - 5.6 % [facility] 05/12/2024 7:35 AM STEAM CONDITIONER OPERATOR Narrative [facility] - 05/12/2024 11:43 AM STEAM CONDITIONER OPERATOR Source result document attached to Order Number [id number] ([id number]) dated 05/12/2024. External results verified in Extract by Flakita Guillen on 05/12/2024 at 11:41 AM. us Ordering Provider External Jose LAB BLOOD ADD-ON Final Result Performing Organization Address [facility] Co de Phone Number [facility] [address] [phone] * (ABNORMAL) Iron and Total Iron-Binding Capacity (05/12/2024 7:35 AM STEAM CONDITIONER OPERATOR) EXT Iron 61 49 - 181 ug/dL [facility] EXT Total Iron Binding Capacity 325 261 - 462 ug/dL [facility] EXT Percent Saturation 19(L) 20 - 50 % [facility] 05/12/2024 7:35 AM STEAM CONDITIONER OPERATOR Narrative [facility] - 05/12/2024 11:43 AM STEAM CONDITIONER OPERATOR External results verified in Extract by Flakita Guillen on 05/12/2024 at 11:41 AM. us Ordering Provider Alisa Garcia LAB BLOOD ADD-ON Final Result Performing Organization Address [facility]/ZIP Co de Phone Number [facility] [address] [place] [phone], [facility] [phone] documented in this encounter Visit Diagnoses Not on filedocumented in this encounter
--- OUTSIDE RECORDS SUMMARY | 2024-06-25 10:23 | XMS_ITS | Encounter Summary ---
Author Organization [facility] Address [address] [place] [address] Care Team Providers Care Editor News Name Role Phone Unavailable Primary Care Provider Unavailabl e Reason for Referral * Outpatient (Routine) - Authorized Specialty Diagnoses / Procedures Referred By Bina alberto Referred To Contact Endocrinology Diagnoses Prolactinoma (HCC) Tg Mandujano P.A.-C., M.S. [address] [place] [phone] Phone: tel: fax: [facility] Referral ID Status Reason Start Date Expiration Date V isits Requested Visits Authorized [id number] Authorized 05/23/2024 11/22/2025 1 1 TY SUPERVISOR Reason for Visit * Outpatient (Routine) - Closed Specialty Diagnoses / Procedures Referred By Contnaomi t Referred To Contact Endocrinology Diagnoses Prolactinoma (HCC) Tg Mandujano P.A.-C., M.S. [address] [place] [phone] Phone: tel: fax: [facility] Referral ID Status Reason Start Date Expiration Date Visits Re quested Visits Authorized [id number] Closed 05/02/2023 10/31/2024 1 1 Encounter Details Date Type Department Care Team (Latest Contact Info) Description 05/23/2024 10:30 AM SAFETY SUPERVISOR Office Visit Division of Endocrinology in [place], [place] [address] [place] [address] Tg Mandujano P.A.-C., M.S. [address] [place] [address] Prolactinoma (HCC) (Primary Dx) Social History Tobacco Use Types Packs/Day Years Used Date Smoking Tobacco: Former Cigarettes 0.3 6 0 04/03/1979 - 04/02/1985 Smokeless Tobacco: Never Alcohol Use Standard Drinks/Week Comments Yes 2 (1 standard drink = 0.6 oz pur e alcohol) [facility] [employer] Answer Date Recorded In the past 12 months has [employer], gas, oil, or water [employer] threatened to shut off services in your [...] How often do you attend chur or caodaism services? Patient declined 09/27/2020 Do you belong [...] and heating? Not hard at all 09/27/2020 [facility] [place] of Occupat ional Health - Occupational Stress [...] Sex Assigned at Male 04/29/2023 9:28 PM SAFETY SUPERVISOR Legal Sex Male 5:12 PM SAFETY SUPERVISOR Gender Identity Male 12/24/2017 2:50 PM [...] Telehealth: Either Return to: Self Orders: [facility] [place] 1 week prior Orders placed for next visit: Orders Placed This Encounter Procedures Prolactin Testosterone, Free and Weakly Bound, With Total Testosterone, LC/MS-MS - Sent Out Lab Endocrinology office visit (clinic) Mr. Gasca was in agreement with the above plan and did not have any additional questions at the end of the visit. TY SUPERVISOR documented in this encounter Plan of [...]
--- OUTSIDE RECORDS SUMMARY | 2024-06-25 10:23 | XMS_ITS | Encounter Summary ---
Author Organization [facility] Address [address] [place] [address] Care Team Providers Care Tile And Marble Installer Name Role Phone Unavailable Primary Care Provider Unavailabl e Reason for Visit * Reason Onset Date Comments Pre-visit Intake 05/23/2024 * Appointment Request (Routine) - Authorized Specialty Diagnoses / Procedures Referred By Bina alberto Referred To Contact Endocrinology Referral ID Status Reason Start Date Expiration Date V isits Requested Visits Authorized [id number] Authorized 05/15/2024 08/15/2025 1 1 Encounter Details Date Type Department Care Team (Latest Contact Info) Description 05/23/2024 7:00 AM MASTER MACHINIST Clinical Communication Virtual Review in [address] [address] Pre-visit Intake Social History Tobacco Use Types Packs/Day Years Used Date Smoking Tobacco: Former Cigarettes 0.3 6 0 04/03/1979 - 04/02/1985 Smokeless Tobacco: Never Alcohol Use Standard Drinks/Week Comments Yes 2 (1 standard drink = 0.6 oz pur e alcohol) [facility] Utilities Answer Date Recorded In the past [...] any clubs o r organizations such as restorationism groups, unions, fraternal or athletic groups, or [...] and heating? Not hard at all 09/27/2020 [facility] - [...] Assigned at Male 04/29/2023 9:28 PM MASTER MACHINIST Legal Sex Male 5:12 PM MASTER MACHINIST Gender Identity Male 12/24/2017 2:50 PM CDT Sexual Orientation Straight 12/24/2017 2: 50 PM CDT documented as of this encounter Plan of Treatment Not on file documented as of this encounter Visit Diagnoses Not on filedocumented in this encounter
--- OUTSIDE RECORDS SUMMARY | 2024-06-25 10:23 | XMS_ITS | Encounter Summary ---
Author Organization [facility] Address [address] [place] [address] Care Team Providers Care Broadcaster Name Role Phone Unavailable Primary Care Provider Unavailabl e Reason for Visit * Appointment Request (Routine) - Closed Specialty Diagnoses / Procedures Referred By Bina t Referred To Contact Nephrology and Hypertension Referral ID Status Reason Start Date Expiration Date Visits Re quested Visits Authorized [id number] Closed 04/25/2024 07/26/2025 1 1 Encounter Details Date Type Department Care Team (Latest Contact Info) Description 05/19/2024 4:00 PM [employer] External Outreach Division of Nephrology and Hypertension in [place], [place] [address] [place] [address] Walter Willis Jr., D.O. [address] [place] [address] Chronic Kidney Disease (CKD), Stage 3a Glomerular [...] drink = 0.6 oz pur e alcohol) [facility] Utilities Answer Date Recorded [...] any clubs o r organizations such as mandaen groups, unions, fraternal [...] and heating? Not hard at all 09/27/2020 [facility] Occupat ional [facility] - Occupational Stress [...] living situation today? I have a [facility] place to live 04/29/2023 Education Answer Date Recorded What is the highest level of school you have completed or the highest degree you have received? 12th grade 12/29/2018 Sex and Gender Information Value Date Recorded Sex Assigned at Male 04/29/2023 9:28 PM [employer] Legal Sex Male 5:12 PM [employer] Gender Identity Male 12/24/2017 2:50 PM CDT Sexual Orientation Straight 12/24/2017 2: 50 PM CDT documented as of this encounter Last Filed Vital Signs Vital Sign Reading Time Taken Comments Blood Pressure 140/78 05/19/2024 4:00 PM [employer] Pulse 47 05/19/2024 4:00 PM [employer] Temperature - - Respiratory Rate - - Oxygen Saturation - - Inhaled Oxygen Concentration - - Weight 74.8 kg (164 lb 14.5 oz) 05/19/2024 4:00 PM [employer] Height 172.7 cm (5' 7.99) 05/19/2024 4:00 PM CS T Body Mass Index 25.08 05/19/2024 4:00 PM [employer] documented in this encounter Progress Notes * Walter Willis Jr., DCitlaly. - 05/19/2024 4:00 PM CST Referring Provider: No primary care provider on file. SUBJECTIVE REASON FOR VISIT [place] [facility] Follow-up regards resistant [...] by mouth daily., Disp: , Rfl: 0 [employer] documented in this encounter Plan of Treatment Scheduled Orders Name Type Priority Associated Diagnoses Orde r Schedule Celiac Disease Comprehensive [place] Lab Routine Chronic Kidney Disease (CKD), Stage [...] Pathogen Panel, PCR, Feces (06/02/2024 2:47 PM [employer]) Specimen Source STOOL 5:27 PM [employer] DTL Campylobacter species Negative Negative 06/02/2024 5:27 PM [employer] DTL C. difficile toxin Negative Negative 2024 5:27 PM [employer] DTL Plesiomonas shigelloides Negative Negative 06/02/2024 5:27 PM [employer] DTL Salmonella species Negative Negative 2024 5:27 PM [employer] D[facility] Vibrio species Negative Negative 06/02/2024 5:27 PM [employer] D[facility] Vibrio cholerae Negative Negative 5:27 PM [employer] D[facility] Yersinia species Negative Negative 06/03/19 5:27 PM [employer] DTL Enteroaggregative E. coli (EAEC) Negative Negative 06/02/2024 5:27 PM [employer] DTL Enteropathogenic E. coli (EPEC) Negative Negative 06/02/2024 5:27 PM [employer] DTL Enterotoxigenic E. coli (ETEC) Negative Negative 06/02/2024 5:27 PM [employer] DTL Shiga toxin producing E. coli Negative Negative 06/02/2024 5:27 PM [employer] DTL Shigella/Enteroinvas lynsey E. coli Negative Negative 06/02/2024 5:27 PM [employer] DTL Cryptosporidium species Negative Negative 06/02/2024 5:27 PM [employer] DTL Cyclospora cayetanensis Negative Negative 06/02/2024 5:27 PM [employer] DTL Entamoeba histolytica Negative Negative 06/02/2024 5:27 PM [employer] DTL Giardia Negative Negative 06/02/2024 5:27 PM [employer] DTL Adenovirus F40/41 Negative Negative 025 5:27 PM [employer] DTL Astrovirus Negative Negative 06/02/2024 5:27 PM [employer] DTL Norovirus GI/GII Negative Negative 06/03/19 25 5:27 PM [employer] DTL Rotavirus Ag, F Negative Negative 5:27 PM [employer] DTL Sapovirus Negative Negative 06/02/2024 5:27 PM [employer] DTL Comment: ----ADDITIONAL INFORMATION---- This assay is performed using the FDA-cleared Hivelocity GI Panel ([employer] Stool (Stool) 06/02/2024 2:4 7 PM [employer] 06/02/2024 3:17 PM [employer] us Walter Willis Jr., D.O. LAB MICROBIOLOGY - G ENERAL ORDERABLES Final Result [facility] [address] [place] [address], [facility] DTL [address] [facility] [address] [place] [address] * (ABNORMAL) Fat, Feces (06/02/2024 2:44 PM [employer]) Total Weight 428 g 06/03/2024 9:48 AM [employer] DTL Duration 24 h 06/02/2024 2:46 PM [employer] DTL Comment: More reliable results can be obtained from a 48 or 72 hour collection. Total Fat/24 Hr 19(H) 2 - 7 g/24 h 06/03/2024 1:30 PM [employer] DTL Comment: ----ADDITIONAL INFORMATION---- This test was developed and its performance characteristics determined by [facility] in a manner consistent with CLIA requirements. This test has not been cleared or approved by the U.S. Food and Drug Administration. Stool (Stool) 06/02/2024 2:4 4 PM [employer] 06/03/2024 12:39 PM [employer] us Walter Willis Jr., D.O. LAB BODY FLUIDS AND STOOLS ORDERABLES Final Result [facility] [address] [place] [address], [facility] [address] [place] [address] documented in this encounter Visit Diagnoses Diagnosis [...]
--- OUTSIDE RECORDS SUMMARY | 2024-06-25 10:23 | XMS_ITS | Encounter Summary ---
Author Organization [facility] Address [address] [place] [address] Care Team Providers Care Projects Manager Name Role Phone Unavailable Primary Care [...] IV Contrast Walter Willis Jr., D.O. [address] [place] [address] Phone: tel: fax: [facility] Referral ID Status Reason Start Date Expiration Date V isits Requested Visits Authorized [id number] Authorized 06/15/2024 09/15/2025 1 1 * Outpatient (Routine) - Authorized Specialty Diagnoses / Procedures Referred By Contac t Referred To Contact Diagnoses Chronic Kidney Disease (CKD), Stage 3a Glomerular Filtration Rate (GFR) 45 To 59 (HCC) Diabetes Mellitus Type 2 With Diabetic Nephropathy (HCC) Mass Kidney Procedures DX Chest AP or PA and Lateral 2 Views Walter Willis Jr., D.O. [address] [place] [address] Phone: tel: fax: [facility] Referral ID Status Reason Start Date Expiration Date V isits Requested Visits Authorized [id number] Authorized 06/15/2024 09/15/2025 1 1 * Outpatient (Routine) - Authorized Specialty Diagnoses / Procedures Referred By Bina t Referred To Contact Urology Diagnoses Chronic Kidney Disease (CKD), Stage 3a Glomerular Filtration Rate (GFR) 45 To 59 (HCC) Diabetes Mellitus Type 2 With Diabetic Nephropathy (HCC) Mass Kidney Walter Willis Jr., D.O. [address] [place] [address] Phone: tel: fax: [facility] Referral ID Status Reason Start Date Expiration Date V isits Requested Visits Authorized [id number] Authorized 06/15/2024 12/15/2025 1 1 Encounter Details Date Type Department Care Team (Late st Contact Info) Description 06/15/2024 Orders Only Division of Nephrology and Hypertension in [place], [place] [address] [place] [phone] Walter Willis Jr., D.O. [address] [place] [id number] Chronic Kidney Disease (CKD), Stage 3a Glomerular [...] drink = 0.6 oz pur e alcohol) [facility] Utilities Answer Date Recorded In the past 12 months has th e [employer], gas, oil, or water [employer] threatened to shut off services in your [...] How often do you attend chur or temple services? Patient declined 09/27/2020 Do you belong [...] and heating? Not hard at all 09/27/2020 [facility] Occupat ional Health - Occupational [...] your living situation today? I have a [facility] place to live 04/29/2023 Education Answer Date Recorded What is the highest level of school you have completed or the highest degree you have received? 12th grade 12/29/2018 Sex and Gender Information Value Date Recorded Sex Assigned at Male 04/29/2023 9:28 PM TIBCO DEVELOPER Legal Sex Male 5:12 PM TIBCO DEVELOPER Gender Identity Male 12/24/2017 2:50 PM CDT [...]
[2024-06-25] MEDS: HYDROmorphone 0.5 mg/0.5 ml inj IVP (10:44)
[2024-06-25] MEDS: 0.9 % SODIUM CHLORIDE 1000 ml 1,000 ML 6000 ML IV (10:45)
[2024-06-25 11:05] LABS: Basophils Absolute Auto 0.04 K/uL (0.00-0.30); Basophils Percent Auto 0.5 % (0.0-3.0); Eosinophils Absolute Auto 0.12 K/uL (0.00-0.50); Eosinophils Percent Auto 1.5 % (0.0-7.0); Hematocrit 35.1 % (37.0-53.0); Hemoglobin* 11.7 gm/dL (13.5-17.5); Immature Granulocytes Abs Auto 0.02 K/uL (0.00-0.30); Immature Granulocytes Pct Auto 0.3 %; Lymphocytes Percent Auto 9.8 % (20-44); Mean Corpuscular HGB Conc 33 gm/dL (32-36); Mean Corpuscular Hemoglobin 30 pg (26-34); Mean Corpuscular Volume 90 fL (80-100); Monocytes Percent Auto 6.9 % (0.0-11.0); Platelet Count* 142 K/uL (140-440); RDW Coefficient of Variation % 13.3 % (11.5-15.5); Red Blood Count 3.89 m/uL (4.30-5.90)
[2024-06-25 11:10] LABS: Slide Review Reflex No
[2024-06-25 11:19] LABS: Albumin* 4.1 g/dL (3.3-5.0); Chloride* 111 mmol/L (96-114); Potassium* 5.2 mmol/L (3.6-5.1); Sodium* 139 mmol/L (135-149)
[2024-06-25 11:21] LABS: INR 2.34 (0.91-1.10); Prothrombin Time 26.8 Seconds
[2024-06-25 11:22] LABS: Alkaline Phosphatase* 71 U/L (40-150); Amylase* 84 U/L (18-89); Anion Gap 9 mEq/L (7-15); Bilirubin Total* 1.5 mg/dL (0.1-1.5); Blood Urea Nitrogen* 48 mg/dL (7-30); Calcium* 9.7 mg/dL (8.4-10.6); Carbon Dioxide* 19 mmol/L (20-32); Creatinine* 1.8 mg/dL (0.5-1.5); Est. Creatinine Clearance* 36.94; Estimated Glomerular Filt Rate 40 ml/min; Glucose* 144 mg/dL (60-115); Total Protein* 6.4 g/dL (6.0-8.3)
[2024-06-25 11:34] LABS: Troponin I* 0.02 ng/mL (0.01-0.04)
[2024-06-25 11:41] LABS: Alanine Aminotransferase* 51 U/L (4-50); Aspartate Amino Transferase* 109 U/L (12-35)
[2024-06-25 12:21] LABS: C Reactive Protein* < 0.5 mg/dL (0.5-1.0)
== END 2024-06-25 12:25 | disposition home or self-care (01) ==
PROVIDERS: Emergency Provider Family Medicine; PCP Family Medicine
DX: R10.11 Right upper quadrant pain (principal)
CPT/HCPCS: 36415; 76705; 80048; 80076; 82150; 83605; 84484; 85025; 85610; 86140; 93005; 94761; 96374; 99284; 99285; J1171; J7030

== ENCOUNTER 2024-07-15 10:08 | Outpatient (CLI) | payer MEDICARE, SELFPAY ==
--- NOTE | 2024-07-15 10:30 | CRLHL7_ITS ---
For Patients: As a result of the Century Cures Act, medical imaging exams and procedure reports are released immediately into your electronic medical record. You may view this report before your referring provider. If you have questions, please contact your health care provider. Indication: Abdominal pain Technique: Nuclear medicine hepatobiliary scan with gallbladder ejection fraction after the intravenous administration of 7.3 millicuries technetium 99 M Mebrofenin and 1.5 4 micrograms of CCK. Comparison: Limited abdominal ultrasound 06/25/2024 Findings: Normal hepatic extraction and excretion of the radiopharmaceutical with prompt appearance of the common bile duct followed by the gallbladder and small bowel. There is moderate enterogastric reflux. Visually normal gallbladder contraction is identified. Calculated gallbladder ejection fraction is 48 percent Impression: Moderate enterogastric reflux, correlate for alkaline gastritis. Otherwise, negative study. Dictated by Boo Arias MD @ 07/17/2024 10:32:58 AM (Electronically Signed)
== END 2024-07-15 10:09 | disposition home or self-care (01) ==
LOC: NM 10:08
PROVIDERS: PCP Family Medicine; Visit Provider Surgery
DX: R10.9 Unspecified abdominal pain (principal); K21.9 Gastro-esophageal reflux disease without esophagitis
CPT/HCPCS: 78227; A9537; J2805

== ENCOUNTER 2024-08-03 13:05 | Emergency (ER) | payer MEDICARE, SELFPAY ==
--- OUTSIDE RECORDS SUMMARY | 2024-08-03 13:07 | XMS_ITS | Encounter Summary ---
Author Organization [facility] Address [address] [place] [address] Care Team Providers Care Slitter Scorer Cut Off Operator Name Role Phone Unavailable Primary Care Provider Unavailabl e Encounter Details Date Type Department Care Team (Late st Contact Info) Description 02/03/2015 Historical Ophthalmology [facility]ST OPH Brenda Elaine M.D. Social History Tobacco Use Types Packs/Day Years Used Date Smoking Tobacco: Never Assessed Sex and Gender Information Value Date Recorded Sex Assigned at Male 04/29/2023 9:28 PM NURSES ASSISTANT Legal Sex Male 5:12 PM NURSES ASSISTANT Gender Identity Male 12/24/2017 2:50 PM [...] the right aspect of the gland, and [id number] shift of the infundibulum. 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 [...] OCT: Avg thickness 82 OD, 88 OS. [id number] /10 OU. Testing consistent with clinical exam findings. #2 Visual field report, Normal visual field both eyes. Foveal threshold normal @ 37 OD, 39 OS. 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 This is likely related to prednisone. Return prn any changes in vision. The photos show an area of transmission tester color that corresponds to the HEARING CONSULTANT on the OCT. Testing consistent with clinical exam findings. 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 #2 Visual field report, Normal visual field both eyes. #3 Central serous retinopathy left eye. CDM Reports - EYEGEN Id: [id number] Status: Fnl documented in this encounter Plan of Treatment Not on file documented as of this encounter Visit Diagnoses Not on filedocumented in this encounter
--- OUTSIDE RECORDS SUMMARY | 2024-08-03 13:07 | XMS_ITS | Clinical Summary ---
Author Organization [facility] Address [address] [place] [address] Care Team Providers Care Radio Artist Name Role Phone Unavailable Primary Care Provider Unavailabl e Source Comments Patient records contain information from all sites at [facility]. For routine questions regarding patient records, call [phone] during business hours, M-F 8:00 AM - 5:00 PM Central Time. Record requests for emergency care only can be directed to [phone] at any time.[facility] [...] Only Division of Nephrology and Hypertension in [place], [place] [address] [place] [address] Walter Willis Jr., D.O. Chronic Kidney Disease (CKD), Stage 3a Glomerular Filtration Rate (GFR) 45 To 59 (HCC) (Primary Dx); Diarrhea; Prolactinoma (HCC); Hypertensive Chronic Kidney Disease With Stage 1 Through Stage 4 Chronic Kidney Disease, Or Unspecified Chronic Kidney Disease; Hyperaldosteronism (HCC) 06/15/2024 Orders Only Division of Nephrology and Hypertension in [place], [place] [address] [place] [address] Walter Willis Jr., D.OIsauro Chronic Kidney Disease (CKD), Stage 3a Glomerular Filtration Rate (GFR) 45 To 59 (HCC) (Primary Dx); Diabetes Mellitus Type 2 With Diabetic Nephropathy (HCC); Mass Kidney 06/10/2024 Documentation Division of Nephrology and Hypertension in [place], [place] [address] [place] [address] Walter Willis Jr., D.O. 06/10/2024 Clinical Communication Division of Nephrology and Hypertension in [place], [place] [address] [place] [phone] Walter Willis Jr., D.O. [employer]SM - Outside Materials (MR abdomen -06/09/24) 05/30/2024 11:00 AM EMPLOYEE TRAINING SPECIALIST - 05/30/2024 11:59 PM EMPLOYEE TRAINING SPECIALIST Hospital Encounter Department of Laboratory Medicine and Pathology, [facility], in [place], [place] [address] [place] [address] Walter Willis Jr., D.O. Chronic Kidney Disease [...] Home or Self Care 05/23/2024 10:30 AM EMPLOYEE TRAINING SPECIALIST Office Visit Division of Endocrinology in [place], [place] [address] [place] [address] Tg Mandujano P.A.-C., M.S. Prolactinoma (HCC) (Primary Dx) 05/23/2024 7:00 AM EMPLOYEE TRAINING SPECIALIST Clinical Communication Virtual Review in [place], [place] [address] [place] [address] Pre-visit Intake 05/19/2024 4:00 PM EMPLOYEE TRAINING SPECIALIST External Outreach Division of Nephrology and Hypertension in [place], [place] [address] [place] [phone] Walter Willis Jr., D.O. Chronic Kidney Disease [...] Therapy; Mass Kidney; Diarrhea 05/15/2024 11:30 AM EMPLOYEE TRAINING SPECIALIST - 05/15/2024 11:59 PM EMPLOYEE TRAINING SPECIALIST Hospital Encounter Department of Laboratory Medicine in [address] [phone] Tg Mandujano P.A.-C., M.S. Prolactinoma (HCC) Discharge Disposition: Home or Self Care 05/12/2024 Orders Only Division of Nephrology and Hypertension in [address] [phone] External, Ordering ProviderJose 05/12/2024 Orders Only Division of Nephrology and Hypertension in [address] [phone] External, Ordering ProviderJose from Last 3 Months [...] drink = 0.6 oz pur e alcohol) [facility] Utilities Answer Date Recorded In the past 12 months has th e electric, gas, oil, or water [employer] threatened to shut off services in your [...] How often do you attend chur or restorationist services? Patient declined 09/27/2020 Do you belong to any clubs o r organizations such as mandaeism groups, unions, fraternal or athletic groups, or [...] and heating? Not hard at all 09/27/2020 [facility] [...] living situation today? I have a [facility] place to live 04/29/2023 Education Answer Date Recorded What is the highest level of school you have completed or the highest degree you have received? 12th grade 12/29/2018 Sex and Gender Information Value Date Recorded Sex Assigned at Male 04/29/2023 9:28 PM EMPLOYEE TRAINING SPECIALIST Legal Sex Male 5:12 PM EMPLOYEE TRAINING SPECIALIST Gender Identity Male 12/24/2017 2:50 PM CDT Sexual Orientation Straight 12/24/2017 2: 50 PM CDT Last Filed Vital Signs Vital Sign Reading Time Taken Comments Blood Pressure 140/78 05/19/2024 4:00 PM EMPLOYEE TRAINING SPECIALIST Pulse 47 05/19/2024 4:00 PM EMPLOYEE TRAINING SPECIALIST Temperature - - Respiratory Rate 14 08/08/2016 5:05 PM CDT Vital sign result from Clinical Notes. Oxygen Saturation - - Inhaled Oxygen Concentration - - Weight 74.8 kg (164 lb 14.5 oz) 05/19/2024 4:00 PM EMPLOYEE TRAINING SPECIALIST Height 172.7 cm (5' 7.99) 05/19/2024 4 :00 PM EMPLOYEE TRAINING SPECIALIST Body Mass Index 25.08 05/19/2024 4:00 PM EMPLOYEE TRAINING SPECIALIST Plan of Treatment Health Maintenance Due Date [...] this topic Medical Devices Implanted Type Area Heat Treating Operator Device Identifier Shelf Expiration Date Model / Serial / Lot Ocular Lens Ocular Lens Left: Eye Description:Cataract surgery with left eye in Second week of January 2024 Procedures Procedure Name Priority Date/Time Associated Diagnosis Comments GI PATHOGEN PANEL, PCR, F Routine 06/02/2024 2:47 PM EMPLOYEE TRAINING SPECIALIST Chronic Kidney Disease (CKD), Stage 3a Glomerular [...] Diarrhea FAT, F Routine 06/02/2024 2:44 PM EMPLOYEE TRAINING SPECIALIST Chronic Kidney Disease (CKD), Stage 3a Glomerular [...] TESTOSTERONE,F/WKLYBD+ T LC/MS Routine 05/15/2024 11:37 AM EMPLOYEE TRAINING SPECIALIST Prolactinoma (HCC) PROLACTIN, S Routine 05/15/2024 11:37 AM EMPLOYEE TRAINING SPECIALIST Prolactinoma (HCC) ALBUMIN, RANDOM, U Routine 05/12/2024 8: 04 AM EMPLOYEE TRAINING SPECIALIST PARATHYROID HORMONE (PTH), S Routine 05/12/2024 7:35 AM EMPLOYEE TRAINING SPECIALIST FERRITIN, S Routine 05/12/2024 7:35 AM EMPLOYEE TRAINING SPECIALIST C-REACTIVE PROTEIN (CRP), S/P Routine 05/12/2024 7:35 AM EMPLOYEE TRAINING SPECIALIST RENAL FUNCTION PANEL, S Routine 05/12/2024 7:35 AM EMPLOYEE TRAINING SPECIALIST URIC ACID, S/P Routine 05/12/2024 7:35 AM EMPLOYEE TRAINING SPECIALIST CBC WITH DIFFERENTIAL, B Routine 05/12/2024 7:35 AM EMPLOYEE TRAINING SPECIALIST HEMOGLOBIN A1C, B Routine 05/12/2024 7:3 5 AM EMPLOYEE TRAINING SPECIALIST IRON AND TOT IRON-BINDING CAPACITY, S/P Routine 05/12/2024 7:35 AM EMPLOYEE TRAINING SPECIALIST OPHTHALMOLOGY IMAGE EXAM Routine 12/24/2017 9:53 AM CDT LIPOPROTEIN METABOLISM PROF, S Routine 07/07/2015 8:14 AM CDT from Last 3 Months or Most Recently Relevant to Health Maintenance Results * GI Pathogen Panel, PCR, Feces (06/02/2024 2:47 PM EMPLOYEE TRAINING SPECIALIST) Specimen Source STOOL 5:27 PM EMPLOYEE TRAINING SPECIALIST DTL Campylobacter species Negative Negative 06/02/2024 5:27 PM EMPLOYEE TRAINING SPECIALIST DTL C. difficile toxin Negative Negative 2024 5:27 PM EMPLOYEE TRAINING SPECIALIST DTL Plesiomonas shigelloides Negative Negative 06/02/2024 5:27 PM EMPLOYEE TRAINING SPECIALIST DTL Salmonella species Negative Negative 2024 5:27 PM EMPLOYEE TRAINING SPECIALIST DTL Vibrio species Negative Negative 06/02/2024 5:27 PM EMPLOYEE TRAINING SPECIALIST DTL Vibrio cholerae Negative Negative 5:27 PM EMPLOYEE TRAINING SPECIALIST DTL Yersinia species Negative Negative 06/03/19 5:27 PM EMPLOYEE TRAINING SPECIALIST DTL Enteroaggregative E. coli (EAEC) Negative Negative 06/02/2024 5:27 PM EMPLOYEE TRAINING SPECIALIST DTL Enteropathogenic E. coli (EPEC) Negative Negative 06/02/2024 5:27 PM EMPLOYEE TRAINING SPECIALIST DTL Enterotoxigenic E. coli (ETEC) Negative Negative 06/02/2024 5:27 PM EMPLOYEE TRAINING SPECIALIST DTL Shiga toxin producing E. coli Negative Negative 06/02/2024 5:27 PM EMPLOYEE TRAINING SPECIALIST DTL Shigella/Enteroinvas lynsey E. coli Negative Negative 06/02/2024 5:27 PM EMPLOYEE TRAINING SPECIALIST DTL Cryptosporidium species Negative Negative 06/02/2024 5:27 PM EMPLOYEE TRAINING SPECIALIST DTL Cyclospora cayetanensis Negative Negative 06/02/2024 5:27 PM EMPLOYEE TRAINING SPECIALIST DTL Entamoeba histolytica Negative Negative 06/02/2024 5:27 PM EMPLOYEE TRAINING SPECIALIST DTL Giardia Negative Negative 06/02/2024 5:27 PM EMPLOYEE TRAINING SPECIALIST DTL Adenovirus F40/41 Negative Negative 025 5:27 PM EMPLOYEE TRAINING SPECIALIST DTL Astrovirus Negative Negative 06/02/2024 5:27 PM EMPLOYEE TRAINING SPECIALIST DTL Norovirus GI/GII Negative Negative 06/03/19 25 5:27 PM EMPLOYEE TRAINING SPECIALIST DTL Rotavirus Ag, F Negative Negative 5:27 PM EMPLOYEE TRAINING SPECIALIST DTL Sapovirus Negative Negative 06/02/2024 5:27 PM EMPLOYEE TRAINING SPECIALIST DTL Comment: ----ADDITIONAL INFORMATION---- This assay is performed using the FDA-cleared [employer] GI Panel ([employer] Stool (Stool) 06/02/2024 2:4 7 PM EMPLOYEE TRAINING SPECIALIST 06/02/2024 3:17 PM EMPLOYEE TRAINING SPECIALIST us Walter Willis Jr., D.O. LAB MICROBIOLOGY - G ENERAL ORDERABLES Final Result [facility] [address] [place] [address], [facility] DT 200 [facility] 200 [place] [address] * (ABNORMAL) Fat, Feces (06/02/2024 2:44 PM EMPLOYEE TRAINING SPECIALIST) Total Weight 428 g 06/03/2024 9:48 AM EMPLOYEE TRAINING SPECIALIST DTL Duration 24 h 06/02/2024 2:46 PM EMPLOYEE TRAINING SPECIALIST DTL Comment: More reliable results can be obtained from a 48 or 72 hour collection. Total Fat/24 Hr 19(H) 2 - 7 g/24 h 06/03/2024 1:30 PM EMPLOYEE TRAINING SPECIALIST DTL Comment: ----ADDITIONAL INFORMATION---- This test was developed and its performance characteristics determined by [facility] in a manner consistent with CLIA requirements. This test has not been cleared or approved by the U.S. Food and Drug Administration. Stool (Stool) 06/02/2024 2:4 4 PM EMPLOYEE TRAINING SPECIALIST 06/03/2024 12:39 PM EMPLOYEE TRAINING SPECIALIST us Walter Willis Jr., D.O. LAB BODY FLUIDS AND STOOLS ORDERABLES Final Result [facility] [address] [place] [address], [facility] DTL [facility] [address] [place] [address] * Testosterone, Free and Weakly Bound, With Total Testosterone, LC/MS-MS - Sent Out Lab (05/15/2024 11:37 AM EMPLOYEE TRAINING SPECIALIST) Testosterone, Total, LC/MS 390.0 264.0 - 916.0 ng/dL 05/22/2024 7:07 PM EMPLOYEE TRAINING SPECIALIST BURI Comment: This [facility] LC/MS-MS method is currently certified by the CDC Hormone Standardization Program (HoSt). Adult male reference interval is based on a population of healthy nonobese males (BMI <30) between 19 and 39 years old. Morgan et.al. JCEM 2017,102;2952-9092. PMID: 16054713. This test was developed and its performance characteristics determined by [employer]. It has not been cleared or approved by the Food and Drug Administration. Testost. % Free+Weakly Bound 22.2 9.0 - 46.0 % 05/22/2024 7:07 PM EMPLOYEE TRAINING SPECIALIST BURI Comment: This test was developed and its performance characteristics determined by [employer] It has not been cleared or approved by the Food and Drug Administration. Testost. F+W Bound 86.6 40.0 - 250.0 ng/dL 05/22/2024 7:07 PM EMPLOYEE TRAINING SPECIALIST [facility]URI Blood (Blood, Venous) 05/15/2024 11:37 AM EMPLOYEE TRAINING SPECIALIST 05/16/2024 7:37 AM EMPLOYEE TRAINING SPECIALIST us Tg Mandujano P.A.-C., M.S. LAB BLOOD NON AD D-ON Final Result [id number] [place] [address] * (ABNORMAL) Prolactin (05/15/2024 11:37 AM EMPLOYEE TRAINING SPECIALIST) Prolactin Total 27.9(H) 4.0 - 15.2 ng/mL 05/15/2024 9:22 PM EMPLOYEE TRAINING SPECIALIST ECLR Comment: Biotin has been identified by the odd job worker as a potential interfering substance. Higher concentrations [...] disease. Blood (Blood, Venous) 05/15/2024 11:37 AM EMPLOYEE TRAINING SPECIALIST 05/15/2024 8:51 PM EMPLOYEE TRAINING SPECIALIST Tg Mandujano P.A.-C., M.S. LAB BLOOD ADD-ON Final Result [facility] [address] [place] [address], [facility] ECLR [facility] [address] * (ABNORMAL) Albumin, Random, Urine (05/12/2024 8:04 AM EMPLOYEE TRAINING SPECIALIST) EXT Creatinine, Urine 32.3 mg/dL [facility] EXT Microalbumin-R andom, U 45 mg/dL [facility] EXT Albumin/Creati nine Ratio 1,390(H) 0 - 30 [facility] 05/12/2024 8:04 AM EMPLOYEE TRAINING SPECIALIST Narrative [facility] - 05/12/2024 11:43 AM EMPLOYEE TRAINING SPECIALIST Source result document attached to Order Number [id number] ([id number]) dated 05/12/2024. External results verified in Extract by Flakita Guillen on 05/12/2024 at 11:41 AM. us Ordering Provider Alisa Garcia LAB URINE ORDERA BLES Final Result Performing Organization Address [facility]/ZIP Co de Phone Number [facility] [address] [place] [address] * (ABNORMAL) Renal Function Panel (05/12/2024 7:35 AM EMPLOYEE TRAINING SPECIALIST) EXT Sodium 138 135 - 149 mmol/L [facility] EXT Potassium 4.1 3.6 - 5.1 mmol/L [facility] EXT Chloride 110 96 - 114 mmol/L [facility] EXT CO2 18(L) 20 - 32 mmol/L [facility] EXT Anion Gap 10 7 - 15 mEq/L [facility] EXT BUN (Blood Urea Nitrogen) 32(H) 7 - 30 mg/dL [facility] EXT Creatinine 1.8(H) 0.5 - 1.5 mg/dL [facility] EXT Estimated GFR (eGFR) 40 ML [facility] EXT Calcium, Total 9.4 8.4 - 10.6 mg/dL [facility] EXT Glucose 93 60 - 115 mg/dL [facility] EXT Albumin 4.0 3.3 - 5.0 g/dL [facility] EXT Phosphorus (Inorganic), S 3.4 2.5 - 4.5 mg/dL [facility] 05/12/2024 7:35 AM EMPLOYEE TRAINING SPECIALIST Narrative [facility] - 05/12/2024 1:53 PM EMPLOYEE TRAINING SPECIALIST Source result document attached to Order Number [id number] ([id number]) dated 05/12/2024. External results verified in Extract by Flakita Guillen on 05/12/2024 at 01:49 PM. us Ordering Provider Alisa Garcia LAB BLOOD ADD-ON Final Result Performing Organization Address [facility]/ZIP Co de Phone Number [employer] [facility] NA [facility] [address] [id number], [facility] [phone] * (ABNORMAL) Iron and Total Iron-Binding Capacity (05/12/2024 7:35 AM EMPLOYEE TRAINING SPECIALIST) EXT Iron 61 49 - 181 ug/dL [facility] EXT Total Iron Binding Capacity 325 261 - 462 ug/dL [facility] EXT Percent Saturation 19(L) 20 - 50 % [facility] 05/12/2024 7:35 AM EMPLOYEE TRAINING SPECIALIST Narrative [facility] - 05/12/2024 11:43 AM EMPLOYEE TRAINING SPECIALIST External results verified in Extract by Flakita Guillen on 05/12/2024 at 11:41 AM. us Ordering Provider External M.D. LAB BLOOD ADD-ON Final Result Performing Organization Address City/[facility] Co de Phone Number [facility] [address] [place], [place] [phone] [place] [address] * (ABNORMAL) CBC with Differential, Blood (05/12/2024 7:35 AM EMPLOYEE TRAINING SPECIALIST) [facility] EXT Leukocytes 6.06 4.50 - 11.00 K/uL [facility] EXT RBC 4.21(L) 4.30 - 5.90 m/uL [facility] EXT Hemoglobin 12.5(L) 13.5 - 17.5 gm/dL [facility] EXT Hematocrit 37.5 37.0 - 53.0 % [facility] EXT MCV 89 80 - 100 fL [facility] EXT Platelet Count 211 140 - 440 K/uL [facility] 05/12/2024 7:35 AM EMPLOYEE TRAINING SPECIALIST Narrative [employer] [facility] - 05/12/2024 11:43 AM EMPLOYEE TRAINING SPECIALIST Source result document attached to Order Number [id number] ([id number]) dated 05/12/2024. External results verified in Extract by Flakita Guillen on 05/12/2024 at 11:41 AM. us Ordering Provider External M.DIsauro LAB BLOOD ADD-ON Final Result Performing Organization Address [facility]/ZIP Co de Phone Number [employer] [facility] [address] [phone] * (ABNORMAL) CRP (C-Reactive Protein) (05/12/2024 7:35 AM EMPLOYEE TRAINING SPECIALIST) Pathologist [facility] EXT C-Reactive Protein Quantative < 0.5(L) 0.5 - 1.0 mg/dL [facility] 05/12/2024 7:35 AM EMPLOYEE TRAINING SPECIALIST [facility] - 05/12/2024 1:53 PM EMPLOYEE TRAINING SPECIALIST Source result document attached to Order Number [id number] ([id number]) dated 05/12/2024. External results verified in Extract by Flakita Guillen on 05/12/2024 at 01:49 PM. us Ordering Provider External M.Chet LAB BLOOD ADD-ON Final Result Performing Organization Address [facility] de Phone Number [employer] [facility] [address] [phone] * Uric Acid (05/12/2024 7:35 AM EMPLOYEE TRAINING SPECIALIST) EXT Uric Acid, S 6.0 2.2 - 8.4 mg/dL [facility] 05/12/2024 7:35 AM EMPLOYEE TRAINING SPECIALIST Narrative [facility] - 05/12/2024 1:53 PM EMPLOYEE TRAINING SPECIALIST External results verified in Extract by Flakita Guillen on 05/12/2024 at 01:49 PM. us Ordering Provider External M.DIsauro LAB BLOOD ADD-ON Final Result Performing Organization Address City/[facility] Co de Phone Number [facility] [address] [place] [address] * (ABNORMAL) Parathyroid Hormone (PTH) (05/12/2024 7:35 AM EMPLOYEE TRAINING SPECIALIST) Parathyroid Hormone (PTH) 110.3(H) 14.2 - 75.2 pg/mL [facility] 05/12/2024 7:35 AM EMPLOYEE TRAINING SPECIALIST Narrative [facility] - 05/12/2024 1:53 PM EMPLOYEE TRAINING SPECIALIST Source result document attached to Order Number [id number] ([id number]) dated 05/12/2024. External results verified in Extract by Flakita Guillen on 05/12/2024 at 01:49 PM. us Ordering Provider External MVishal LAB BLOOD ADD-ON Final Result Performing Organization Address [facility]/ZIP Co de Phone Number [employer] [facility] [address] [place] [address] * (ABNORMAL) Hemoglobin A1c (05/12/2024 7:35 AM EMPLOYEE TRAINING SPECIALIST) EXT Hemoglobin A1c, B 6.2(H) 0 - 5.6 % [facility] 05/12/2024 7:35 AM EMPLOYEE TRAINING SPECIALIST Narrative [employer] [facility] - 05/12/2024 11:43 AM EMPLOYEE TRAINING SPECIALIST Source result document attached to Order Number [id number] ([id number]) dated 05/12/2024. External results verified in Extract by Flakita Guillen on 05/12/2024 at 11:41 AM. us Ordering Provider External M.DIsauro LAB BLOOD ADD-ON Final Result Performing Organization Address City/[facility]/ZIP Co de Phone Number [employer] [facility] [address] [place] [address] * Ferritin (05/12/2024 7:35 AM EMPLOYEE TRAINING SPECIALIST) EXT Ferritin, S 41.9 17.9 - 464.0 ng/mL [facility] 05/12/2024 7:35 AM EMPLOYEE TRAINING SPECIALIST Narrative [facility] - 05/12/2024 1:53 PM EMPLOYEE TRAINING SPECIALIST Source result document attached to Order Number [id number] ([id number]) dated 05/12/2024. External results verified in Extract by Flakita Guillen on 05/12/2024 at 01:49 PM. us Ordering Provider External M.D. LAB BLOOD ADD-ON Final Result Performing Organization Address City/[facility]/ZIP Co de Phone Number [employer] [facility] NA [facility] [address] [place] [address] * OPHTHALMOLOGY IMAGE EXAM (12/24/2017 9:53 AM [...] PROCE DURES Final Result Performing Organization Address [facility] Co de Phone Number [facility] NA * (ABNORMAL) Lipoprotein Metabolism Profile (07/07/2015 8:14 AM CDT) LDL Triglycerides 53(H) <=50 MG/DL [facility] VLDL cholesterol 24 <30 MG/DL [facility] VLDL triglycerides 151(H) <120 MG/DL [facility] Beta VLDL Cholesterol . <15 MG/DL [facility] Comment:Not Detected Beta VLDL triglycerides . <15 MG/DL [facility] Comment:Not Detected Chylomicron cholesterol . Undetectable MG/DL [facility] Comment:Not Detected LpX . Undetectable [facility] Comment:Not detected Interpretation . [facility] Comment:Mild Type IV Hyperli poproteinemia Cholesterol, Total 179 SeeComment MG/DL [facility] Comment: REFERENCE VALUE Desirable: < 200 Borderline high: 200 - 239 High: > or = 240 Triglycerides 225(H) SeeComment MG/DL [facility] Comment: REFERENCE VALUE Normal: <150 Borderline high: 150-199 High: 200-499 Very high: > or =500 Apolipoprotein B, S 102(H) SeeComment MG/DL [facility] Comment: REFERENCE VALUE Desirable: <90 Above Desirable: 90-99 Borderline high: 100-119 High: 120-139 Very high: > or = 140 LDL Cholesterol 91 SeeComment MG/DL [facility] Comment: REFERENCE VALUE Desirable: <100 Above Desirable: 100-129 Borderline high: 130-159 High: 160-189 Very high: > or =190 Chylomicron triglycerides . Undetectable MG/DL [facility] Comment:Not Detected Lp(a) Cholesterol 25(H) <3 MG/DL [facility] Comment: Increased Lipoprotein (a) cholesterol. [...] HDL Cholesterol, CDC, S 39(L) >=40 MG/DL [facility] 07/07/2015 8:14 AM CDT 07/07/2015 8:14 AM CDT us Lindsey Ragland M.D. LAB BLOOD ADD-ON Tiffani l Result [facility] [address] [place], [place] [address] from Last 3 Months or Most Recently Relevant to Health Maintenance Insurance [facility]
--- OUTSIDE RECORDS SUMMARY | 2024-08-03 13:07 | XMS_ITS | Clinical Summary ---
Author Organization [employer] [facility] Address [address] [place] [address] Care Team Providers Care Patient Care Associate Name Role Phone Frederick Krause MD Primary Care Provider [phone] Allergies No known active allergies Medications cabergoline [...] on file Legal Sex Male 8:28 AM AXLE AND FRAME MECHANIC Gender Identity Not on file Sexual Orientation [...] 2023 01/29/2023, 05/20/2021, 05/23/2020, Additional history exists Lipids for age 45-75 05/09/2024 05/09/2019 Influenza Vaccine (Season Ended) 2024 Procedures Procedure Name Priority Date/Time Associated Diagnosis Comments LIPID PANEL Early AM 05/09/2019 6:17 AM AXLE AND FRAME MECHANIC from Last 3 Months or Most Recently Relevant to Health Maintenance Results * (ABNORMAL) LIPID PANEL (05/09/2019 6:17 AM AXLE AND FRAME MECHANIC) Pathologist [facility] CHOLESTEROL,TOTAL 143 100 - 199 mg/dL 05/09/2019 6:59 AM AXLE AND FRAME MECHANIC [facility] TRIGLYCERIDES 119 <150 mg/dL 05/09/2019 6:59 AM AXLE AND FRAME MECHANIC [facility] TRAL LABORAT[facility] HDL CHOLESTEROL 34(L) >40 mg/dL 0 6:59 AM AXLE AND FRAME MECHANIC [facility] LAB[facility] NON-HDL CHOLESTEROL 109 <145 mg/dl 05/09/2019 6:59 AM AXLE AND FRAME MECHANIC [facility] LAB[facility] CHOL/HDL RATIO 4.21 <4.50 05/09/2019 6:59 AM AXLE AND FRAME MECHANIC [facility] LAB[facility] LDL CHOLESTEROL 85 <=130 mg/dL 05/09/2019 6:59 AM AXLE AND FRAME MECHANIC [facility] TRAL LABORATORY PROVIDER ORDERED STATUS RANDOM 05/09/2019 6:59 AM AXLE AND FRAME MECHANIC [facility] TR[facility] LAB[facility] Blood BLOOD SPECIMEN / Unknown Venipuncture / Unknown 05/09/2019 6:17 AM AXLE AND FRAME MECHANIC 05/09/2019 6:25 AM AXLE AND FRAME MECHANIC us Evy MAR CHEMISTRY Tiffani l Result [facility] [address] [place] [address], from Last 3 Months or Most Recently Relevant to Health Maintenance Advance Directives * Full Code (Latest Code Status on File) Date Activated Date Inactivated Comments 07/11/2019 6:32 PM 07/13/2019 9:39 PM Question Answer Comments Code Status Discussion: Discussed * Full Code Date Activated Date Inactivated Comments 05/08/2019 6:16 PM 05/17/2019 3:04 PM Care Teams Patient Care Associate Relationship Specialty Start Date End Date Frederick Krause MD [address] [place] [address] PCP - General Family Practice 06/05/19
--- OUTSIDE RECORDS SUMMARY | 2024-08-03 13:07 | XMS_ITS | Encounter Summary ---
Author Organization [facility] Address [address] [place] [address] Care Team Providers Care Armhole Baster Hand Name Role Phone Unavailable Primary Care Provider Unavailabl e Reason for Visit * Reason Onset Date Comments OSM - Outside Materials 06/10/2024 MR abdom en -06/09/24 Encounter Details Date Type Department Care Team (Latest Contact Info) Description 06/10/2024 Clinical Communication Division of Nephrology and Hypertension in [place], [place] [address] [place] [address] Waltre Willis Jr., D.O. [address] [place] [address] OSM - Outside Materials (MR abdomen -06/09/24) Social History Tobacco Use Types Packs/Day Years Used Date Smoking Tobacco: Former Cigarettes 0.3 6 0 04/03/1979 - 04/02/1985 Smokeless Tobacco: Never Alcohol Use Standard Drinks/Week Comments Yes 2 (1 standard drink = 0.6 oz pur e alcohol) [facility] Utilities Answer Date Recorded In the past [...] How often do you attend chur or amish services? Patient declined 09/27/2020 Do you belong to any clubs o r organizations such as roman catholic groups, unions, [...] your living situation today? I have a [facility] place to live 04/29/2023 Education Answer Date Recorded What is the highest level of school you have completed or the highest degree you have received? 12th grade 12/29/2018 Sex and Gender Information Value Date Recorded Sex Assigned at Male 04/29/2023 9:28 PM HELP DESK TEAM LEADER Legal Sex Male 5:12 PM HELP DESK TEAM LEADER Gender Identity Male 12/24/2017 2:50 PM CDT Sexual Orientation Straight 12/24/2017 2: 50 PM CDT documented as of this encounter Plan of Treatment Not on file documented as of this encounter Visit Diagnoses Not on filedocumented in this encounter
--- OUTSIDE RECORDS SUMMARY | 2024-08-03 13:07 | XMS_ITS | Clinical Summary ---
Author Organization [facility] Address [address] [place] [address] Care Team Providers Care Rodding Anode Worker Name Role Phone Kade Alexander MD Primary Care Provider [phone] Allergies Active Allergy Reactions Criticality Noted Date Comments No Known Drug Allergy 03/09/2003 Family History Medical History Relation Comments Cancer Father ORAL, RELATED TO TOBACCO Diabetes Father Hypertension Father Arthritis Mother Cardiovascular Mother Gastrointestinal Disease Mother mothers side lactose intollerant Heart Disease Mother [place] repaired with a shunt Osteoporosis Mother Hypertension [...] on file Legal Sex Male 3:10 AM CORPORATE FINANCIAL ANALYST Gender Identity Not on file Sexual Orientation Not on file Last Filed Vital Signs Vital Sign Reading Time Taken Comments Blood Pressure 150/104 03/09/2003 11:21 AM CORPORATE FINANCIAL ANALYST seated (from Extended Vitals) Pulse 60 03/09/2003 11:19 AM CORPORATE FINANCIAL ANALYST (from Extended Vitals) Temperature - - Respiratory Rate - - Oxygen Saturation - - Inhaled Oxygen Concentration - - Weight 89.8 kg (198 lb) 03/09/2003 10:4 5 AM CORPORATE FINANCIAL ANALYST Height 172.7 cm (5' 8) 03/09/2003 10:4 5 AM CORPORATE FINANCIAL ANALYST Body Mass Index 30.11 03/09/2003 10:45 AM CORPORATE FINANCIAL ANALYST Plan of Treatment Not on file Care Teams Rodding Anode Worker Relationship Specialty Start Date End Date Kade Alexander MD [facility] [address] [place] [address] [facility] - General 01/27/02
[2024-08-03 13:09] VITALS: BP 158/101; PULSE 57; RESP 16; TEMP 36.7; O2SAT 98; BMI 24.6
--- NOTE | 2024-08-03 13:15 | ED.GENADULT ---
HPI - General Adult General Date Seen: 08/03/24 Chief complaint: Eye Problems Stated complaint: R eye swollen, red Time Seen by Provider: 08/03/24 13:10 History of Present Illness HPI narrative: 68-year-old male who is on warfarin for history of PE, who reports that he is overdue for his INR chec (his most recent INR in our system was June 25 and it was 2.34), presents to the ER today for redness, scratchiness, and irritation of his right eye. He woke up this morning and his eye was swollen and red. No known injury. He also notes that he has had some bleeding from his gums this morning when he brushed his teeth. Patient says that he has no recent injury or trauma to his eye. He does not wear contacts. He started noting a little bit of irritation of his right eye yesterday. Today it is more irritated in when he looks at he sees that the white part of eye his eye is gone red. Vision is little bit blurry in the right eye. No flashing lights or floaters. No left eye redness, irritation, or pain. Vision is at baseline in the left eye. He does note that he has had previous cataract surgery and trouble with retina in the left eye so he sees an dispensary clerk in [place] for that. He actually had a checkup for his left eye 5 days ago last Sunday but did not have any treatment or injections in his right eye. Related Data Home Medications ?Medication ?Instructions ?Recorded ?Confirmed cabergoline 0.5 mg tablet 0.75 mg PO .Twice Weekly 11/14/21 08/03/24 allopurinol 100 mg tablet 100 mg PO DAILY 12/24/23 08/03/24 prednisone 20 mg tablet 20 mg PO BID 08/03/24 08/03/24 Previous Rx's ?Medication ?Instructions ?Recorded amlodipine 2.5 mg tablet 2.5 mg PO DAILY #90 tabs 02/04/24 amlodipine 5 mg tablet 5 mg PO QDAY #90 tabs 02/04/24 atorvastatin 40 mg tablet 40 mg PO QPM #90 tabs 02/04/24 carvedilol 12.5 mg tablet 12.5 mg PO BID #180 tabs 02/04/24 chlorthalidone 25 mg tablet 25 mg PO QDAY #90 tabs 02/04/24 eplerenone 25 mg tablet 25 mg PO DAILY #90 tabs 02/04/24 losartan 100 mg tablet 100 mg PO QDAY #90 tabs 02/04/24 metformin 850 mg tablet 850 mg PO BIDWMEAL #180 tabs 02/04/24 warfarin 4 mg tablet 4 mg PO DAILY #90 tabs 06/12/24 Allergies Allergy/AdvReac Type Severity Reaction Status Date / Time No Known Allergies Allergy Verified 07/10/24 14:04 PFSH PFSH Medical History Foot pain ?M79.673 - Pain in unspecified foot (ICD-10) Surgical History Hx of shoulder surgery ?Z98.890 - Other specified postprocedural states (ICD-10) Status post four vessel coronary artery bypass ?Z95.1 - Presence of aortocoronary bypass graft (ICD-10) Family History Mother Heart disease Brother Heart disease Sister Heart disease Father High blood pressure Social History Narrative: Former smoker What is your current living situation?: I presently have a place to live Problems where you live: no known problems In the past 12 months, utilities in danger of being shut off: no In past 12 months, lack of transportation kept you from medical appts, meetings, work, or getting things needed for daily living: no In the past 12 mos, have been you worried that your food would run out before you had money to buy more?: never true In the past 12 mos, the food you bought just didn't last and you didn't have money to buy more?: never true Smoking Status: Former smoker Do you use any of these nicotine containing products: None How often do you have a drink containing alcohol: 2-3 times a week AUDIT-C Alcohol total score: 3 Non-prescribed substance use: denies use How often does anyone, including family, friends and others, physically hurt you: never How often does anyone, including family, friends and others, insult or talk down to you: never How often does anyone, including family, friends and others, threaten you with harm: never How often does anyone, including family, friends and others, scream or curse at you: never Exam Narrative: Exam Narrative: Constitutional: Appears well-developed and well-nourished. Alert. Conversant. Non toxic. HENT: Head: Atraumatic. Nose: Nose normal. Mouth/Throat: Oral mucosa is clear and moist. no trismus. Pharynx normal. Tonsils symmetric. No tonsillar enlargement, erythema, or exudate. Eyes: Visual acuity (R): 20/100, (L): 20/40 PERRLA, EOMI. No exophthalmos or enophthalmos. Left eye conjunctiva is normal. Right eye conjunctiva reveals diffuse erythema suggestive for a subconjunctival hemorrhage which appears to affect 100% of the visual sclera but does not involve the cornea. Slit Lamp Exam: Lids: No foreign body noted in detailed exam upper and lower lids/margins. Subtle ecchymosis on the right lateral lower eyelid Anterior Chamber: No cells or flare, No hyphema. No hypopyon. Cornea: No foreign body. Fluorescein staining: Negative Funduscopic exam shows noon normal central retina. No visible retinal hemorrhages. Neck: Normal range of motion. Neck supple. No tracheal deviation present. Cardiovascular: Normal rate, regular rhythm. No gallop. No friction rub. No murmur heard. Symmetric radial artery pulses Pulmonary/Chest: Effort normal. No stridor. No respiratory distress. No wheezes. No rales. No rhonchi . No tenderness. Abdominal: Soft. Bowel sounds normal. No distension. No mass. No tenderness. No rebound. No guarding. Musculoskeletal: RUE: Normal range of motion. No tenderness. No deformity LUE: Normal range of motion. No tenderness. No deformity RLE: Normal range of motion. No edema. No tenderness. No deformity LLE: Normal range of motion. No edema. No tenderness. No deformity Neurological: Alert and oriented to person, place, and time. Normal strength. CN II-VII intact. No sensory deficit. GCS eye subscore is 4. GCS verbal subscore is 5. GCS motor subscore is 6. Normal coordination Skin: Skin is warm and dry. No rash noted. No pallor. Normal capillary refill. Psychiatric: Normal mood. Normal affect. Const: Vital Signs, click to edit/add: Vital Signs - 24 hr 08/03/24 13:09 Temperature 98.0 F Pulse Rate [Pulse Oximeter] 57 L Respiratory Rate 16 Blood Pressure [Le ft Upper Arm] 158/101 H Pulse Oximetry 98 Oxygen Delivery Me thod Room Air Course Vital Signs Vital signs: Initial Vital Signs Temperature 98.0 F 08/03/24 13:09 Temperature Source Temporal Artery Scan 08/03/24 13:09 Pulse Rate 57 L 08/03/24 13:09 Pulse Rhythm Regular 08/03/24 13:09 Respiratory Rate 16 08/03/24 13:09 Blood Pressure 158/101 H 08/03/24 13:09 Blood Pressure Mean 120 H 08/03/24 13:09 Blood Pressure Position Sitting 08/03/24 13:09 Pulse Oximetry 98 08/03/24 13:09 Oxygen Delivery Method Room Air 08/03/24 13:09 Vital Signs Temperature 98.0 F 08/03/24 13:09 Pulse Rate 57 L 08/03/24 13:09 Respiratory Rate 16 08/03/24 13:09 Blood Pressure 158/101 H 08/03/24 13:09 Pulse Oximetry 98 08/03/24 13:09 Oxygen Delivery Method Room Air 08/03/24 13:09 Temperature 98.0 F 08/03/24 13:09 Pulse Rate 57 L 08/03/24 13:09 Respiratory Rate 16 08/03/24 13:09 Blood Pressure 158/101 H 08/03/24 13:09 Pulse Oximetry 98 08/03/24 13:09 Oxygen Delivery Method Room Air 08/03/24 13:09 Medical Decision Making [facility] Narrative Medical decision making narrative: Very pleasant 68-year-old gentleman on warfarin because of a history of PE presents to the ER today with atraumatic right eye redness swelling, and irritation. Fortunately INR is therapeutic today at 2.44. CBC shows normal hemoglobin at 12.4 and platelet count normal at 181. Eye exam reveals evidence for a subconjunctival hemorrhage that affects the sclera of the right eye and eyeballs 100% of the visualized sclera. Fortunately I do not see any sign of any corneal abrasion, ulcer, penetrating trauma to the eye. No evidence for hyphema or hypopyon or any cell or flare in the anterior chamber. He is not having any flashers or floaters or other visual field deficits suggest retinal detachment. On my funduscopic exam I do not see any evidence for any hemorrhages in the very central most parts of the retina. Discussed by phone with Nadir Alcocer [facility], where the patient's primary dispensary clerk is. They would agree that there is really no specific therapy for subconjunctival hemorrhage. However I requested, and they agreed that they should see the patient tomorrow for a more comprehensive eye exam. Patient will call tomorrow morning to arrange his follow-up visit. If he notes any worsening symptoms in the meantime he will see his dispensary clerk or return to the ER immediately. For now remain on warfarin since INR appears to be therapeutic. He will follow-up with his PCP in the next couple of weeks for another INR check and to discuss his long-term anticoagulation regimen. Lab Data Labs: Lab Results 08/03/24 Range/Units 13:39 WBC 7.75 (4.50-11.00) K/uL RBC 4.12 L (4.30-5.90) m/uL Hgb 12.4 L (13.5-17.5) gm/dL Hct 37.2 (37.0-53.0) % MCV 90 (80-100) fL MCH 30 (26-34) pg MCHC 33 (32-36) gm/dL RDW Coeff of Miguelina 13.1 (11.5-15.5) % Plt Count 181 (140-440) K/uL Neut % (Auto) 65.8 (42.0-72.0) % Lymph % (Auto) 20.0 (20-44) % Ada % (Auto) 8.4 (0.0-11.0) % Eos % (Auto) 4.4 (0.0-7.0) % Baso % (Auto) 0.6 (0.0-3.0) % Neut # (Auto) 5.10 (1.7-7.0) K/uL Lymph # (Auto) 1.55 (0.90-2.90) K/uL Ada # (Auto) 0.70 (0.00-0.90) K/UL Eos # (Auto) 0.34 (0.00-0.50) K/uL Baso # (Auto) 0.05 (0.00-0.30) K/uL Abs Immat Gran (auto) 0.06 (0.00-0.30) K/uL Imm/Tot Granulo (auto) 0.8 % INR 2.44 H (0.91-1.10) Discharge Plan Discharge Clinical Impression: Subconjunctival hemorrhage Patient Disposition: Home, Self-Care Condition: Stable Additional Instructions: As we discussed, your eye exam shows that you have bleeding between the layers that surround your eye ball. This is known is a subconjunctival hemorrhage. Although the amount of blood that you see is impressive, this problem is generally not threatening to your eye or your vision. However, it is very important for you to get a checkup with her dispensary clerk tomorrow. Call the [facility] tomorrow morning at 8:00 a.m. tomorrow 08/04/2024 to arrange an ER follow-up visit. For today it is important to keep your eye moisturize. You can use rqvx-ymj-[id number] eye saline moisturizing drops every 6 hours to help keep your eye moist. If you have any concerns such as worsening pain, worsening vision, headache, or any other problems, please return to the emergency department or see your dispensary clerk immediately. Today your INR looks to be in the therapeutic zone at 2.44. For now continue on your regular doses of warfarin. Please follow-up with your primary care provider within the next 1-2 weeks for another recheck and to discuss options for your anticoagulation regimen. Prescriptions: No Action cabergoline 0.5 mg tablet 0.75 mg PO .Twice Weekly allopurinol 100 mg tablet 100 mg PO DAILY amlodipine 2.5 mg tablet 2.5 mg PO DAILY Qty: 90 3RF Rx Instructions: take with 5mg tab for total dose of 7.5 mg daily amlodipine 5 mg tablet 5 mg PO QDAY Qty: 90 3RF Rx Instructions: take with 2.5mg for daily dose of 7.5mg atorvastatin 40 mg tablet 40 mg PO QPM Qty: 90 3RF carvedilol 12.5 mg tablet 12.5 mg PO BID Qty: 180 3RF Rx Instructions: must administer with a meal/food chlorthalidone 25 mg tablet 25 mg PO QDAY Qty: 90 3RF eplerenone 25 mg tablet 25 mg PO DAILY Qty: 90 3RF losartan 100 mg tablet 100 mg PO QDAY Qty: 90 3RF metformin 850 mg tablet 850 mg PO BIDWMEAL Qty: 180 3RF prednisone 20 mg tablet 20 mg PO BID warfarin 4 mg tablet 4 mg PO DAILY Qty: 90 0RF Protocol: Dose Management Condition: Sunday Dose/Route: 4 mg Instruction: 1 x 4 mg tablet Condition: Sunday Dose/Route: 4 mg Instruction: 1 x 4 mg tablet Condition: Sunday Dose/Route: 4 mg Instruction: 1 x 4 mg tablet Condition: Sunday Dose/Route: 4 mg Instruction: 1 x 4 mg tablet Condition: Dose/Route: 6 mg Instruction: 1.5 x 4 mg tablets Condition: Sunday Dose/Route: 4 mg Instruction: 1 x 4 mg tablet Condition: Sunday Dose/Route: 4 mg Instruction: 1 x 4 mg tablet Protocol Text: Adjustment Start Date: 06/12/24 INR Value: 2.1 INR Date: 06/12/24 Recheck Date: 07/10/24 Follow Up/Referrals: Frederick Krause MD [Primary Care Provider] - Stand Alone Forms: MyHealth Info Instructions
--- OUTSIDE RECORDS SUMMARY | 2024-08-03 13:45 | XMS_ITS | Clinical Summary ---
Author Organization [facility] Address [address] [place] [address] Care Team Providers Care Supplier Quality Engineering Manager Name Role Phone Kade Alexander MD Primary Care Provider [phone] Allergies Active Allergy Reactions Criticality Noted Date Comments No Known Drug Allergy 03/09/2003 Family History Medical History Relation Comments Cancer Father ORAL, RELATED TO TOBACCO Diabetes Father Hypertension Father Arthritis Mother Cardiovascular Mother Gastrointestinal Disease Mother mothers side lactose intollerant Heart Disease Mother [place] repaired with a shunt Osteoporosis Mother Hypertension [...] on file Legal Sex Male 3:10 AM DETAIL SERGEANT Gender Identity Not on file Sexual Orientation Not on file Last Filed Vital Signs Vital Sign Reading Time Taken Comments Blood Pressure 150/104 03/09/2003 11:21 AM DETAIL SERGEANT seated (from Extended Vitals) Pulse 60 03/09/2003 11:19 AM DETAIL SERGEANT (from Extended Vitals) Temperature - - Respiratory Rate - - Oxygen Saturation - - Inhaled Oxygen Concentration - - Weight 89.8 kg (198 lb) 03/09/2003 10:4 5 AM DETAIL SERGEANT Height 172.7 cm (5' 8) 03/09/2003 10:4 5 AM DETAIL SERGEANT Body Mass Index 30.11 03/09/2003 10:45 AM DETAIL SERGEANT Plan of Treatment Not on file Care Teams Supplier Quality Engineering Manager Relationship Specialty Start Date End Date Kade Alexander MD [facility] [address] [place] [address] [facility] - General 01/27/02
--- OUTSIDE RECORDS SUMMARY | 2024-08-03 13:45 | XMS_ITS | Encounter Summary ---
Author Organization [facility] Address [address] [place] [address] Care Team Providers Care Registered Representative Name Role Phone Unavailable Primary Care Provider Unavailabl e Encounter Details Date Type Department Care Team (Late st Contact Info) Description 02/03/2015 Historical Ophthalmology [facility] Brenda Elaine M.D. Social History Tobacco Use Types Packs/Day Years Used Date Smoking Tobacco: Never Assessed Sex and Gender Information Value Date Recorded Sex Assigned at Male 04/29/2023 9:28 PM DISPLAY MAKER Legal Sex Male 5:12 PM DISPLAY MAKER Gender Identity Male 12/24/2017 2:50 PM [...] the right aspect of the gland, and jgzeg-gn-noar shift of the infundibulum. 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 [...] OCT: Avg thickness 82 OD, 88 OS. Degjyf82 /10 OU. Testing consistent with clinical exam findings. #2 Visual field report, Normal visual field both eyes. Foveal threshold normal @ 37 OD, 39 OS. 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 This is likely related to prednisone. Return prn any changes in vision. The photos show an area of supervisor feed house color that corresponds to the GRANTS SPECIALIST on the OCT. Testing consistent with clinical exam findings. 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 #2 Visual field report, Normal visual field both eyes. #3 Central serous retinopathy left eye. CDM Reports - EYEGEN Id: [id number] Status: Fnl documented in this encounter Plan of Treatment Not on file documented as of this encounter Visit Diagnoses Not on filedocumented in this encounter
--- OUTSIDE RECORDS SUMMARY | 2024-08-03 13:45 | XMS_ITS | Clinical Summary ---
Author Organization [employer] [facility] Address [address] [place] [address] Care Team Providers Care Manager Mail Name Role Phone Frederick Krause MD Primary Care Provider [phone] Allergies No known active allergies Medications cabergoline [...] on file Legal Sex Male 8:28 AM BUILD MASTER Gender Identity Not on file Sexual Orientation [...] LIPID PANEL Early AM 05/09/2019 6:17 AM BUILD MASTER from Last 3 Months or Most Recently Relevant to Health Maintenance Results * (ABNORMAL) LIPID PANEL (05/09/2019 6:17 AM BUILD MASTER) Pathologist [facility] CHOLESTEROL,TOTAL 143 100 - 199 mg/dL 05/09/2019 6:59 AM BUILD MASTER [facility] [employer] LAB[facility]ATORY-[facility] TRAL LABORATORY TRIGLYCERIDES 119 <150 mg/dL 05/09/2019 6:59 AM BUILD MASTER [facility] TRAL LABORATORY HDL CHOLESTEROL 34(L) >40 mg/dL 0 6:59 AM BUILD MASTER [facility] TR[facility] LABORATORY NON-HDL CHOLESTEROL 109 <145 mg/dl 05/09/2019 6:59 AM BUILD MASTER [facility] TRAL LABORATORY CHOL/HDL RATIO 4.21 <4.50 05/09/2019 6:59 AM BUILD MASTER [facility] TR[facility] LABORATORY LDL CHOLESTEROL 85 <=130 mg/dL 05/09/2019 6:59 AM BUILD MASTER [facility] TRAL LABORATORY PROVIDER ORDERED STATUS RANDOM 05/09/2019 6:59 AM BUILD MASTER [facility] TRAL LABORATORY Blood BLOOD SPECIMEN / Unknown Venipuncture / Unknown 05/09/2019 6:17 AM BUILD MASTER 05/09/2019 6:25 AM BUILD MASTER us Evy MAR CHEMISTRY Tiffani l Result [facility] [address] [place] [address], from Last 3 Months or Most Recently Relevant to Health Maintenance Advance Directives * Full Code (Latest Code Status on File) Date Activated Date Inactivated Comments 07/11/2019 6:32 PM 07/13/2019 9:39 PM Question Answer Comments Code Status Discussion: Discussed * Full Code Date Activated Date Inactivated Comments 05/08/2019 6:16 PM 05/17/2019 3:04 PM Care Teams Manager Mail Relationship Specialty Start Date End Date Frederick Krause MD [address] [place] [address] PCP - General Family Practice 06/05/19
[2024-08-03 13:46] LABS: Basophils Absolute Auto 0.05 K/uL (0.00-0.30); Basophils Percent Auto 0.6 % (0.0-3.0); Eosinophils Absolute Auto 0.34 K/uL (0.00-0.50); Eosinophils Percent Auto 4.4 % (0.0-7.0); Hematocrit 37.2 % (37.0-53.0); Hemoglobin* 12.4 gm/dL (13.5-17.5); Immature Granulocytes Abs Auto 0.06 K/uL (0.00-0.30); Immature Granulocytes Pct Auto 0.8 %; Lymphocytes Absolute Auto 1.55 K/uL (0.90-2.90); Mean Corpuscular HGB Conc 33 gm/dL (32-36); Mean Corpuscular Hemoglobin 30 pg (26-34); Mean Corpuscular Volume 90 fL (80-100); Monocytes Percent Auto 8.4 % (0.0-11.0); Neutrophils Percent Auto 65.8 % (42.0-72.0); Platelet Count* 181 K/uL (140-440); RDW Coefficient of Variation % 13.1 % (11.5-15.5); Red Blood Count 4.12 m/uL (4.30-5.90); White Blood Count* 7.75 K/uL (4.50-11.00)
--- OUTSIDE RECORDS SUMMARY | 2024-08-03 13:46 | XMS_ITS | Clinical Summary ---
Author Organization [facility] Address [address] [place] [address] Care Team Providers Care Venetian Blind Cleaner Name Role Phone Unavailable Primary Care Provider Unavailabl e Source Comments Patient records contain information from all sites at [facility]. For routine questions regarding patient records, call [phone] during business hours, M-F 8:00 AM - 5:00 PM Central Time. Record requests for emergency care only can be directed to [phone] at any time.[facility] Allergies No known active allergies Medications [...] Only Division of Nephrology and Hypertension in [place], [place] [address] [place] [address] Walter Willis Jr., D.O. Chronic Kidney Disease (CKD), Stage 3a Glomerular Filtration Rate (GFR) 45 To 59 (HCC) (Primary Dx); Diarrhea; Prolactinoma (HCC); Hypertensive Chronic Kidney Disease With Stage 1 Through Stage 4 Chronic Kidney Disease, Or Unspecified Chronic Kidney Disease; Hyperaldosteronism (HCC) 06/15/2024 Orders Only Division of Nephrology and Hypertension in [place], [place] [address] [place] [address] Walter Willis Jr., D.OIsauro Chronic Kidney Disease (CKD), Stage 3a Glomerular Filtration Rate (GFR) 45 To 59 (HCC) (Primary Dx); Diabetes Mellitus Type 2 With Diabetic Nephropathy (HCC); Mass Kidney 06/10/2024 Documentation Division of Nephrology and Hypertension in [place], [place] [address] [place] [address] Walter Willis Jr., D.O. 06/10/2024 Clinical Communication Division of Nephrology and Hypertension in [place], [place] [address] [place] [phone] Walter Willis Jr., D.O. OSM - Outside Materials (MR abdomen -06/09/24) 05/30/2024 11:00 AM DIRECTOR PLANS - 05/30/2024 11:59 PM DIRECTOR PLANS Hospital Encounter Department of Laboratory Medicine and Pathology, [facility], in [place], [place] [address] [place] [address] Walter Willis Jr., D.O. Chronic Kidney Disease [...] Home or Self Care 05/23/2024 10:30 AM DIRECTOR PLANS Office Visit Division of Endocrinology in [place], [place] [address] [place] [address] Tg Mandujano P.A.-C., M.S. Prolactinoma (HCC) (Primary Dx) 05/23/2024 7:00 AM DIRECTOR PLANS Clinical Communication Virtual Review in [place], [place] [address] [place] [address] Pre-visit Intake 05/19/2024 4:00 PM DIRECTOR PLANS External Outreach Division of Nephrology and Hypertension in [place], [place] [address] [place] [phone] Walter Willis Jr., D.O. Chronic Kidney Disease [...] Therapy; Mass Kidney; Diarrhea 05/15/2024 11:30 AM DIRECTOR PLANS - 05/15/2024 11:59 PM DIRECTOR PLANS Hospital Encounter Department of Laboratory Medicine in [address] [phone] gT Mandujano P.A.-C., M.S. Prolactinoma (HCC) Discharge Disposition: Home or Self Care 05/12/2024 Orders Only Division of Nephrology and Hypertension in [address] [address] External, Ordering ProviderJose 05/12/2024 Orders Only Division of Nephrology and Hypertension in [address] [address] External, Ordering ProviderJose from Last 3 Months [...] drink = 0.6 oz pur e alcohol) [facility] Utilities Answer Date Recorded In the past 12 months has th e electric, gas, oil, or water [employer] threatened to shut off services in your [...] How often do you attend chur or restorationism services? Patient declined 09/27/2020 Do you belong to any clubs o r organizations such as hoahaoism groups, unions, fraternal [...] and heating? Not hard at all 09/27/2020 [facility] - Occupational [...] your living situation today? I [facility] a [facility] place to live 04/29/2023 Education Answer Date Recorded What is the highest level of school you have completed or the highest degree you have received? 12th grade 12/29/2018 Sex and Gender Information Value Date Recorded Sex Assigned at Male 04/29/2023 9:28 PM DIRECTOR PLANS Legal Sex Male 5:12 PM DIRECTOR PLANS Gender Identity Male 12/24/2017 2:50 PM CDT Sexual Orientation Straight 12/24/2017 2: 50 PM CDT Last Filed Vital Signs Vital Sign Reading Time Taken Comments Blood Pressure 140/78 05/19/2024 4:00 PM DIRECTOR PLANS Pulse 47 05/19/2024 4:00 PM DIRECTOR PLANS Temperature - - Respiratory Rate 14 08/08/2016 5:05 PM CDT Vital sign result from Clinical Notes. Oxygen Saturation - - Inhaled Oxygen Concentration - - Weight 74.8 kg (164 lb 14.5 oz) 05/19/2024 4:00 PM DIRECTOR PLANS Height 172.7 cm (5' 7.99) 05/19/2024 4 :00 PM DIRECTOR PLANS Body Mass Index 25.08 05/19/2024 4:00 PM DIRECTOR PLANS Plan of Treatment Health Maintenance Due Date [...] this topic Medical Devices Implanted Type Area Outdoor Power Equipment Mechanic Device Identifier Shelf Expiration Date Model / Serial / Lot Ocular Lens Ocular Lens Left: Eye Description:Cataract surgery with left eye in Second week of January 2024 Procedures Procedure Name Priority Date/Time Associated Diagnosis Comments GI PATHOGEN PANEL, PCR, F Routine 06/02/2024 2:47 PM DIRECTOR PLANS Chronic Kidney Disease (CKD), Stage 3a Glomerular [...] Diarrhea FAT, F Routine 06/02/2024 2:44 PM DIRECTOR PLANS Chronic Kidney Disease (CKD), Stage 3a Glomerular [...] TESTOSTERONE,F/WKLYBD+ T LC/MS Routine 05/15/2024 11:37 AM DIRECTOR PLANS Prolactinoma (HCC) PROLACTIN, S Routine 05/15/2024 11:37 AM DIRECTOR PLANS Prolactinoma (HCC) ALBUMIN, RANDOM, U Routine 05/12/2024 8: 04 AM DIRECTOR PLANS PARATHYROID HORMONE (PTH), S Routine 05/12/2024 7:35 AM DIRECTOR PLANS FERRITIN, S Routine 05/12/2024 7:35 AM DIRECTOR PLANS C-REACTIVE PROTEIN (CRP), S/P Routine 05/12/2024 7:35 AM DIRECTOR PLANS RENAL FUNCTION PANEL, S Routine 05/12/2024 7:35 AM DIRECTOR PLANS URIC ACID, S/P Routine 05/12/2024 7:35 AM DIRECTOR PLANS CBC WITH DIFFERENTIAL, B Routine 05/12/2024 7:35 AM DIRECTOR PLANS HEMOGLOBIN A1C, B Routine 05/12/2024 7:3 5 AM DIRECTOR PLANS IRON AND TOT IRON-BINDING CAPACITY, S/P Routine 05/12/2024 7:35 AM DIRECTOR PLANS OPHTHALMOLOGY IMAGE EXAM Routine 12/24/2017 9:53 AM CDT LIPOPROTEIN METABOLISM PROF, S Routine 07/07/2015 8:14 AM CDT from Last 3 Months or Most Recently Relevant to Health Maintenance Results * GI Pathogen Panel, PCR, Feces (06/02/2024 2:47 PM DIRECTOR PLANS) Specimen Source STOOL 5:27 PM DIRECTOR PLANS DTL Campylobacter species Negative Negative 06/02/2024 5:27 PM DIRECTOR PLANS DTL C. difficile toxin Negative Negative 2024 5:27 PM DIRECTOR PLANS DTL Plesiomonas shigelloides Negative Negative 06/02/2024 5:27 PM DIRECTOR PLANS DTL Salmonella species Negative Negative 2024 5:27 PM DIRECTOR PLANS DTL Vibrio species Negative Negative 06/02/2024 5:27 PM DIRECTOR PLANS DTL Vibrio cholerae Negative Negative 5:27 PM DIRECTOR PLANS DTL Yersinia species Negative Negative 06/03/19 5:27 PM DIRECTOR PLANS DTL Enteroaggregative E. coli (EAEC) Negative Negative 06/02/2024 5:27 PM DIRECTOR PLANS DTL Enteropathogenic E. coli (EPEC) Negative Negative 06/02/2024 5:27 PM DIRECTOR PLANS DTL Enterotoxigenic E. coli (ETEC) Negative Negative 06/02/2024 5:27 PM DIRECTOR PLANS DTL Shiga toxin producing E. coli Negative Negative 06/02/2024 5:27 PM DIRECTOR PLANS DTL Shigella/Enteroinvas lynsey E. coli Negative Negative 06/02/2024 5:27 PM DIRECTOR PLANS DTL Cryptosporidium species Negative Negative 06/02/2024 5:27 PM DIRECTOR PLANS DTL Cyclospora cayetanensis Negative Negative 06/02/2024 5:27 PM DIRECTOR PLANS DTL Entamoeba histolytica Negative Negative 06/02/2024 5:27 PM DIRECTOR PLANS DTL Giardia Negative Negative 06/02/2024 5:27 PM DIRECTOR PLANS DTL Adenovirus F40/41 Negative Negative 025 5:27 PM DIRECTOR PLANS DTL Astrovirus Negative Negative 06/02/2024 5:27 PM DIRECTOR PLANS DTL Norovirus GI/GII Negative Negative 06/03/19 25 5:27 PM DIRECTOR PLANS DTL Rotavirus Ag, F Negative Negative 5:27 PM DIRECTOR PLANS DTL Sapovirus Negative Negative 06/02/2024 5:27 PM DIRECTOR PLANS DTL Comment: ----ADDITIONAL INFORMATION---- This assay is performed using the FDA-cleared [employer] PharmatechArray GI Panel ([employer] Stool (Stool) 06/02/2024 2:4 7 PM DIRECTOR PLANS 06/02/2024 3:17 PM DIRECTOR PLANS us Walter Willis Jr., D.O. LAB MICROBIOLOGY - G ENERAL ORDERABLES Final Result [facility] [address] [place] [address], [place] 200 [facility] [address] [place] [address] * (ABNORMAL) Fat, Feces (06/02/2024 2:44 PM DIRECTOR PLANS) Total Weight 428 g 06/03/2024 9:48 AM DIRECTOR PLANS DTL Duration 24 h 06/02/2024 2:46 PM DIRECTOR PLANS DTL Comment: More reliable results can be obtained from a 48 or 72 hour collection. Total Fat/24 Hr 19(H) 2 - 7 g/24 h 06/03/2024 1:30 PM DIRECTOR PLANS DTL Comment: ----ADDITIONAL INFORMATION---- This test was developed and its performance characteristics determined by [facility] in a manner consistent with CLIA requirements. This test has not been cleared or approved by the U.S. Food and Drug Administration. Stool (Stool) 06/02/2024 2:4 4 PM DIRECTOR PLANS 06/03/2024 12:39 PM DIRECTOR PLANS us Walter Willis Jr., D.O. LAB BODY FLUIDS AND STOOLS ORDERABLES Final Result [facility] [address] [place] [address], [place] DTL [facility] [address] [place] [address] * Testosterone, Free and Weakly Bound, With Total Testosterone, LC/MS-MS - Sent Out Lab (05/15/2024 11:37 AM DIRECTOR PLANS) Testosterone, Total, LC/MS 390.0 264.0 - 916.0 ng/dL 05/22/2024 7:07 PM DIRECTOR PLANS BURI Comment: This [facility] LC/MS-MS method is currently certified by the CDC Hormone Standardization Program (HoSt). Adult male reference interval is based on a population of healthy nonobese males (BMI <30) between 19 and 39 years old. Morgan et.al. JCEM 2017,102;8575-5672. PMID: 82244134. This test was developed and its performance characteristics determined by [employer] [facility] [employer]. It has not been cleared or approved by the Food and Drug Administration. Testost. % Free+Weakly Bound 22.2 9.0 - 46.0 % 05/22/2024 7:07 PM DIRECTOR PLANS BURI Comment: This test was developed and its performance characteristics determined by [facility]. It has not been cleared or approved by the Food and Drug Administration. Testost. F+W Bound 86.6 40.0 - 250.0 ng/dL 05/22/2024 7:07 PM DIRECTOR PLANS BURI Blood (Blood, Venous) 05/15/2024 11:37 AM DIRECTOR PLANS 05/16/2024 7:37 AM DIRECTOR PLANS us Tg Mandujano P.A.-C., M.S. LAB BLOOD NON AD D-ON Final Result [id number] [place] [id number] * (ABNORMAL) Prolactin (05/15/2024 11:37 AM DIRECTOR PLANS) Prolactin Total 27.9(H) 4.0 - 15.2 ng/mL 05/15/2024 9:22 PM DIRECTOR PLANS ECLR Comment: Biotin has been identified by the counter intelligence as a potential interfering substance. Higher concentrations [...] disease. Blood (Blood, Venous) 05/15/2024 11:37 AM DIRECTOR PLANS 05/15/2024 8:51 PM DIRECTOR PLANS Tg Mandujano P.A.-C., M.S. LAB BLOOD ADD-ON Final Result [facility] [address] [place] [address], [place] ECLR [facility] [place] [address] * (ABNORMAL) Albumin, Random, Urine (05/12/2024 8:04 AM DIRECTOR PLANS) EXT Creatinine, Urine 32.3 mg/dL [facility] EXT Microalbumin-R andom, U 45 mg/dL [facility] EXT Albumin/Creati nine Ratio 1,390(H) 0 - 30 [facility] 05/12/2024 8:04 AM DIRECTOR PLANS Narrative [facility] - 05/12/2024 11:43 AM DIRECTOR PLANS Source result document attached to Order Number [id number] ([id number]) dated 05/12/2024. External results verified in Extract by Flakita Guillen on 05/12/2024 at 11:41 AM. us Ordering Provider Alisa Garcia LAB URINE ORDERA BLES Final Result Performing Organization Address [facility]/ZIP Co de Phone Number [facility] [address] [place] [address] * (ABNORMAL) Renal Function Panel (05/12/2024 7:35 AM DIRECTOR PLANS) EXT Sodium 138 135 - 149 mmol/L [facility] EXT Potassium 4.1 3.6 - 5.1 mmol/L [facility] EXT Chloride 110 96 - 114 mmol/L [facility] EXT CO2 18(L) 20 - 32 mmol/L [facility] EXT Anion Gap 10 7 - 15 mEq/L [facility] EXT BUN (Blood Urea Nitrogen) 32(H) 7 - 30 mg/dL [facility] EXT Creatinine 1.8(H) 0.5 - 1.5 mg/dL [facility] EXT Estimated GFR (eGFR) 40 ML [facility] EXT Calcium, Total 9.4 8.4 - 10.6 mg/dL [facility] EXT Glucose 93 60 - 115 mg/dL [facility] EXT Albumin 4.0 3.3 - 5.0 g/dL [facility] EXT Phosphorus (Inorganic), S 3.4 2.5 - 4.5 mg/dL [facility] 05/12/2024 7:35 AM DIRECTOR PLANS Narrative [facility] - 05/12/2024 1:53 PM DIRECTOR PLANS Source result document attached to Order Number [id number] ([id number]) dated 05/12/2024. External results verified in Extract by Flakita Guillen on 05/12/2024 at 01:49 PM. us Ordering Provider Alisa Garcia LAB BLOOD ADD-ON Final Result Performing Organization Address [facility]/ZIP Co de Phone Number [facility] NA [facility] [address] [id number], [place] [phone] * (ABNORMAL) Iron and Total Iron-Binding Capacity (05/12/2024 7:35 AM DIRECTOR PLANS) EXT Iron 61 49 - 181 ug/dL [facility] EXT Total Iron Binding Capacity 325 261 - 462 ug/dL [facility] EXT Percent Saturation 19(L) 20 - 50 % [facility] 05/12/2024 7:35 AM DIRECTOR PLANS Narrative [facility] - 05/12/2024 11:43 AM DIRECTOR PLANS External results verified in Extract by Flakita Guillen on 05/12/2024 at 11:41 AM. us Ordering Provider External M.D. LAB BLOOD ADD-ON Final Result Performing Organization Address City/[facility] Co de Phone Number [facility] [address] [place], [place] [id number] [place] [address] * (ABNORMAL) CBC with Differential, Blood (05/12/2024 7:35 AM DIRECTOR PLANS) [facility] EXT Leukocytes 6.06 4.50 - 11.00 K/uL [facility] EXT RBC 4.21(L) 4.30 - 5.90 m/uL [facility] EXT Hemoglobin 12.5(L) 13.5 - 17.5 gm/dL [facility] EXT Hematocrit 37.5 37.0 - 53.0 % [facility] EXT MCV 89 80 - 100 fL [facility] EXT Platelet Count 211 140 - 440 K/uL [facility] 05/12/2024 7:35 AM DIRECTOR PLANS Narrative [employer] [facility] - 05/12/2024 11:43 AM DIRECTOR PLANS Source result document attached to Order Number [id number] ([id number]) dated 05/12/2024. External results verified in Extract by Flakita Guillen on 05/12/2024 at 11:41 AM. us Ordering Provider External M.DIsauro LAB BLOOD ADD-ON Final Result Performing Organization Address [facility]/ZIP Co de Phone Number Realm [facility] [address] [phone] * (ABNORMAL) CRP (C-Reactive Protein) (05/12/2024 7:35 AM DIRECTOR PLANS) Pathologist [facility] EXT C-Reactive Protein Quantative < 0.5(L) 0.5 - 1.0 mg/dL [facility] 05/12/2024 7:35 AM DIRECTOR PLANS [facility] - 05/12/2024 1:53 PM DIRECTOR PLANS Source result document attached to Order Number [id number] ([id number]) dated 05/12/2024. External results verified in Extract by Flakita Guillen on 05/12/2024 at 01:49 PM. us Ordering Provider External M.Chet LAB BLOOD ADD-ON Final Result Performing Organization Address [facility] de Phone Number Realm [facility] [address] [phone] * Uric Acid (05/12/2024 7:35 AM DIRECTOR PLANS) EXT Uric Acid, S 6.0 2.2 - 8.4 mg/dL [facility] 05/12/2024 7:35 AM DIRECTOR PLANS Narrative [facility] - 05/12/2024 1:53 PM DIRECTOR PLANS External results verified in Extract by Flakita Guillen on 05/12/2024 at 01:49 PM. us Ordering Provider External M.DIsauro LAB BLOOD ADD-ON Final Result Performing Organization Address City/[facility] Co de Phone Number [facility] [address] [place] [address] * (ABNORMAL) Parathyroid Hormone (PTH) (05/12/2024 7:35 AM DIRECTOR PLANS) Parathyroid Hormone (PTH) 110.3(H) 14.2 - 75.2 pg/mL [facility] 05/12/2024 7:35 AM DIRECTOR PLANS Narrative [facility] - 05/12/2024 1:53 PM DIRECTOR PLANS Source result document attached to Order Number [id number] ([id number]) dated 05/12/2024. External results verified in Extract by Flakita Guillen on 05/12/2024 at 01:49 PM. us Ordering Provider External MVishal LAB BLOOD ADD-ON Final Result Performing Organization Address [facility]/ZIP Co de Phone Number KidaroT [facility] [address] [place] [address] * (ABNORMAL) Hemoglobin A1c (05/12/2024 7:35 AM DIRECTOR PLANS) EXT Hemoglobin A1c, B 6.2(H) 0 - 5.6 % [facility] 05/12/2024 7:35 AM DIRECTOR PLANS Narrative [facility] - 05/12/2024 11:43 AM DIRECTOR PLANS Source result document attached to Order Number [id number] ([id number]) dated 05/12/2024. External results verified in Extract by Flakita Guillen on 05/12/2024 at 11:41 AM. us Ordering Provider External M.DIsauro LAB BLOOD ADD-ON Final Result Performing Organization Address City/[facility]/ZIP Co de Phone Number Realm [facility] [address] [place] [address] * Ferritin (05/12/2024 7:35 AM DIRECTOR PLANS) EXT Ferritin, S 41.9 17.9 - 464.0 ng/mL [facility] 05/12/2024 7:35 AM DIRECTOR PLANS Narrative [facility] - 05/12/2024 1:53 PM DIRECTOR PLANS Source result document attached to Order Number [id number] ([id number]) dated 05/12/2024. External results verified in Extract by Flakita Guillen on 05/12/2024 at 01:49 PM. us Ordering Provider External M.D. LAB BLOOD ADD-ON Final Result Performing Organization Address City/[facility]/ZIP Co de Phone Number CASIE [facility] NA [facility] [address] [place] [address] * OPHTHALMOLOGY IMAGE EXAM (12/24/2017 9:53 AM [...] PROCE DURES Final Result Performing Organization Address [facility] Co de Phone Number IIMS NA * (ABNORMAL) Lipoprotein Metabolism Profile (07/07/2015 8:14 AM CDT) LDL Triglycerides 53(H) <=50 MG/DL M [facility] VLDL cholesterol 24 <30 MG/DL [facility] VLDL triglycerides 151(H) <120 MG/DL [facility] Beta VLDL Cholesterol . <15 MG/DL [facility] Comment:Not Detected Beta VLDL triglycerides . <15 MG/DL [facility] Comment:Not Detected Chylomicron cholesterol . Undetectable MG/DL [facility] Comment:Not Detected LpX . Undetectable [facility] Comment:Not detected Interpretation . [facility] Comment:Mild Type IV Hyperli poproteinemia Cholesterol, Total 179 SeeComment MG/DL [facility] Comment: REFERENCE VALUE Desirable: < 200 Borderline high: 200 - 239 High: > or = 240 Triglycerides 225(H) SeeComment MG/DL [facility] Comment: REFERENCE VALUE Normal: <150 Borderline high: 150-199 High: 200-499 Very high: > or =500 Apolipoprotein B, S 102(H) SeeComment MG/DL [facility] Comment: REFERENCE VALUE Desirable: <90 Above Desirable: 90-99 Borderline high: 100-119 High: 120-139 Very high: > or = 140 LDL Cholesterol 91 SeeComment MG/DL [facility] Comment: REFERENCE VALUE Desirable: <100 Above Desirable: 100-129 Borderline high: 130-159 High: 160-189 Very high: > or =190 Chylomicron triglycerides . Undetectable MG/DL [facility] Comment:Not Detected Lp(a) Cholesterol 25(H) <3 MG/DL [facility] Comment: Increased Lipoprotein (a) cholesterol. Increased [...] HDL Cholesterol, CDC, S 39(L) >=40 MG/DL [facility] 07/07/2015 8:14 AM CDT 07/07/2015 8:14 AM CDT us Lindsey Ragland M.D. LAB BLOOD ADD-ON Tiffani l Result [facility] [address] [place], [place] [address] [email or web address]] from Last 3 Months or Most Recently Relevant to Health Maintenance Insurance [facility]
--- OUTSIDE RECORDS SUMMARY | 2024-08-03 13:46 | XMS_ITS | Encounter Summary ---
Author Organization [facility] Address [address] [place] [address] Care Team Providers Care Analytics Analyst Name Role Phone Unavailable Primary Care Provider Unavailabl e Reason for Visit * Reason Onset Date Comments OSM - Outside Materials 06/10/2024 MR abdom en -06/09/24 Encounter Details Date Type Department Care Team (Latest Contact Info) Description 06/10/2024 Clinical Communication Division of Nephrology and Hypertension in [place], [place] [address] [place] [address] Walter Willis Jr., D.O. [address] [place] [address] OSM - Outside Materials (MR abdomen -06/09/24) Social History Tobacco Use Types Packs/Day Years Used Date Smoking Tobacco: Former Cigarettes 0.3 6 0 04/03/1979 - 04/02/1985 Smokeless Tobacco: Never Alcohol Use Standard Drinks/Week Comments Yes 2 (1 standard drink = 0.6 oz pur e alcohol) [facility] Utilities Answer Date Recorded In the [...] How often do you attend chur or methodist services? Patient declined 09/27/2020 Do you belong to any clubs o r organizations such as druze groups, unions, fraternal [...] and heating? Not hard at all 09/27/2020 [facility] - [...] your living situation today? I have a [facility] place [facility] live 04/29/2023 Education Answer Date Recorded What is the highest level of school you have completed or the highest degree you have received? 12th grade 12/29/2018 Sex and Gender Information Value Date Recorded Sex Assigned at Male 04/29/2023 9:28 PM FINANCIAL OPERATIONS CONSULTANT Legal Sex Male 5:12 PM FINANCIAL OPERATIONS CONSULTANT Gender Identity Male 12/24/2017 2:50 PM CDT Sexual Orientation Straight 12/24/2017 2: 50 PM CDT documented as of this encounter Plan of Treatment Not on file documented as of this encounter Visit Diagnoses Not on filedocumented in this encounter
[2024-08-03 13:50] LABS: Slide Review Reflex No
[2024-08-03 14:29] LABS: INR 2.44 (0.91-1.10); Prothrombin Time 27.7 Seconds
== END 2024-08-03 15:00 | disposition home or self-care (01) ==
PROVIDERS: Emergency Provider Emergency Medicine; PCP Family Medicine
DX: H11.31 Conjunctival hemorrhage, right eye (principal); Z86.711 Personal history of pulmonary embolism; Z79.01 Long term (current) use of anticoagulants
CPT/HCPCS: 36415; 85025; 85610; 99283; A9270

== ENCOUNTER 2024-08-29 19:08 | Emergency (ER) | payer MEDICARE, SELFPAY ==
[2024-08-29] VITALS (9 sets, daily range): BP systolic 120–151; BP diastolic 72–80; PULSE 49–62; RESP 13–20; TEMP 35.9–36.8; O2SAT 96–98; BMI 24.9
--- OUTSIDE RECORDS SUMMARY | 2024-08-29 19:10 | XMS_ITS | Encounter Summary ---
Author Organization [facility] Address [address] [place] [address] Care Team Providers Care Executive Housekeeper Name Role Phone Unavailable Primary Care Provider Unavailabl e Encounter Details Date Type Department Care Team (Late st Contact Info) Description 02/03/2015 Historical Ophthalmology RST OPH Brenda Elaine M.D. Social History Tobacco Use Types Packs/Day Years Used Date Smoking Tobacco: Never Assessed Sex and Gender Information Value Date Recorded Sex Assigned at Male 04/29/2023 9:28 PM SIX SIGMA BLACK TRAINER Legal Sex Male 5:12 PM SIX SIGMA BLACK TRAINER Gender Identity Male 12/24/2017 2:50 PM CDT [...] the right aspect of the gland, and [id number] shift of the infundibulum. There is no [...] PLAN Consult requested by: Lindsey Ragland MD [id number] #1 Pituitary tumor, with no ocular stigmata. [...] OCT: Avg thickness 82 OD, 88 OS. [id number] /10 OU. Testing consistent with clinical exam findings. #2 Visual field report, Normal visual field both eyes. Foveal threshold normal @ 37 OD, 39 OS. 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 This is likely related to prednisone. Return prn any changes in vision. The photos show an area of nuclear physics professor color that corresponds to the PULL UP HAND on the OCT. Testing consistent with clinical exam findings. 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 #2 Visual field report, Normal visual field both eyes. #3 Central serous retinopathy left eye. CDM Reports - EYEGEN Id: [id number] Status: Fnl documented in this encounter Plan of Treatment Not on file documented as of this encounter Visit Diagnoses Not on filedocumented in this encounter
--- OUTSIDE RECORDS SUMMARY | 2024-08-29 19:10 | XMS_ITS | Clinical Summary ---
Author Organization [place] Address [address] [place] [address] Care Team Providers Care Spa Associate Name Role Phone Kade Alexander MD Primary Care Provider [phone] Allergies Active Allergy Reactions Criticality Noted Date Comments No Known Drug Allergy 03/09/2003 Family History Medical History Relation Comments Cancer Father ORAL, RELATED TO TOBACCO Diabetes Father Hypertension Father Arthritis Mother Cardiovascular Mother Gastrointestinal Disease Mother mothers side lactose intollerant Heart Disease Mother MO repaired with a shunt Osteoporosis Mother Hypertension [...] on file Legal Sex Male 3:10 AM GEM CUTTER Gender Identity Not on file Sexual Orientation Not on file Last Filed Vital Signs Vital Sign Reading Time Taken Comments Blood Pressure 150/104 03/09/2003 11:21 AM GEM CUTTER seated (from Extended Vitals) Pulse 60 03/09/2003 11:19 AM GEM CUTTER (from Extended Vitals) Temperature - - Respiratory Rate - - Oxygen Saturation - - Inhaled Oxygen Concentration - - Weight 89.8 kg (198 lb) 03/09/2003 10:4 5 AM GEM CUTTER Height 172.7 cm (5' 8) 03/09/2003 10:4 5 AM GEM CUTTER Body Mass Index 30.11 03/09/2003 10:45 AM GEM CUTTER Plan of Treatment Not on file Care Teams Spa Associate Relationship Specialty Start Date End Date Kade Alexander MD [facility] [address] [place] [address] [facility] - General 01/27/02
--- OUTSIDE RECORDS SUMMARY | 2024-08-29 19:10 | XMS_ITS | Clinical Summary ---
Author Organization [facility] Address [address] [place] [address] Care Team Providers Care Rehab Nursing Tech Name Role Phone Frederick Krause MD Primary Care Provider [phone] Allergies No known active allergies Medications cabergoline [...] on file Legal Sex Male 8:28 AM SHALE MINER BLASTING Gender Identity Not on file Sexual Orientation [...] Hepatitis C screening for age 18-79 11/10/1971 Pneumococcal series for age 50+ [...] 05/09/2024 05/09/2019 Influenza Vaccine (Season Ended) 2024 Hepatitis B series for 19+ Aged Out N o longer eligible based on patient's age to complete this topic Procedures Procedure Name Priority Date/Time Associated Diagnosis Comments LIPID PANEL Early AM 05/09/2019 6:17 AM SHALE MINER BLASTING from Last 3 Months or Most Recently Relevant to Health Maintenance Results * (ABNORMAL) LIPID PANEL (05/09/2019 6:17 AM SHALE MINER BLASTING) CHOLESTEROL,TOTAL 143 100 - 199 mg/dL 05/09/2019 6:59 AM SHALE MINER BLASTING [facility] TRIGLYCERIDES 119 <150 mg/dL 05/09/2019 6:59 AM SHALE MINER BLASTING [facility] HDL CHOLESTEROL 34(L) >40 mg/dL 0 6:59 AM SHALE MINER BLASTING [facility] NON-HDL CHOLESTEROL 109 <145 mg/dl 05/09/2019 6:59 AM SHALE MINER BLASTING [facility] CHOL/HDL RATIO 4.21 <4.50 05/09/2019 6:59 AM SHALE MINER BLASTING [facility] LDL CHOLESTEROL 85 <=130 mg/dL 05/09/2019 6:59 AM SHALE MINER BLASTING [facility] PROVIDER ORDERED STATUS RANDOM 05/09/2019 6:59 AM SHALE MINER BLASTING [facility] Blood BLOOD SPECIMEN / Unknown Venipuncture / Unknown 05/09/2019 6:17 AM SHALE MINER BLASTING 05/09/2019 6:25 AM SHALE MINER BLASTING us Evy MAR CHEMISTRY Tiffani l Result [facility] [address] [place] [address], [place] from Last 3 Months or Most Recently Relevant to Health Maintenance Advance Directives * Full Code (Latest Code Status on File) Date Activated Date Inactivated Comments 07/11/2019 6:32 PM 07/13/2019 9:39 PM Question Answer Comments Code Status Discussion: Discussed * Full Code Date Activated Date Inactivated Comments 05/08/2019 6:16 PM 05/17/2019 3:04 PM Care Teams Rehab Nursing Tech Relationship Specialty Start Date End Date Frederick Krause MD [address] [place] [address] PCP - General Family Practice 06/05/19
--- OUTSIDE RECORDS SUMMARY | 2024-08-29 19:10 | XMS_ITS | Clinical Summary ---
Author Organization [facility] Address [address] [place] [address] Care Team Providers Care Freight Car Cleaner Name Role Phone Unavailable Primary Care Provider Unavailabl e Source Comments Patient records contain information from all sites at [facility]. For routine questions regarding patient records, call [phone] during business hours, M-F 8:00 AM - 5:00 PM Central Time. Record requests for emergency care only can be directed to [phone] at any time.[facility] Allergies No known active allergies [...] Only Division of Nephrology and Hypertension in [place], [place] [address] [place] [address] Maty Willis Jr., D.O. Chronic Kidney Disease (CKD), Stage 3a Glomerular Filtration Rate (GFR) 45 To 59 (HCC) (Primary Dx); Diarrhea; Prolactinoma (HCC); Hypertensive Chronic Kidney Disease With Stage 1 Through Stage 4 Chronic Kidney Disease, Or Unspecified Chronic Kidney Disease; Hyperaldosteronism (HCC) 06/15/2024 Orders Only Division of Nephrology and Hypertension in [place], [place] [address] [place] [address] Maty Willis Jr., D.OIsauro Chronic Kidney Disease (CKD), Stage 3a Glomerular Filtration Rate (GFR) 45 To 59 (HCC) (Primary Dx); Diabetes Mellitus Type 2 With Diabetic Nephropathy (HCC); Mass Kidney 06/10/2024 Documentation Division of Nephrology and Hypertension in [place], [place] [address] [place] [address] Maty Willis Jr., D.O. 06/10/2024 Clinical Communication Division of Nephrology and Hypertension in [place], [place] [address] [place] [address] Maty Willis Jr., D.O. OSM - Outside Materials (MR abdomen -06/09/24) 05/30/2024 11:00 AM SENIOR AGRICULTURAL ASSISTANT - 05/30/2024 11:59 PM [facility] Hospital Encounter Department of Laboratory Medicine and Pathology, [facility], in [place], [place] [address] [place] [address] Maty Willis Jr., D.O. Chronic Kidney Disease (CKD), Stage 3a Glomerular Filtration Rate (GFR) 45 To 59 (HCC); Hypertensive Chronic Kidney Disease With Stage 1 Through Stage 4 Chronic Kidney Disease, Or Unspecified Chronic Kidney Disease; Diabetes Mellitus Type 2 With Diabetic Nephropathy (HCC); Anemia Of Chronic Renal Failure; Prolactinoma (HCC); Hyperparathyroidis m Renal Secondary (HCC); Hyperaldosteronism (HCC); Anticoagulant Therapy; Mass Kidney; Diarrhea Discharge Disposition: Home or Self Care from Last 3 Months Immunizations Immunization Administration Dates Next Due Influenza Split 03/02/2016 Family History Medical History Relation Name Comments Hypertension Father kelli gasca Relation Name Status Comments Father kelli maty gasca Social History Tobacco Use Types Packs/Day Years Used Date Smoking Tobacco: Former Cigarettes 0.3 6 0 04/03/1979 - 04/02/1985 Smokeless Tobacco: Never Tobacco Cessation:Counseling Given: Not Answered Alcohol Use Standard Drinks/Week Comments Yes 2 (1 standard drink = 0.6 oz pur e alcohol) [facility] Utilities Answer Date Recorded In the [...] week 09/27/2020 How often do you attend [facility] or latter day services? Patient declined 09/27/2020 Do you belong to any clubs o r organizations such as pentecostalism groups, unions, fraternal [...] and heating? Not hard at all 09/27/2020 [facility] [place] [facility] Occup[facility] ional [facility] - Occupational Stress [...] your living situation today? I have a [facility] place to live 04/29/2023 Education Answer Date Recorded What is the highest level of school you have completed or the highest degree you have received? 12th grade 12/29/2018 Sex and Gender Information Value Date Recorded Sex Assigned at Male 04/29/2023 9:28 PM SENIOR AGRICULTURAL ASSISTANT Legal Sex Male 5:12 PM SENIOR AGRICULTURAL ASSISTANT Gender Identity Male 12/24/2017 2:50 PM CDT Sexual Orientation Straight 12/24/2017 2: 50 PM CDT Last Filed Vital Signs Vital Sign Reading Time Taken Comments Blood Pressure 140/78 05/19/2024 4:00 PM SENIOR AGRICULTURAL ASSISTANT Pulse 47 05/19/2024 4:00 PM SENIOR AGRICULTURAL ASSISTANT Temperature - - Respiratory Rate 14 08/08/2016 5:05 PM CDT Vital sign result from Clinical Notes. Oxygen Saturation - - Inhaled Oxygen Concentration - - Weight 74.8 kg (164 lb 14.5 oz) 05/19/2024 4:00 PM SENIOR AGRICULTURAL ASSISTANT Height 172.7 cm (5' 7.99) 05/19/2024 4 :00 PM SENIOR AGRICULTURAL ASSISTANT Body Mass Index 25.08 05/19/2024 4:00 PM SENIOR AGRICULTURAL ASSISTANT Plan of Treatment Health Maintenance Due Date [...] this topic Medical Devices Implanted Type Area Track Leader Device Identifier Shelf Expiration Date Model / Serial / Lot Ocular Lens Ocular Lens Left: Eye Description:Cataract surgery with left eye in Second week of January 2024 Procedures Procedure Name Priority Date/Time Associated Diagnosis Comments GI PATHOGEN PANEL, PCR, F Routine 06/02/2024 2:47 PM SENIOR AGRICULTURAL ASSISTANT Chronic Kidney Disease (CKD), Stage 3a [...] Diarrhea FAT, F Routine 06/02/2024 2:44 PM SENIOR AGRICULTURAL ASSISTANT Chronic Kidney Disease (CKD), Stage 3a Glomerular Filtration Rate (GFR) 45 To 59 (HCC) Hypertensive Chronic Kidney Disease With Stage 1 Through Stage 4 Chronic Kidney Disease, Or Unspecified Chronic Kidney Disease Diabetes Mellitus Type 2 With Diabetic Nephropathy (HCC) Anemia Of Chronic Renal Failure Prolactinoma (HCC) Hyperparathyroidism Renal Secondary (HCC) Hyperaldosteronism (HCC) Anticoagulant Therapy Mass Kidney Diarrhea ALBUMIN, RANDOM, U Routine 05/12/2024 8: 04 AM SENIOR AGRICULTURAL ASSISTANT HEMOGLOBIN A1C, B Routine 05/12/2024 7:3 5 AM SENIOR AGRICULTURAL ASSISTANT RENAL FUNCTION PANEL, S Routine 05/12/2024 7:35 AM SENIOR AGRICULTURAL ASSISTANT OPHTHALMOLOGY IMAGE EXAM Routine 12/24/2017 9:53 AM CDT LIPOPROTEIN METABOLISM PROF, S Routine 07/07/2015 8:14 AM CDT from Last 3 Months or Most Recently Relevant to Health Maintenance Results * GI Pathogen Panel, PCR, Feces (06/02/2024 2:47 PM SENIOR AGRICULTURAL ASSISTANT) Specimen Source STOOL 5:27 PM SENIOR AGRICULTURAL ASSISTANT DTL Campylobacter species Negative Negative 06/02/2024 5:27 PM SENIOR AGRICULTURAL ASSISTANT DTL C. difficile toxin Negative Negative 2024 5:27 PM SENIOR AGRICULTURAL ASSISTANT DTL Plesiomonas shigelloides Negative Negative 06/02/2024 5:27 PM SENIOR AGRICULTURAL ASSISTANT DTL Salmonella species Negative Negative 2024 5:27 PM SENIOR AGRICULTURAL ASSISTANT DTL Vibrio species Negative Negative 06/02/2024 5:27 PM SENIOR AGRICULTURAL ASSISTANT DTL Vibrio cholerae Negative Negative 5:27 PM SENIOR AGRICULTURAL ASSISTANT DTL Yersinia species Negative Negative 06/03/19 5:27 PM SENIOR AGRICULTURAL ASSISTANT DTL Enteroaggregative E. coli (EAEC) Negative Negative 06/02/2024 5:27 PM SENIOR AGRICULTURAL ASSISTANT DTL Enteropathogenic E. coli (EPEC) Negative Negative 06/02/2024 5:27 PM SENIOR AGRICULTURAL ASSISTANT DTL Enterotoxigenic E. coli (ETEC) Negative Negative 06/02/2024 5:27 PM SENIOR AGRICULTURAL ASSISTANT DTL Shiga toxin producing E. coli Negative Negative 06/02/2024 5:27 PM SENIOR AGRICULTURAL ASSISTANT DTL Shigella/Enteroinvas lynsey E. coli Negative Negative 06/02/2024 5:27 PM SENIOR AGRICULTURAL ASSISTANT DTL Cryptosporidium species Negative Negative 06/02/2024 5:27 PM SENIOR AGRICULTURAL ASSISTANT DTL Cyclospora cayetanensis Negative Negative 06/02/2024 5:27 PM SENIOR AGRICULTURAL ASSISTANT DTL Entamoeba histolytica Negative Negative 06/02/2024 5:27 PM SENIOR AGRICULTURAL ASSISTANT DTL Giardia Negative Negative 06/02/2024 5:27 PM SENIOR AGRICULTURAL ASSISTANT DTL Adenovirus F40/41 Negative Negative 025 5:27 PM SENIOR AGRICULTURAL ASSISTANT DTL Astrovirus Negative Negative 06/02/2024 5:27 PM SENIOR AGRICULTURAL ASSISTANT DTL Norovirus GI/GII Negative Negative 06/03/19 25 5:27 PM SENIOR AGRICULTURAL ASSISTANT DTL Rotavirus Ag, F Negative Negative 5:27 PM SENIOR AGRICULTURAL ASSISTANT DTL Sapovirus Negative Negative 06/02/2024 5:27 PM SENIOR AGRICULTURAL ASSISTANT DTL Comment: ----ADDITIONAL INFORMATION---- This assay is performed using the FDA-cleared Planning Media[employer] GI Panel ([employer] Stool (Stool) 06/02/2024 2:4 7 PM SENIOR AGRICULTURAL ASSISTANT 06/02/2024 3:17 PM SENIOR AGRICULTURAL ASSISTANT us Maty Willis Jr., D.O. LAB MICROBIOLOGY - G ENERAL ORDERABLES Final Result Performing Organization Address [facility] de Phone Number [facility] [address] [place], [place] [id number] [place] [address] [address] * (ABNORMAL) Fat, Feces (06/02/2024 2:44 PM SENIOR AGRICULTURAL ASSISTANT) Total Weight 428 g 06/03/2024 9:48 AM SENIOR AGRICULTURAL ASSISTANT DTL Duration 24 h 06/02/2024 2:46 PM SENIOR AGRICULTURAL ASSISTANT DTL Comment: More reliable results can be obtained from a 48 or 72 hour collection. Total Fat/24 Hr 19(H) 2 - 7 g/24 h 06/03/2024 1:30 PM SENIOR AGRICULTURAL ASSISTANT DTL Comment: ----ADDITIONAL INFORMATION---- This test was developed and its performance characteristics determined by [facility] in a manner consistent with CLIA requirements. This test has not been cleared or approved by the U.S. Food and Drug Administration. Stool (Stool) 06/02/2024 2:4 4 PM SENIOR AGRICULTURAL ASSISTANT 06/03/2024 12:39 PM SENIOR AGRICULTURAL ASSISTANT us Maty Willis Jr., D.O. LAB BODY FLUIDS AND STOOLS ORDERABLES Final Result Performing Organization Address City/[facility]/ZIP Co de Phone Number [facility] [address] [place] [address], [facility] [address] [address] * (ABNORMAL) Albumin, Random, Urine (05/12/2024 8:04 AM SENIOR AGRICULTURAL ASSISTANT) EXT Creatinine, Urine 32.3 mg/dL [facility] EXT Microalbumin-R andom, U 45 mg/dL [facility] EXT Albumin/Creati nine Ratio 1,390(H) 0 - 30 [facility] 05/12/2024 8:04 AM SENIOR AGRICULTURAL ASSISTANT Narrative [facility] - 05/12/2024 11:43 AM SENIOR AGRICULTURAL ASSISTANT Source result document attached to Order Number [id number] ([id number]) dated 05/12/2024. External results verified in Extract by Flakita Guillen on 05/12/2024 at 11:41 AM. us Ordering Provider External M.DIsauro LAB URINE ORDERA BLES Final Result [address] [phone] * (ABNORMAL) Renal Function Panel (05/12/2024 7:35 AM SENIOR AGRICULTURAL ASSISTANT) EXT Sodium 138 135 - 149 mmol/L [facility] EXT Potassium 4.1 3.6 - 5.1 mmol/L [facility] EXT Chloride 110 96 - 114 mmol/L [facility] EXT CO2 18(L) 20 - 32 mmol/L [facility] EXT Anion Gap 10 7 - 15 mEq/L [facility] EXT BUN (Blood Urea Nitrogen) 32(H) 7 - 30 mg/dL [facility] EXT Creatinine 1.8(H) 0.5 - 1.5 mg/dL [facility] EXT Estimated GFR (eGFR) 40 ML [facility] EXT Calcium, Total 9.4 8.4 - 10.6 mg/dL [facility] EXT Glucose 93 60 - 115 mg/dL [facility] EXT Albumin 4.0 3.3 - 5.0 g/dL [facility] EXT Phosphorus (Inorganic), S 3.4 2.5 - 4.5 mg/dL [facility] 05/12/2024 7:35 AM SENIOR AGRICULTURAL ASSISTANT Narrative [facility] - 05/12/2024 1:53 PM SENIOR AGRICULTURAL ASSISTANT Source result document attached to Order Number [id number] ([id number]) dated 05/12/2024. External results verified in Extract by Flakita Guillen on 05/12/2024 at 01:49 PM. us Ordering Provider External Jose LAB BLOOD ADD-ON Final Result Performing Organization Address [facility] de Phone Number [employer] [facility] [address] [place] [id number] [phone] * (ABNORMAL) Hemoglobin A1c (05/12/2024 7:35 AM SENIOR AGRICULTURAL ASSISTANT) EXT Hemoglobin A1c, B 6.2(H) 0 - 5.6 % [facility] 05/12/2024 7:35 AM SENIOR AGRICULTURAL ASSISTANT Narrative [facility] - 05/12/2024 11:43 AM SENIOR AGRICULTURAL ASSISTANT Source result document attached to Order Number [id number] ([id number]) dated 05/12/2024. External results verified in Extract by Flakita Guillen on 05/12/2024 at 11:41 AM. us Ordering Provider External Jose LAB BLOOD ADD-ON Final Result Performing Organization Address [facility] de Phone Number [employer] [facility] [address] [place], [place] [address] [phone] * OPHTHALMOLOGY IMAGE EXAM (12/24/2017 9:53 AM [...] PROCE DURES Final Result Performing Organization Address [facility] Co de Phone Number IIMS NA * (ABNORMAL) Lipoprotein Metabolism Profile (07/07/2015 8:14 AM CDT) LDL Triglycerides 53(H) <=50 MG/DL [facility] VLDL cholesterol 24 <30 MG/DL [facility] VLDL triglycerides 151(H) <120 MG/DL [facility] Beta VLDL Cholesterol . <15 MG/DL [facility] Comment:Not Detected Beta VLDL triglycerides . <15 MG/DL [facility] Comment:Not Detected Chylomicron cholesterol . Undetectable MG/DL [facility] Comment:Not Detected LpX . Undetectable [facility] Comment:Not detected Interpretation . [facility] Comment:Mild Type IV Hyperli poproteinemia Cholesterol, Total 179 SeeComment MG/DL [facility] Comment: REFERENCE VALUE Desirable: < 200 Borderline high: 200 - 239 High: > or = 240 Triglycerides 225(H) SeeComment MG/DL [facility] Comment: REFERENCE VALUE Normal: <150 Borderline high: 150-199 High: 200-499 Very high: > or =500 Apolipoprotein B, S 102(H) SeeComment MG/DL [facility] Comment: REFERENCE VALUE Desirable: <90 Above Desirable: 90-99 Borderline high: 100-119 High: 120-139 Very high: > or = 140 LDL Cholesterol 91 SeeComment MG/DL [facility] Comment: REFERENCE VALUE Desirable: <100 Above Desirable: 100-129 Borderline high: 130-159 High: 160-189 Very high: > or =190 Chylomicron triglycerides . Undetectable MG/DL [facility] Comment:Not Detected Lp(a) Cholesterol 25(H) <3 MG/DL [facility] Comment: Increased Lipoprotein (a) [...] HDL Cholesterol, CDC, S 39(L) >=40 MG/DL [facility] 07/07/2015 8:14 AM CDT 07/07/2015 8:14 AM CDT Lindsey Ragland M.D. LAB BLOOD ADD-ON Tiffani l Result [facility] [address] from Last 3 Months or Most Recently Relevant to Health Maintenance Insurance [facility]
--- NOTE | 2024-08-29 19:39 | ED.GENADULT ---
HPI - General Adult General Chief complaint: Abdominal Pain Stated complaint: Sharp pain in stomach Time Seen by Provider: 08/29/24 19:35 History of Present Illness HPI narrative: Pt was seen here for right sided pain a few weeks ago. Ruled out gallbladder concerns at that time. Early this AM, pt developed pain and squeezing discomfort in medial abdomen. Did vomit once , intermittent nausea since. Rates pain currently 8/10. Pt has variety of medical hx issues including: quadruple bypass, blood clots, pituitary tumor . 68-year-old man presenting to the emergency department with concern of right mid abdominal pain. Has been having some belly pains with evaluation few weeks ago. I see most recently a HIDA scan done 07/15/2024 with radiology read copied below. Does have a long history of abdominal pain. Does acknowledge a history of irritable bowel. Tends to diarrhea. Has also been struggling with gas. If he eats a little too much tends to have rather rapid initiation of bowel movement. Describes this abdominal pain currently as squeezing in the mid abdomen. Did vomit today and has continued with some nausea. Has not had a fever. No hematochezia no melena. Does typically have diarrhea. What is concerning is the quality of this pain is atypical for him. Has not had any recent CT imaging. Most recently evaluated for gallbladder as noted above with a HIDA scan. This look to be negative other than some ?moderate enterogastric reflux. MRI of the abdomen in May of this year with concern of renal cell carcinoma and pancreatic tail lesion but possibly representing a side branch of the IPMN. Otherwise Mr. Campbell has a history of cardiovascular disease with history of react bypass. He has never had any abdominal surgery. Pain is not radiating into the legs. Indication: Abdominal pain Technique: Nuclear medicine hepatobiliary scan with gallbladder ejection fraction after the intravenous administration of 7.3 millicuries technetium 99 M Mebrofenin and 1.5 4 micrograms of CCK. Comparison: Limited abdominal ultrasound 06/25/2024 Findings: Normal hepatic extraction and excretion of the radiopharmaceutical with prompt appearance of the common bile duct followed by the gallbladder and small bowel. There is moderate enterogastric reflux. Visually normal gallbladder contraction is identified. Calculated gallbladder ejection fraction is 48 percent Impression: Moderate enterogastric reflux, correlate for alkaline gastritis. Otherwise, negative study. Dictated by Boo Arias MD @ 07/17/2024 10:32:58 AM INDICATION: Follow-up left renal lesion TECHNIQUE: 1.5 T was pre and postcontrast T1 weighted imaging; T2 weighted imaging; diffusion weighted imaging; in and out of phase imaging. 15 mL Dotarem IV COMPARISON: MR abdomen 02/26/2023 FINDINGS: Lungs: The lung bases are clear. No pleural or pericardial effusion. Liver: Homogeneous liver parenchyma. Increased conspicuity of a right hepatic lobe T2 hyperintense and subtly hypoenhancing lesion measuring 5 mm (17/24). Focus of subtle arterial enhancement in the right hepatic lobe (16/37), that does not persist on portal venous and delayed imaging, and may represent a vascular shunt. Biliary tree and gallbladder: No intra or extrahepatic biliary dilation. Fluid-filled gallbladder without stones. Spleen: Unremarkable Pancreas: Normal pancreatic parenchyma. No pancreatic masses. No pancreatic duct dilation. New T2 hyperintense lesion within the pancreatic tail measuring 4 mm (6/9). Adrenal glands: Unremarkable. Kidneys and ureters: No hydronephrosis. Stable appearance a left partially exophytic interpolar heterogeneously enhancing mass measuring 2.4 x 2.6 cm, previously up to 2.5 cm. An adjacent T1 hyperintense cystic lesion has increased in size measuring 0.8 cm (16/40), previously 0.5 cm. It is unclear if this represents an adjacent hemorrhagic cyst or increasing hemorrhagic component associated with the mass. Slightly increasing size and number of additional scattered simple and hemorrhagic renal cysts. GI tract: No evidence of obstruction or inflammation. Vasculature: The IVC and aorta are patent. No abdominal aortic aneurysm. Lymph nodes: No lymphadenopathy. Abdominal wall: Unremarkable Bones: Degenerative change of the imaged spine. IMPRESSION: 1. Stable size with possible new hemorrhagic component of left renal lesion, this remains suspicious for renal cell carcinoma. 2. Increased conspicuity of a subtle subcentimeter right hepatic lobe lesion that is indeterminate, although possibly a cyst. Attention on follow-up imaging. 3. Stable additional bilateral simple and hemorrhagic renal cysts. 4. New subcentimeter pancreatic tail cystic lesion may represent a side branch IPMN. Follow-up can be performed per ACR guidelines. Dictated by Teresa Ortega MD @ 06/10/2024 10:41:23 AM Related Data Home Medications ?Medication ?Instructions ?Recorded ?Confirmed cabergoline 0.5 mg tablet 0.75 mg PO .Twice Weekly 11/14/21 08/03/24 allopurinol 100 mg tablet 100 mg PO DAILY 12/24/23 08/03/24 prednisone 20 mg tablet 20 mg PO BID 08/03/24 08/03/24 Previous Rx's ?Medication ?Instructions ?Recorded amlodipine 2.5 mg tablet 2.5 mg PO DAILY #90 tabs 02/04/24 amlodipine 5 mg tablet 5 mg PO QDAY #90 tabs 02/04/24 atorvastatin 40 mg tablet 40 mg PO QPM #90 tabs 02/04/24 carvedilol 12.5 mg tablet 12.5 mg PO BID #180 tabs 02/04/24 chlorthalidone 25 mg tablet 25 mg PO QDAY #90 tabs 02/04/24 eplerenone 25 mg tablet 25 mg PO DAILY #90 tabs 02/04/24 losartan 100 mg tablet 100 mg PO QDAY #90 tabs 02/04/24 metformin 850 mg tablet 850 mg PO BIDWMEAL #180 tabs 02/04/24 warfarin 4 mg tablet 4 mg PO DAILY #90 tabs 06/12/24 Allergies Allergy/AdvReac Type Severity Reaction Status Date / Time No Known Allergies Allergy Verified 08/29/24 20:50 Review of Systems Status of ROS: Reports: 6 or more systems reviewed and unremarkable except as noted in History and below [facility] Medical History Foot pain ?M79.673 - Pain in unspecified foot (ICD-10) Surgical History Hx of shoulder surgery ?Z98.890 - Other specified postprocedural states (ICD-10) Status post four vessel coronary artery bypass ?Z95.1 - Presence of aortocoronary bypass graft (ICD-10) Family History Mother Heart disease Brother Heart disease Sister Heart disease Father High blood pressure Social History Narrative: Former smoker What is your current living situation?: I presently have a place to live Problems where you live: no known problems In the past 12 months, utilities in danger of being shut off: no In past 12 months, lack of transportation kept you from medical appts, meetings, work, or getting things needed for daily living: no In the past 12 mos, have been you worried that your food would run out before you had money to buy more?: never true In the past 12 mos, the food you bought just didn't last and you didn't have money to buy more?: never true Smoking Status: Former smoker Do you use any of these nicotine containing products: None Second hand tobacco smoke exposure: No How often do you have a drink containing alcohol: 2-3 times a week AUDIT-C Alcohol total score: 3 Non-prescribed substance use: denies use How often does anyone, including family, friends and others, physically hurt you: never How often does anyone, including family, friends and others, insult or talk down to you: never How often does anyone, including family, friends and others, threaten you with harm: never How often does anyone, including family, friends and others, scream or curse at you: never Exam Narrative: Exam Narrative: Pleasant. With good energy. NAD. Breathing easily. Lungs are clear. Heart in slower rate. Confirm that he does take beta-alan. Regular rhythm. Abdomen is soft with normal bowel sounds. He guards though in the mid upper abdomen and right mid abdomen. Extremities are well perfused without edema. Const: Vital Signs, click to edit/add: Vital Signs - 24 hr 08/29/24 19:23 Temperature 96.7 F L Pulse Rate [Pulse Oximeter] 49 L Respiratory Rate 20 Blood Pressure [Le ft Upper Arm] 132/73 Blood Pressure [Ri ght Upper Arm] 151/75 H Pulse Oximetry 98 Oxygen Delivery Me thod Room Air Documenting provider has reviewed patient's vital signs: yes Course Vital Signs Vital signs: Initial Vital Signs Temperature 96.7 F L 08/29/24 19:23 Temperature Source Temporal Artery Scan 08/29/24 19:23 Pulse Rate 49 L 08/29/24 19:23 Respiratory Rate 20 08/29/24 19:23 Blood Pressure 151/75 H 08/29/24 19:23 Blood Pressure Mean 100 08/29/24 19:23 Blood Pressure Position Sitting 08/29/24 19:23 Pulse Oximetry 98 08/29/24 19:23 Oxygen Delivery Method Room Air 08/29/24 19:23 Vital Signs Temperature 96.7 F L 08/29/24 19:23 Pulse Rate 49 L 08/29/24 19:23 Respiratory Rate 20 08/29/24 19:23 Blood Pressure 151/75 H 08/29/24 19:23 Pulse Oximetry 98 08/29/24 19:23 Oxygen Delivery Method Room Air 08/29/24 19:23 Temperature 98.2 F 08/29/24 22:42 Pulse Rate 62 08/29/24 22:42 Respiratory Rate 20 08/29/24 22:42 Blood Pressure 121/74 08/29/24 22:42 Pulse Oximetry 96 08/29/24 22:41 Oxygen Delivery Method Room Air 08/29/24 22:41 Medications Administered Medications: Discontinued Medications Generic Name Dose Route Start Last Admin Trade Name Freq PRN Reason Stop Dose Admin Sodium Chloride 1,000 mls @ 1,000 mls/hr 08/29/24 19:53 08/29/24 21:30 0.9 % Sodium Chloride 1000 Ml IV 08/29/24 20:52 Infused .Q1H ONE Infusion Ondansetron HCl 4 mg 08/29/24 19:53 08/29/24 19:58 Ondansetron 2 Mg/Ml Inj IVP 08/29/24 19:54 4 mg ONCE ONE Administration Medical Decision Making MDM Narrative Medical decision making narrative: I would suspect this is some variation on his irritable bowel. Has not had recent CT imaging and with change in quality and intensity perhaps it is worth imaging in this case. Does also have significant cardiac history. Unlikely that it represents ischemic cardiovascular disease but would check. Also with history of anticoagulation; will image this might represent some sort of vascular disruption or other. Will give IV hydration and Zofran for nausea. Reviewing prior imaging particular with regard to this renal mass with Mr. Gasca he notes that this has been followed currently by provider at [place] for many years with minimal change. Labs are generally reassuring though creatinine has crept up a little bit. I do make mention of this to Mr. Gasca. 2204 on reassessment son is now present. Mr. Gasca has been sleeping. He notes himself to feel somewhat improved. I do independently review CT imaging do appreciate findings other than as he had mentioned to me a elevated left hemidiaphragm and looks like there is larger gallbladder but does not appear to be inflamed. INDICATION: Abdominal pain. TECHNIQUE: CT abdomen and pelvis acquired with 80 cc Isovue 370 IV contrast. COMPARISON: MRI abdomen 06/09/2024, CT abdomen 12/29/2019. FINDINGS: Lower chest: Bibasilar atelectasis/scarring. Cardiomegaly. Elevated left hemidiaphragm. Liver: Unremarkable. Gallbladder and bile ducts: Distended gallbladder measuring up to 10.5 cm. No radiopaque gallstone appreciated. There is minimal intrahepatic dilatation. The common bile duct is not abnormally dilated. Pancreas: Unremarkable. Spleen: Calcified granuloma. Adrenal glands: Unremarkable. Kidneys: Enhancing left interpolar renal lesion measuring 2.5 cm, similar to prior MRI. Additional presumed left renal scarring is similar to prior. Bilateral subcentimeter hypoattenuating lesions are incompletely assessed on this examination but likely represent cysts. There is no hydronephrosis or hydroureter. No obstructing calculi are appreciated. GI tract: No bowel obstruction. No suspicious bowel wall thickening. Normal appendix. Vasculature: No abdominal aortic aneurysm. There are atherosclerotic vascular calcifications. Grossly patent vasculature. Lymph nodes: No suspicious lymphadenopathy. Peritoneum/Abdominal Wall: No ascites or pneumoperitoneum. No acute abdominal wall abnormality. Pelvis: Normal bladder. Prostatomegaly. Bones: No acute abnormality. Grossly stable right iliac sclerotic lesions, likely representing bone islands. IMPRESSION: 1. Nonspecific gallbladder distention with minimal intrahepatic biliary prominence. No radiopaque gallstone appreciated. Consider further characterization with ultrasound. 2. Grossly unchanged left renal enhancing mass measuring 2.5 cm, suspicious for solid renal neoplasm. 3. Mild cardiomegaly. Please note that all CT scans at this facility use dose modulation, iterative reconstruction, and/or weight-based dosing when appropriate to reduce radiation dose to as low as reasonably achievable. Dictated by Juan Rowe MD @ 08/29/2024 10:21:33 PM Discussed findings with Mr. Gasca See patient discharge plan for further discussion I am reassured by your improvement, your generally normal labs and stable imaging. I am glad you are feeling better. At creatinine as a measure of renal function has crept up a little bit. Please discuss this on follow-up. Hope you can continue to have a good night's rest. Medical Records Medical records reviewed: Yes I reviewed the patient's medical records Lab Data Labs: Lab Results 08/29/24 08/29/24 08/29/24 Range/Units 19:45 19:48 21:08 WBC 8.54 (4.50-11.00) K/uL RBC 3.90 L (4.30-5.90) m/uL Hgb 11.8 L (13.5-17.5) gm/dL Hct 35.3 L (37.0-53.0) % MCV 91 (80-100) fL MCH 30 (26-34) pg MCHC 33 (32-36) gm/dL RDW Coeff of Miguelina 13.0 (11.5-15.5) % Plt Count 170 (140-440) K/uL Neut % (Auto) 80.1 H (42.0-72.0) % Lymph % (Auto) 10.3 L (20-44) % [place] % (Auto) 6.8 (0.0-11.0) % Eos % (Auto) 1.8 (0.0-7.0) % Baso % (Auto) 0.5 (0.0-3.0) % Neut # (Auto) 6.80 (1.7-7.0) K/uL Lymph # (Auto) 0.90 (0.90-2.90) K/uL [place] # (Auto) 0.60 (0.00-0.90) K/UL Eos # (Auto) 0.15 (0.00-0.50) K/uL Baso # (Auto) 0.04 (0.00-0.30) K/uL Abs Immat Gran (auto) 0.04 (0.00-0.30) K/uL Imm/Tot Granulo (auto) 0.5 % INR 2.57 H (0.91-1.10) Sodium 138 (135-149) mmol/L Potassium 4.1 (3.6-5.1) mmol/L Chloride 108 (96-114) mmol/L Carbon Dioxide 21 (20-32) mmol/L Anion Gap 9 (7-15) mEq/L BUN 41 H (7-30) mg/dL Creatinine 2.0 H (0.5-1.5) mg/dL Estimated Creat Clear 33.25 Estimated GFR 35 ml/min Glucose 122 H (60-115) mg/dL Calcium 9.6 (8.4-10.6) mg/dL Total Bilirubin 1.3 (0.1-1.5) mg/dL Direct Bilirubin 0.9 H (0.0-0.5) mg/dL AST 79 H (12-35) U/L ALT 39 (4-50) U/L Alkaline Phosphatase 101 (40-150) U/L Troponin I < 0.01 (0.01-0.04) ng/mL C-Reactive Protein < 0.5 L (0.5-1.0) mg/dL NT-Pro-B Natriuret Pep 356 H (See Note) pg/mL Total Protein 6.4 (6.0-8.3) g/dL Albumin 4.1 (3.3-5.0) g/dL Lipase 389 H (23-300) U/L Lab Acknowledgement Test Added ECG Data Attestation: I personally reviewed and interpreted this ECG as follows: (Sinus bradycardia with 1st degree AV block rate of 46. Not dissimilar from EKG from May of this year) Discharge Plan Discharge Clinical Impression: Abdominal pain Patient Disposition: Home w/ Parent or Adult Condition: Improved Additional Instructions: I am reassured by your improvement, your generally normal labs and stable imaging. I am glad you are feeling better. At creatinine as a measure of renal function has crept up a little bit. Please discuss this on follow-up. Hope you can continue to have a good night's rest. Prescriptions: No Action cabergoline 0.5 mg tablet 0.75 mg PO .Twice Weekly allopurinol 100 mg tablet 100 mg PO DAILY amlodipine 2.5 mg tablet 2.5 mg PO DAILY Qty: 90 3RF Rx Instructions: take with 5mg tab for total dose of 7.5 mg daily amlodipine 5 mg tablet 5 mg PO QDAY Qty: 90 3RF Rx Instructions: take with 2.5mg for daily dose of 7.5mg atorvastatin 40 mg tablet 40 mg PO QPM Qty: 90 3RF carvedilol 12.5 mg tablet 12.5 mg PO BID Qty: 180 3RF Rx Instructions: must administer with a meal/food chlorthalidone 25 mg tablet 25 mg PO QDAY Qty: 90 3RF eplerenone 25 mg tablet 25 mg PO DAILY Qty: 90 3RF losartan 100 mg tablet 100 mg PO QDAY Qty: 90 3RF metformin 850 mg tablet 850 mg PO BIDWMEAL Qty: 180 3RF prednisone 20 mg tablet 20 mg PO BID warfarin 4 mg tablet 4 mg PO DAILY Qty: 90 0RF Protocol: Dose Management Condition: Sunday Dose/Route: 4 mg Instruction: 1 x 4 mg tablet Condition: Sunday Dose/Route: 4 mg Instruction: 1 x 4 mg tablet Condition: Sunday Dose/Route: 4 mg Instruction: 1 x 4 mg tablet Condition: Sunday Dose/Route: 4 mg Instruction: 1 x 4 mg tablet Condition: Dose/Route: 6 mg Instruction: 1.5 x 4 mg tablets Condition: Sunday Dose/Route: 4 mg Instruction: 1 x 4 mg tablet Condition: Sunday Dose/Route: 4 mg Instruction: 1 x 4 mg tablet Protocol Text: Adjustment Start Date: 06/12/24 INR Value: 2.1 INR Date: 06/12/24 Recheck Date: 07/10/24 Follow Up/Referrals: Frederick Krause MD [Primary Care Provider, Family Practice] Stand Alone Forms: [facility] Info Instructions
--- NOTE | 2024-08-29 19:53 | CRLHL7_ITS ---
For Patients: As a result of the Century Cures Act, medical imaging exams and procedure reports are released immediately into your electronic medical record. You may view this report before your referring provider. If you have questions, please contact your health care provider. INDICATION: Abdominal pain. TECHNIQUE: CT abdomen and pelvis acquired with 80 cc Isovue 370 IV contrast. COMPARISON: MRI abdomen 06/09/2024, CT abdomen 12/29/2019. FINDINGS: Lower chest: Bibasilar atelectasis/scarring. Cardiomegaly. Elevated left hemidiaphragm. Liver: Unremarkable. Gallbladder and bile ducts: Distended gallbladder measuring up to 10.5 cm. No radiopaque gallstone appreciated. There is minimal intrahepatic dilatation. The common bile duct is not abnormally dilated. Pancreas: Unremarkable. Spleen: Calcified granuloma. Adrenal glands: Unremarkable. Kidneys: Enhancing left interpolar renal lesion measuring 2.5 cm, similar to prior MRI. Additional presumed left renal scarring is similar to prior. Bilateral subcentimeter hypoattenuating lesions are incompletely assessed on this examination but likely represent cysts. There is no hydronephrosis or hydroureter. No obstructing calculi are appreciated. GI tract: No bowel obstruction. No suspicious bowel wall thickening. Normal appendix. Vasculature: No abdominal aortic aneurysm. There are atherosclerotic vascular calcifications. Grossly patent vasculature. Lymph nodes: No suspicious lymphadenopathy. Peritoneum/Abdominal Wall: No ascites or pneumoperitoneum. No acute abdominal wall abnormality. Pelvis: Normal bladder. Prostatomegaly. Bones: No acute abnormality. Grossly stable right iliac sclerotic lesions, likely representing bone islands. IMPRESSION: 1. Nonspecific gallbladder distention with minimal intrahepatic biliary prominence. No radiopaque gallstone appreciated. Consider further characterization with ultrasound. 2. Grossly unchanged left renal enhancing mass measuring 2.5 cm, suspicious for solid renal neoplasm. 3. Mild cardiomegaly. Please note that all CT scans at this facility use dose modulation, iterative reconstruction, and/or weight-based dosing when appropriate to reduce radiation dose to as low as reasonably achievable. Dictated by Juan Rowe MD @ 08/29/2024 10:21:33 PM (Electronically Signed)
[2024-08-29] MEDS: ONDANSETRON 2 MG/ML inj 4 MG IVP (19:58)
[2024-08-29] MEDS: 0.9 % SODIUM CHLORIDE 1000 ml 1,000 ML IV (19:59)
[2024-08-29 20:03] LABS: Basophils Absolute Auto 0.04 K/uL (0.00-0.30); Basophils Percent Auto 0.5 % (0.0-3.0); Eosinophils Absolute Auto 0.15 K/uL (0.00-0.50); Eosinophils Percent Auto 1.8 % (0.0-7.0); Hematocrit 35.3 % (37.0-53.0); Hemoglobin* 11.8 gm/dL (13.5-17.5); Immature Granulocytes Abs Auto 0.04 K/uL (0.00-0.30); Immature Granulocytes Pct Auto 0.5 %; Lymphocytes Percent Auto 10.3 % (20-44); Mean Corpuscular HGB Conc 33 gm/dL (32-36); Mean Corpuscular Hemoglobin 30 pg (26-34); Mean Corpuscular Volume 91 fL (80-100); Monocytes Percent Auto 6.8 % (0.0-11.0); Neutrophils Percent Auto 80.1 % (42.0-72.0); Platelet Count* 170 K/uL (140-440); White Blood Count* 8.54 K/uL (4.50-11.00)
[2024-08-29 20:07] LABS: Slide Review Reflex No
[2024-08-29 20:18] LABS: Albumin* 4.1 g/dL (3.3-5.0); Chloride* 108 mmol/L (96-114); Potassium* 4.1 mmol/L (3.6-5.1); Sodium* 138 mmol/L (135-149)
[2024-08-29 20:20] LABS: INR 2.57 (0.91-1.10); Prothrombin Time 28.8 Seconds
[2024-08-29 20:21] LABS: Alanine Aminotransferase* 39 U/L (4-50); Alkaline Phosphatase* 101 U/L (40-150); Anion Gap 9 mEq/L (7-15); Aspartate Amino Transferase* 79 U/L (12-35); Bilirubin Direct* 0.9 mg/dL (0.0-0.5); Bilirubin Total* 1.3 mg/dL (0.1-1.5); Blood Urea Nitrogen* 41 mg/dL (7-30); Calcium* 9.6 mg/dL (8.4-10.6); Carbon Dioxide* 21 mmol/L (20-32); Est. Creatinine Clearance* 33.25; Estimated Glomerular Filt Rate 35 ml/min; Glucose* 122 mg/dL (60-115); Total Protein* 6.4 g/dL (6.0-8.3)
[2024-08-29 20:25] LABS: C Reactive Protein* < 0.5 mg/dL (0.5-1.0)
[2024-08-29 20:47] LABS: NT Pro B Type NatriureticPept* 356 pg/mL (See Note)
[2024-08-29 20:50] LABS: Troponin I* < 0.01 ng/mL (0.01-0.04)
[2024-08-29 21:20] LABS: Lipase* 389 U/L (23-300)
== END 2024-08-29 22:43 | disposition home or self-care (01) ==
PROVIDERS: Emergency Provider Family Medicine; PCP Family Medicine
DX: R10.9 Unspecified abdominal pain (principal); R11.2 Nausea with vomiting, unspecified; K58.9 Irritable bowel syndrome, unspecified; I51.7 Cardiomegaly; R00.1 Bradycardia, unspecified; D49.7 Neoplasm of unspecified behavior of endocrine glands and other parts of nervous system; Z95.1 Presence of aortocoronary bypass graft
CPT/HCPCS: 36415; 74177; 80048; 80076; 83690; 83880; 84484; 85025; 85610; 86140; 93005; 94761; 96361; 96374; 99284; 99285; J2405; J7030; Q9967

== ENCOUNTER 2024-10-27 09:30 | Outpatient (CLI) | payer MEDICARE, SELFPAY | END 2024-10-27 09:31 | disposition home or self-care (01) | LOC: NFLDREF 10-28 15:41 | PROVIDERS: PCP Family Medicine; Referring Provider Family Medicine; Visit Provider Family Medicine | DX: Z79.01 Long term (current) use of anticoagulants (principal); I26.99 Other pulmonary embolism without acute cor pulmonale | CPT/HCPCS: 85610 ==

== ENCOUNTER 2024-11-03 23:00 | Emergency (ER) | payer MEDICARE, SELFPAY ==
--- OUTSIDE RECORDS SUMMARY | 2024-11-03 23:03 | XMS_ITS | Encounter Summary ---
Author Organization [facility] Address [address] [place] [address] Care Team Providers Care Sales Operations Lead Name Role Phone Unavailable Primary Care Provider Unavailabl e Encounter Details Date Type Department Care Team (Late st Contact Info) Description 02/03/2015 Historical Ophthalmology RST OPH Brenda Elaine M.D. 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 There is no [...] PLAN Consult requested by: Lindsey Ragland MD [id number] #1 Pituitary tumor, with no ocular stigmata. [...] OCT: Avg thickness 82 OD, 88 OS. [id number] /10 OU. Testing consistent with clinical exam findings. #2 Visual field report, Normal visual field both eyes. Foveal threshold normal @ 37 OD, 39 OS. 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 This is likely related to prednisone. Return prn any changes in vision. The photos show an area of mathematics professor color that corresponds to the [employer]OX [employer] WOOD on the OCT. Testing consistent with clinical exam findings. 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 #2 Visual field report, Normal visual field both eyes. #3 Central serous retinopathy left eye. CDM Reports - EYEGEN Id: [id number] Status: Fnl documented in this encounter Plan of Treatment Not on file documented as of this encounter Visit Diagnoses Not on filedocumented in this encounter
--- OUTSIDE RECORDS SUMMARY | 2024-11-03 23:03 | XMS_ITS | Clinical Summary ---
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 Gender Identity Not on file Sexual Orientation [...] Health Maintenance Due Date Last Done Comments Tetanus booster 1964 Depression screening for age 12+ 1965 Hepatitis C screening for age 18-79 11/10/1971 Pneumococcal series for age 50+ (1 of 2 - PCV) 1972 Colonoscopy through age 75 1998 Zoster (shingles) series for age 50+ (1 of 2) 11/10/2003 RSV vaccine for adults or (1 - Risk 60-74 years 1-dose series) 2013 BMI (ht and wt on same day) for age 18+ 07/16/2021 07/16/2020, 06/05/2019 COVID-19 vaccine series (5 - 2024-25 season) 2023 01/29/2023, 05/20/2021, 05/23/2020, Additional history exists Lipids for age 45-75 05/09/2024 05/09/2019 Influenza Vaccine (#1) 2024 Hepatitis B series for 19+ Aged Out N o longer eligible based on patient's age to complete this topic Procedures Procedure Name Priority Date/Time Associated Diagnosis Comments LIPID PANEL Early AM 05/09/2019 6:17 AM PRODUCTION FOREMAN from Last 3 Months or Most Recently Relevant to Health Maintenance Results * (ABNORMAL) LIPID PANEL (05/09/2019 6:17 AM PRODUCTION FOREMAN) CHOLESTEROL,TOTAL 143 100 - 199 mg/dL 05/09/2019 6:59 AM PRODUCTION FOREMAN [facility] TRIGLYCERIDES 119 <150 mg/dL 05/09/2019 6:59 AM PRODUCTION FOREMAN [facility] HDL CHOLESTEROL 34(L) >40 mg/dL 0 6:59 AM PRODUCTION FOREMAN [facility] NON-HDL CHOLESTEROL 109 <145 mg/dl 05/09/2019 6:59 AM PRODUCTION FOREMAN [facility] CHOL/HDL RATIO 4.21 <4.50 05/09/2019 6:59 AM PRODUCTION FOREMAN [facility] LDL CHOLESTEROL 85 <=130 mg/dL 05/09/2019 6:59 AM PRODUCTION FOREMAN [facility] PROVIDER ORDERED STATUS RANDOM 05/09/2019 6:59 AM PRODUCTION FOREMAN [facility] Blood BLOOD SPECIMEN / Unknown Venipuncture / Unknown 05/09/2019 6:17 AM PRODUCTION FOREMAN 05/09/2019 6:25 AM PRODUCTION FOREMAN us Evy MAR CHEMISTRY Tiffani l Result [facility] [address] [place] [address], [place] from Last 3 Months or Most Recently Relevant to Health Maintenance Advance Directives * Full Code (Latest Code Status on File) Date Activated Date Inactivated Comments 07/11/2019 6:32 PM 07/13/2019 9:39 PM Question Answer Comments Code Status Discussion: Discussed * Full Code Date Activated Date Inactivated Comments 05/08/2019 6:16 PM 05/17/2019 3:04 PM Care Teams Behavior Management Specialist Relationship Specialty Start Date End Date Frederick Krause MD [address] [place] [address] PCP - General Family Practice 06/05/19
--- OUTSIDE RECORDS SUMMARY | 2024-11-03 23:03 | XMS_ITS | Clinical Summary ---
Author Organization [facility] Address [address] [place] [address] Care Team Providers Care Fitness Trainer Name Role Phone Kade Alexander MD Primary Care Provider [phone] Allergies Active Allergy Reactions Criticality Noted Date Comments No Known Drug Allergy 03/09/2003 Family History Medical History Relation Comments Cancer Father ORAL, RELATED TO TOBACCO Diabetes Father Hypertension Father Arthritis Mother Cardiovascular Mother Gastrointestinal Disease Mother mothers side lactose intollerant Heart Disease Mother CO repaired with a shunt Osteoporosis Mother Hypertension [...] on file Legal Sex Male 3:10 AM DIRECTOR OF COMMUNITY LIFE Gender Identity Not on file Sexual Orientation Not on file Last Filed Vital Signs Vital Sign Reading Time Taken Comments Blood Pressure 150/104 03/09/2003 11:21 AM DIRECTOR OF COMMUNITY LIFE seated (from Extended Vitals) Pulse 60 03/09/2003 11:19 AM DIRECTOR OF COMMUNITY LIFE (from Extended Vitals) Temperature - - Respiratory Rate - - Oxygen Saturation - - Inhaled Oxygen Concentration - - Weight 89.8 kg (198 lb) 03/09/2003 10:4 5 AM DIRECTOR OF COMMUNITY LIFE Height 172.7 cm (5' 8) 03/09/2003 10:4 5 AM DIRECTOR OF COMMUNITY LIFE Body Mass Index 30.11 03/09/2003 10:45 AM DIRECTOR OF COMMUNITY LIFE Plan of Treatment Not on file Care Teams Fitness Trainer Relationship Specialty Start Date End Date Kade Alexander MD [facility] [address] [place] [address] [facility] - General 01/27/02
--- OUTSIDE RECORDS SUMMARY | 2024-11-03 23:04 | XMS_ITS | Clinical Summary ---
Author Organization [facility] Address [address] [place] [address] Care Team Providers Care Steamfitter Supervisor Name Role Phone Unavailable Primary Care Provider Unavailabl e Source Comments Patient records contain information from all sites at [facility]. For routine questions regarding patient records, call [phone] during business hours, M-F 8:00 AM - 5:00 PM Central Time. Record requests for emergency care only can be directed to [phone] at any time.[facility] Allergies No [...] MOUTH DAILY 90 tablet 3 4 Active atorvastatin (Lipitor) 40 mg tablet Take [...] a week. 36 tablet 3 5 Active allopurinoL (Zyloprim) 100 mg tablet TAKE 1 TABLET(100 MG) BY MOUTH DAILY 90 tablet 3 5 Active Active Problems Problem [...] Encounters Date Type Department Care Team Description 09/11/2024 [facility] [address] [place] [address] Frederick Krause M.D. Abdominal Pain (Primary Dx); Noninfective Gastroenteritis And Colitis Unspecified 09/08/2024 Refill Division of Nephrology and Hypertension in [place], [place] [address] [place] [address] Walter Willis Jr., D.O. Med Refill from Last 3 Months Immunizations Immunization Administration [...] 0.6 oz pur e alcohol) [facility] Utilities Answer Date Recorded In the past 12 months has th e electric, gas, oil, or water company threatened to shut off services in your home? No 04/29/2023 Hunger Vital Sign Answer Date Recorded [...] things needed for daily living? No 04/29/2023 Housing Stability Answer Date Recorded What is your living situation today? I have a [facility] place to live 04/29/2023 Education Answer Date Recorded What is the highest level of school you have completed or the highest degree you have received? 12th grade 12/29/2018 Sex and Gender Information Value Date Recorded Sex Assigned at Male 04/29/2023 9:28 PM TOP TAPER MACHINE Legal Sex Male 5:12 PM TOP TAPER MACHINE Gender Identity Male 12/24/2017 2:50 PM CDT Sexual Orientation Straight 12/24/2017 2: 50 PM CDT Last Filed Vital Signs Vital Sign Reading Time Taken Comments Blood Pressure 140/78 05/19/2024 4:00 PM TOP TAPER MACHINE Pulse 47 05/19/2024 4:00 PM TOP TAPER MACHINE Temperature - - Respiratory Rate 14 08/08/2016 5:05 PM CDT Vital sign result from Clinical Notes. Oxygen Saturation - - Inhaled Oxygen Concentration - - Weight 74.8 kg (164 lb 14.5 oz) 05/19/2024 4:00 PM TOP TAPER MACHINE Height 172.7 cm (5' 7.99) 05/19/2024 4 :00 PM TOP TAPER MACHINE Body Mass Index 25.08 05/19/2024 4:00 PM TOP TAPER MACHINE Plan of Treatment Health Maintenance Due Date Last Done Comments CT Colonography 1955 Cologuard 1955 Diabetic Office Visit with Foot Exam 1955 FIT 1955 Hepatitis C Screening 1955 Hepatitis B Vaccines (1 of 3 - Risk 3-dose series) 2013 RSV vaccine - (32-36 weeks) or 60+ years (1 - Risk 60-74 years 1-dose series) 2013 Diabetic Eye Exam 02/04/2016 02/03/2015 Colonoscopy 09/04/2022 09/04/2012 (Perf ormed elsewhere) Colorectal Cancer Screening 09/04/2022 Depression Screening (Annual PHQ-2) 04/02/2024 Fall Risk Screen (Annual) 04/02/2024 Lipid (Cholesterol) Screening 05/09/2024 05/09/2019, 05/09/2019, 07/07/2015, Additional history exists COVID-19 Vaccine ( season) 2024 02/04/2024, 01/29/2023, 05/20/2021, Additional history exists Office Visit for Blood Pressure Check / Re-check 08/16/2024 05/19/2024 Hemoglobin A1C 2024 05/12/2024, 02/0 09/2019, 01/27/2015 Influenza Vaccine (#1) 2024 , 01/29/2023, 04/28/2022, Additional history exists Creatinine Level (Kidney Function Test) 05/12/2025 05/12/2024, [...] Pneumococcal vaccine (50+ years) Completed 10/14/2020, 08/18/2019 IPV Vaccines Aged Out No longer eligi ble based on patient's age to complete this topic Medical Devices Implanted Type Area Filter Pulp Washer Device Identifier Shelf Expiration Date Model / Serial / Lot Ocular Lens Ocular Lens Left: Eye Description:Cataract surgery with left eye in Second week of January 2024 Procedures Procedure Name Priority Date/Time Associated Diagnosis Comments OUTSIDE CT BODY Routine 08/29/2024 8:45 PM CDT ALBUMIN, RANDOM, U Routine 05/12/2024 8: 04 AM TOP TAPER MACHINE HEMOGLOBIN A1C, B Routine 05/12/2024 7:3 5 AM TOP TAPER MACHINE RENAL FUNCTION PANEL, S Routine 05/12/2024 7:35 AM TOP TAPER MACHINE LIPOPROTEIN METABOLISM PROF, S Routine 07/07/2015 8:14 AM CDT from Last 3 Months or Most Recently Relevant to Health Maintenance Results * CT ABDOMEN PELVIS W CON-Outside CT Body (08/29/2024 8:45 PM CDT) Narrative [facility] - 09/11/2024 10:21 AM CDT This order has been created and auto-finalized to support the import of outside images. If available, original interpretation can be found on the Media Tab in Chart Review, in Document Viewer, as an image in InfinityView or as an Addendum. If a re-interpretation or overread is required please follow defined workflow. us Provider Not In System IMG CT PROCEDURES Final R esult Performing Organization Address City/[facility] Co de Phone Number [facility] NA * (ABNORMAL) Albumin, Random, Urine (05/12/2024 8:04 AM TOP TAPER MACHINE) EXT Creatinine, Urine 32.3 mg/dL [facility] EXT Microalbumin-R andom, U 45 mg/dL [facility] EXT Albumin/Creati nine Ratio 1,390(H) 0 - 30 [facility] 05/12/2024 8:04 AM TOP TAPER MACHINE Narrative [facility] - 05/12/2024 11:43 AM TOP TAPER MACHINE Source result document attached to Order Number [id number] ([id number]) dated 05/12/2024. External results verified in Extract by Flakita Guillen on 05/12/2024 at 11:41 AM. us Ordering Provider External M.D. LAB URINE ORDERA BLES Final Result Performing Organization Address [facility] Co de Phone Number [employer] [facility] NA [facility] [address] [place] [address] * (ABNORMAL) Renal Function Panel (05/12/2024 7:35 AM TOP TAPER MACHINE) Pathologist [facility] EXT Sodium 138 135 - 149 mmol/L [facility] EXT Potassium 4.1 3.6 - 5.1 mmol/L [facility] EXT Chloride 110 96 - 114 mmol/L [facility] EXT CO2 18(L) 20 - 32 mmol/L [facility] EXT Anion Gap 10 7 - 15 mEq/L [facility] EXT BUN (Blood Urea Nitrogen) 32(H) 7 - 30 mg/dL [facility] EXT Creatinine 1.8(H) 0.5 - 1.5 mg/dL [facility] EXT Estimated GFR (eGFR) 40 ML [facility] EXT Calcium, Total 9.4 8.4 - 10.6 mg/dL [facility] EXT Glucose 93 60 - 115 mg/dL [facility] EXT Albumin 4.0 3.3 - 5.0 g/dL [facility] EXT Phosphorus (Inorganic), S 3.4 2.5 - 4.5 mg/dL [facility] 05/12/2024 7:35 AM TOP TAPER MACHINE Narrative [facility] - 05/12/2024 1:53 PM TOP TAPER MACHINE Source result document attached to Order Number [id number] ([id number]) dated 05/12/2024. External results verified in Extract by Flakita Guillen on 05/12/2024 at 01:49 PM. us Ordering Provider External M.DIsauro LAB BLOOD ADD-ON Final Result Performing Organization Address [facility]/ZIP Co de Phone Number [employer] [facility] [address] [place] [address], [facility] [phone] * (ABNORMAL) Hemoglobin A1c (05/12/2024 7:35 AM TOP TAPER MACHINE) Pathologist [facility] EXT Hemoglobin A1c, B 6.2(H) 0 - 5.6 % [facility] 05/12/2024 7:35 AM TOP TAPER MACHINE Narrative [facility] - 05/12/2024 11:43 AM TOP TAPER MACHINE Source result document attached to Order Number [id number] ([id number]) dated 05/12/2024. External results verified in Extract by Flakita Guillen on 05/12/2024 at 11:41 AM. us Ordering Provider External M.DIsauro LAB BLOOD ADD-ON Final Result Performing Organization Address [facility]/ZIP Co de Phone Number [employer] [facility] [address] [place] [address], [facility] [phone] * (ABNORMAL) Lipoprotein Metabolism Profile (07/07/2015 8:14 AM CDT) [facility] LDL Triglycerides 53(H) <=50 MG/DL [facility] VLDL cholesterol 24 <30 MG/DL [facility] VLDL triglycerides 151(H) <120 MG/DL [facility] Beta VLDL Cholesterol . <15 MG/DL [facility] Comment:Not Detected Beta VLDL triglycerides . <15 MG/DL [facility] Comment:Not Detected Chylomicron cholesterol . Undetectable MG/DL [facility] Comment:Not Detected LpX . Undetectable [facility] Comment:Not detected Interpretation . [facility] Comment:Mild Type IV Hyperli poproteinemia Cholesterol, Total 179 SeeComment MG/DL [facility] Comment: REFERENCE VALUE Desirable: < 200 Borderline high: 200 - 239 High: > or = 240 Triglycerides 225(H) SeeComment MG/DL [facility] Comment: REFERENCE VALUE Normal: <150 Borderline high: 150-199 High: 200-499 Very high: > or =500 Apolipoprotein B, S 102(H) SeeComment MG/DL [facility] Comment: REFERENCE VALUE Desirable: <90 Above Desirable: 90-99 Borderline high: 100-119 High: 120-139 Very high: > or = 140 LDL Cholesterol 91 SeeComment MG/DL [facility] Comment: REFERENCE VALUE Desirable: <100 Above Desirable: 100-129 Borderline high: 130-159 High: 160-189 Very high: > or =190 Chylomicron triglycerides . Undetectable MG/DL [facility] Comment:Not Detected Lp(a) Cholesterol 25(H) <3 MG/DL [facility] Comment: Increased Lipoprotein (a) cholesterol. Increased [...] HDL Cholesterol, CDC, S 39(L) >=40 MG/DL [facility] 07/07/2015 8:14 AM CDT 07/07/2015 8:14 AM CDT Lindsey Ragland M.D. LAB BLOOD ADD-ON Tiffani l Result [facility] [address] [place], [place] [id number] [place] [address] from Last 3 Months or Most Recently Relevant to Health Maintenance Insurance [facility] [place] [address]
--- OUTSIDE RECORDS SUMMARY | 2024-11-03 23:05 | XMS_ITS | Encounter Summary ---
Author Organization [facility] Address [address] [place] [address] Care Team Providers Care Semiconductor Wafers Saw Operator Name Role Phone Unavailable Primary Care Provider Unavailabl e Reason for Referral * Outpatient (Routine) - Authorized Specialty Diagnoses / Procedures Referred By Contact Referred To Contact Gastroenterology and Hepatology Diagnoses Abdominal Pain Noninfective Gastroenteritis And Colitis Unspecified Frederick Krause M.D. [address] [place] [address] Phone: tel:[phone] fax:[phone] [facility] Referral ID Status Reason Start Date Expiration Date V isits Requested Visits Authorized [id number] Authorized 09/11/2024 03/13/2026 1 1 Encounter Details Date Type Department Care Team (Latest Contact Info) Description 09/11/2024 [facility] [address] [place] [address] Frederick Krause M.D. [address], [place] [address] Abdominal Pain (Primary Dx); Noninfective Gastroenteritis And Colitis Unspecified Social History Tobacco Use Types Packs/Day Years Used Date Smoking Tobacco: Former Cigarettes 0.3 6 0 04/03/1979 - 04/02/1985 Smokeless Tobacco: Never Alcohol Use Standard Drinks/Week Comments Yes 2 (1 standard drink = 0.6 oz pur e alcohol) [facility] Utilities Answer Date Recorded In the [...] your living situation today? I have a [facility] place to live 04/29/2023 Education Answer Date Recorded What is the highest level of school you have completed or the highest degree you have received? 12th grade 12/29/2018 Sex and Gender Information Value Date Recorded Sex Assigned at Male 04/29/2023 9:28 PM INSIDE SALES ASSISTANT Legal Sex Male 5:12 PM INSIDE SALES ASSISTANT Gender Identity Male 12/24/2017 2:50 PM CDT Sexual Orientation Straight 12/24/2017 2: 50 PM CDT documented as of this encounter Plan of Treatment Scheduled Referrals Name Type Priority Associated Diagnoses Orde r Schedule Gastroenterology & Hepatology Referral Outpatient Referral Routine Abdominal Pain Noninfective Gastroenteritis And Colitis Unspecified Expected: 09/11/2024 (Approximate), Expires: 12/12/2025 documented as of this encounter Visit Diagnoses Diagnosis Abdominal Pain- Primary Noninfective Gastroenteritis And Colitis Unspecified documented in this encounter
[2024-11-03 23:21] VITALS: BP 125/70; PULSE 41; RESP 18; TEMP 36.3; O2SAT 97; BMI 24.3
--- NOTE | 2024-11-03 23:37 | ED.GENADULT ---
HPI - General Adult General Chief complaint: Abdominal Pain <Mila Lindsay MD - Last Filed: 11/04/24 00:00> Stated complaint: abdominal pain <Mila Lindsay MD - Last Filed: 11/04/24 00:00> Time Seen by Provider: 11/03/24 23:27 <Mila Lindsay MD - Last Filed: 11/04/24 00:00> Source: patient <Mila Lindsay MD - Last Filed: 11/04/24 00:00> Mode of arrival: ambulatory <Mila Lindsay MD - Last Filed: 11/04/24 00:00> Limitations: no limitations <Mila Lindsay MD - Last Filed: 11/04/24 00:00> History of Present Illness HPI narrative: 68-year-old male presenting with abdominal pain. Pain is located in the right upper quadrant, epigastric region. Patient states he has vomited twice today. Patient states this occurs repeatedly and this is not new. This all started back in May. He states he has had multiple abdominal CTs, abdominal ultrasound and a HIDA scan all of which have been normal. When the pain comes he can generally tolerated. It lasts around 26-28 hours he states. However this time the pain is so significant that he came in for evaluation and pain management. Patient states that when he vomited late this evening he could still taste the soda he had for lunch. No diarrhea or constipation. No urinary symptoms. No shortness of breath or cough. Patient has not had an EGD done. Sounds like he has a GI appointment for the end of this month. <Mila Lindsay MD - Last Filed: 11/04/24 00:00> Related Data Home medications: Home Medications ?Medication ?Instructions ?Recorded ?Confirmed cabergoline 0.5 mg tablet 0.75 mg PO .Twice Weekly 11/14/21 09/11/24 allopurinol 100 mg tablet 100 mg PO DAILY 12/24/23 09/11/24 Previous Rx's ?Medication ?Instructions ?Recorded amlodipine 2.5 mg tablet 2.5 mg PO DAILY #90 tabs 02/04/24 amlodipine 5 mg tablet 5 mg PO QDAY #90 tabs 02/04/24 atorvastatin 40 mg tablet 40 mg PO QPM #90 tabs 02/04/24 carvedilol 12.5 mg tablet 12.5 mg PO BID #180 tabs 02/04/24 chlorthalidone 25 mg tablet 25 mg PO QDAY #90 tabs 02/04/24 eplerenone 25 mg tablet 25 mg PO DAILY #90 tabs 02/04/24 losartan 100 mg tablet 100 mg PO QDAY #90 tabs 02/04/24 metformin 850 mg tablet 850 mg PO BIDWMEAL #180 tabs 02/04/24 hyoscyamine sulfate 0.125 mg tablet 0.125 - 0.25 mg (1 - 2 x 0.125 mg) 09/11/24 PO Q4-6H PRN abd pain #30 tabs warfarin 4 mg tablet 4 mg PO DAILY #90 tabs 09/11/24 <Mila Lindsay MD - Last Filed: 11/04/24 00:00> Allergies/adverse reactions: Allergies Allergy/AdvReac Type Severity Reaction Status Date / Time No Known Allergies Allergy Verified 09/11/24 07:46 <Mila Lindsay MD - Last Filed: 11/04/24 00:00> Review of Systems Status of ROS: Reports: 10 or more systems reviewed and unremarkable except as noted in History and below <Mila Lindsay MD - Last Filed: 11/04/24 00:00> [facility] Medical History: Medical History Foot pain ?M79.673 - Pain in unspecified foot (ICD-10) <Mila Lindsay MD - Last Filed: 11/04/24 00:00> Surgical History: Surgical History Hx of shoulder surgery ?Z98.890 - Other specified postprocedural states (ICD-10) Status post four vessel coronary artery bypass ?Z95.1 - Presence of aortocoronary bypass graft (ICD-10) <Mila Lindsay MD - Last Filed: 11/04/24 00:00> Family History: Family History Mother Heart disease Brother Heart disease Sister Heart disease Father High blood pressure <Mila Lindsay MD - Last Filed: 11/04/24 00:00> Social History: Social History Narrative: Former smoker What is your current living situation?: I presently have a place to live Problems where you live: no known problems In the past 12 months, utilities in danger of being shut off: no In past 12 months, lack of transportation kept you from medical appts, meetings, work, or getting things needed for daily living: no In the past 12 mos, have been you worried that your food would run out before you had money to buy more?: never true In the past 12 mos, the food you bought just didn't last and you didn't have money to buy more?: never true Smoking Status: Former smoker Do you use any of these nicotine containing products: None Second hand tobacco smoke exposure: No How often do you have a drink containing alcohol: 2-3 times a week AUDIT-C Alcohol total score: 3 Non-prescribed substance use: denies use How often does anyone, including family, friends and others, physically hurt you: never How often does anyone, including family, friends and others, insult or talk down to you: never How often does anyone, including family, friends and others, threaten you with harm: never How often does anyone, including family, friends and others, scream or curse at you: never service: No <Mila Lindsay MD - Last Filed: 11/04/24 00:00> Exam Narrative: Exam Narrative: Well-nourished well-developed patient, mildly uncomfortable. Alert and oriented. Answers questions appropriately. Mood and affect are appropriate. Thoughts are goal oriented and rational. No tangential or magical thinking noted. Patient speaks in full sentences without needing to catch his breath. HEENT: Normocephalic atraumatic. Pupils are equally round reactive to light. Extraocular muscles are intact. Conjunctivae are moist without any icterus noted. Moist mucous membranes. Cardiovascular: Bradycardic. Lungs: Clear to auscultation bilaterally no wheezes rhonchi or rales are appreciated. Deep breaths cause epigastric and right upper quadrant discomfort. Abdomen: Soft with hyperactive bowel sounds. Patient does have epigastric and right upper quadrant pain. He has a positive Pichardo sign. Danger of the abdominal exam is unremarkable. Skin: Well perfused. <Mila Lindasy MD - Last Filed: 11/04/24 00:00> Const: Vital Signs, click to edit/add: Vital Signs - 24 hr 11/03/24 23:21 11/03/24 23:42 11/03/24 23:45 Temperature 97.3 F L Pulse Rate 46 L 36 L Pulse Rate [Pulse Oximeter] 41 L Respiratory Rate 18 20 15 Blood Pressure [Ri ght Upper Arm] 125/70 Pulse Oximetry 97 97 98 Oxygen Delivery Me thod Room Air 11/04/24 00:00 11/04/24 00:30 11/04/24 00:45 Temperature Pulse Rate 42 L 41 L 41 L Pulse Rate [Pulse Oximeter] Respiratory Rate 13 15 Blood Pressure [Ri ght Upper Arm] Pulse Oximetry 95 97 96 Oxygen Delivery Me thod 11/04/24 01:00 11/04/24 01:15 11/04/24 01:30 Temperature Pulse Rate 42 L 57 L 41 L Pulse Rate [Pulse Oximeter] Respiratory Rate 15 17 16 Blood Pressure [Ri ght Upper Arm] Pulse Oximetry 97 100 97 Oxygen Delivery Me thod 11/04/24 01:45 Temperature Pulse Rate 40 L Pulse Rate [Pulse Oximeter] Respiratory Rate 16 Blood Pressure [Ri ght Upper Arm] Pulse Oximetry 96 Oxygen Delivery Me thod <Mila Lindsay MD - Last Filed: 11/04/24 00:00> Vital Signs, click to edit/add: Vital Signs - 24 hr 11/03/24 23:21 11/03/24 23:42 11/03/24 23:45 Temperature 97.3 F L Pulse Rate 46 L 36 L Pulse Rate [Pulse Oximeter] 41 L Respiratory Rate 18 20 15 Blood Pressure [Ri ght Upper Arm] 125/70 Pulse Oximetry 97 97 98 Oxygen Delivery Me thod Room Air 11/04/24 00:00 11/04/24 00:30 11/04/24 00:45 Temperature Pulse Rate 42 L 41 L 41 L Pulse Rate [Pulse Oximeter] Respiratory Rate 13 15 Blood Pressure [Ri ght Upper Arm] Pulse Oximetry 95 97 96 Oxygen Delivery Me thod 11/04/24 01:00 11/04/24 01:15 11/04/24 01:30 Temperature Pulse Rate 42 L 57 L 41 L Pulse Rate [Pulse Oximeter] Respiratory Rate 15 17 16 Blood Pressure [Ri ght Upper Arm] Pulse Oximetry 97 100 97 Oxygen Delivery Me thod 11/04/24 01:45 Temperature Pulse Rate 40 L Pulse Rate [Pulse Oximeter] Respiratory Rate 16 Blood Pressure [Ri ght Upper Arm] Pulse Oximetry 96 Oxygen Delivery Me thod <Jalen Pyle MD - Last Filed: 11/04/24 21:44> Course Course ED Course: IV established and patient is given Dilaudid and Zofran. Labs were drawn. Abdominal x-ray ordered to look for any evidence of bowel obstruction although with present bowel sounds this would be unlikely. We did not proceed with an abdominal CT: His last 1 was in July of this year and was unremarkable. May consider this if lab work is abnormal. CBC does not show an elevated white count, he does have anemia with a hemoglobin of 10.6. Normal lactate. Care will be transferred to the oncoming physician. <Mila Lindsay MD - Last Filed: 11/04/24 00:00> Vital Signs Vital signs: Initial Vital Signs Temperature 97.3 F L 11/03/24 23:21 Temperature Source Temporal Artery Scan 11/03/24 23:21 Pulse Rate 41 L 11/03/24 23:21 Respiratory Rate 18 11/03/24 23:21 Blood Pressure 125/70 11/03/24 23:21 Blood Pressure Mean 88 11/03/24 23:21 Blood Pressure Position Supine 11/03/24 23:21 Pulse Oximetry 97 11/03/24 23:21 Oxygen Delivery Method Room Air 11/03/24 23:21 Vital Signs Temperature 97.3 F L 11/03/24 23:21 Pulse Rate 41 L 11/03/24 23:21 Respiratory Rate 18 11/03/24 23:21 Blood Pressure 125/70 11/03/24 23:21 Pulse Oximetry 97 11/03/24 23:21 Oxygen Delivery Method Room Air 11/03/24 23:21 Temperature 97.3 F L 11/03/24 23:21 Pulse Rate 40 L 11/04/24 01:45 Respiratory Rate 16 11/04/24 01:45 Blood Pressure 125/70 11/03/24 23:21 Pulse Oximetry 96 11/04/24 01:45 Oxygen Delivery Method Room Air 11/03/24 23:21 <Mila Lindsay MD - Last Filed: 11/04/24 00:00> Initial Vital Signs Temperature 97.3 F L 11/03/24 23:21 Temperature Source Temporal Artery Scan 11/03/24 23:21 Pulse Rate 41 L 11/03/24 23:21 Respiratory Rate 18 11/03/24 23:21 Blood Pressure 125/70 11/03/24 23:21 Blood Pressure Mean 88 11/03/24 23:21 Blood Pressure Position Supine 11/03/24 23:21 Pulse Oximetry 97 11/03/24 23:21 Oxygen Delivery Method Room Air 11/03/24 23:21 Vital Signs Temperature 97.3 F L 11/03/24 23:21 Pulse Rate 41 L 11/03/24 23:21 Respiratory Rate 18 11/03/24 23:21 Blood Pressure 125/70 11/03/24 23:21 Pulse Oximetry 97 11/03/24 23:21 Oxygen Delivery Method Room Air 11/03/24 23:21 Temperature 97.3 F L 11/03/24 23:21 Pulse Rate 40 L 11/04/24 01:45 Respiratory Rate 16 11/04/24 01:45 Blood Pressure 125/70 11/03/24 23:21 Pulse Oximetry 96 11/04/24 01:45 Oxygen Delivery Method Room Air 11/03/24 23:21 <Jalen Pyle MD - Last Filed: 11/04/24 21:44> Medications Administered Medications: Discontinued Medications Generic Name Dose Route Start Last Admin Trade Name Freq PRN Reason Stop Dose Admin Hydromorphone HCl 0.5 mg 11/03/24 23:34 11/03/24 23:53 Hydromorphone 0.5 Mg/0.5 Ml Inj IVP 11/03/24 23:35 0.5 mg ONCE ONE Administration Ondansetron HCl 4 mg 11/03/24 23:34 11/03/24 23:53 Ondansetron 2 Mg/Ml Inj IVP 11/03/24 23:35 4 mg ONCE ONE Administration <Mila Lindsay MD - Last Filed: 11/04/24 00:00> Discontinued Medications Generic Name Dose Route Start Last Admin Trade Name Freq PRN Reason Stop Dose Admin Hydromorphone HCl 0.5 mg 11/03/24 23:34 11/03/24 23:53 Hydromorphone 0.5 Mg/0.5 Ml Inj IVP 11/03/24 23:35 0.5 mg ONCE ONE Administration Ondansetron HCl 4 mg 11/03/24 23:34 11/03/24 23:53 Ondansetron 2 Mg/Ml Inj IVP 11/03/24 23:35 4 mg ONCE ONE Administration <Jalen Pyle MD - Last Filed: 11/04/24 21:44> Medical Decision Making [facility] Narrative Medical decision making narrative: Edenilson -- inherited this patient at change of shift pending abdominal x-rays. By my independent review show nonspecific bowel gas pattern. Labs are reviewed as well. Has similar elevations to bilirubin and lipase as prior at which point extensive imaging was done. History of recurrent unexplained abdominal pain. GI appointment is pending. Wonder if might be experiencing some spasming of structures that have been noted to be normal in prior investigation. Functional abdominal pain appears to be part of this diagnosis. I have reassessed again and is overall improved. Is able to drink a cup of water per his preference. Discussed pain management needs an antiemetic needs. Feels he can make a go of it at home. See patient discharge plan for further discussion From [facility] I am prescribing a small quantity of Percocet containing oxycodone and acetaminophen as well as some dissolvable Zofran for nausea. I would recommend a slow advance of diet over the next couple of days. Please follow-up has scheduled with your GI appointment at the end of the month. Return as needed. <Jalen Pyle MD - Last Filed: 11/04/24 21:44> Lab Data Labs: Lab Results 11/03/24 11/03/24 Range/Units 23:38 23:50 WBC 8.12 (4.50-11.00) K/uL RBC 3.57 L (4.30-5.90) m/uL Hgb 10.6 L (13.5-17.5) gm/dL Hct 32.6 L (37.0-53.0) % MCV 91 (80-100) fL MCH 30 (26-34) pg MCHC 33 (32-36) gm/dL RDW Coeff of Miguelina 13.3 (11.5-15.5) % Plt Count 165 (140-440) K/uL Neut % (Auto) 82.5 H (42.0-72.0) % Lymph % (Auto) 9.2 L (20-44) % [place] % (Auto) 6.8 (0.0-11.0) % Eos % (Auto) 0.9 (0.0-7.0) % Baso % (Auto) 0.2 (0.0-3.0) % Neut # (Auto) 6.70 (1.7-7.0) K/uL Lymph # (Auto) 0.70 L (0.90-2.90) K/uL [place] # (Auto) 0.60 (0.00-0.90) K/UL Eos # (Auto) 0.07 (0.00-0.50) K/uL Baso # (Auto) 0.02 (0.00-0.30) K/uL Abs Immat Gran (auto) 0.03 (0.00-0.30) K/uL Imm/Tot Granulo (auto) 0.4 % Sodium 138 (135-149) mmol/L Potassium 4.5 (3.6-5.1) mmol/L Chloride 111 (96-114) mmol/L Carbon Dioxide 19 L (20-32) mmol/L Anion Gap 8 (7-15) mEq/L BUN 49 H (7-30) mg/dL Creatinine 2.0 H (0.5-1.5) mg/dL Estimated Creat Clear 33.25 Estimated GFR 35 ml/min Glucose 114 (60-115) mg/dL Lactate 1.1 (0.5-1.9) mmol/L Calcium 9.4 (8.4-10.6) mg/dL Total Bilirubin 1.9 H (0.1-1.5) mg/dL Direct Bilirubin 1.1 H (0.0-0.5) mg/dL AST 104 H (12-35) U/L ALT 60 H (4-50) U/L Alkaline Phosphatase 125 (40-150) U/L C-Reactive Protein < 0.5 L (0.5-1.0) mg/dL Total Protein 6.2 (6.0-8.3) g/dL Albumin 3.9 (3.3-5.0) g/dL Lipase 324 H (23-300) U/L Procalcitonin 0.09 (<0.50) ng/mL Urine Color Yellow (Yellow) Urine Appearance Clear (Clear) Urine pH 6.0 (5.0-8.5) Ur Specific [place] 1.015 (1.000-1.030) Urine Protein 3+ A (Negative) Urine Glucose (UA) Negative (Negative) Urine Ketones Trace A (Negative) Urine Blood Trace-intact A (Negative) Urine Nitrite Negative (Negative) Urine Bilirubin Negative (Negative) Urine Urobilinogen 1.0 (0.2-1.0) Ur Leukocyte Esterase Negative (Negative) Urine RBC 0-2 (0-2) Urine WBC 0-2 (0-5) Ur Squamous Epith Cells Few (None-Few) Urine Bacteria None (None) <Mila Lindsay MD - Last Filed: 11/04/24 00:00> Lab Results 11/03/24 11/03/24 Range/Units 23:38 23:50 WBC 8.12 (4.50-11.00) K/uL RBC 3.57 L (4.30-5.90) m/uL Hgb 10.6 L (13.5-17.5) gm/dL Hct 32.6 L (37.0-53.0) % MCV 91 (80-100) fL MCH 30 (26-34) pg MCHC 33 (32-36) gm/dL RDW Coeff of Miguelina 13.3 (11.5-15.5) % Plt Count 165 (140-440) K/uL Neut % (Auto) 82.5 H (42.0-72.0) % Lymph % (Auto) 9.2 L (20-44) % [place] % (Auto) 6.8 (0.0-11.0) % Eos % (Auto) 0.9 (0.0-7.0) % Baso % (Auto) 0.2 (0.0-3.0) % Neut # (Auto) 6.70 (1.7-7.0) K/uL Lymph # (Auto) 0.70 L (0.90-2.90) K/uL [place] # (Auto) 0.60 (0.00-0.90) K/UL Eos # (Auto) 0.07 (0.00-0.50) K/uL Baso # (Auto) 0.02 (0.00-0.30) K/uL Abs Immat Gran (auto) 0.03 (0.00-0.30) K/uL Imm/Tot Granulo (auto) 0.4 % Sodium 138 (135-149) mmol/L Potassium 4.5 (3.6-5.1) mmol/L Chloride 111 (96-114) mmol/L Carbon Dioxide 19 L (20-32) mmol/L Anion Gap 8 (7-15) mEq/L BUN 49 H (7-30) mg/dL Creatinine 2.0 H (0.5-1.5) mg/dL Estimated Creat Clear 33.25 Estimated GFR 35 ml/min Glucose 114 (60-115) mg/dL Lactate 1.1 (0.5-1.9) mmol/L Calcium 9.4 (8.4-10.6) mg/dL Total Bilirubin 1.9 H (0.1-1.5) mg/dL Direct Bilirubin 1.1 H (0.0-0.5) mg/dL AST 104 H (12-35) U/L ALT 60 H (4-50) U/L Alkaline Phosphatase 125 (40-150) U/L C-Reactive Protein < 0.5 L (0.5-1.0) mg/dL Total Protein 6.2 (6.0-8.3) g/dL Albumin 3.9 (3.3-5.0) g/dL Lipase 324 H (23-300) U/L Procalcitonin 0.09 (<0.50) ng/mL Urine Color Yellow (Yellow) Urine Appearance Clear (Clear) Urine pH 6.0 (5.0-8.5) Ur Specific [place] 1.015 (1.000-1.030) Urine Protein 3+ A (Negative) Urine Glucose (UA) Negative (Negative) Urine Ketones Trace A (Negative) Urine Blood Trace-intact A (Negative) Urine Nitrite Negative (Negative) Urine Bilirubin Negative (Negative) Urine Urobilinogen 1.0 (0.2-1.0) Ur Leukocyte Esterase Negative (Negative) Urine RBC 0-2 (0-2) Urine WBC 0-2 (0-5) Ur Squamous Epith Cells Few (None-Few) Urine Bacteria None (None) <Jalen Pyle MD - Last Filed: 11/04/24 21:44> Discharge Plan Discharge Clinical Impression: Recurrent abdominal pain <Mila Lindsay MD - Last Filed: 11/04/24 00:00> Patient Disposition: Home, Self-Care <Mila Lindsay MD - Last Filed: 11/04/24 00:00> Condition: Improved <Mila Lindsay MD - Last Filed: 11/04/24 00:00> Additional Instructions: From [facility] I am prescribing a small quantity of Percocet containing oxycodone and acetaminophen as well as some dissolvable Zofran for nausea. I would recommend a slow advance of diet over the next couple of days. Please follow-up has scheduled with your GI appointment at the end of the month. Return as needed. <Mila Lindsay MD - Last Filed: 11/04/24 00:00> Prescriptions: No Action cabergoline 0.5 mg tablet 0.75 mg PO .Twice Weekly allopurinol 100 mg tablet 100 mg PO DAILY amlodipine 2.5 mg tablet 2.5 mg PO DAILY Qty: 90 3RF Rx Instructions: take with 5mg tab for total dose of 7.5 mg daily amlodipine 5 mg tablet 5 mg PO QDAY Qty: 90 3RF Rx Instructions: take with 2.5mg for daily dose of 7.5mg atorvastatin 40 mg tablet 40 mg PO QPM Qty: 90 3RF carvedilol 12.5 mg tablet 12.5 mg PO BID Qty: 180 3RF Rx Instructions: must administer with a meal/food chlorthalidone 25 mg tablet 25 mg PO QDAY Qty: 90 3RF eplerenone 25 mg tablet 25 mg PO DAILY Qty: 90 3RF losartan 100 mg tablet 100 mg PO QDAY Qty: 90 3RF metformin 850 mg tablet 850 mg PO BIDWMEAL Qty: 180 3RF hyoscyamine sulfate 0.125 mg tablet 0.125 - 0.25 mg PO Q4-6H PRN (Reason: abd pain) Qty: 30 1RF warfarin 4 mg tablet 4 mg PO DAILY Qty: 90 0RF Protocol: Dose Management Condition: Sunday Dose/Route: 4 mg Instruction: 1 x 4 mg tablet Condition: Sunday Dose/Route: 4 mg Instruction: 1 x 4 mg tablet Condition: Sunday Dose/Route: 4 mg Instruction: 1 x 4 mg tablet Condition: Sunday Dose/Route: 4 mg Instruction: 1 x 4 mg tablet Condition: Dose/Route: 6 mg Instruction: 1.5 x 4 mg tablets Condition: Sunday Dose/Route: 4 mg Instruction: 1 x 4 mg tablet Condition: Sunday Dose/Route: 4 mg Instruction: 1 x 4 mg tablet Protocol Text: Adjustment Start Date: 10/30/24 INR Value: 2.97 INR Date: 10/27/24 Recheck Date: 11/29/24 <Mila Lindsay MD - Last Filed: 11/04/24 00:00> Follow Up/Referrals: Frederick Krause MD [Primary Care Provider, Family Practice] <Mila Lindsay MD - Last Filed: 11/04/24 00:00> Stand Alone Forms: MyHealth Info Instructions <Mila Lindsay MD - Last Filed: 11/04/24 00:00>
[2024-11-03 23:42] VITALS: PULSE 46; RESP 20; O2SAT 97
[2024-11-03 23:45] VITALS: PULSE 36; RESP 15; O2SAT 98
[2024-11-03 23:50] LABS: Appearance Urine Clear (Clear)
[2024-11-03 23:53] LABS: Lactate* 1.1 mmol/L (0.5-1.9)
[2024-11-03] MEDS: ONDANSETRON 2 MG/ML inj 4 MG IVP (23:53)
[2024-11-03 23:54] LABS: Hematocrit 32.6 % (37.0-53.0); Hemoglobin* 10.6 gm/dL (13.5-17.5); Immature Granulocytes Abs Auto 0.03 K/uL (0.00-0.30); Immature Granulocytes Pct Auto 0.4 %; Mean Corpuscular HGB Conc 33 gm/dL (32-36); Mean Corpuscular Hemoglobin 30 pg (26-34); Mean Corpuscular Volume 91 fL (80-100); RDW Coefficient of Variation % 13.3 % (11.5-15.5); Red Blood Count 3.57 m/uL (4.30-5.90); White Blood Count* 8.12 K/uL (4.50-11.00)
[2024-11-03 23:55] LABS: Lymphocytes Absolute Auto 0.70 K/uL (0.90-2.90); Slide Review Reflex No
[2024-11-04] VITALS (7 sets, daily range): PULSE 40–57; RESP 13–17; O2SAT 95–100
--- NOTE | 2024-11-04 | CRLHL7_ITS ---
For Patients: As a result of the Century Cures Act, medical imaging exams and procedure reports are released immediately into your electronic medical record. You may view this report before your referring provider. If you have questions, please contact your health care provider. Indication: Abdominal pain. Technique: Abdomen 2 view. Comparison: CT abdomen pelvis 08/29/2024. Findings/Impression: Nonobstructive bowel gas pattern. No radiographic evidence of free intraperitoneal air. No suspicious soft tissue or osseous abnormality. Visualized portions of the lungs are clear. Dictated by Juan Rowe MD @ 11/04/2024 12:35:55 AM (Electronically Signed)
[2024-11-04 00:12] LABS: Albumin* 3.9 g/dL (3.3-5.0); Chloride* 111 mmol/L (96-114)
[2024-11-04 00:13] LABS: Potassium* 4.5 mmol/L (3.6-5.1); Sodium* 138 mmol/L (135-149)
[2024-11-04 00:15] LABS: Blood Urea Nitrogen* 49 mg/dL (7-30); Creatinine* 2.0 mg/dL (0.5-1.5); Est. Creatinine Clearance* 33.25; Estimated Glomerular Filt Rate 35 ml/min
[2024-11-04 00:16] LABS: Alanine Aminotransferase* 60 U/L (4-50); Alkaline Phosphatase* 125 U/L (40-150); Anion Gap 8 mEq/L (7-15); Aspartate Amino Transferase* 104 U/L (12-35); Bilirubin Direct* 1.1 mg/dL (0.0-0.5); Bilirubin Total* 1.9 mg/dL (0.1-1.5); Calcium* 9.4 mg/dL (8.4-10.6); Carbon Dioxide* 19 mmol/L (20-32); Glucose* 114 mg/dL (60-115); Total Protein* 6.2 g/dL (6.0-8.3)
[2024-11-04 00:33] LABS: Procalcitonin* 0.09 ng/mL (<0.50)
== END 2024-11-04 01:50 | disposition home or self-care (01) ==
PROVIDERS: Emergency Provider Family Medicine; PCP Family Medicine
DX: R10.11 Right upper quadrant pain (principal)
CPT/HCPCS: 36415; 74019; 80048; 80076; 81001; 83605; 83690; 84145; 85025; 86140; 87086; 96374; 96375; 99284; J1171; J2405

== ENCOUNTER 2024-11-10 09:26 | Outpatient (CLI) | payer MEDICARE, SELFPAY | END 2024-11-10 09:27 | disposition home or self-care (01) | LOC: NFLDREF 11-13 13:04 | PROVIDERS: PCP Family Medicine; Referring Provider Family Medicine; Visit Provider Internal Medicine Nephrology | DX: N28.89 Other specified disorders of kidney and ureter (principal); E11.22 Type 2 diabetes mellitus with diabetic chronic kidney disease; N18.30 Chronic kidney disease, stage 3 unspecified; I10 Essential (primary) hypertension; D64.9 Anemia, unspecified; E78.5 Hyperlipidemia, unspecified; Z79.01 Long term (current) use of anticoagulants | CPT/HCPCS: 80061; 80069; 82043; 82570; 82728; 83540; 83550; 83970; 84450; 84460; 84550; 85610; 86140 ==

== ENCOUNTER 2025-01-15 09:19 | Outpatient (CLI) | payer MEDICARE, SELFPAY ==
--- NOTE | 2025-01-15 09:45 | CRLHL7_ITS ---
For Patients: As a result of the Century Cures Act, medical imaging exams and procedure reports are released immediately into your electronic medical record. You may view this report before your referring provider. If you have questions, please contact your health care provider. INDICATION: Left renal mass. COMPARISON: Abdominal MRIs dated 09 June 2024 and 26 February 2023. TECHNIQUE: Abdominal MRI with T1 in- and out of phase, T2, diffusion weighted, and progressively delayed post-contrast images. Intravenous gadolinium administered. FINDINGS: No fatty infiltration of the liver. No focal abnormalities identified in the visualized portions of the liver, spleen, pancreas, and adrenal glands. A few cysts in the kidneys. 2.8 x 2.6 cm heterogeneous enhancing mass extending off the posterior aspect of the interpolar region of the left kidney is slightly increased in size, previously 2.6 x 2.4 cm. The kidneys are otherwise unremarkable. No hydronephrosis. No adenopathy. Impression : 1. 2.8 cm heterogeneous enhancing left renal mass is slightly increased in size and likely represents a renal cell carcinoma. Dictated by Fernando Coleman MD @ 01/17/2025 12:00:49 PM (Electronically Signed)
== END 2025-01-15 09:20 | disposition home or self-care (01) ==
LOC: MRI 09:19
PROVIDERS: PCP Family Medicine; Visit Provider Internal Medicine Nephrology
DX: N28.89 Other specified disorders of kidney and ureter (principal); N18.2 Chronic kidney disease, stage 2 (mild)
CPT/HCPCS: 74183; A9575

== ENCOUNTER 2025-02-23 08:25 | Outpatient (CLI) | payer MEDICARE, SELFPAY | END 2025-02-23 08:26 | disposition home or self-care (01) | LOC: NFLDREF 02-26 18:46 | PROVIDERS: PCP Family Medicine; Referring Provider Family Medicine; Visit Provider Family Medicine | DX: E11.21 Type 2 diabetes mellitus with diabetic nephropathy (principal); Z51.81 Encounter for therapeutic drug level monitoring; Z79.01 Long term (current) use of anticoagulants | CPT/HCPCS: 80053; 80061; 82043; 82570 ==